=== PATIENT | female | born 1940 | race Caucasian/White ===

== ENCOUNTER 2020-11-16 19:08 | Observation (INO) | payer MEDICARE, BC, SELFPAY ==
--- NOTE | ~2020-11-16 | CT_ITS ---
EXAMINATION: CT BRAIN W/O DATE: 11/16/2020 20:05 INDICATION: Altered mental status. Headache. TECHNIQUE: Computed tomography (CT) of the head was performed without intravenous contrast. The dose- length product was 605.33 mGy-cm. Automated exposure control and iterative reconstruction technique w ere employed. COMPARISON: No prior studies for comparison. FINDINGS: Normal brain parenchymal volume for age. Normal dee-white differentiation. No acute intrac ranial hemorrhage, infarction, mass or mass effect. There are scattered mild periventricular and subc ortical white matter changes, most likely related to small vessel ischemic disease (microangiopathy). No ventriculomegaly or midline shift. Midline sagittal images demonstrate a normal corpus callosum, c raniovertebral junction and sella turcica. Basilar cisterns are patent. Paranasal sinuses and mastoids are pneumatized. No depressed skull fractures. IMPRESSION: 1. No acute intracranial abnormality. Reviewed, dictated and finalized at location A.
--- NOTE | ~2020-11-16 | XR_ITS ---
EXAMINATION: XR chest 1V portable 11/16/2020 20:06 INDICATION: Shortness of breath. Altered mental status. PROCEDURE: AP portable chest COMPARISON: No prior studies for comparison. FINDINGS: The lungs are clear. The cardiomediastinal silhouette is within normal limits. There are no pleural effusions. There is no pneumothorax suspected. IMPRESSION: 1: NO ACUTE CARDIOPULMONARY DISEASE. Reviewed, dictated and finalized at location A.
[2020-11-16 19:08] VITALS: BP 147/79; PULSE 65; RESP 13; TEMP 36.6; O2SAT 97
--- NOTE | 2020-11-16 19:19 | ECG_ITS ---
Measurements Intervals [place] Rate: 69 P: 68 MO: 208 QRS: 15 QRSD: 90 T: 67 QT: 389 QTc: 417 Interpretive Statements SINUS RHYTHM LOW QRS VOLTAGE IN PRECORDIAL LEADS CONSIDER INFERIOR INFARCT, AGE INDETERMINATE BASELINE ARTIFACT- I, II, III, AVR, AVL, AVF, V1-V3 ABNORMAL ECG Electronically Signed On 11-17-2020 7:43:58 CDT by Mike Gonzalez D.O.
--- NOTE | 2020-11-16 19:22 | ED.AMS ---
HPI - Altered Mental Status General Chief Complaint: Headache Stated Complaint: AMB Time Seen by Provider: 11/16/20 19:19 Source: patient and EMS Mode of arrival: EMS Limitations: altered mental status History of Present Illness HPI narrative: 80-year-old woman brought in today by EMS for elevated blood pressure and changes in mental status. Family members brought her dinner this evening and found her sitting in her chair, less active than usual, and with elevated blood pressure. Patient states that she has had headache shortness of breath and diarrhea today. She denies cough, fever, vomiting, abdominal pain, rash, dysuria, falls and focal weakness. Blood pressure at the scene was reported to be 200s/100s, 190s over upper 90s on route to the hospital. MD complaint: altered mental status and weakness Onset (ago): hour(s) Severity: moderate Consistency of symptoms: constant Associated symptoms: headaches, malaise, shortness of breath and diarrhea Related Data Home Medications Medication Instructions Recorded Confirmed amlodipine 10 mg PO DAILY 11/16/20 11/16/20 atorvastatin 20 mg PO HS 11/16/20 11/16/20 esomeprazole magnesium 40 mg PO DAILY 11/16/20 11/16/20 gabapentin 100 mg PO DAILY 11/16/20 11/16/20 metoprolol tartrate 100 mg PO BID 11/16/20 11/16/20 nabumetone 750 mg PO DAILY 11/16/20 11/16/20 oxybutynin chloride 15 mg PO DAILY 11/16/20 11/16/20 sertraline 100 mg PO DAILY 11/16/20 11/16/20 Allergies Allergy/AdvReac Type Severity Reaction Status Date / Time ceftaroline fosamil Allergy Intermediate Rash Verified 12/03/15 09:20 Penicillins Allergy Intermediate Rash Verified 12/03/15 09:20 Sulfa (Sulfonamide Allergy Intermediate Rash Verified 12/03/15 09:20 Antibiotics) Review of Systems Review of Systems: All systems reviewed & are unremarkable except as noted in HPI and below Constitutional: Constitutional: Denies chills, Reports fatigue, Denies fever(s) and Reports weakness Eyes: Eyes: Denies change in vision ENT: Denies nasal congestion and Denies sore throat Cardiovascular: Cardiovascular: Denies chest pain and Denies radiating jaw, neck or arm pain Respiratory: Respiratory: Denies cough, Reports dyspnea and Denies wheezing Gastrointestinal: Gastrointestinal: Denies abdominal pain, Reports diarrhea, Denies nausea and Denies vomiting Genitourinary: Genitourinary: Reports nocturia and Denies dysuria Musculoskeletal: Musculoskeletal: Denies arthralgias and Denies joint swelling Integumentary/Breasts: Skin/Breast: Denies pruritus, Denies erythema and Denies rash Neurologic: Denies vertigo, Denies dizziness and Denies syncope Hematologic/Lymphatic: Hematologic/Lymphatic: Denies easy bleeding and Denies easy bruising PMF Past Medical History Medical History (Updated 11/16/20 @ 21:02 by Pilo Calhoun MD) Arthritis Depression Frequent urination Hyperlipidemia Hypertension Restless leg syndrome Surgical History Surgical History (Updated 11/16/20 @ 19:35 by Pilo Calhoun MD) Above knee amputation of left lower extremity left knee infection after surgery History of partial hysterectomy Previous back surgery Social History Social History (Updated 11/16/20 @ 19:35 by Pilo Calhoun MD) Smoking status: Never smoker Alcohol intake: never Substance use: never Living arrangements: with family Exam Const: General: no acute distress and alert Other: oriented to person Eyes: Conjunctivae: conjunctivae normal Pupils: Equal, round and reactive pupils present EOM: EOMs intact bilaterally Resp: Effort & Inspection: normal respiratory effort and not labored Auscultation: clear to auscultation bilaterally, no rales, no rhonchi and no wheezes Cardio: Rate: regular rate Rhythm: regular rhythm Heart sounds: no murmurs GI: GI Palp: Yes Soft to palpation, No Tenderness to palpation present (GI) and No Guarding due to palpation present (GI) Auscultation: normal bowel
[2020-11-16 19:41] LABS: Basophils Absolute Auto 0.02 K/mm3 (0.00-0.10); Basophils Percent Auto 0.3 % (0.0-1.0); Eosinophils Absolute Auto 0.05 K/mm3 (0.02-0.50); Eosinophils Percent Auto 0.8 % (1.0-6.0); Hemoglobin 13.8 g/dL (11.7-13.8); Immature Granulocyte Absolute 0.02 K/mm3 (0.00-0.00); Immature Granulocyte Percent A 0.3 % (0.0-0.0); Lymphocytes Absolute Auto 2.11 K/mm3 (1.10-4.50); Lymphocytes Percent Auto 35.1 % (18.0-42.0); Mean Corpuscular HGB Conc 32.9 g/dL (32.0-36.0); Mean Corpuscular Hemoglobin 30.3 pg (27.0-31.0); Mean Corpuscular Volume 92.1 fL (78.0-102.0); Mean Platelet Volume 9.4 fl (9.2-11.8); Monocytes Percent Auto 8.3 % (2.0-11.0); Neutrophils Absolute Auto 3.3 K/mm3 (1.7-7.2); Neutrophils Percent Auto 55.2 % (50.0-70.0); Platelet Count Result 162 K/mm3 (150-420); Red Blood Count 4.56 M/mm3 (4.20-5.40)
[2020-11-16 19:55] LABS: Prothrombin Time 10.4 Seconds (9.50-12.10)
[2020-11-16 20:01] LABS: Alanine Aminotransferase 24 U/L (14-59); Alkaline Phosphatase 89 U/L (46-116); Anion Gap 11 mmol/L (8-16); Aspartate Amino Transferase 19 U/L (15-37); Bilirubin,Total 0.4 mg/dL (0.00-1.00); Blood Urea Nitrogen 31 mg/dL (7-18); CRP < 0.5 mg/dL (0.0-0.9); Calcium 9.1 mg/dL (8.5-10.1); Carbon Dioxide 27 mmol/L (21-32); Chloride 100 mmol/L (98-108); Estimated CRCL calculation 52 ml/min; Estimated Glomerular Filt Rate > 60; Glucose 111 mg/dL (70-99); Osmolality Calculated 293 mOsm/kg (285-295); Sodium 138 mmol/L (136-145); Total Protein 7.7 g/dL (6.4-8.2)
[2020-11-16 20:02] LABS: Troponin I 4.8 ng/L (0.00-60.4)
[2020-11-16 20:21] LABS: Add Urine Microscopic? YES; Appearance Urine Clear (Clear); Bilirubin Urine Negative (Negative); Blood Urine Negative (Negative); Color Urine Yellow (Yellow); Glucose Urine UA Negative (Negative); Ketones Urine Negative (Negative); Leukocyte Esterase Ur Negative LEU/UL (Negative); Nitrate Urine Positive (Negative); Protein Urine Negative (Negative); Specific Grav Ur 1.015 (1.010-1.020); Urobilinogen Urine 0.2 mg/dL (0.2-1.0)
[2020-11-16 20:27] LABS: Bacteria Urine 4+ /hpf; RBC Urine 0-2 /hpf (0-2); Squamous Epithelial Cell Urine Rare /hpf (Few); WBC Urine 0-3 /hpf (0-3)
[2020-11-16 20:30] LABS: SARS-CoV-2 RNA PCR Negative (Negative)
--- NOTE | 2020-11-16 20:55 | PC.NURSE ---
RN CONTACTED [facility] FOR OBS BED. ROOM 205 PROVIDED. REGISTRATION NOTIFIED.
[2020-11-16 21:03] LABS: Influenza Control Valid (Valid)
[2020-11-16 21:38] VITALS: BP 109/50; PULSE 65; RESP 12; O2SAT 93
--- NOTE | 2020-11-16 22:16 | ADMGEN ---
This patient, Marissa Sue, was admitted to 2nd Floor Room 205-2. Patient oriented to hospital policies and general routines including ID bracelet, bed and alarms, visiting hours, pain management, procedures, bathroom and other care routines, personal items, smoking policy, room service/diet, and visiting hours. Information on how to activate the Rapid Response Team has been discussed. Patient are encouraged to report perceived risks to care and to ask questions if they do not understand what they are told or what they should do.
[2020-11-16 22:19] VITALS: BMI 31.5
[2020-11-16 22:55] VITALS: PULSE 70
[2020-11-16] MEDS: METOPROLOL TARTRATE 50 MG TAB 100 MG PO (22:55)
[2020-11-16] MEDS: ATORVASTATIN 10 MG TABLET 20 MG PO (22:56)
[2020-11-16] MEDS: DEXTROSE 5%/LACTATED RINGERS 1,000 ML 150 ML IV CONT (22:57)
[2020-11-17] VITALS: BP 120/59; PULSE 72; RESP 16; TEMP 36.4; O2SAT 95
[2020-11-17 05:27] LABS: Basophils Absolute Auto 0.02 K/mm3 (0.00-0.10); Basophils Percent Auto 0.4 % (0.0-1.0); Eosinophils Absolute Auto 0.07 K/mm3 (0.02-0.50); Eosinophils Percent Auto 1.3 % (1.0-6.0); Hematocrit 37.9 % (35.0-42.0); Hemoglobin 12.2 g/dL (11.7-13.8); Immature Granulocyte Absolute 0.02 K/mm3 (0.00-0.00); Immature Granulocyte Percent A 0.4 % (0.0-0.0); Lymphocytes Absolute Auto 2.21 K/mm3 (1.10-4.50); Lymphocytes Percent Auto 40.9 % (18.0-42.0); Mean Corpuscular HGB Conc 32.2 g/dL (32.0-36.0); Mean Corpuscular Hemoglobin 29.6 pg (27.0-31.0); Mean Platelet Volume 9.4 fl (9.2-11.8); Monocytes Absolute Auto 0.53 K/mm3 (0.10-0.90); Monocytes Percent Auto 9.8 % (2.0-11.0); Neutrophils Absolute Auto 2.6 K/mm3 (1.7-7.2); Neutrophils Percent Auto 47.2 % (50.0-70.0); Platelet Count Result 139 K/mm3 (150-420); Red Blood Count 4.12 M/mm3 (4.20-5.40); Red Cell Distribution Width 16.2 % (11.6-14.4); White Blood Count 5.4 K/mm3 (4.8-10.8)
[2020-11-17 05:50] LABS: Alanine Aminotransferase 19 U/L (14-59); Albumin Level 3.3 g/dL (3.4-5.0); Alkaline Phosphatase 76 U/L (46-116); Anion Gap 10 mmol/L (8-16); Aspartate Amino Transferase 16 U/L (15-37); Bilirubin,Total 0.3 mg/dL (0.00-1.00); Blood Urea Nitrogen 25 mg/dL (7-18); Calcium 8.9 mg/dL (8.5-10.1); Carbon Dioxide 25 mmol/L (21-32); Chloride 105 mmol/L (98-108); Estimated CRCL calculation 57 ml/min; Estimated Glomerular Filt Rate > 60; Glucose 105 mg/dL (70-99); Osmolality Calculated 294 mOsm/kg (285-295); Potassium 3.8 mmol/L (3.5-5.1); Sodium 140 mmol/L (136-145); Total Protein 6.7 g/dL (6.4-8.2)
[2020-11-17 05:51] LABS: Lactic Acid Reflex 0.8 mmol/L (0.4-2.0)
[2020-11-17] MEDS: DEXTROSE 5%/LACTATED RINGERS 1,000 ML 150 ML IV CONT (06:02)
[2020-11-17 08:00] VITALS: BP 121/61; PULSE 67; RESP 16; TEMP 36.6; O2SAT 94
--- NOTE | 2020-11-17 08:06 | PM.IMHP ---
H&P: HPI History of Present Illness Date/Time: 11/17/20 08:06 Disregard Pt was same day admit/DC. [facility] Past Medical History Medical History (Updated 11/16/20 @ 21:02 by Pilo Calhoun MD) Arthritis Depression Frequent urination Hyperlipidemia Hypertension Restless leg syndrome Surgical History Surgical History (Updated 11/16/20 @ 19:35 by Pilo Calhoun MD) Above knee amputation of left lower extremity left knee infection after surgery History of partial hysterectomy Previous back surgery Social History Social History (Updated 11/16/20 @ 19:35 by Pilo Calhoun MD) Smoking status: Never smoker Second hand tobacco smoke exposure: No Alcohol intake: former Drinks per week: 0 Substance use: never Substance use type: does not use Living arrangements: with family Gender identity (if verbalized by the patient): Female Sexual Orientation (if Verbalized by the Patient): Straight or Heterosexual Spiritual care concerns: No Meds Home Medications and Allergies Home Medications Medication Instructions Recorded Confirmed Type amlodipine 10 mg PO DAILY 11/16/20 11/16/20 History atorvastatin 20 mg PO HS 11/16/20 11/16/20 History esomeprazole magnesium 40 mg PO DAILY 11/16/20 11/16/20 History gabapentin 100 mg PO HS 11/16/20 11/16/20 History metoprolol tartrate 100 mg PO DAILY 11/16/20 11/16/20 History nabumetone 750 mg PO BID 11/16/20 11/16/20 History oxybutynin chloride 15 mg PO DAILY 11/16/20 11/16/20 History sertraline 200 mg PO DAILY 11/16/20 11/16/20 History Allergies Allergy/AdvReac Type Severity Reaction Status Date / Time ceftaroline fosamil Allergy Intermediate Rash Verified 12/03/15 09:20 Penicillins Allergy Intermediate Rash Verified 12/03/15 09:20 Sulfa (Sulfonamide Allergy Intermediate Rash Verified 12/03/15 09:20 Antibiotics) Vital Signs Vital Signs - 24 hr 11/16/20 19:08 11/16/20 21:38 11/16/20 22:55 Temperature 97.9 F Pulse Rate 65 65 70 Respiratory Rate 13 12 Blood Pressure 147/79 H 109/50 L Pulse Oximetry 97 93 11/17/20 00:00 Temperature 97.6 F Pulse Rate 72 Respiratory Rate 16 Blood Pressure 120/59 L Pulse Oximetry 95 H&P: Results Labs Labs: Short CBC 11/16/20 11/17/20 Range/Units 19:34 05:16 WBC 6.0 5.4 (4.8-10.8) K/mm3 Hgb 13.8 12.2 (11.7-13.8) g/dL Hct 42.0 37.9 (35.0-42.0) % Plt Count 162 139 L (150-420) K/mm3 BMP 11/16/20 11/17/20 19:34 05:16 Sodium 138 140 Potassium 4.0 3.8 Chloride 100 105 Carbon Dioxide 27 25 BUN 31 H 25 H Creatinine 0.72 0.68 Glucose 111 H 105 H Calcium 9.1 8.9 Cardiac Enzymes 11/16/20 11/17/20 11/17/20 Range/Units 19:34 00:31 05:16 Troponin I 4.8 6.0 7.0 (0.00-60.4) ng/L Liver Function 11/16/20 11/17/20 Range/Units 19:34 05:16 Total Bilirubin 0.4 0.3 (0.00-1.00) mg/dL AST 19 16 (15-37) U/L ALT 24 19 (14-59) U/L Alkaline Phosphatase 89 76 (46-116) U/L Albumin 4.0 3.3 L (3.4-5.0) g/dL Urine 11/16/20 Range/Units 20:11 Urine Color Yellow (Yellow) Urine Appearance Clear (Clear) Urine pH 5.0 (5.0-8.0) Ur Specific [place] 1.015 (1.010-1.020) Urine Protein Negative (Negative) Urine Glucose (UA) Negative (Negative)
[2020-11-17 08:17] VITALS: PULSE 67
[2020-11-17] MEDS: METOPROLOL TARTRATE 50 MG TAB 100 MG PO (08:17)
[2020-11-17] MEDS: amLODIPine BESYLATE 5 MG TABLET 10 MG PO (08:17)
[2020-11-17] MEDS: GABAPENTIN 100 MG CAPSULE PO (08:17)
[2020-11-17] MEDS: SERTRALINE HCL 50 MG TABLET 100 MG PO (08:18)
[2020-11-17] MEDS: NAPROXEN 250 MG TABLET 500 MG PO (08:18)
[2020-11-17] MEDS: PANTOPRAZOLE 40 MG TABLET PO (08:18)
--- NOTE | 2020-11-17 11:33 | PM.SD2 ---
Same Day Admit/Disch: HPI History of Present Illness Chief complaint: AMB <RENATE Max - Last Filed: 11/17/20 13:12> Narrative: Marissa Sue is an 80 year old female who came to the hospital after she was found by her son sitting in a chair with a long distance look to her eyes. Pt states she had a sudden onset of a [place] at the front/top of her head. She sat down because she did not feel very well. At that time she either took her BP or BP was obtained by EMS and found to be as reported in the ER note 200s/100s. Pt states she did not forget to take her medications but she also states she does not remember when this happened nor for how long this happened. Pt denies CP, COB, changes in vision, hearing, no numbness or tingling, no pain with palpation or pressure on sternum. Pt states she has a little pain to the right groin area and lower abdomen. Her right foot is bluish from the ankle down with many varicose veins which she said has been that was since her Left AKA in 2011. She denies any new swelling, calf pain, upper leg pain, she does have pain when lifting her right leg. <RENATE Max - Last Filed: 11/17/20 13:12> [facility] Past Medical History Medical History: Medical History Arthritis Depression Frequent urination Hyperlipidemia Hypertension Restless leg syndrome <RENATE Max - Last Filed: 11/17/20 13:12> Surgical History Surgical History: Surgical History Above knee amputation of left lower extremity left knee infection after surgery History of partial hysterectomy Previous back surgery <RENATE Max - Last Filed: 11/17/20 13:12> Social History Social History: Social History Smoking status: Never smoker Second hand tobacco smoke exposure: No Alcohol intake: former Drinks per week: 0 Substance use: never Substance use type: does not use Living arrangements: with family Gender identity (if verbalized by the patient): Female Sexual Orientation (if Verbalized by the Patient): Straight or Heterosexual Spiritual care concerns: No <RENATE Max - Last Filed: 11/17/20 13:12> Same Day Admit/Disch: Med Pre-admit Medications Home Medications: Home Medications Medication Instructions Recorded Confirmed Type amlodipine 10 mg PO DAILY 11/16/20 11/16/20 History atorvastatin 20 mg PO HS 11/16/20 11/16/20 History esomeprazole magnesium 40 mg PO DAILY 11/16/20 11/16/20 History gabapentin 100 mg PO HS 11/16/20 11/16/20 History metoprolol tartrate 100 mg PO DAILY 11/16/20 11/16/20 History nabumetone 750 mg PO BID 11/16/20 11/16/20 History oxybutynin chloride 15 mg PO DAILY 11/16/20 11/16/20 History sertraline 200 mg PO DAILY 11/16/20 11/16/20 History levofloxacin 750 mg PO DAILY 4 Days #4 tablet 11/17/20 Rx <DINESH Max - Last Filed: 11/17/20 13:12> Exam Const: General: cooperative, comfortable, no acute distress, alert and awake <RENATE Max - Last Filed: 11/17/20 13:12> Nutritional Appearance: overweight <RENATE Max - Last Filed: 11/17/20 13:12> HENMT: Head: normal to inspection and normocephalic <RENATE Max - Last Filed: 11/17/20 13:12> Ears: other (a little [place], has hearing aids but not scharged sidney) <RENATE Max - Last Filed: 11/17/20 13:12> Eyes: General: appearance normal, both eyes and all related structures <RENATE Max - Last Filed: 11/17/20 13:12> Alignment and Position: alignment normal and position normal <RENATE Max - Last Filed: 11/17/20 13:12> Neck: Neck: normal visual inspection and no JVD <RENATE Max - Last Filed: 11/17/20 13:12> Chest: Chest palpation & inspection: other (normal palpation sternum without pain) <RENATE Max Las
--- NOTE | 2020-11-17 13:20 | PC.NURSE ---
Reviewed discharge instructions with patient and son. Assisted patient to dress, transferred patient to wheelchair. Taken off floor per wheelchair to main entrance, son waiting with family vehicle.
--- NOTE | 2020-11-20 13:07 | PC.NURSE ---
Follow up call attempted, no answer.
--- NOTE | 2020-11-21 12:36 | PC.NURSE ---
discharge call back attempted and no answer.
== END 2020-11-17 13:20 | disposition home or self-care (01) ==
LOC: CHSED 19:19 → CHS2ND 21:00
PROVIDERS: Admitting Provider Emergency Medicine; Emergency Provider Emergency Medicine; Visit Provider Emergency Medicine
DX: N39.0 Urinary tract infection, site not specified (principal); E86.0 Dehydration; R06.02 Shortness of breath; E78.5 Hyperlipidemia, unspecified; I83.91 Asymptomatic varicose veins of right lower extremity; I10 Essential (primary) hypertension; G25.81 Restless legs syndrome; F32.9 Major depressive disorder, single episode, unspecified; Z89.612 Acquired absence of left leg above knee; Z90.711 Acquired absence of uterus with remaining cervical stump; Z20.822 Contact with and (suspected) exposure to COVID-19
CPT/HCPCS: 36415; 70450; 71045; 80053; 81001; 83605; 84484; 85025; 85610; 85730; 86140; 87040; 87077; 87086; 87088; 87186; 87804; 93005; 96361; 96365; 99285; A9270; C9803; G0378; J1956; J7121; U0003; U0005

== ENCOUNTER 2021-12-19 20:36 | Inpatient (IN) | payer MEDICARE, BC, SELFPAY ==
[2021-12-19] VITALS (10 sets, daily range): BP systolic 128–134; BP diastolic 71–83; PULSE 79; RESP 18; TEMP 36.9; O2SAT 89–95
--- NOTE | ~2021-12-19 | XR_ITS ---
XR chest 1V portable DATE: 12/21/2021 08:59 INDICATION: Hypoxia TECHNIQUE: Portable upright AP chest on 12/21/2021 at 0903 hours COMPARISON: 12/19/2021 portable AP chest at 2132 hours FINDINGS: Heart size appears normal. Is aortic arch calcification and mild aortic tortuosity. No [place] r or mediastinal enlargement is evident. Moderate hyperinflation of the lungs. No pulmonary infiltrate or consolidation, pleural effusion or p ulmonary vascular congestion or pneumothorax is noted. Old posterolateral right sixth rib fracture. A portion of the lateral aspect of the right eighth rib appears absent, possibly due to prior right thoracotomy; recommend correlation with surgical history. Osteopenia. There is some calcification in the region of the rotator cuff right shoulder; consider calcific tendi nitis. IMPRESSION: Moderate hyperinflation is about no active pulmonary disease Aortic atherosclerosis Osteopenia Possible rotator cuff calcific tendinitis of the right Possible prior right thoracotomy segment recommend correlation with surgical history Reviewed, dictated and finalized at location A. IMPRESSION: Moderate hyperinflation is about no active pulmonary disease Aortic atherosclerosis Osteopenia Possible rotator cuff calcific tendinitis of the right Possible prior right thoracotomy segment recommend correlation with surgical hi story
--- NOTE | ~2021-12-19 | XR_ITS ---
EXAMINATION: XR chest 1V portable INDICATION: Weakness TECHNIQUE: Portable AP chest at 2132 hours COMPARISON: 11/16/2020 FINDINGS: The lungs are free of acute opacities. No pleural effusion or pneumothorax. The cardiomedia stinal silhouette is normal. There is moderate to severe left glenohumeral joint osteoarthritis. Heal ed right-sided rib fractures are noted. IMPRESSION: 1. No acute cardiopulmonary abnormality. Reviewed, dictated and finalized at location F.
--- NOTE | 2021-12-19 21:02 | ECG_ITS ---
Measurements Intervals [place] Rate: 79 P: 56 [place]: 192 QRS: 25 QRSD: 90 T: 66 QT: 386 QTc: 443 Interpretive Statements SINUS RHYTHM LOW QRS VOLTAGE IN PRECORDIAL LEADS BASELINE ARTIFACT- I, II, III, AVR, AVL, AVF, V1-V3, V6 BORDERLINE ECG Electronically Signed On 12-20-2021 6:38:06 CDT by Mike Gonzalez D.O.
--- NOTE | 2021-12-19 21:05 | ED.GENADULT ---
HPI - General Adult General Chief complaint: Weakness Stated complaint: AMB Source: patient and EMS Mode of arrival: EMS Limitations: physical limitation History of Present Illness HPI narrative: this is 81-year-old female that presents from home via EMS after for the last couple of days has felt increased weakness and unable to stand with her walker and artificial left lower extremity, since the patient has some above knee amputation secondary to an infection that she acquired. Currently the patient feels there is weakness with some no dysuria no chest pain no abdominal pain no shortness of breath no nausea vomiting no flank pain. The patient has a history of hypertension, depression, peripheral neuropathy and hyperlipidemia. Otherwise there is no fever chills no cough or congestion. Onset (ago): day(s) Severity: moderate Related Data Home Medications Medication Instructions Recorded Confirmed amlodipine 10 mg tablet 10 mg PO DAILY 11/16/20 11/16/20 atorvastatin 20 mg tablet 20 mg PO HS 11/16/20 11/16/20 esomeprazole magnesium 40 mg 40 mg PO DAILY 11/16/20 11/16/20 capsule,delayed release gabapentin 100 mg capsule 100 mg PO HS 11/16/20 11/16/20 metoprolol tartrate 100 mg tablet 100 mg PO DAILY 11/16/20 11/16/20 sertraline 100 mg tablet 200 mg PO DAILY 11/16/20 11/16/20 Allergy Relief (loratadine) 10 mg DAILY PRN seasonal 12/19/21 12/19/21 PreserVision AREDS-2 1 cap DAILY 12/19/21 12/19/21 bupropion HCl 150 mg 24 hr tablet, 1 tablet PO DAILY 12/19/21 12/19/21 extended release famotidine 20 mg DAILY 12/19/21 12/19/21 fluticasone propionate 50 1 ea intranasal DAILY PRN 12/19/21 12/19/21 mcg/actuation nasal Congestion spray,suspension losartan 100 mg tablet 1 tablet DAILY 12/19/21 12/19/21 mirabegron 50 mg tablet,extended 1 tablet PO DAILY 12/19/21 12/19/21 release 24 hr (Myrbetriq) Allergies Allergy/AdvReac Type Severity Reaction Status Date / Time ceftaroline fosamil Allergy Intermediate Rash Verified 12/19/21 23:09 Penicillins Allergy Intermediate Rash Verified 12/19/21 23:09 Sulfa (Sulfonamide Allergy Intermediate Rash Verified 12/19/21 23:09 Antibiotics) Review of Systems Review of Systems: All systems reviewed & are unremarkable except as noted in HPI and below PMFSH Past Medical History Medical History Arthritis Depression Frequent urination Hyperlipidemia Hypertension Restless leg syndrome Surgical History Surgical History Above knee amputation of left lower extremity left knee infection after surgery History of partial hysterectomy Previous back surgery Social History Social History Smoking status: Never smoker Second hand tobacco smoke exposure: No Alcohol intake: former Drinks per week: 0 Substance use: never Substance use type: does not use Gender identity (if verbalized by the patient): Female Sexual Orientation (if Verbalized by the Patient): Straight or Heterosexual Spiritual care concerns: No Exam Const: General: healthy appearing and no acute distress Nutritional Appearance: well nourished HENMT: Head: normal to inspection General nose exam: Normal external nose present Face and sinus: normal facial exam Mouth: Yes Normal oral and palatal mucosa present Eyes: Conjunctivae: conjunctivae normal Neck: Neck: normal visual inspection Chest: Chest palpation & inspection: normal inspection of the chest Resp: Effort & Inspection: normal respiratory effort Cardio: Rate: regular rate Rhythm: regular rhythm GI: GI Palp: Yes Soft to palpation Auscultation: normal bowel sounds : General: Yes bladder normal to palpation Urinary Catheter: Urinary Catheter: patent and draining Back/Spine/Pelvis: Back: no CVA tenderness Skin: General skin exam: normal color Rashes: no rashes W
[2021-12-19] MEDS: SODIUM CHLORIDE 0.9% IV 1,000 ML 999 ML IV CONT (21:24)
[2021-12-19 21:31] LABS: Basophils Absolute Auto 0.01 K/mm3 (0.00-0.10); Basophils Percent Auto 0.1 % (0.0-1.0); Eosinophils Absolute Auto 0.03 K/mm3 (0.02-0.50); Eosinophils Percent Auto 0.4 % (1.0-6.0); Hematocrit 40.7 % (35.0-42.0); Hemoglobin 13.1 g/dL (11.7-13.8); Immature Granulocyte Absolute 0.02 K/mm3 (0.00-0.00); Immature Granulocyte Percent A 0.3 % (0.0-0.0); Lymphocytes Absolute Auto 2.47 K/mm3 (1.10-4.50); Lymphocytes Percent Auto 33.7 % (18.0-42.0); Mean Corpuscular HGB Conc 32.2 g/dL (32.0-36.0); Mean Corpuscular Hemoglobin 29.6 pg (27.0-31.0); Mean Corpuscular Volume 91.9 fL (78.0-102.0); Mean Platelet Volume 9.7 fl (9.2-11.8); Monocytes Percent Auto 9.6 % (2.0-11.0); Neutrophils Absolute Auto 4.1 K/mm3 (1.7-7.2); Neutrophils Percent Auto 55.9 % (50.0-70.0); Platelet Count Result 176 K/mm3 (150-420); Red Blood Count 4.43 M/mm3 (4.20-5.40); Red Cell Distribution Width 18.6 % (11.6-14.4); White Blood Count 7.3 K/mm3 (4.8-10.8)
[2021-12-19 21:54] LABS: Lactic Acid Reflex 0.7 mmol/L (0.4-2.0)
[2021-12-19 21:55] LABS: Alanine Aminotransferase 22 U/L (14-59); Albumin Level 3.8 g/dL (3.4-5.0); Alkaline Phosphatase 105 U/L (46-116); Anion Gap 9 mmol/L (8-16); Aspartate Amino Transferase 22 U/L (15-37); Bilirubin,Total 0.3 mg/dL (0.00-1.00); Blood Urea Nitrogen 29 mg/dL (7-18); CRP 3.3 mg/dL (0.0-0.9); Carbon Dioxide 26 mmol/L (21-32); Chloride 101 mmol/L (98-108); Estimated CRCL calculation 54 ml/min; Estimated Glomerular Filt Rate > 60; Glucose 123 mg/dL (70-99); NT Pro B Type Natriuretic Pept 247 pg/mL (0-450); Osmolality Calculated 288 mOsm/kg (285-295); Potassium 3.8 mmol/L (3.5-5.1); Sodium 136 mmol/L (136-145); Total Protein 7.7 g/dL (6.4-8.2); Troponin I 10.7 ng/L (0.00-60.4)
[2021-12-19 22:33] LABS: Add Urine Microscopic? YES; Appearance Urine Clear (Clear); Bilirubin Urine Negative (Negative); Blood Urine Negative (Negative); Color Urine Light Yellow (Yellow); Glucose Urine UA Negative (Negative); Ketones Urine Negative (Negative); Leukocyte Esterase Ur Trace (Negative); Nitrate Urine Positive (Negative); Protein Urine Negative (Negative); Specific Grav Ur 1.015 (1.010-1.020); Urobilinogen Urine 0.2 mg/dL (0.2-1.0)
[2021-12-19 22:39] LABS: Bacteria Urine 4+ /hpf; RBC Urine 0-2 /hpf (0-2); Squamous Epithelial Cell Urine Rare /hpf (Few)
[2021-12-19] MEDS: levoFLOXacin 500 MG/D5W 100 ML 500 MG/100 ML BAG 100 MG IVPB (23:32)
[2021-12-20] VITALS (11 sets, daily range): BP systolic 108–151; BP diastolic 54–71; PULSE 82–88; RESP 17–20; TEMP 36.9–37.7; O2SAT 88–94; BMI 31.7
[2021-12-20] MEDS: SODIUM CHLORIDE 0.9% IV 1,000 ML 100 ML IV CONT ×2 (01:16→13:54)
--- NOTE | 2021-12-20 01:59 | ADMGEN ---
This patient, Marissa Sue, was admitted to 2nd Floor Room 209-1. Patient was oriented to hospital policies and general routines including ID bracelet, bed and alarms, pain management, procedures, bathroom and other care routines, personal items, smoking policy, room service/diet, and visiting hours. Information on how to activate the Rapid Response Team has been discussed. Patient is encouraged to report perceived risks to care and to ask questions if she does not understand what she is told or what she should do.
[2021-12-20 08:15] LABS: Basophils Absolute Auto 0.01 K/mm3 (0.00-0.10); Basophils Percent Auto 0.2 % (0.0-1.0); Eosinophils Absolute Auto 0.03 K/mm3 (0.02-0.50); Eosinophils Percent Auto 0.5 % (1.0-6.0); Hematocrit 35.5 % (35.0-42.0); Hemoglobin 11.5 g/dL (11.7-13.8); Immature Granulocyte Absolute 0.02 K/mm3 (0.00-0.00); Immature Granulocyte Percent A 0.3 % (0.0-0.0); Lymphocytes Absolute Auto 1.79 K/mm3 (1.10-4.50); Lymphocytes Percent Auto 27.7 % (18.0-42.0); Mean Corpuscular HGB Conc 32.4 g/dL (32.0-36.0); Mean Corpuscular Hemoglobin 29.5 pg (27.0-31.0); Mean Platelet Volume 9.7 fl (9.2-11.8); Monocytes Percent Auto 10.8 % (2.0-11.0); Neutrophils Absolute Auto 3.9 K/mm3 (1.7-7.2); Neutrophils Percent Auto 60.5 % (50.0-70.0); Platelet Count Result 142 K/mm3 (150-420); Red Cell Distribution Width 18.5 % (11.6-14.4); White Blood Count 6.5 K/mm3 (4.8-10.8)
[2021-12-20 08:30] LABS: Alanine Aminotransferase 24 U/L (14-59); Albumin Level 3.2 g/dL (3.4-5.0); Alkaline Phosphatase 84 U/L (46-116); Anion Gap 9 mmol/L (8-16); Aspartate Amino Transferase 18 U/L (15-37); Bilirubin,Total 0.5 mg/dL (0.00-1.00); Blood Urea Nitrogen 21 mg/dL (7-18); Calcium 8.6 mg/dL (8.5-10.1); Carbon Dioxide 25 mmol/L (21-32); Chloride 105 mmol/L (98-108); Estimated CRCL calculation 60 ml/min; Estimated Glomerular Filt Rate > 60; Glucose 114 mg/dL (70-99); Osmolality Calculated 292 mOsm/kg (285-295); Potassium 3.8 mmol/L (3.5-5.1); Sodium 139 mmol/L (136-145); Total Protein 6.7 g/dL (6.4-8.2)
[2021-12-20] MEDS: buPROPion HCL XL (24 HR) 150 MG TABCR PO (09:28)
[2021-12-20] MEDS: LORATADINE 10 MG TABLET PO (09:28)
[2021-12-20] MEDS: MIRABEGRON 25 MG ER TABLET 50 MG PO (09:28)
[2021-12-20] MEDS: METOPROLOL TARTRATE 50 MG TAB 100 MG PO (09:29)
[2021-12-20] MEDS: LOSARTAN POTASSIUM 50 MG TABLET 100 MG PO (09:30)
[2021-12-20] MEDS: FAMOTIDINE 20 MG TABLET PO (09:30)
[2021-12-20] MEDS: GABAPENTIN 100 MG CAPSULE PO ×3 (09:30→16:55)
[2021-12-20] MEDS: SERTRALINE HCL 50 MG TABLET 200 MG PO (09:31)
[2021-12-20] MEDS: amLODIPine BESYLATE 5 MG TABLET 10 MG PO (09:31)
[2021-12-20] MEDS: PANTOPRAZOLE SODIUM IV 40 MG VIAL IV PUSH (09:32)
--- NOTE | 2021-12-20 11:47 | PC.NURSE ---
1130 change pateint to inpatient staus at this time.
--- NOTE | 2021-12-20 11:58 | PM.IMHP ---
H&P: HPI History of Present Illness Date/Time: 12/20/21 11:58 Chief Complaint: Weakness Narrative: This is a 81-year-old female that presented to our emergency department via EMS due to increased weakness. Patient has a past medical history of arthritis, depression, frequent urination, hyperlipidemia, hypertension, restless leg syndrome and status post AKA of the left leg. According to patient 2 days ago she started to develop weakness and it became difficult for her to ambulate. Patient notes that yesterday her condition worsened and she was unable to ambulate at all. Patient denies any signs and symptoms of a urinary tract infection. Patient lives with her son and [id number] she also has a granddaughter who is a physical therapist. Patient will remain in the hospital to be treated with antibiotics for her urinary tract infection. She will transition to our swing bed tomorrow. WBC 7.3 hemoglobin 13.1 hematocrit 40.7, platelets 176, sodium 136, potassium 3.8, BUN 29, creatinine 0.70, glucose 123, lactic acid 0.7, liver function test within normal limit, troponin 10.7, CRP 3.3, UA positive for nitrates leukocyte Estrace and bacteria, chest x-ray unremarkable EKG sinus rhythm with a heart rate of 79. The patient denies SOB, CP, palpitation, extremity numbness, lightheadedness, dizziness, constipation, diarrhea, chills, or fever.. Patient notes that she remains weak. Patient originally declined transitioning to a swing bed she now agrees to remain here as a swing bed patient. Review of Systems Review of Systems: A 14 organ system Review of Systems was performed and pertinent positives included in the HPI, otherwise remaining ROS is negative. [facility] Past Medical History Medical History Arthritis Depression Frequent urination Hyperlipidemia Hypertension Restless leg syndrome Surgical History Surgical History Above knee amputation of left lower extremity left knee infection after surgery History of partial hysterectomy Previous back surgery Family History Family History (Updated 12/20/21 @ 01:04 by Alexandra Concepcion RN) Father Stomach cancer Social History Social History Smoking status: Never smoker Second hand tobacco smoke exposure: Yes (Both parents smoked.) Alcohol intake: former Drinks per week: 1 Substance use: never Substance use type: does not use Gender identity (if verbalized by the patient): Female Sexual Orientation (if Verbalized by the Patient): Straight or Heterosexual Spiritual care concerns: No Meds Home Medications and Allergies Home Medications Medication Instructions Recorded Confirmed Type amlodipine 10 mg tablet 10 mg PO DAILY 11/16/20 12/19/21 History atorvastatin 20 mg tablet 20 mg PO HS 11/16/20 12/19/21 History esomeprazole magnesium 40 mg 40 mg PO DAILY 11/16/20 12/19/21 History capsule,delayed release gabapentin 100 mg capsule 100 mg PO TID 11/16/20 12/19/21 History metoprolol tartrate 100 mg tablet 100 mg PO DAILY 11/16/20 12/19/21 History sertraline 100 mg tablet 200 mg PO DAILY 11/16/20 12/19/21 History Allergy Relief (loratadine) 10 mg DAILY PRN seasonal 12/19/21 12/19/21 History PreserVision AREDS-2 1 cap DAILY 12/19/21 12/19/21 History bupropion HCl 150 mg 24 hr tablet, 1 tablet PO DAILY 12/19/21 12/19/21 History extended release famotidine 20 mg DAILY 12/19/21 12/19/21 History fluticasone propionate 50 1 ea intranasal DAILY PRN 12/19/21 12/19/21 History mcg/actuation nasal Congestion spray,suspension losartan 100 mg tablet 1 tablet DAILY 12/19/21 12/19/21 History mirabegron 50 mg tablet,extended 1 tablet PO DAILY 12/19/21 12/19/21 History release 24 hr (Myrbetriq) Allergies Allergy/AdvReac Type Severity Reaction Status Date / Time ceftaroline fosamil Allergy Intermed
--- NOTE | 2021-12-20 13:17 | PHAR ---
verified with [facility] pharmacist that patient takes metoprolol TARTRATE 100mg po daily. tls
[2021-12-20] MEDS: ACETAMINOPHEN 325 MG TABLET 650 MG PO (15:14)
[2021-12-20] MEDS: ATORVASTATIN 10 MG TABLET 20 MG PO (20:51)
[2021-12-20] MEDS: DOCUSATE SODIUM 100 MG CAPSULE PO (20:51)
[2021-12-21 05:08] LABS: Hematocrit 37.7 % (35.0-42.0); Hemoglobin 12.3 g/dL (11.7-13.8); Mean Corpuscular HGB Conc 32.6 g/dL (32.0-36.0); Mean Corpuscular Hemoglobin 29.7 pg (27.0-31.0); Mean Corpuscular Volume 91.1 fL (78.0-102.0); Mean Platelet Volume 9.9 fl (9.2-11.8); Platelet Count Result 148 K/mm3 (150-420); Red Blood Count 4.14 M/mm3 (4.20-5.40); Red Cell Distribution Width 18.4 % (11.6-14.4); White Blood Count 7.8 K/mm3 (4.8-10.8)
[2021-12-21 05:18] LABS: Anion Gap 9 mmol/L (8-16); Blood Urea Nitrogen 13 mg/dL (7-18); Calcium 8.8 mg/dL (8.5-10.1); Carbon Dioxide 25 mmol/L (21-32); Chloride 102 mmol/L (98-108); Estimated CRCL calculation 66 ml/min; Estimated Glomerular Filt Rate > 60; Glucose 122 mg/dL (70-99); Osmolality Calculated 283 mOsm/kg (285-295); Potassium 3.7 mmol/L (3.5-5.1); Sodium 136 mmol/L (136-145)
[2021-12-21] MEDS: PANTOPRAZOLE SODIUM IV 40 MG VIAL IV PUSH (07:59)
[2021-12-21 08:00] VITALS: BP 140/68; PULSE 95; RESP 18; TEMP 37.4; O2SAT 91
[2021-12-21] MEDS: amLODIPine BESYLATE 5 MG TABLET 10 MG PO (08:00)
[2021-12-21] MEDS: GABAPENTIN 100 MG CAPSULE PO (08:00)
[2021-12-21] MEDS: SERTRALINE HCL 50 MG TABLET 200 MG PO (08:00)
[2021-12-21 08:01] VITALS: PULSE 95
[2021-12-21] MEDS: METOPROLOL TARTRATE 50 MG TAB 100 MG PO (08:01)
[2021-12-21] MEDS: FAMOTIDINE 20 MG TABLET PO (08:01)
[2021-12-21] MEDS: buPROPion HCL XL (24 HR) 150 MG TABCR PO (08:01)
[2021-12-21] MEDS: LOSARTAN POTASSIUM 50 MG TABLET 100 MG PO (08:01)
[2021-12-21] MEDS: ACETAMINOPHEN 325 MG TABLET 650 MG PO (08:01)
[2021-12-21] MEDS: LORATADINE 10 MG TABLET PO (08:03)
[2021-12-21] MEDS: MIRABEGRON 25 MG ER TABLET 50 MG PO (08:03)
[2021-12-21] MEDS: DOCUSATE SODIUM 100 MG CAPSULE PO (08:03)
--- NOTE | 2021-12-21 09:57 | PM.DS ---
DS: Admitting Diagnosis Discharge Date 12/21/2021 Admitting Diagnosis Urinary tract infection and weakness DS: Discharge Diagnosis Discharge Diagnosis (1) UTI (urinary tract infection): Qualifiers: Hematuria presence: without hematuria Urinary tract infection type: acute cystitis Qualified Code(s): N30.00 - Acute cystitis without hematuria Code(s): N39.0 - Urinary tract infection, site not specified Status: Acute Assessment and Plan: Patient UA positive for leukocyte Estrace, nitrate and bacteria UA culture pending Patient given levothyroxine in the ED. We will start Rocephin CRP elevated at 3.3 (2) Weakness: Code(s): R53.1 - Weakness Status: Acute Assessment and Plan: PT OT consult Patient will transition to swing bed (3) Depression: Code(s): F32.9 - Major depressive disorder, single episode, unspecified Status: Acute Assessment and Plan: Continue home medication (4) Restless leg syndrome: Code(s): G25.81 - Restless legs syndrome Status: Acute Assessment and Plan: Continue home medication (5) Frequent urination: Code(s): R35.0 - Frequency of micturition Status: Acute Assessment and Plan: Continue home medication (6) Hyperlipidemia: Code(s): E78.5 - Hyperlipidemia, unspecified Status: Acute Assessment and Plan: Continue statins (7) Hypertension: Code(s): I10 - Essential (primary) hypertension Status: Acute Assessment and Plan: Blood pressure stable Continue amlodipine with metoprolol Vital signs as ordered Will adjust medication as needed DS: Summary Hospital Course Reason for hospitalization: UTI and weakness Hospital Course: This is a 81-year-old female that presented to our emergency department via EMS due to increased weakness.? Patient has a past medical history of arthritis, depression, frequent urination, hyperlipidemia, hypertension, restless leg syndrome and status post AKA of the left leg.? According to patient 2 days ago she started to develop weakness and it became difficult for her to ambulate.? Patient notes that yesterday her condition worsened and she was unable to ambulate at all.? Patient denies any signs and symptoms of a urinary tract infection.? Patient lives with her son and [id number] she also has a granddaughter who is a physical therapist.? Patient will remain in the hospital to be treated with antibiotics for her urinary tract infection.? She will transition to our swing bed today. The patient denies SOB, CP, palpitation, extremity numbness, lightheadedness, dizziness, constipation, diarrhea, chills, or fever. Time Spent with Patient Time attestation: Total time spent providing and/or coordinating discharge services: Exam Narrative: GENERAL: This is a well-nourished, well-developed patient, in no apparent distress. HEAD: normocephalic, atraumatic. EYES: PERRL. Sclera clear/white. Vision is grossly intact. EARS: External ears normal, auditory canals clear and without drainage, TMs normal without perforation. Hearing grossly intact. NOSE: External nose normal with no obvious nasal discharge, nares without redness, no rhinorrhea. THROAT: Mucous membranes moist, posterior pharynx clear. NECK: Neck supple, non-tender without lymphadenopathy, masses or thyromegaly. CARDIOVASCULAR: Regular rate and rhythm without murmurs, gallops, or rubs. RESPIRATORY: Clear to auscultation. Breath sounds equal bilaterally. No wheezes, rales, or rhonchi. GASTROINTESTINAL: Abdomen soft, non-tender, nondistended. Bowel sounds are active. No hepato-splenomegaly, or palpable masses. No guarding. SKIN: warm, intact with no suspicious lesions or rash, good texture and turgor. NEURO: awake, alert, and oriented to person, place and time. There were no obvious focal neurologic abnormalities. Steady gait EXTREMITIES: Left AKA normal range of motion. No liz
--- NOTE | 2021-12-21 10:08 | PC.NURSE ---
Pt discharged to swing bed.
== END 2021-12-21 10:00 | disposition swing bed (61) | DRG 690 ==
LOC: CHSED 23:33 → CHS2ND 12-20 00:12
PROVIDERS: Nurse Practitioner; Admitting Provider Internal Medicine; Emergency Provider Emergency Medicine; PCP Family Medicine; Visit Provider Internal Medicine
DX: N39.0 Urinary tract infection, site not specified (principal); I10 Essential (primary) hypertension; E78.5 Hyperlipidemia, unspecified; G25.81 Restless legs syndrome; M19.90 Unspecified osteoarthritis, unspecified site; F32.A Depression, unspecified; Z89.612 Acquired absence of left leg above knee
CPT/HCPCS: 36415; 71045; 80048; 80053; 81001; 83605; 83880; 84484; 85025; 85027; 86140; 87040; 87077; 87086; 87088; 87186; 93005; 96361; 96365; 96375; 97161; 97165; 97530; 99285; A9270; C9113; G0378; J0696; J1956; J7030

== ENCOUNTER 2021-12-21 10:05 | Inpatient (IN) | payer MEDICARE, BC, SELFPAY ==
[2021-12-21 10:15] VITALS: O2SAT 91
--- NOTE | 2021-12-21 10:15 | ADMGEN ---
This patient, Marissa Sue, was admitted to 2nd Floor Room 209-1. Patient/family oriented to hospital policies and general routines including ID bracelet, bed and alarms, visiting hours, pain management, procedures, bathroom and other care routines, personal items, smoking policy, room service/diet, and visiting hours. Information on how to activate the Rapid Response Team has been discussed. Patient/Family are encouraged to report perceived risks to care and to ask questions if they do not understand what they are told or what they should do.
[2021-12-21 10:30] VITALS: O2SAT 91
--- NOTE | 2021-12-21 10:39 | PM.IMHP ---
H&P: HPI History of Present Illness Date/Time: 12/21/21 10:39 Chief Complaint: weakness Narrative: This is a 81-year-old female that presented to our emergency department via EMS due to increased weakness.? Patient has a past medical history of arthritis, depression, frequent urination, hyperlipidemia, hypertension, restless leg syndrome and status post AKA of the left leg.? According to patient 2 days ago she started to develop weakness and it became difficult for her to ambulate.? Patient notes that yesterday her condition worsened and she was unable to ambulate at all.? Patient denies any signs and symptoms of a urinary tract infection.? Patient lives with her son and [id number] she also has a granddaughter who is a physical therapist.? Patient will remain in the hospital to be treated with antibiotics for her urinary tract infection.? She will transition to our swing bed today.? The patient denies SOB, CP, palpitation, extremity numbness, lightheadedness, dizziness, constipation, diarrhea, chills, or fever. Review of Systems Review of Systems: A 14 organ system Review of Systems was performed and pertinent positives included in the HPI, otherwise remaining ROS is negative. [facility] Past Medical History Medical History Arthritis Depression Frequent urination Hyperlipidemia Hypertension Restless leg syndrome Surgical History Surgical History Above knee amputation of left lower extremity left knee infection after surgery History of partial hysterectomy Previous back surgery Family History Family History Father Stomach cancer Social History Social History Smoking status: Never smoker Second hand tobacco smoke exposure: Yes (Both parents smoked.) Alcohol intake: unknown Drinks per week: 1 Substance use: unknown Substance use type: does not use Gender identity (if verbalized by the patient): Female Sexual Orientation (if Verbalized by the Patient): Straight or Heterosexual Spiritual care concerns: No Meds Home Medications and Allergies Home Medications Medication Instructions Recorded Confirmed Type amlodipine 10 mg tablet 10 mg PO DAILY 11/16/20 12/21/21 History atorvastatin 20 mg tablet 20 mg PO HS 11/16/20 12/21/21 History esomeprazole magnesium 40 mg 40 mg PO DAILY 11/16/20 12/21/21 History capsule,delayed release gabapentin 100 mg capsule 100 mg PO TID 11/16/20 12/21/21 History metoprolol tartrate 100 mg tablet 100 mg PO DAILY 11/16/20 12/21/21 History sertraline 100 mg tablet 200 mg PO DAILY 11/16/20 12/21/21 History Allergy Relief (loratadine) 10 mg DAILY PRN seasonal 12/19/21 12/21/21 History PreserVision AREDS-2 1 cap DAILY 12/19/21 12/21/21 History bupropion HCl 150 mg 24 hr tablet, 1 tablet PO DAILY 12/19/21 12/21/21 History extended release famotidine 20 mg DAILY 12/19/21 12/21/21 History fluticasone propionate 50 1 ea intranasal DAILY PRN 12/19/21 12/21/21 History mcg/actuation nasal Congestion spray,suspension losartan 100 mg tablet 1 tablet DAILY 12/19/21 12/21/21 History mirabegron 50 mg tablet,extended 1 tablet PO DAILY 12/19/21 12/21/21 History release 24 hr (Myrbetriq) Allergies Allergy/AdvReac Type Severity Reaction Status Date / Time ceftaroline fosamil Allergy Intermediate Rash Verified 12/19/21 23:09 Penicillins Allergy Intermediate Rash Verified 12/19/21 23:09 Sulfa (Sulfonamide Allergy Intermediate Rash Verified 12/19/21 23:09 Antibiotics) Vital Signs Vital Signs - 24 hr 12/21/21 10:15 12/21/21 10:30 Pulse Oximetry 91 91 Oxygen Delivery Nasal Cannula Nasal Cannula Oxygen Flow Rate 2 2 Exam Narrative: GENERAL: This is a well-nourished, well-developed patient, in no apparent distress. HEAD: normocephalic, a
[2021-12-21] MEDS: GABAPENTIN 100 MG CAPSULE PO ×2 (13:29→17:34)
[2021-12-21 16:00] VITALS: BP 148/74; PULSE 68; RESP 20; TEMP 36.1; O2SAT 92
[2021-12-21] MEDS: ACETAMINOPHEN 325 MG TABLET 650 MG PO (17:40)
[2021-12-21 18:43] VITALS: BMI 31.9
[2021-12-21] MEDS: DOCUSATE SODIUM 100 MG CAPSULE PO (20:43)
[2021-12-21] MEDS: ATORVASTATIN 10 MG TABLET 20 MG PO (20:43)
[2021-12-21] MEDS: DICLOFENAC SODIUM 1% 100 GM GEL (*BKC) 1 APPLIC TOPICAL (20:44)
--- NOTE | 2021-12-21 22:24 | PC.NURSE ---
Pt used a bed mc and had a large bm that consisted of formed, brown stool. Pt was then cleaned up w/hygiene wipes w/Alicia Jain RN.'s assistance. A clean depend was placed on the pt and bed lowered to lowest position. Pt's foot is elevated w/a pillow and call light placed w/in reach.
[2021-12-21 23:04] VITALS: BP 127/56; PULSE 89; RESP 16; TEMP 36.6; O2SAT 91
--- NOTE | 2021-12-21 23:45 | PC.NURSE ---
Pt asleep and no signs of discomfort noted.
--- NOTE | 2021-12-22 02:08 | PC.NURSE ---
Pt asleep and no signs of discomfort noted.
--- NOTE | 2021-12-22 04:00 | PC.NURSE ---
Pt incontinent of urine and small amount of brown stool; Pt cleaned, changed and repositioned.
[2021-12-22 05:30] VITALS: O2SAT 96
--- NOTE | 2021-12-22 06:17 | PC.NURSE ---
Pt asleep and no signs of discomfort noted.
[2021-12-22 07:55] VITALS: BP 133/71; PULSE 89; RESP 18; TEMP 36.8; O2SAT 94
[2021-12-22] MEDS: SERTRALINE HCL 50 MG TABLET 200 MG PO (09:26)
[2021-12-22 09:28] VITALS: PULSE 89
[2021-12-22] MEDS: buPROPion HCL XL (24 HR) 150 MG TABCR PO (09:28)
[2021-12-22] MEDS: METOPROLOL TARTRATE 50 MG TAB 100 MG PO (09:28)
[2021-12-22] MEDS: DOCUSATE SODIUM 100 MG CAPSULE PO (09:28)
[2021-12-22] MEDS: PANTOPRAZOLE 40 MG TABLET PO (09:29)
[2021-12-22] MEDS: LORATADINE 10 MG TABLET PO (09:29)
[2021-12-22] MEDS: LOSARTAN POTASSIUM 50 MG TABLET 100 MG PO (09:29)
[2021-12-22] MEDS: amLODIPine BESYLATE 5 MG TABLET 10 MG PO (09:29)
[2021-12-22] MEDS: DICLOFENAC SODIUM 1% 100 GM GEL (*BKC) 1 APPLIC TOPICAL ×4 (09:29→20:26)
[2021-12-22] MEDS: GABAPENTIN 100 MG CAPSULE PO ×3 (09:29→17:26)
[2021-12-22] MEDS: FAMOTIDINE 20 MG TABLET PO (09:29)
[2021-12-22] MEDS: MIRABEGRON 25 MG ER TABLET 50 MG PO (09:30)
[2021-12-22] MEDS: HYDROcodone/acetaminophen (*CRX) 5-325 MG TABLET 1 TAB PO ×2 (13:02→20:24)
[2021-12-22 16:40] VITALS: BP 118/63; PULSE 61; RESP 18; TEMP 37.1; O2SAT 93
[2021-12-22] MEDS: ATORVASTATIN 10 MG TABLET 20 MG PO (20:24)
[2021-12-23] VITALS: BP 109/55; PULSE 72; RESP 16; TEMP 35.9; O2SAT 95
[2021-12-23 05:30] VITALS: O2SAT 96
[2021-12-23 08:00] VITALS: BP 109/47; PULSE 76; RESP 16; TEMP 36.3; O2SAT 92
[2021-12-23 08:13] LABS: Glucose Point of Care 115 mg/dl (65-105)
[2021-12-23] MEDS: SERTRALINE HCL 50 MG TABLET 200 MG PO (08:56)
[2021-12-23 08:57] VITALS: PULSE 76
[2021-12-23] MEDS: METOPROLOL TARTRATE 50 MG TAB 100 MG PO (08:57)
[2021-12-23] MEDS: PANTOPRAZOLE 40 MG TABLET PO (08:58)
[2021-12-23] MEDS: DOCUSATE SODIUM 100 MG CAPSULE PO (08:58)
[2021-12-23] MEDS: amLODIPine BESYLATE 5 MG TABLET 10 MG PO (08:59)
[2021-12-23] MEDS: LOSARTAN POTASSIUM 50 MG TABLET 100 MG PO (08:59)
[2021-12-23] MEDS: LORATADINE 10 MG TABLET PO (08:59)
[2021-12-23] MEDS: GABAPENTIN 100 MG CAPSULE PO ×3 (08:59→17:15)
[2021-12-23] MEDS: buPROPion HCL XL (24 HR) 150 MG TABCR PO (09:00)
[2021-12-23] MEDS: MIRABEGRON 25 MG ER TABLET 50 MG PO (09:00)
[2021-12-23] MEDS: FAMOTIDINE 20 MG TABLET PO (09:00)
[2021-12-23] MEDS: DICLOFENAC SODIUM 1% 100 GM GEL (*BKC) 1 APPLIC TOPICAL ×4 (09:01→20:32)
[2021-12-23 12:02] LABS: Glucose Point of Care 118 mg/dl (65-105)
[2021-12-23 16:00] VITALS: BP 129/62; PULSE 76; RESP 16; TEMP 36.8; O2SAT 93
[2021-12-23] MEDS: HYDROcodone/acetaminophen (*CRX) 5-325 MG TABLET 1 TAB PO (20:00)
[2021-12-23] MEDS: ATORVASTATIN 10 MG TABLET 20 MG PO (20:27)
[2021-12-23 23:31] VITALS: BP 110/50; PULSE 80; RESP 18; TEMP 36.3; O2SAT 96
[2021-12-24 01:49] VITALS: O2SAT 96
--- NOTE | 2021-12-24 07:40 | PC.NURSE ---
Assisted OT with pivot transfer of patient from side of bed to recliner chair, mod/max assist needed to help stand and pivot to chair,
[2021-12-24 08:00] VITALS: BP 136/66; PULSE 80; RESP 16; TEMP 36.7; O2SAT 90
[2021-12-24 09:22] VITALS: PULSE 80
[2021-12-24] MEDS: DOCUSATE SODIUM 100 MG CAPSULE PO ×2 (09:22→21:34)
[2021-12-24] MEDS: MIRABEGRON 25 MG ER TABLET 50 MG PO (09:22)
[2021-12-24] MEDS: METOPROLOL TARTRATE 50 MG TAB 100 MG PO (09:22)
[2021-12-24] MEDS: buPROPion HCL XL (24 HR) 150 MG TABCR PO (09:22)
[2021-12-24] MEDS: PANTOPRAZOLE 40 MG TABLET PO (09:22)
[2021-12-24] MEDS: GABAPENTIN 100 MG CAPSULE PO ×3 (09:22→16:16)
[2021-12-24] MEDS: SERTRALINE HCL 50 MG TABLET 200 MG PO (09:22)
[2021-12-24] MEDS: amLODIPine BESYLATE 5 MG TABLET 10 MG PO (09:23)
[2021-12-24] MEDS: LOSARTAN POTASSIUM 50 MG TABLET 100 MG PO (09:23)
[2021-12-24] MEDS: FAMOTIDINE 20 MG TABLET PO (09:24)
[2021-12-24] MEDS: LORATADINE 10 MG TABLET PO (09:24)
[2021-12-24] MEDS: DICLOFENAC SODIUM 1% 100 GM GEL (*BKC) 1 APPLIC TOPICAL ×4 (09:25→21:34)
[2021-12-24 16:00] VITALS: BP 118/64; PULSE 74; RESP 18; TEMP 36.7; O2SAT 94
[2021-12-24] MEDS: ATORVASTATIN 10 MG TABLET 20 MG PO (21:09)
[2021-12-25] VITALS: BP 90/67; PULSE 74; RESP 18; TEMP 36.1; O2SAT 92
[2021-12-25 08:00] VITALS: BP 100/70; PULSE 78; RESP 16; TEMP 36.6; O2SAT 98
[2021-12-25] MEDS: LOSARTAN POTASSIUM 50 MG TABLET 100 MG PO (09:25)
[2021-12-25] MEDS: SERTRALINE HCL 50 MG TABLET 200 MG PO (09:30)
[2021-12-25] MEDS: FAMOTIDINE 20 MG TABLET PO (09:32)
[2021-12-25] MEDS: MIRABEGRON 25 MG ER TABLET 50 MG PO (09:32)
[2021-12-25] MEDS: buPROPion HCL XL (24 HR) 150 MG TABCR PO (09:32)
[2021-12-25] MEDS: DOCUSATE SODIUM 100 MG CAPSULE PO ×2 (09:33→20:41)
[2021-12-25 09:34] VITALS: PULSE 72
[2021-12-25] MEDS: LORATADINE 10 MG TABLET PO (09:34)
[2021-12-25] MEDS: amLODIPine BESYLATE 5 MG TABLET 10 MG PO (09:34)
[2021-12-25] MEDS: METOPROLOL TARTRATE 50 MG TAB 100 MG PO (09:34)
[2021-12-25] MEDS: GABAPENTIN 100 MG CAPSULE PO ×3 (09:35→16:10)
[2021-12-25] MEDS: DICLOFENAC SODIUM 1% 100 GM GEL (*BKC) 1 APPLIC TOPICAL ×4 (09:38→21:36)
[2021-12-25] MEDS: PANTOPRAZOLE 40 MG TABLET PO (09:38)
[2021-12-25 16:00] VITALS: BP 108/49; PULSE 70; RESP 18; TEMP 36.6; O2SAT 95
[2021-12-25] MEDS: ATORVASTATIN 10 MG TABLET 20 MG PO (20:42)
[2021-12-25] MEDS: HYDROcodone/acetaminophen (*CRX) 5-325 MG TABLET 1 TAB PO (20:42)
[2021-12-25 23:59] VITALS: BP 124/66; PULSE 75; RESP 20; TEMP 36; O2SAT 92
[2021-12-26 08:00] VITALS: BP 157/80; PULSE 75; RESP 16; TEMP 36.8; O2SAT 93
[2021-12-26] MEDS: DICLOFENAC SODIUM 1% 100 GM GEL (*BKC) 1 APPLIC TOPICAL ×2 (09:00→13:00)
[2021-12-26 09:52] VITALS: PULSE 75
[2021-12-26] MEDS: LOSARTAN POTASSIUM 50 MG TABLET 100 MG PO (09:52)
[2021-12-26] MEDS: METOPROLOL TARTRATE 50 MG TAB 100 MG PO (09:52)
[2021-12-26] MEDS: PANTOPRAZOLE 40 MG TABLET PO (09:52)
[2021-12-26] MEDS: SERTRALINE HCL 50 MG TABLET 200 MG PO (09:52)
[2021-12-26] MEDS: amLODIPine BESYLATE 5 MG TABLET 10 MG PO (09:53)
[2021-12-26] MEDS: buPROPion HCL XL (24 HR) 150 MG TABCR PO (09:53)
[2021-12-26] MEDS: FAMOTIDINE 20 MG TABLET PO (09:54)
[2021-12-26] MEDS: LORATADINE 10 MG TABLET PO (09:54)
[2021-12-26] MEDS: DOCUSATE SODIUM 100 MG CAPSULE PO (09:54)
[2021-12-26] MEDS: MIRABEGRON 25 MG ER TABLET 50 MG PO (09:54)
[2021-12-26] MEDS: GABAPENTIN 100 MG CAPSULE PO ×2 (09:54→13:56)
--- NOTE | 2021-12-26 13:14 | PM.DS ---
DS: Admitting Diagnosis Discharge Date 12/26/2021 Admitting Diagnosis Weakness, REhab , UTI DS: Discharge Diagnosis Discharge Diagnosis (1) UTI (urinary tract infection): Qualifiers: Hematuria presence: without hematuria Urinary tract infection type: acute cystitis Qualified Code(s): N30.00 - Acute cystitis without hematuria Code(s): N39.0 - Urinary tract infection, site not specified Status: Acute Assessment and Plan: Patient UA positive for leukocyte Estrace, nitrate and bacteria UA culture pending Patient given Levaquin in the ED on IV Rocephin will give p.o. Bactrim CRP elevated at 3.3 (2) Weakness: Code(s): R53.1 - Weakness Status: Acute Assessment and Plan: ? Exhibit tolerance during physical activity as evidenced by a normal fluctuation of vital signs during physical activity. ? Patient will be ability to perform required activities of daily living. ? Provide appropriate nutrition for healing and strength. ? Use appropriate to prevent falls. ? Continue physical therapy/occupational therapy. (3) Depression: Code(s): F32.9 - Major depressive disorder, single episode, unspecified Status: Acute Assessment and Plan: Continue home meds (4) Restless leg syndrome: Code(s): G25.81 - Restless legs syndrome Status: Acute Assessment and Plan: Continue home meds (5) Frequent urination: Code(s): R35.0 - Frequency of micturition Status: Acute (6) Hyperlipidemia: Code(s): E78.5 - Hyperlipidemia, unspecified Status: Acute Assessment and Plan: Continue home meds (7) Hypertension: Code(s): I10 - Essential (primary) hypertension Status: Acute Assessment and Plan: Blood pressure stable Continue amlodipine with metoprolol Vital signs as ordered Will adjust medication as needed DS: Summary Hospital Course Reason for hospitalization: Weakness, rehab Hospital Course: This is a 81-year-old female that has been weak and is a swing patient.? Patient has a past medical history of arthritis, depression, frequent urination, hyperlipidemia, hypertension, restless leg syndrome and status post AKA of the left leg.Mrs Sue has been weak and having problems with ambulation or getting into her wheelchair. Patient is not scheduled for discharge but states she is ready and she was able to demonstrate endurance and strength to get into the wheelchair. Patient has been treated for UTi and has finished her antibiotic and we will send her home with her son and [id number] according to the notes patient has a granddaughter who is a physical therapist.? Patient will go home where she feels she is able to get around better. There is a safe discharge plan and patient has adequate family to assist. Patient does not have any nausea and vomiting and she has remained a febrile. Time Spent with Patient Time attestation: Total time spent providing and/or coordinating discharge services: Exam Narrative: GENERAL: This is a well-nourished, well-developed patient, in no apparent distress. HEAD: normocephalic, atraumatic. EYES: PERRL. Sclera clear/white. Vision is grossly intact. EARS: External ears normal, auditory canals clear and without drainage. NOSE: External nose normal with no obvious nasal discharge, nares without redness, no rhinorrhea. THROAT: Mucous membranes moist, posterior pharynx clear. CARDIOVASCULAR: Regular rate and rhythm without murmurs, gallops, or rubs. RESPIRATORY: Clear to auscultation. Breath sounds equal bilaterally. No wheezes, rales, or rhonchi.? GASTROINTESTINAL: Abdomen soft, non-tender, nondistended. SKIN: warm, intact with no suspicious lesions or rash, good texture and turgor. NEURO: awake, alert, and oriented to person, place and time. There were no obvious focal neurologic abnormalities.? Steady gait EXTREMITIES: Left AKA normal range of motion.? No edema. No calf tenderne
--- NOTE | 2021-12-28 11:08 | PC.NURSE ---
Follow up call attempted, answer machine reports cannot take call at this time
== END 2021-12-26 16:00 | disposition home health service (06) | DRG 948 ==
PROVIDERS: Admitting Provider Internal Medicine; PCP Family Medicine; Visit Provider Internal Medicine
DX: R53.1 Weakness (principal); N39.0 Urinary tract infection, site not specified; M19.90 Unspecified osteoarthritis, unspecified site; F32.A Depression, unspecified; E78.5 Hyperlipidemia, unspecified; I10 Essential (primary) hypertension; G25.81 Restless legs syndrome; Z89.612 Acquired absence of left leg above knee
CPT/HCPCS: 82948; 97110; 97162; 97165; 97530; 97535; A9270

== ENCOUNTER 2022-05-24 12:14 | Inpatient (IN) | payer MEDICARE, BC, SELFPAY ==
[2022-05-24] VITALS (14 sets, daily range): BP systolic 94–138; BP diastolic 50–85; PULSE 76–82; RESP 16–20; TEMP 36.2–37.4; O2SAT 87–99; BMI 32.1
--- NOTE | ~2022-05-24 | CT_ITS ---
EXAMINATION: CT chest abdomen pelvis wo con DATE: 05/24/2022 13:15 RO[address] OILER INDICATION: Patient nonverbal. Lethargy. Cyanosis. TECHNIQUE: Computed tomography (CT) of the chest, abdomen, and pelvis was performed without intraveno us contrast. The dose-length product was 1558.10 mGy-cm. Automated exposure control and iterative rec onstruction technique were employed. COMPARISON: None FINDINGS: CHEST CT: There is mediastinal lymphadenopathy, likely reactive. Heart size normal. No significant pleural or p ericardial effusion. There are patchy groundglass opacities predominantly in the upper lobes. There i s subsegmental atelectasis in the right upper and bilateral lower lobes. No pneumothorax. Heart size normal. ABDOMEN/PELVIS CT: Status post cholecystectomy. The liver, spleen, pancreas, adrenal glands and right kidney are unremar kable. There is a small exophytic left renal cyst posteriorly measuring 1.4 cm. There is moderate ost eoarthritis of the hips. There is severe thoracic and lumbar spondylosis. Nonobstructive bowel gas pa ttern. There is atherosclerosis of the aorta without aneurysm. No free air or free fluid. IMPRESSION: 1. Patchy groundglass opacities of the upper lobes bilaterally which may represent small airway disea se, although pneumonia not excluded. 2: Scattered areas of subsegmental atelectasis bilaterally. 3: Mediastinal lymphadenopathy, likely reactive. 4: No acute abdominal abnormality. Reviewed, dictated and finalized at location A. OILER IMPRESSION: 1. Patchy groundglass opacities of the upper lobes bilaterally which may repres ent small airway disease, although pneumonia not excluded. 2: Scattered areas of subsegmental atelectasis bilaterally. 3: Mediastinal lymphadenopathy, likely reactive. 4: No acute abdominal abnormality.
--- NOTE | ~2022-05-24 | CT_ITS ---
EXAMINATION: CT brain wo con DATE: 05/25/2022 10:20 INDICATION: Seizures. Mental status change. TECHNIQUE: Computed tomography (CT) of the head was performed without intravenous contrast. The dose- length product was 681.00 mGy-cm. Automated exposure control and iterative reconstruction technique w ere employed. COMPARISON: CT dated 05/24/2022 FINDINGS: Mild generalized atrophy. There are scattered mild periventricular and subcortical white ma tter changes, most likely related to small vessel ischemic disease (microangiopathy). No ventriculome ziggy or midline shift. No acute intracranial hemorrhage, infarction, mass or mass effect. Small air-f luid level left sphenoid sinus. Mastoids are pneumatized. No depressed skull fractures. IMPRESSION: 1. No acute intracranial abnormality. 2: Chronic age-related findings. 3: Mild left sphenoid sinus disease. Reviewed, dictated and finalized at location A. EL WRAPPER
--- NOTE | ~2022-05-24 | CT_ITS ---
EXAMINATION: CTA chest PE protocol DATE: 05/24/2022 15:09 INDICATION: shortness of breath with elevated D-dimer TECHNIQUE: Computed tomography angiography (CTA) of the chest was performed with 100 mL Omnipaque-350 intravenous contrast timed to evaluate the pulmonary arteries. Coronal maximum intensity projection 3D-reconstructions were created by the technologist. The dose-length product (DLP) was 807.53 mGy-cm. Automated exposure control and iterative reconstruction technique were employed. COMPARISON: CT chest abdomen and pelvis 05/24/2022. FINDINGS: Lung parenchyma and airways: Bilateral lower lung scarring. Biapical scarring. Mosaic attenuation.. Pleura: Unremarkable. Thoracic inlet, axillae and chest wall: Left thyroid hypodensities that require no additional workup. . Thoracic aorta: Atherosclerotic calcifications.. Mediastinum: Mediastinal lymphadenopathy. Dilated central pulmonary arteries as can be seen with pulm onary arterial hypertension. Heart and pericardium: Mild cardiomegaly. Coronary artery calcifications: Mild. Upper abdomen: Unremarkable. Bones: No acute osseous finding. Old right lateral rib fracture versus postsurgical change, with elizabeth cent pleural scarring. Pulmonary arteries: Study quality: Adequate. No pulmonary emboli detected. IMPRESSION: No CT evidence of acute pulmonary embolus. Pulmonary opacities likely represent mosaic attenuation, w hich can be seen with asthma, bronchiolitis obliterans, and hypersensitivity pneumonitis. Pulmonary i nfection is not excluded. Reviewed, dictated and finalized at location K. ITAL HOUSEKEEPER IMPRESSION: No CT evidence of acute pulmonary embolus. Pulmonary opacities likely represent mosaic attenuation, which can be seen with asthma, bronchiolitis obliterans, a nd hypersensitivity pneumonitis. Pulmonary infection is not excluded.
--- NOTE | ~2022-05-24 | MR_ITS ---
EXAMINATION: MR brain/brain stem wo con DATE: 05/29/2022 09:01 INDICATION: Seizure. Altered mental status. TECHNIQUE: Magnetic resonance imaging (MRI) of the brain and brainstem was performed without intraven ous contrast. COMPARISON: Head CT 05/25/2022 FINDINGS: There is a small old hemorrhage in the nick. There are scattered areas of nonspecific incre ased T2-weighted signal intensity in the cerebral and cerebellar white matter. There is an old lacuna r infarct in left thalamus. There is a small area of chronic cystic encephalomalacia in the left fron nikunj lobe deep white matter. There is no acute ischemic infarct or abnormal mass lesion. The ventricle s are normal in size. There are likely changes of ocular lens replacement surgeries. The paranasal si nuses are clear. There is a trace left mastoid effusion. IMPRESSION: 1. 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 2. Moderate nonspecific cerebral white matter disease and mild cerebellar white matter disease, which likely represents chronic small vessel ischemic disease. 3. Small old hemorrhage in the nick. Reviewed, dictated and finalized at location E. RUMENTATION TECH
--- NOTE | ~2022-05-24 | CT_ITS ---
EXAMINATION: CT brain wo con DATE: 05/24/2022 13:08 INDICATION: Lethargy. Cyanosis. TECHNIQUE: Computed tomography (CT) of the head was performed without intravenous contrast. The dose- length product was 605.33 mGy-cm. Automated exposure control and iterative reconstruction technique w ere employed. COMPARISON: CT dated 11/16/2020 FINDINGS: Generalized atrophy. There are scattered mild periventricular and subcortical white matter changes, most likely related to small vessel ischemic disease (microangiopathy). No ventriculomegaly or midline shift. No acute infarction, hemorrhage or mass. Paranasal sinuses and mastoids are pneumat ized. No depressed skull fractures. IMPRESSION: 1. No acute intracranial abnormality. 2: Chronic age-related findings. Reviewed, dictated and finalized at location A. L PICKLING EQUIPMENT OPERATOR
--- NOTE | 2022-05-24 12:16 | ECG_ITS ---
Measurements Intervals Alvin Rate: 75 P: 80 MT: 186 QRS: -2 QRSD: 86 T: 40 QT: 406 QTc: 454 Interpretive Statements SINUS RHYTHM WITH OCCASIONAL SUPRAVENTRICULAR PREMATURE COMPLEXES BASELINE ARTIFACT BORDERLINE ECG COMPARED TO ECG 12/19/2021 21:33:55 PREMATURE ATRIAL CONTRACTIONS ARE NOW APPRECIATED Electronically Signed On 05-24-2022 13:58:31 PULMONARY NURSE PRACTITIONER by Eduin Chilel M.D.
[2022-05-24] MEDS: SODIUM CHLORIDE 0.9% IV 1,000 ML 999 ML IV CONT (12:25)
[2022-05-24 12:27] LABS: Glucose Point of Care 115 mg/dl (65-105)
[2022-05-24 12:39] LABS: Basophils Absolute Auto 0.02 K/mm3 (0.00-0.10); Basophils Percent Auto 0.3 % (0.0-1.0); Eosinophils Absolute Auto 0.06 K/mm3 (0.02-0.50); Eosinophils Percent Auto 0.8 % (1.0-6.0); Hematocrit 41.2 % (35.0-42.0); Hemoglobin 13.3 g/dL (11.7-13.8); Immature Granulocyte Absolute 0.02 K/mm3 (0.00-0.00); Immature Granulocyte Percent A 0.3 % (0.0-0.0); Lymphocytes Absolute Auto 2.17 K/mm3 (1.10-4.50); Lymphocytes Percent Auto 28.5 % (18.0-42.0); Mean Corpuscular HGB Conc 32.3 g/dL (32.0-36.0); Mean Corpuscular Hemoglobin 29.7 pg (27.0-31.0); Mean Platelet Volume 9.2 fl (9.2-11.8); Monocytes Absolute Auto 0.68 K/mm3 (0.10-0.90); Monocytes Percent Auto 8.9 % (2.0-11.0); Neutrophils Absolute Auto 4.7 K/mm3 (1.7-7.2); Neutrophils Percent Auto 61.2 % (50.0-70.0); Platelet Count Result 174 K/mm3 (150-420); Red Blood Count 4.48 M/mm3 (4.20-5.40); Red Cell Distribution Width 16.5 % (11.6-14.4); White Blood Count 7.6 K/mm3 (4.8-10.8)
[2022-05-24 12:46] LABS: HCO3 ABG 24.3 mmol/L (23-29); Oxygen Content ABG 17.2 %vol (16.0-22.0); Oxygen Saturation ABG 86.2 % (95-97); Oxyhemoglobin 84.6 % (94-100); PCO2 ABG 38.5 mmHg (35-45); PO2 ABG 50.1 mmHg (75-85); Total Hemoglobin 14.5 g/dL (12.0-18.0); pH ABG 7.42 (7.35-7.45)
[2022-05-24 12:47] LABS: Device NASAL CANNULA; Modified Allen's Test Pass; Site Drawn RIGHT BRACHIAL
[2022-05-24 12:54] LABS: Alanine Aminotransferase 16 U/L (14-59); Albumin Level 3.7 g/dL (3.4-5.0); Alkaline Phosphatase 88 U/L (46-116); Anion Gap 10 mmol/L (8-16); Aspartate Amino Transferase 22 U/L (15-37); Bilirubin,Total 0.5 mg/dL (0.00-1.00); Blood Urea Nitrogen 32 mg/dL (7-18); CRP 3.1 mg/dL (0.0-0.9); Carbon Dioxide 27 mmol/L (21-32); Chloride 105 mmol/L (98-108); Estimated Glomerular Filt Rate > 60; Glucose 133 mg/dL (70-99); Osmolality Calculated 302 mOsm/kg (285-295); Partial Thromboplastin Time 29.3 SEC (23.90-30.70); Potassium 3.7 mmol/L (3.5-5.1); Sodium 142 mmol/L (136-145); Total Protein 7.5 g/dL (6.4-8.2)
[2022-05-24 12:57] LABS: Lactic Acid Reflex 0.8 mmol/L (0.4-2.0)
[2022-05-24 12:58] LABS: Troponin I 12.7 ng/L (0.00-60.4)
[2022-05-24] MEDS: IPRATROPIUM 0.5 MG/ALBUTEROL SULFATE 2.5 MG AMPUL.NEB 3 ML INHALATION ×3 (12:58→23:50)
[2022-05-24 13:14] LABS: Influenza A QL RT-PCR Negative (Negative); Influenza B QL RT-PCR Negative (Negative); SARS-CoV-2 RNA PCR Negative (Negative)
[2022-05-24 13:36] LABS: Add Urine Microscopic? YES; Appearance Urine Clear (Clear); Bilirubin Urine Negative (Negative); Blood Urine Negative (Negative); Color Urine Yellow (Yellow); Glucose Urine UA Negative (Negative); Ketones Urine Negative (Negative); Leukocyte Esterase Ur Negative LEU/UL (Negative); Nitrate Urine Positive (Negative); Protein Urine Negative (Negative); Specific Grav Ur >= 1.030 (1.010-1.020); Urobilinogen Urine 0.2 mg/dL (0.2-1.0); pH Urine 5.5 (5.0-8.0)
[2022-05-24 13:40] LABS: Bacteria Urine 4+ /hpf; RBC Urine None seen /hpf (0-2); Squamous Epithelial Cell Urine Few /hpf (Few); WBC Urine None seen /hpf (0-3)
[2022-05-24 13:43] LABS: Amphetamine Screen Urine Negative (Negative); Barbiturate Screen Urine Negative (Negative); Benzodiazepines Screen Urine Negative (Negative); Cannabinoid Screen Urine Negative (Negative); Cocaine Screen Urine Negative (Negative); Methadone Screen Urine Negative (Negative); Opiate Screen Urine Negative (Negative); Phencyclidine Screen Urine Negative (Negative)
[2022-05-24] MEDS: levoFLOXacin 500 MG/D5W 100 ML 500 MG/100 ML BAG 100 MG IVPB (13:45)
[2022-05-24 13:57] LABS: D Dimer 0.66 mg/L (0.19-0.50)
[2022-05-24] MEDS: KETOROLAC 15 MG/ML VIAL (*BKC) IV PUSH (13:57)
[2022-05-24] MEDS: methylPREDNISolone SOD SUCC 125 MG VIAL IV PUSH (14:00)
--- NOTE | 2022-05-24 15:38 | ED.AMS ---
HPI - Altered Mental Status General Chief Complaint: Altered Mental Status Stated Complaint: ambulance Time Seen by Provider: 05/24/22 12:16 Source: patient, family and EMS Mode of arrival: EMS Limitations: altered mental status History of Present Illness HPI narrative: this is an 82-year-old female lives at with a history of hypertension history of depression presents via EMS with altered mental status, the patient has been having shortness of breath over the last 2 to 3 days and has been weak and an hour to prior to arrival patient's family called that she was not responding appropriately. 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 Patient initially was satting in the mid to high 80s and was placed on nasal cannula and currently was satting at over 95 98% on 6L. Patient has no fever chills no nausea vomiting no abdominal pain. patient was not responding appropriately initially and did not voice any concerns as far as pain or dysuria. MD complaint: altered mental status Onset (ago): hour(s) Severity: moderate Consistency of symptoms: waxing and waning Related Data Home Medications Medication Instructions Recorded Confirmed amlodipine 10 mg tablet 10 mg PO DAILY 11/16/20 05/24/22 atorvastatin 20 mg tablet 20 mg PO HS 11/16/20 05/24/22 esomeprazole magnesium 40 mg 40 mg PO DAILY 11/16/20 05/24/22 capsule,delayed release gabapentin 100 mg capsule 100 mg PO TID 11/16/20 05/24/22 metoprolol tartrate 100 mg tablet 100 mg PO DAILY 11/16/20 05/24/22 sertraline 100 mg tablet 200 mg PO DAILY 11/16/20 05/24/22 Allergy Relief (loratadine) 10 mg DAILY PRN seasonal 12/19/21 05/24/22 PreserVision AREDS-2 1 cap DAILY 12/19/21 05/24/22 bupropion HCl 150 mg 24 hr tablet, 1 tablet PO DAILY 12/19/21 05/24/22 extended release famotidine 20 mg DAILY 12/19/21 05/24/22 fluticasone propionate 50 1 ea intranasal DAILY PRN 12/19/21 05/24/22 mcg/actuation nasal Congestion spray,suspension losartan 100 mg tablet 1 tablet DAILY 12/19/21 05/24/22 mirabegron 50 mg tablet,extended 1 tablet PO DAILY 12/19/21 05/24/22 release 24 hr (Myrbetriq) Allergies Allergy/AdvReac Type Severity Reaction Status Date / Time ceftaroline fosamil Allergy Intermediate Rash Verified 05/24/22 12:46 Penicillins Allergy Intermediate Rash Verified 05/24/22 12:46 Sulfa (Sulfonamide Allergy Intermediate Rash Verified 05/24/22 12:46 Antibiotics) Review of Systems Review of Systems: All systems reviewed & are unremarkable except as noted in HPI and below PMFSH Past Medical History Medical History Arthritis Depression Frequent urination Hyperlipidemia Hypertension Restless leg syndrome Surgical History Surgical History Above knee amputation of left lower extremity left knee infection after surgery History of partial hysterectomy Previous back surgery Family History Family History Father Stomach cancer Social History Social History Smoking status: Never smoker Second hand tobacco smoke exposure: Yes (Both parents smoked.) Alcohol intake: unknown Drinks per week: 1 Substance use: unknown Substance use type: does not use Gender identity (if verbalized by the patient): Female Sexual Orientation (if Verbalized by the Patient): Straight or Heterosexual Spiritual care concerns: No Exam Const: General: healthy appearing and no acute distress Limitations: no limitations HENMT: Head: normal to inspection Face/Nose/Sinus: Normal external nose present Face and sinus: normal facial exam Eyes:
--- NOTE | 2022-05-24 17:00 | ADMGEN ---
This patient, Marissa Sue, was admitted to 2nd Floor Room 204-1. Patient/family oriented to hospital policies and general routines including ID bracelet, bed and alarms, visiting hours, pain management, procedures, bathroom and other care routines, personal items, smoking policy, room service/diet, and visiting hours. Information on how to activate the Rapid Response Team has been discussed. Patient/Family are encouraged to report perceived risks to care and to ask questions if they do not understand what they are told or what they should do.
[2022-05-24] MEDS: GABAPENTIN 100 MG CAPSULE PO (18:17)
[2022-05-24] MEDS: PANTOPRAZOLE SODIUM IV 40 MG VIAL IV PUSH (18:17)
[2022-05-24] MEDS: ATORVASTATIN 10 MG TABLET 20 MG PO (20:52)
[2022-05-24] MEDS: methylPREDNISolone SOD SUCC 125 MG VIAL 80 MG IV PUSH (20:52)
[2022-05-25] VITALS (16 sets, daily range): BP systolic 105–120; BP diastolic 48–67; PULSE 73–94; RESP 16–24; TEMP 36.3–37.2; O2SAT 91–100
[2022-05-25 06:22] LABS: Hematocrit 38.5 % (35.0-42.0); Hemoglobin 12.3 g/dL (11.7-13.8); Mean Corpuscular HGB Conc 31.9 g/dL (32.0-36.0); Mean Corpuscular Hemoglobin 29.5 pg (27.0-31.0); Mean Corpuscular Volume 92.3 fL (78.0-102.0); Mean Platelet Volume 9.7 fl (9.2-11.8); Platelet Count Result 168 K/mm3 (150-420); Red Blood Count 4.17 M/mm3 (4.20-5.40); Red Cell Distribution Width 16.5 % (11.6-14.4); White Blood Count 4.6 K/mm3 (4.8-10.8)
[2022-05-25 06:39] LABS: Alanine Aminotransferase 18 U/L (14-59); Albumin Level 3.3 g/dL (3.4-5.0); Alkaline Phosphatase 79 U/L (46-116); Anion Gap 11 mmol/L (8-16); Aspartate Amino Transferase 19 U/L (15-37); Bilirubin,Total 0.4 mg/dL (0.00-1.00); Blood Urea Nitrogen 36 mg/dL (7-18); Calcium 8.9 mg/dL (8.5-10.1); Carbon Dioxide 26 mmol/L (21-32); Chloride 104 mmol/L (98-108); Estimated CRCL calculation 45 ml/min; Estimated Glomerular Filt Rate > 60; Glucose 149 mg/dL (70-99); Magnesium 1.8 mg/dL (1.8-2.4); Osmolality Calculated 303 mOsm/kg (285-295); Sodium 141 mmol/L (136-145); Total Protein 7.2 g/dL (6.4-8.2)
[2022-05-25] MEDS: IPRATROPIUM 0.5 MG/ALBUTEROL SULFATE 2.5 MG AMPUL.NEB 3 ML INHALATION (07:58)
--- NOTE | 2022-05-25 09:49 | PCPTNOTE ---
05/25/22 - 9:35 PT attempted to evaluate patient this morning. PT obtained history of patient including prior level living situation and functional abilities. PT then attempted to assess patient's functional ability of transfers, but haulted evaluation when patient began to show signs of a seizure. PT called nursing staff for assessment, and stayed in room for several minutes with nursing staff. Patient was awake, but un-responsive to questions. She began tremoring of the arms and legs that lasted roughly 1.5 -2 minutes. Tremors did stop while PT was in room, but patient was still unresponsive to questions. Vitals signs were taken and were 95% SPO2, 84 BPM heart rate, and 120/62 mmHg blood pressure. ORTHOPEDIC NURSE PRACTITIONER came in to assess patient, and deemed a head CT necessary at this time. PT evaluation on hold at this time due to medical status. Will attempt again when medically stable. FAINA
--- NOTE | 2022-05-25 09:50 | PC.NURSE ---
0984 PT JT alerted nurse that patient may be having seizure. This nurse entered room to assess patient. Patient tremoring in all extremeties. Patients eyes open, pupils sluggish, cannot follow commands or answer questions. Patient whimpering/moaning during seizure. Seizure lasted approx. 1 min, 30 seconds. Patient unable to hr operations advisor hands. After seizure patient has blank stare, not able to follow finger with eyes. Unable to follow commands. Nurse Practitioner Rosendo notified. Nils came in room to evaluate patient. N.O for CT of Head. 0928 This nurse in room with patient and witnessed the start of another seizure. JOB BOSS Rosendo notified and returned to room to eval patient. Seizure lasted approx 2 minutes. Patient cont. unable to follow commands. Pupils sluggish, Eyes open and blinking but unable to focus/follow finger. Pt. unable to speak at present/answer questions. Ativan IVP given per order. Patient responded well to ativan. Tremoring ceased. Vital signs cont to remain stable.
[2022-05-25] MEDS: LORazepam INJ (*CRX) 2 MG/ML VIAL 0.5 MG IV PUSH ×2 (09:53→20:19)
--- NOTE | 2022-05-25 10:05 | PC.NURSE ---
This nurse assisted sales technician home theater to take patient down for head CT.
--- NOTE | 2022-05-25 10:25 | PC.NURSE ---
Patient back from CT scan. Patient resting in bed with hob elevated. Vital signs remain stable. Patient cont. unable to follow commands. Patient more groggy, did have a dose of ativan. Patient unable to answer questions. Ferryboat Operator Cable very weak. N.O. per lawrence TOOL TURRET LATHE SET UP OPERATOR for telemetry, placed pt in SR.
[2022-05-25] MEDS: levETIRAcetam 1000MG/NACL100ML 1,000 MG/100 ML BAG 400 MG IVPB (10:50)
--- NOTE | 2022-05-25 10:50 | PC.NURSE ---
This nurse in room to give medication to patient. Patients Daughter in room. Patient alert and awake. Able to answer questions and follow commands at this time. Pupils equal and reactive. sales vice president strong. Patient states she does not remember seizure event. States she is feeling a little bit better. Daughter cont. at bedside.
--- NOTE | 2022-05-25 11:01 | PM.IMHP ---
H&P: HPI History of Present Illness Date/Time: 05/25/22 11:01 Chief Complaint: AMS Narrative: This is a 82-year-old female who presented to our emergency department with altered mental status change . Patient has a past medical history of depression, arthritis, frequent urination, hyperlipidemia, hypertension, restless leg syndrome and left above the knee amputation. According to family members patient was up yesterday with normal activity alert and orientated. Later that evening her son took her to family function and noticed that she had a blank stare to her face and was not responding and she normally do. All information obtained from family members. according to physical therapy during his session he witnessed the patient with tremors, blinks tear and unable to follow commands. during my assessment patient mental status was in here and she was not responsive she was not able to follow commands. Patient's vital signs were normal. Approximately 3 minutes later patient had body tremor with a blank stare. approximately 30 minutes later patient was more lower and orientated and able to follow commands. She was not aware or remember her previous activities or seizure activities. I did speak with family members they do not want any aggressive treatment of this patient. They just want her to be comfortable. Patient was started on Keppra and CT the head did not indicate CVA. On admission patient's WBC 7.6, 09/01/2041 platelets 174, glucose 115, sodium 42 potassium 3.7, BUN 32, creatinine 0.71, lactic acid 0.8, total bilirubin AST and ALT within normal limits, CRP 3.1, D-dimer 0.66, troponin 12.7 UA positive for nitrate toxicology negative ABGs pH 7.42 CO2 38.5, O2 51, bicarb 24.3, CT indicates pneumonia, CT of the head no new findings. Patient was admitted to treat pneumonia, ams and treatment of seizure activity. patient does not appear to be in any distress patient's vital signs normal throughout seizure activity. Review of Systems Review of Systems: A 14 organ system Review of Systems was performed and pertinent positives included in the HPI, otherwise remaining ROS is negative. [facility] Past Medical History Medical History Arthritis Depression Frequent urination Hyperlipidemia Hypertension Restless leg syndrome Surgical History Surgical History Above knee amputation of left lower extremity left knee infection after surgery History of partial hysterectomy Previous back surgery Family History Family History Father Stomach cancer Social History Social History Smoking status: Never smoker Second hand tobacco smoke exposure: Yes (Both parents smoked.) Alcohol intake: never Drinks per week: 1 Substance use: never Substance use type: does not use Lack of Transportation: No Lack of Food: Never True Current Housing: I Have Housing Concerned About Future Housing: No Difficulty Paying Gas/Electric Bills: No Difficulty Paying for Meds: No Currently Unemployed: No Education: High School Diploma/GED Difficulty w/ Childcare or Family Care: No Gender identity (if verbalized by the patient): Female Sexual Orientation (if Verbalized by the Patient): Straight or Heterosexual Spiritual care concerns: No Meds Home Medications and Allergies Home Medications Medication Instructions Recorded Confirmed Type amlodipine 10 mg tablet 10 mg PO DAILY 11/16/20 05/24/22 History atorvastatin 20 mg tablet 20 mg PO HS 11/16/20 05/24/22 History esomeprazole magnesium 40 mg 40 mg PO DAILY 11/16/20 05/24/22 History capsule,delayed release gabapentin 100 mg capsule 100 mg PO TID 11/16/20 05/24/22 History metoprolol tartrate 100 mg tablet 100 mg PO DAILY 11/16/20 05/24/22 History sertr
[2022-05-25 11:56] LABS: Ammonia 16 umol/L (11-32)
[2022-05-25] MEDS: GABAPENTIN 100 MG CAPSULE PO ×2 (13:00→17:20)
[2022-05-25] MEDS: methylPREDNISolone SOD SUCC 125 MG VIAL 80 MG IV PUSH (17:20)
[2022-05-25] MEDS: BUDESONIDE/FORMOTEROL 80/4.5 MCG 6.9 GM INHALER (*SP) 2 PUFF INHALATION (19:48)
--- NOTE | 2022-05-25 20:05 | PC.NURSE ---
Entered patient to do assessment and patient was talking and telling nurse that she thought she was starting to feel better. While patient was talking her voice started getting quieter, she started moaning, tremors began, pupils became fixed and pinpoint, eyes staring straight ahead with eyes only open slits, unable to arouse patient. Patient unable to follow commands, could not squeeze with hands or move foot/leg. Activity lasted 1 minute, 45 seconds and then patient slowly started to come around, Pupils still sluggish to respond but no longer fixed. Patient still unable to follow nurses finger but did squeeze hands weakly and moved her leg just a little bit when asked to. Patient able to tell nurse she was at [facility] but answer delayed.
--- NOTE | 2022-05-25 20:11 | PC.NURSE ---
Harshal Morgan, Hospitalist, notified that patient had a 1minute,45 second seizure. Status update given. New order received.
[2022-05-25] MEDS: levETIRAcetam 250 MG TABLET PO (20:18)
[2022-05-25] MEDS: ATORVASTATIN 10 MG TABLET 20 MG PO (20:19)
--- NOTE | 2022-05-25 20:30 | PC.NURSE ---
Patient alert and oriented to person and place but answers are still delayed. Bilateral management specialist remain weak. Patient can follow finger with eyes but very slowly. Patient continues to keep eyes open only in slits. When ask patient to open eyes wider she doesn't. Informed patient she had a seizure and she doesn't remember it. Patient also doesn't remember having seizures this morning. Informed patient nurse was giving her medication to help her relax and patient verbalized understanding. Call light in reach.
[2022-05-26] VITALS (7 sets, daily range): BP systolic 115–120; BP diastolic 60–63; PULSE 75–85; RESP 16; TEMP 35.9–36.3; O2SAT 91–94
[2022-05-26 05:11] LABS: Hematocrit 35.5 % (35.0-42.0); Hemoglobin 11.5 g/dL (11.7-13.8); Mean Corpuscular HGB Conc 32.4 g/dL (32.0-36.0); Mean Corpuscular Hemoglobin 30.1 pg (27.0-31.0); Mean Corpuscular Volume 92.9 fL (78.0-102.0); Mean Platelet Volume 9.6 fl (9.2-11.8); Platelet Count Result 172 K/mm3 (150-420); Red Blood Count 3.82 M/mm3 (4.20-5.40); Red Cell Distribution Width 16.7 % (11.6-14.4); White Blood Count 5.2 K/mm3 (4.8-10.8)
[2022-05-26 05:27] LABS: Alanine Aminotransferase 16 U/L (14-59); Albumin Level 2.9 g/dL (3.4-5.0); Alkaline Phosphatase 70 U/L (46-116); Anion Gap 7 mmol/L (8-16); Aspartate Amino Transferase 16 U/L (15-37); Bilirubin,Total 0.3 mg/dL (0.00-1.00); Blood Urea Nitrogen 35 mg/dL (7-18); Calcium 8.5 mg/dL (8.5-10.1); Carbon Dioxide 29 mmol/L (21-32); Chloride 103 mmol/L (98-108); Estimated CRCL calculation 45 ml/min; Estimated Glomerular Filt Rate > 60; Glucose 131 mg/dL (70-99); Magnesium 1.8 mg/dL (1.8-2.4); Osmolality Calculated 298 mOsm/kg (285-295); Potassium 4.2 mmol/L (3.5-5.1); Sodium 139 mmol/L (136-145); Total Protein 6.6 g/dL (6.4-8.2)
--- NOTE | 2022-05-26 05:32 | PC.NURSE ---
Patient has awakened each time nurse did neuro checks but has remained slow in responding to commands each time. Speech is clear but delayed. Bilateral pressure dispatcher remain weak and when ask patient to move her leg she barely moves it and it takes her multiple seconds after being asked. When ask patient to follow finger with eyes she has to be asked 2-3 times before she'll do it. Pupils are brisk to respond. Patient continues to not open her eyes all the way but it is now more than just slits as it was earlier in shift. Patient has denied pain/complaints/needs all night. Patient does not like it when nurse T&P her but does not fight against it. Call light in reach.
[2022-05-26] MEDS: BUDESONIDE/FORMOTEROL 80/4.5 MCG 6.9 GM INHALER (*SP) 2 PUFF INHALATION ×2 (05:52→18:04)
--- NOTE | 2022-05-26 08:00 | PC.NURSE ---
At 0800 neuro assessment patient was able to tell me her name, where she is, and the month. Patient's hand grasps were weak bilaterally. Patient was able to follow my finger with eyes and pupils were reactive. Patient's affect is flat and eyes remained only half opened. Patient able to feed self breakfast. No noted seizure activity. Pedal push weak.
[2022-05-26] MEDS: ENOXAPARIN 40 MG/0.4 ML SYRINGE SUB-Q (08:34)
[2022-05-26] MEDS: methylPREDNISolone SOD SUCC 125 MG VIAL 80 MG IV PUSH ×2 (08:35→16:17)
[2022-05-26] MEDS: levETIRAcetam 250 MG TABLET PO (08:40)
[2022-05-26] MEDS: LOSARTAN POTASSIUM 50 MG TABLET 100 MG PO (08:40)
[2022-05-26] MEDS: SERTRALINE HCL 50 MG TABLET 200 MG PO (08:41)
[2022-05-26] MEDS: amLODIPine BESYLATE 5 MG TABLET 10 MG PO (08:42)
[2022-05-26] MEDS: FAMOTIDINE 20 MG TABLET PO (08:42)
[2022-05-26] MEDS: MIRABEGRON 25 MG ER TABLET 50 MG PO (08:43)
[2022-05-26] MEDS: METOPROLOL TARTRATE 50 MG TAB 100 MG PO (08:45)
[2022-05-26] MEDS: GABAPENTIN 100 MG CAPSULE PO ×3 (08:46→16:17)
[2022-05-26] MEDS: buPROPion HCL XL (24 HR) 150 MG TABCR PO (08:46)
--- NOTE | 2022-05-26 10:59 | WPDPN ---
Progress Note: A&P Assessment and Plan (1) Pneumonia: Qualifiers: Laterality: bilateral Lung location: unspecified part of lung Pneumonia type: due to unspecified organism Qualified Code(s): J18.9 - Pneumonia, unspecified organism Code(s): J18.9 - Pneumonia, unspecified organism Status: Acute Assessment and Plan: imaging indicates pneumonia WBC is within normal limits continue Levaquin, Solu-Medrol, albutero, Symbicort and duo nebulizers blood culture pending (2) Acute UTI: Code(s): N39.0 - Urinary tract infection, site not specified Status: Acute Assessment and Plan: urinalysis was nitrate UA culture with gram neg bacilli continue Levaquin day 2 (3) Weakness: Code(s): R53.1 - Weakness Status: Acute Assessment and Plan: PTOT eval plan to transition into swing bed (4) Altered mental status: Qualifiers: Altered mental status type: delirium Qualified Code(s): R41.0 - Disorientation, unspecified Code(s): R41.82 - Altered mental status, unspecified Status: Acute Assessment and Plan: possibly secondary to seizure activity CT of the brain does not indicate CVA will continue neuro checks and telemetry start Ativan along with Keppra family members do not want any aggressive treatment or transfer they will follow-up with a neurologist if needed after discharge (5) Seizure-like activity: Code(s): R56.9 - Unspecified convulsions Status: Acute Assessment and Plan: he brain does not indicate CVA will continue neuro checks and telemetry continue Ativan along with Keppra family members do not want any aggressive treatment they will follow-up with a neurologist if needed after discharge (6) Depression: Code(s): F32.9 - Major depressive disorder, single episode, unspecified Status: Acute Assessment and Plan: cont sertraline (7) Hyperlipidemia: Code(s): E78.5 - Hyperlipidemia, unspecified Status: Acute Assessment and Plan: continue atorvastatin (8) Hypertension: Code(s): I10 - Essential (primary) hypertension Status: Acute Assessment and Plan: stable continue amlodipine, losartan and metoprolol Subjective Date/time seen: 05/26/22 10:59 Interval history: Patient notes that she is tired and exhausted. according to nursing staff patient has not had any seizures today. patient does appear to be slightly lethargic but is arousable and able to answer questions. She does not appear to be in any distress. The patient denies SOB, CP, palpitation, extremity numbness, lightheadedness, dizziness, constipation, diarrhea, chills, or fever. Review of Systems Review of Systems: All systems reviewed & are unremarkable except as noted in HPI and below Exam Narrative: General: This is a well-nourished, well-developed patient, in no apparent distress. HEAD: normocephalic, atraumatic. EYES: PERRL. Sclera clear/white. Vision is grossly intact. EARS: External ears normal, auditory canals clear and without drainage, TMs normal without perforation. Hearing grossly intact. NOSE: External nose normal with no obvious nasal discharge, nares without redness, no rhinorrhea. THROAT: Mucous membranes moist, posterior pharynx clear. NECK: Neck supple, non-tender without lymphadenopathy, masses or thyromegaly. CARDIOVASCULAR: Regular rate and rhythm without murmurs, gallops, or rubs. RESPIRATORY: Clear to auscultation. Breath sounds equal bilaterally. No wheezes, rales, or rhonchi. GASTROINTESTINAL: Abdomen soft, non-tender, nondistended. Bowel sounds are active. No hepato-splenomegaly, or palpable masses. No guarding. SKIN: warm, intact with no suspicious lesions or rash, good texture and turgor. NEURO: Patient is slightly lethargic but is alert neuro interrogated x4 EXTREMITIES: Normal range of motion. No edema. No calf tendern
--- NOTE | 2022-05-26 13:06 | PC.NURSE ---
IV in LFA leaking and discontinued. New IV placed in R hand. Attempts x2. Patient tolerated fairly.
--- NOTE | 2022-05-26 15:51 | PC.NURSE ---
Conservation Of Resources Commissioner noticed patient making high pitched whining sound and quickly responded. Patient was sitting in her chair and appeared to be crying. Conservation Of Resources Commissioner asked patient what was wrong, and patient stated that she had just started shaking badly. Neuro check preformed and WNL. VS: SPO2 94 on 3L n/c, BP 120/63 P80, R 16,T 96.7 ax. Conservation Of Resources Commissioner reassured patient and adjusted patient in chair. Patient became calm, and was able to answer all questions appropriately.
[2022-05-26] MEDS: HYDROcodone/acetaminophen (*CRX) 5-325 MG TABLET 1 TAB PO (16:16)
[2022-05-26] MEDS: LORazepam INJ (*CRX) 2 MG/ML VIAL 0.5 MG IV PUSH (18:25)
[2022-05-26] MEDS: levETIRAcetam 500 MG TABLET PO (20:40)
[2022-05-26] MEDS: ATORVASTATIN 10 MG TABLET 20 MG PO (20:41)
[2022-05-27] VITALS (8 sets, daily range): BP systolic 111–117; BP diastolic 57–61; PULSE 70–76; RESP 16–18; TEMP 36.8–37.2; O2SAT 91–94
[2022-05-27] MEDS: LORazepam INJ (*CRX) 2 MG/ML VIAL 0.5 MG IV PUSH (02:27)
--- NOTE | 2022-05-27 02:34 | PC.NURSE ---
Rosendo Morgan CRAB STEAMER notified of patient have 2 seizures in a row with Ativan then given. No new orders @ this time.
--- NOTE | 2022-05-27 02:49 | PC.NURSE ---
Entered patient's room at 0215 for neuro check. Head patient moaning in hallway, beginning of seizure with fixed staring, moaning, and tremors of arms/hands. Patient had tears in eyes and small amount of saliva in corner of mouth. Seizure lasted approximately 90 seconds. Patient quieted for 45 seconds, and then 2nd seizure came, with same behaviors, and again lasting approximately 90 seconds. Patient given 0.5 mg of IV push ativan immediately after. Patient quieted, with no more tremors, moaning, etc. Patient closed her eyes, and relaxed. Patient was able to give her name, location, and date it's the 6th . She was able to complete neuro check, although her responses are somewhat sluggish. She is now sleeping.
[2022-05-27 05:54] LABS: Hematocrit 36.8 % (35.0-42.0); Hemoglobin 11.6 g/dL (11.7-13.8); Mean Corpuscular HGB Conc 31.5 g/dL (32.0-36.0); Mean Corpuscular Hemoglobin 29.2 pg (27.0-31.0); Mean Corpuscular Volume 92.7 fL (78.0-102.0); Mean Platelet Volume 9.4 fl (9.2-11.8); Platelet Count Result 181 K/mm3 (150-420); Red Blood Count 3.97 M/mm3 (4.20-5.40); Red Cell Distribution Width 16.2 % (11.6-14.4); White Blood Count 6.3 K/mm3 (4.8-10.8)
[2022-05-27 06:12] LABS: Alanine Aminotransferase 18 U/L (14-59); Albumin Level 2.9 g/dL (3.4-5.0); Alkaline Phosphatase 64 U/L (46-116); Anion Gap 9 mmol/L (8-16); Aspartate Amino Transferase 18 U/L (15-37); Bilirubin,Total 0.3 mg/dL (0.00-1.00); Blood Urea Nitrogen 29 mg/dL (7-18); Calcium 8.8 mg/dL (8.5-10.1); Carbon Dioxide 27 mmol/L (21-32); Chloride 105 mmol/L (98-108); Estimated CRCL calculation 54 ml/min; Estimated Glomerular Filt Rate > 60; Glucose 116 mg/dL (70-99); Osmolality Calculated 298 mOsm/kg (285-295); Sodium 141 mmol/L (136-145); Total Protein 6.6 g/dL (6.4-8.2)
[2022-05-27] MEDS: BUDESONIDE/FORMOTEROL 80/4.5 MCG 6.9 GM INHALER (*SP) 2 PUFF INHALATION ×2 (06:37→19:32)
[2022-05-27] MEDS: ENOXAPARIN 40 MG/0.4 ML SYRINGE SUB-Q (08:31)
[2022-05-27] MEDS: methylPREDNISolone SOD SUCC 125 MG VIAL 80 MG IV PUSH ×2 (08:32→17:55)
[2022-05-27] MEDS: MIRABEGRON 25 MG ER TABLET 50 MG PO (08:37)
[2022-05-27] MEDS: GABAPENTIN 100 MG CAPSULE PO ×3 (08:38→17:55)
[2022-05-27] MEDS: FAMOTIDINE 20 MG TABLET PO (08:38)
[2022-05-27] MEDS: LOSARTAN POTASSIUM 50 MG TABLET 100 MG PO (08:38)
[2022-05-27] MEDS: METOPROLOL TARTRATE 50 MG TAB 100 MG PO (08:39)
[2022-05-27] MEDS: amLODIPine BESYLATE 5 MG TABLET 10 MG PO (08:40)
[2022-05-27] MEDS: buPROPion HCL XL (24 HR) 150 MG TABCR PO (08:40)
[2022-05-27] MEDS: SERTRALINE HCL 50 MG TABLET 200 MG PO (08:42)
[2022-05-27] MEDS: levETIRAcetam 500 MG TABLET PO (08:43)
--- NOTE | 2022-05-27 08:46 | P.PN_ITS ---
Progress Note: A&P Assessment and Plan (1) Pneumonia: Qualifiers: Laterality: bilateral Lung location: unspecified part of lung Pneumonia type: due to unspecified organism Qualified Code(s): J18.9 - Pneumonia, unspecified organism Code(s): J18.9 - Pneumonia, unspecified organism Status: Acute Assessment and Plan: * imaging indicates pneumonia * WBC is within normal limits * continue Levaquin, Solu-Medrol, albutero, Symbicort and duo nebulizers * blood culture pending preliminary no growth (2) Altered mental status: Qualifiers: Altered mental status type: delirium Qualified Code(s): R41.0 - Disorientation, unspecified Code(s): R41.82 - Altered mental status, unspecified Status: Acute Assessment and Plan: * possibly secondary to seizure activity * CT of the brain does not indicate CVA * MRI of the brain schedule for * will continue neuro checks and telemetry * start Ativan along with Keppra Keppra started at 250 b.i.d. increased to 500 b.i.d. now at 750 a.m. b.i.d. receive report the patient has to seizures overnight * family members do not want any aggressive treatment or transfer they will follow-up with a neurologist if needed after discharge (3) Acute UTI: Code(s): N39.0 - Urinary tract infection, site not specified Status: Acute Assessment and Plan: * urinalysis was nitrate * UA culture with gram neg bacilli E.coli * continue Levaquin day 2 sensitive to E coli (4) Weakness: Code(s): R53.1 - Weakness Status: Acute Assessment and Plan: * PTOT eval * plan to transition into swing bed (5) Seizure-like activity: Code(s): R56.9 - Unspecified convulsions Status: Acute Assessment and Plan: * ct brain does not indicate CVA * MRI of the brain pending * will continue neuro checks and telemetry * continue Ativan along with Keppra increase Keppra to 750 b.i.d. * family members do not want any aggressive treatment they will follow-up with a neurologist if needed after discharge (6) Depression: Code(s): F32.9 - Major depressive disorder, single episode, unspecified Status: Acute Assessment and Plan: * cont sertraline (7) Hyperlipidemia: Code(s): E78.5 - Hyperlipidemia, unspecified Status: Acute Assessment and Plan: continue atorvastatin (8) Hypertension: Code(s): I10 - Essential (primary) hypertension Status: Acute Assessment and Plan: * stable * continue amlodipine, losartan and metoprolol Subjective Date/time seen: 05/27/22 08:46 Interval history: Patient more alert today received report the patient had 2 seizures overnight will increase her Keppra. patient has MRI of the brain scheduled on Thursday. patient will transition to swing bed once her seizures are controlled and her MRI is complete. witness patient crying in room patient notes that she is sadden by her condition. will speak with her family about adding antidepressant medications. Review of Systems Review of Systems: All systems reviewed & are unremarkable except as noted in HPI and below Exam Narrative: General: This is a well-nourished, well-developed patient, in no apparent distress. HEAD: normocephalic, atraumatic. EYES: PERRL. Sclera clear/white. Vision is grossly intact. EARS: External ears normal, auditory canals clear and without drainage, TMs normal without perforation. Hearing grossly intact. NOSE: Exte
--- NOTE | 2022-05-27 08:46 | WPDPN ---
Progress Note: A&P Assessment and Plan (1) Pneumonia: Qualifiers: Laterality: bilateral Lung location: unspecified part of lung Pneumonia type: due to unspecified organism Qualified Code(s): J18.9 - Pneumonia, unspecified organism Code(s): J18.9 - Pneumonia, unspecified organism Status: Acute Assessment and Plan: imaging indicates pneumonia WBC is within normal limits continue Levaquin, Solu-Medrol, albutero, Symbicort and duo nebulizers blood culture pending preliminary no growth (2) Altered mental status: Qualifiers: Altered mental status type: delirium Qualified Code(s): R41.0 - Disorientation, unspecified Code(s): R41.82 - Altered mental status, unspecified Status: Acute Assessment and Plan: possibly secondary to seizure activity CT of the brain does not indicate CVA MRI of the brain schedule for will continue neuro checks and telemetry start Ativan along with Keppra Keppra started at 250 b.i.d. increased to 500 b.i.d. now at 750 a.m. b.i.d. receive report the patient has to seizures overnight family members do not want any aggressive treatment or transfer they will follow-up with a neurologist if needed after discharge (3) Acute UTI: Code(s): N39.0 - Urinary tract infection, site not specified Status: Acute Assessment and Plan: urinalysis was nitrate UA culture with gram neg bacilli E.coli continue Levaquin day 2 sensitive to E coli (4) Weakness: Code(s): R53.1 - Weakness Status: Acute Assessment and Plan: PTOT eval plan to transition into swing bed (5) Seizure-like activity: Code(s): R56.9 - Unspecified convulsions Status: Acute Assessment and Plan: ct brain does not indicate CVA MRI of the brain pending will continue neuro checks and telemetry continue Ativan along with Keppra increase Keppra to 750 b.i.d. family members do not want any aggressive treatment they will follow-up with a neurologist if needed after discharge (6) Depression: Code(s): F32.9 - Major depressive disorder, single episode, unspecified Status: Acute Assessment and Plan: cont sertraline (7) Hyperlipidemia: Code(s): E78.5 - Hyperlipidemia, unspecified Status: Acute Assessment and Plan: continue atorvastatin (8) Hypertension: Code(s): I10 - Essential (primary) hypertension Status: Acute Assessment and Plan: stable continue amlodipine, losartan and metoprolol Subjective Date/time seen: 05/27/22 08:46 Interval history: Patient more alert today received report the patient had 2 seizures overnight will increase her Keppra. patient has MRI of the brain scheduled on Thursday. patient will transition to swing bed once her seizures are controlled and her MRI is complete. witness patient crying in room patient notes that she is sadden by her condition. will speak with her family about adding antidepressant medications. Review of Systems Review of Systems: All systems reviewed & are unremarkable except as noted in HPI and below Exam Narrative: General: This is a well-nourished, well-developed patient, in no apparent distress. HEAD: normocephalic, atraumatic. EYES: PERRL. Sclera clear/white. Vision is grossly intact. EARS: External ears normal, auditory canals clear and without drainage, TMs normal without perforation. Hearing grossly intact. NOSE: External nose normal with no obvious nasal discharge, nares without redness, no rhinorrhea. THROAT: Mucous membranes moist, posterior pharynx clear. NECK: Neck supple, non-tender without lymphadenopathy, masses or thyromegaly. CARDIOVASCULAR: Regular rate and rhythm without murmurs, gallops, or rubs. RESPIRATORY: Clear to auscultation. Breath sounds equal bilaterally. No wheezes, rales, or rhonchi. GASTROINTESTINAL: Abdomen soft, non-tender, nondistended.
[2022-05-27] MEDS: levETIRAcetam 250 MG TABLET PO (09:02)
[2022-05-27] MEDS: levETIRAcetam Tablet 250 MG, levETIRAcetam Tablet 500 MG 750 MG PO (20:29)
[2022-05-27] MEDS: traZODone HCL 50 MG TABLET PO (20:30)
[2022-05-27] MEDS: ATORVASTATIN 10 MG TABLET 20 MG PO (20:30)
[2022-05-27] MEDS: ACETAMINOPHEN 325 MG TABLET 650 MG PO (22:40)
[2022-05-28] VITALS (10 sets, daily range): BP systolic 107–129; BP diastolic 60–73; PULSE 66–76; RESP 14–20; TEMP 36.5–37.3; O2SAT 88–93
[2022-05-28 05:11] LABS: Hematocrit 37.3 % (35.0-42.0); Hemoglobin 11.8 g/dL (11.7-13.8); Mean Corpuscular HGB Conc 31.6 g/dL (32.0-36.0); Mean Corpuscular Hemoglobin 29.3 pg (27.0-31.0); Mean Corpuscular Volume 92.6 fL (78.0-102.0); Mean Platelet Volume 9.1 fl (9.2-11.8); Platelet Count Result 176 K/mm3 (150-420); Red Blood Count 4.03 M/mm3 (4.20-5.40); Red Cell Distribution Width 16.2 % (11.6-14.4); White Blood Count 5.4 K/mm3 (4.8-10.8)
[2022-05-28 05:41] LABS: Alanine Aminotransferase 31 U/L (14-59); Albumin Level 2.9 g/dL (3.4-5.0); Alkaline Phosphatase 64 U/L (46-116); Anion Gap 10 mmol/L (8-16); Aspartate Amino Transferase 32 U/L (15-37); Bilirubin,Total 0.3 mg/dL (0.00-1.00); Blood Urea Nitrogen 29 mg/dL (7-18); Calcium 8.4 mg/dL (8.5-10.1); Carbon Dioxide 26 mmol/L (21-32); Chloride 104 mmol/L (98-108); Estimated CRCL calculation 48 ml/min; Estimated Glomerular Filt Rate > 60; Glucose 138 mg/dL (70-99); Magnesium 1.9 mg/dL (1.8-2.4); Osmolality Calculated 297 mOsm/kg (285-295); Potassium 4.5 mmol/L (3.5-5.1); Sodium 140 mmol/L (136-145); Total Protein 6.4 g/dL (6.4-8.2)
[2022-05-28] MEDS: BUDESONIDE/FORMOTEROL 80/4.5 MCG 6.9 GM INHALER (*SP) 2 PUFF INHALATION ×2 (06:35→18:43)
[2022-05-28] MEDS: methylPREDNISolone SOD SUCC 125 MG VIAL 80 MG IV PUSH ×2 (09:00→16:57)
--- NOTE | 2022-05-28 10:13 | WPDPN ---
Progress Note: A&P Assessment and Plan (1) Pneumonia: Qualifiers: Laterality: bilateral Lung location: unspecified part of lung Pneumonia type: due to unspecified organism Qualified Code(s): J18.9 - Pneumonia, unspecified organism Code(s): J18.9 - Pneumonia, unspecified organism Status: Acute Assessment and Plan: imaging indicates pneumonia WBC is within normal limits continue Levaquin, Solu-Medrol, albutero, Symbicort and duo nebulizers blood culture pending preliminary no growth (2) Altered mental status: Qualifiers: Altered mental status type: delirium Qualified Code(s): R41.0 - Disorientation, unspecified Code(s): R41.82 - Altered mental status, unspecified Status: Acute Assessment and Plan: possibly secondary to seizure activity CT of the brain does not indicate CVA MRI of the brain schedule for will continue neuro checks and telemetry start Ativan along with Keppra Keppra started at 250 b.i.d. increased to 500 b.i.d. now at 750 a.m. b.i.d. receive report the patient has to seizures overnight family members do not want any aggressive treatment or transfer they will follow-up with a neurologist if needed after discharge (3) Acute UTI: Code(s): N39.0 - Urinary tract infection, site not specified Status: Acute Assessment and Plan: urinalysis was nitrate UA culture with gram neg bacilli E.coli continue Levaquin day 2 sensitive to E coli (4) Weakness: Code(s): R53.1 - Weakness Status: Acute Assessment and Plan: PTOT eval plan to transition into swing bed (5) Seizure-like activity: Code(s): R56.9 - Unspecified convulsions Status: Acute Assessment and Plan: ct brain does not indicate CVA MRI of the brain pending tomorrow will continue neuro checks and telemetry continue Ativan along with Keppra increase Keppra to 750 b.i.d. family members do not want any aggressive treatment they will follow-up with a neurologist if needed after discharge (6) Hypertension: Code(s): I10 - Essential (primary) hypertension Status: Acute Assessment and Plan: stable continue amlodipine, losartan and metoprolol Subjective Date/time seen: 05/28/22 10:13 Interval history: Patient in the bed first thing this morning alert and talking after breakfast she went into this moaning like activity with minimal jerking noted. Patient did not respond to me initially during this episode and once finished she is not as active but is talking to me at this time. Patient is not have incontinence of stool she has a Bowden catheter in. We will continue to monitor with a MRI Schedule tomorrow. family is contemplating hospice and does not want patient transferred to higher level of care where there is a neurologist . Review of Systems Review of Systems: seizure like activity All systems reviewed & are unremarkable except as noted in HPI and below Exam Narrative: General: This is a well-nourished, well-developed patient, in no apparent distress. HEAD: normocephalic, atraumatic. EYES: PERRL. Sclera clear/white. Vision is grossly intact. EARS: External ears normal, auditory canals clear and without drainage, TMs normal without perforation. Hearing grossly intact. NOSE: External nose normal with no obvious nasal discharge, nares without redness, no rhinorrhea. THROAT: Mucous membranes moist, posterior pharynx clear. CARDIOVASCULAR: Regular rate and rhythm RESPIRATORY: Clear to auscultation. Breath sounds equal bilaterally. GASTROINTESTINAL: Abdomen soft, non-tender, nondistended. Bowel sounds are active. SKIN: warm, intact with no suspicious lesions or rash, good texture and turgor. NEURO: Patient is slightly lethargic but is alert neuro interrogated x4 EXTREMITIES: Normal range of motion. No edema. left AKA Objective Data Vital Signs Vital Signs: Vital
[2022-05-28] MEDS: LOSARTAN POTASSIUM 50 MG TABLET 100 MG PO (11:35)
[2022-05-28] MEDS: ENOXAPARIN 40 MG/0.4 ML SYRINGE SUB-Q (11:35)
[2022-05-28] MEDS: SERTRALINE HCL 50 MG TABLET 200 MG PO (11:36)
[2022-05-28] MEDS: levETIRAcetam Tablet 250 MG, levETIRAcetam Tablet 500 MG 750 MG PO ×2 (11:36→20:22)
[2022-05-28] MEDS: METOPROLOL TARTRATE 50 MG TAB 100 MG PO (11:38)
[2022-05-28] MEDS: FAMOTIDINE 20 MG TABLET PO (11:38)
[2022-05-28] MEDS: amLODIPine BESYLATE 5 MG TABLET 10 MG PO (11:39)
[2022-05-28] MEDS: GABAPENTIN 100 MG CAPSULE PO ×3 (11:39→16:57)
[2022-05-28] MEDS: buPROPion HCL XL (24 HR) 150 MG TABCR PO (11:40)
[2022-05-28] MEDS: MIRABEGRON 25 MG ER TABLET 50 MG PO (11:40)
[2022-05-28] MEDS: ATORVASTATIN 10 MG TABLET 20 MG PO (20:22)
[2022-05-29 03:29] VITALS: PULSE 72
[2022-05-29] MEDS: BUDESONIDE/FORMOTEROL 80/4.5 MCG 6.9 GM INHALER (*SP) 2 PUFF INHALATION (05:51)
[2022-05-29 08:00] VITALS: BP 126/74; PULSE 70; RESP 16; TEMP 36.4; O2SAT 92
[2022-05-29] MEDS: SERTRALINE HCL 50 MG TABLET 200 MG PO (09:15)
[2022-05-29 09:16] VITALS: PULSE 75
[2022-05-29] MEDS: METOPROLOL TARTRATE 50 MG TAB 100 MG PO (09:16)
[2022-05-29] MEDS: ENOXAPARIN 40 MG/0.4 ML SYRINGE SUB-Q (09:16)
[2022-05-29] MEDS: levETIRAcetam Tablet 250 MG, levETIRAcetam Tablet 500 MG 750 MG PO (09:17)
[2022-05-29] MEDS: buPROPion HCL XL (24 HR) 150 MG TABCR PO (09:17)
[2022-05-29] MEDS: GABAPENTIN 100 MG CAPSULE PO ×2 (09:17→13:00)
[2022-05-29] MEDS: amLODIPine BESYLATE 5 MG TABLET 10 MG PO (09:18)
[2022-05-29] MEDS: LOSARTAN POTASSIUM 50 MG TABLET 100 MG PO (09:18)
[2022-05-29] MEDS: MIRABEGRON 25 MG ER TABLET 50 MG PO (09:18)
[2022-05-29] MEDS: methylPREDNISolone SOD SUCC 125 MG VIAL 80 MG IV PUSH (09:19)
[2022-05-29] MEDS: FAMOTIDINE 20 MG TABLET PO (09:19)
--- NOTE | 2022-05-29 14:00 | PM.DS ---
DS: Admitting Diagnosis Discharge Date 05/29/2022 Admitting Diagnosis PNEUMONIA, WEAKNESS, SEIZURE, DS: Discharge Diagnosis Discharge Diagnosis (1) Pneumonia: Qualifiers: Laterality: bilateral Lung location: unspecified part of lung Pneumonia type: due to unspecified organism Qualified Code(s): J18.9 - Pneumonia, unspecified organism Code(s): J18.9 - Pneumonia, unspecified organism Status: Acute Assessment and Plan: imaging indicates pneumonia WBC is within normal limits continue Levaquin, Solu-Medrol, albutero, Symbicort and duo nebulizers blood culture pending preliminary no growth (2) Altered mental status: Qualifiers: Altered mental status type: delirium Qualified Code(s): R41.0 - Disorientation, unspecified Code(s): R41.82 - Altered mental status, unspecified Status: Acute Assessment and Plan: possibly secondary to seizure activity CT of the brain does not indicate CVA MRI of the brain schedule for will continue neuro checks and telemetry start Ativan along with Keppra Keppra started at 250 b.i.d. increased to 500 b.i.d. now at 750 a.m. b.i.d. receive report the patient has to seizures overnight family members do not want any aggressive treatment or transfer they will follow-up with a neurologist if needed after discharge (3) Acute UTI: Code(s): N39.0 - Urinary tract infection, site not specified Status: Acute Assessment and Plan: urinalysis was nitrate UA culture with gram neg bacilli E.coli continue Levaquin day 2 sensitive to E coli (4) Weakness: Code(s): R53.1 - Weakness Status: Acute Assessment and Plan: PTOT eval plan to transition into swing bed (5) Seizure-like activity: Code(s): R56.9 - Unspecified convulsions Status: Acute Assessment and Plan: ct brain does not indicate CVA MRI of the brain pending tomorrow will continue neuro checks and telemetry continue Ativan along with Keppra increase Keppra to 750 b.i.d. family members do not want any aggressive treatment they will follow-up with a neurologist if needed after discharge (6) Hypertension: Code(s): I10 - Essential (primary) hypertension Status: Acute Assessment and Plan: stable continue amlodipine, losartan and metoprolol DS: Summary Hospital Course Reason for hospitalization: Seizure like activity , pneumonia , weakness Hospital Course: ?This 82-year-old female that was admitted to the hospital with pneumonia, seizure-like activity and some weakness.? Patient was found not to have any CVA and is able to be switched over from a inpatient to a swing patient which she can participate with physical therapy patient has been placed on some Keppra and dosage has been increased.? Have spoken with Neurology Dr. Sia paulino and discussed plan and care and for breakthrough seizure-like activity she can be a crease up to a 1000 mg twice a day patient has an extensive past medical history.? Patient lives at home alone in her son's home where they have a area where she is able to take care of herself she is in a wheelchair and she has 1 leg patient has a past medical history arthritis, depression, hyperlipidemia, hypertension, urinary tract infection and left leg amputation at this time we will make patient's we will she will continue to participate with physical therapy and we will work towards the and strengthening. Time Spent with Patient Time attestation: Total time spent providing and/or coordinating discharge services: Exam Narrative: General: This is a well-nourished, well-developed patient, in no apparent distress. HEAD: normocephalic, atraumatic. EYES: PERRL. Sclera clear/white. Vision is grossly intact. EARS: External ears normal, auditory canals clear and without drainage, TMs normal without perforation. Hearing grossly intact. NOSE: External nose normal wit
[2022-05-29 15:00] VITALS: O2SAT 91
[2022-05-30 06:04] LABS: Prolactin 10.5 ng/mL (***)
== END 2022-05-29 14:34 | disposition swing bed (61) | DRG 194 ==
LOC: CHSED 16:22 → CHS2ND 16:34
PROVIDERS: Nurse Practitioner; Admitting Provider Internal Medicine; Emergency Provider Emergency Medicine; PCP Family Medicine; Visit Provider Internal Medicine
DX: J18.9 Pneumonia, unspecified organism (principal); N39.0 Urinary tract infection, site not specified; I10 Essential (primary) hypertension; E78.5 Hyperlipidemia, unspecified; M19.90 Unspecified osteoarthritis, unspecified site; G25.81 Restless legs syndrome; R56.9 Unspecified convulsions; F32.A Depression, unspecified; Z89.612 Acquired absence of left leg above knee
CPT/HCPCS: 36415; 36600; 70450; 70551; 71250; 71275; 74176; 80053; 80307; 81001; 82140; 82805; 82948; 83605; 83735; 84146; 84484; 85025; 85027; 85380; 85610; 85730; 86140; 87040; 87077; 87086; 87088; 87186; 87636; 93005; 94640; 96361; 96365; 96375; 96376; 97110; 97161; 97165; 97530; 97535; 99285; A9270; C9113; G0378; J1650; J1885; J1953; J1956; J2060; J2930; J7030; Q9967

== ENCOUNTER 2022-05-29 14:35 | Inpatient (IN) | payer MEDICARE, BC, SELFPAY ==
[2022-05-29 14:35] VITALS: BMI 32.1
--- NOTE | 2022-05-29 14:35 | ADMGEN ---
This patient, Marissa Sue, was admitted to 2nd Floor Room 204-2 as a skilled swing bed. Patient/family oriented to hospital policies and general routines including ID bracelet, bed and alarms, visiting hours, pain management, procedures, bathroom and other care routines, personal items, smoking policy, room service/diet, and visiting hours. Information on how to activate the Rapid Response Team has been discussed. Patient/Family are encouraged to report perceived risks to care and to ask questions if they do not understand what they are told or what they should do.
[2022-05-29 15:00] VITALS: O2SAT 91
[2022-05-29 16:30] VITALS: BP 118/66; PULSE 71; RESP 18; TEMP 36.2; O2SAT 93
--- NOTE | 2022-05-29 19:42 | PM.IMHP ---
H&P: HPI History of Present Illness Date/Time: 05/29/22 19:42 Chief Complaint: Weakness , seizures, pneumonia Narrative: This 82-year-old female that was admitted to the hospital with pneumonia, seizure-like activity and some weakness. Patient was found not to have any CVA and is able to be switched over from a inpatient to a swing patient which she can participate with physical therapy patient has been placed on some Keppra and dosage has been increased. Have spoken with Neurology Dr. Sia paulino and discussed plan and care and for breakthrough seizure-like activity she can be a crease up to a 1000 mg twice a day patient has an extensive past medical history. Patient lives at home alone in her son's home where they have a area where she is able to take care of herself she is in a wheelchair and she has 1 leg patient has a past medical history arthritis, depression, hyperlipidemia, hypertension, urinary tract infection and left leg amputation at this time we will make patient's we will she will continue to participate with physical therapy and we will work towards the and strengthening. Review of Systems Review of Systems: weakness, Seizure All systems reviewed & are unremarkable except as noted in HPI and below PMFSH Past Medical History Medical History Arthritis Depression Frequent urination Hyperlipidemia Hypertension Restless leg syndrome Surgical History Surgical History Above knee amputation of left lower extremity left knee infection after surgery History of partial hysterectomy Previous back surgery Family History Family History Father Stomach cancer Social History Social History Smoking status: Never smoker Second hand tobacco smoke exposure: Yes (Both parents smoked.) Alcohol intake: never Drinks per week: 1 Substance use: never Substance use type: does not use Lack of Transportation: No Lack of Food: Never True Current Housing: I Have Housing Concerned About Future Housing: No Difficulty Paying Gas/Electric Bills: No Difficulty Paying for Meds: No Currently Unemployed: No Education: High School Diploma/GED Difficulty w/ Childcare or Family Care: No Gender identity (if verbalized by the patient): Female Sexual Orientation (if Verbalized by the Patient): Straight or Heterosexual Spiritual care concerns: No Meds Home Medications and Allergies Home Medications Medication Instructions Recorded Confirmed Type amlodipine 10 mg tablet 10 mg PO DAILY 11/16/20 05/29/22 History atorvastatin 20 mg tablet 20 mg PO HS 11/16/20 05/29/22 History esomeprazole magnesium 40 mg 40 mg PO DAILY 11/16/20 05/29/22 History capsule,delayed release gabapentin 100 mg capsule 100 mg PO TID 11/16/20 05/29/22 History sertraline 100 mg tablet 200 mg PO DAILY 11/16/20 05/29/22 History Allergy Relief (loratadine) 10 mg PO DAILY PRN seasonal 12/19/21 05/29/22 History PreserVision AREDS-2 1 cap PO DAILY 12/19/21 05/29/22 History bupropion HCl 150 mg 24 hr tablet, 1 tablet PO DAILY 12/19/21 05/29/22 History extended release famotidine 20 mg PO DAILY 12/19/21 05/29/22 History fluticasone propionate 50 1 ea intranasal DAILY PRN 12/19/21 05/29/22 History mcg/actuation nasal Congestion spray,suspension losartan 100 mg tablet 1 tablet PO DAILY 12/19/21 05/29/22 History mirabegron 50 mg tablet,extended 1 tablet PO DAILY 12/19/21 05/29/22 History release 24 hr (Myrbetriq) budesonide-formoterol HFA 80 2 puff inhalation Q12HRT #10.2 05/29/22 05/29/22 Rx mcg-4.5 mcg/actuation aerosol grams inhaler (Symbicort) enoxaparin 40 mg/0.4 mL 40 mg (0.4 mL) subcut DAILY #4 mL 05/29/22 05/29/22 Rx subcutaneous syringe (Lovenox) hydrocodone 5 mg-acetaminophen 325 1 tab
[2022-05-29] MEDS: levETIRAcetam 250 MG TABLET 750 MG PO (21:55)
[2022-05-29] MEDS: ATORVASTATIN 10 MG TABLET 20 MG PO (21:56)
[2022-05-29 23:07] VITALS: BP 98/57; PULSE 71; RESP 16; TEMP 36.4; O2SAT 91
[2022-05-30] MEDS: BUDESONIDE/FORMOTEROL 80/4.5 MCG 6.9 GM INHALER (*SP) 2 PUFF INHALATION ×2 (06:03→20:36)
[2022-05-30 06:30] VITALS: O2SAT 92
[2022-05-30 08:00] VITALS: BP 105/60; PULSE 72; RESP 14; TEMP 36.6; O2SAT 91
[2022-05-30] MEDS: predniSONE 20 MG TABLET PO (08:20)
[2022-05-30] MEDS: LOSARTAN POTASSIUM 50 MG TABLET 100 MG PO (09:10)
[2022-05-30] MEDS: ENOXAPARIN 40 MG/0.4 ML SYRINGE SUB-Q (09:40)
[2022-05-30] MEDS: MIRABEGRON 25 MG ER TABLET 50 MG PO (09:40)
[2022-05-30 09:41] VITALS: PULSE 90
[2022-05-30] MEDS: SERTRALINE HCL 50 MG TABLET 200 MG PO (09:41)
[2022-05-30] MEDS: METOPROLOL TARTRATE 50 MG TAB 100 MG PO (09:41)
[2022-05-30] MEDS: PANTOPRAZOLE 40 MG TABLET PO (09:41)
[2022-05-30] MEDS: levETIRAcetam 250 MG TABLET 750 MG PO ×2 (09:41→20:36)
[2022-05-30] MEDS: amLODIPine BESYLATE 5 MG TABLET 10 MG PO (09:42)
[2022-05-30] MEDS: buPROPion HCL XL (24 HR) 150 MG TABCR PO (09:43)
[2022-05-30] MEDS: FAMOTIDINE 20 MG TABLET PO (09:43)
[2022-05-30 09:59] LABS: Hematocrit 40.2 % (35.0-42.0); Mean Corpuscular HGB Conc 32.3 g/dL (32.0-36.0); Mean Corpuscular Volume 92.6 fL (78.0-102.0); Mean Platelet Volume 9.6 fl (9.2-11.8); Platelet Count Result 192 K/mm3 (150-420); Red Blood Count 4.34 M/mm3 (4.20-5.40); Red Cell Distribution Width 16.2 % (11.6-14.4); White Blood Count 8.5 K/mm3 (4.8-10.8)
[2022-05-30 10:52] LABS: Anion Gap 8 mmol/L (8-16); Blood Urea Nitrogen 31 mg/dL (7-18); Calcium 8.5 mg/dL (8.5-10.1); Carbon Dioxide 27 mmol/L (21-32); Chloride 105 mmol/L (98-108); Estimated CRCL calculation 41 ml/min; Estimated Glomerular Filt Rate 57; Glucose 102 mg/dL (70-99); Osmolality Calculated 296 mOsm/kg (285-295); Potassium 4.3 mmol/L (3.5-5.1); Sodium 140 mmol/L (136-145)
[2022-05-30 16:40] VITALS: BP 106/65; PULSE 74; RESP 18; TEMP 36.8; O2SAT 95
[2022-05-30] MEDS: GABAPENTIN 300 MG CAPSULE PO (17:56)
[2022-05-30] MEDS: traZODone HCL 50 MG TABLET PO (20:37)
[2022-05-30] MEDS: ATORVASTATIN 10 MG TABLET 20 MG PO (20:38)
[2022-05-30 23:29] VITALS: BP 106/62; PULSE 76; RESP 16; TEMP 36.7; O2SAT 92
--- NOTE | 2022-05-31 03:50 | PC.NURSE ---
0310 report from claus carrion. resumed care. no questions or concerns at this time. 0325 pt sleeping, no seizure activity noted. respirations even and unlabored. call connolly and personal belongings on bedside table within reach.
[2022-05-31 06:30] VITALS: O2SAT 95
--- NOTE | 2022-05-31 06:47 | PC.NURSE ---
Report to CARLO Diez
[2022-05-31 08:00] VITALS: BP 109/60; PULSE 85; RESP 18; TEMP 36.2; O2SAT 95
[2022-05-31] MEDS: ENOXAPARIN 40 MG/0.4 ML SYRINGE SUB-Q (08:49)
[2022-05-31] MEDS: MIRABEGRON 25 MG ER TABLET 50 MG PO (08:50)
[2022-05-31] MEDS: GABAPENTIN 300 MG CAPSULE PO ×3 (08:50→17:03)
[2022-05-31] MEDS: OPTI-GEN TAB 1 TABLET PO (08:51)
[2022-05-31] MEDS: SERTRALINE HCL 50 MG TABLET 200 MG PO (08:51)
[2022-05-31] MEDS: levETIRAcetam 250 MG TABLET 750 MG PO ×2 (08:52→20:07)
[2022-05-31] MEDS: predniSONE 20 MG TABLET PO (08:53)
[2022-05-31] MEDS: PANTOPRAZOLE 40 MG TABLET PO (08:53)
[2022-05-31] MEDS: FAMOTIDINE 20 MG TABLET PO (08:53)
[2022-05-31] MEDS: LOSARTAN POTASSIUM 50 MG TABLET 100 MG PO (08:53)
[2022-05-31] MEDS: buPROPion HCL XL (24 HR) 150 MG TABCR PO (08:53)
[2022-05-31 08:54] VITALS: PULSE 84
[2022-05-31] MEDS: METOPROLOL TARTRATE 50 MG TAB 100 MG PO (08:54)
[2022-05-31] MEDS: amLODIPine BESYLATE 5 MG TABLET 10 MG PO (08:54)
[2022-05-31 16:00] VITALS: BP 97/54; PULSE 65; RESP 16; TEMP 36.9; O2SAT 95
[2022-05-31] MEDS: BUDESONIDE/FORMOTEROL 80/4.5 MCG 6.9 GM INHALER (*SP) 2 PUFF INHALATION (18:38)
[2022-05-31] MEDS: LORazepam (*CRX) 0.5 MG TABLET PO (19:26)
[2022-05-31] MEDS: LORazepam INJ (*CRX) 2 MG/ML VIAL 1 MG IM (19:57)
[2022-05-31] MEDS: ATORVASTATIN 10 MG TABLET 20 MG PO (20:07)
--- NOTE | 2022-05-31 20:45 | PC.NURSE ---
Patient family reported patient having seizure at 1919, was observed to have twitching of hands but was responsive this lasted approximately 60 seconds, PO ativan was given, at 1939 patient had another twitching episode lasting approximately 60 seconds, ADVERTISING DISPATCH CLERKS SUPERVISOR was notified and ordered IM ativan which was given. Patient VS BP 109/64, P 69, T 96.1, R 20, SPOR 92. Patient is resting quietly at present, FRED.
--- NOTE | 2022-05-31 21:10 | PC.NURSE ---
Patient's nurse reported that patient was having tremors that were consistent with previous seizure activity. Charge nurse and patient's nurse reported to patient's room and observed patient tremoring, with eyes closed and a look of distress. Patient's son and [id number] were present, and stated that she had just started the tremors right before nurses arrived. Called patient's name loudly, and at first patient did not respond. After a few seconds, she was able to open her eyes briefly to command. The seizure last approximately 60 seconds. She was able to follow simple commands and respond verbally. Patient's nurse retrieved ativan, 0.5 mg PO from the [facility]. Patient no longer had IV access. Once patient was responsive, and able to swallow safely, she was given the PO ativan. Patient was resting, and patient's family was told to call with any changes. Approximately 20 minutes later, patient began to tremor again. Patient's family called, nurses responded, and patient was again having tremors in her arms, hands, and upper body. Her eyes were closed, and she again looked in distress. After approximately 60 seconds, patient was able to respond to her name, and then was able to open her eyes to command. ENGAGEMENT SPECIALIST was notified. She ordered a one time dose of Ativan IM, 1 mg. Patient was given this medication as soon as it was available. Patient was then able to rest comfortably.
[2022-06-01] VITALS: BP 109/64; PULSE 69; RESP 20; TEMP 35.6; O2SAT 92
[2022-06-01 05:30] VITALS: O2SAT 96
[2022-06-01] MEDS: BUDESONIDE/FORMOTEROL 80/4.5 MCG 6.9 GM INHALER (*SP) 2 PUFF INHALATION ×2 (06:09→18:34)
--- NOTE | 2022-06-01 07:03 | PC.NURSE ---
Patient and rested quietly and has had no further seizure activity.
[2022-06-01 08:00] VITALS: BP 109/62; PULSE 70; RESP 16; TEMP 36.8; O2SAT 93
[2022-06-01] MEDS: ENOXAPARIN 40 MG/0.4 ML SYRINGE SUB-Q (09:04)
[2022-06-01] MEDS: SERTRALINE HCL 50 MG TABLET 200 MG PO (09:05)
[2022-06-01] MEDS: MIRABEGRON 25 MG ER TABLET 50 MG PO (09:05)
[2022-06-01 09:07] VITALS: PULSE 70
[2022-06-01] MEDS: METOPROLOL TARTRATE 50 MG TAB 100 MG PO (09:07)
[2022-06-01] MEDS: levETIRAcetam 250 MG TABLET 750 MG PO ×2 (09:07→20:14)
[2022-06-01] MEDS: predniSONE 20 MG TABLET PO (09:08)
[2022-06-01] MEDS: amLODIPine BESYLATE 5 MG TABLET 10 MG PO (09:08)
[2022-06-01] MEDS: OPTI-GEN TAB 1 TABLET PO (09:09)
[2022-06-01] MEDS: PANTOPRAZOLE 40 MG TABLET PO (09:09)
[2022-06-01] MEDS: FAMOTIDINE 20 MG TABLET PO (09:09)
[2022-06-01] MEDS: GABAPENTIN 300 MG CAPSULE PO ×3 (09:10→17:21)
[2022-06-01] MEDS: buPROPion HCL XL (24 HR) 150 MG TABCR PO (09:10)
[2022-06-01] MEDS: LOSARTAN POTASSIUM 50 MG TABLET 100 MG PO (09:10)
[2022-06-01] MEDS: LORazepam (*CRX) 0.5 MG TABLET PO ×2 (10:16→20:15)
--- NOTE | 2022-06-01 10:49 | P.PNCROSS_ITS ---
Event Note Event Note Event Note: Rcvd a call last night patient had a seizure like activity and she was given ac tiva and she had returned to normal state after a few moments. I seen patient have a seizure like activity. Patient daughter called and was some what upset and wanted to know why pt was not being transferred. I did inform Patient daughter she would need to speak to POA and discuss the plan that was set up for her with them as at this time patient is stable and her POA has requested for her not transfer . Family member on the phone instructed that if at any point and time the POA chages thier mind I would be more than happy to attempt to transfer.
--- NOTE | 2022-06-01 11:39 | PC.NURSE ---
Patient noted to be mildly shaking in her hands and making faint noises at 1015. BELL PERSON diagnosed as seizure activity. Seizure lasted approximately 90 seconds. Patient arousable by verbal commands. Patient coherent enough to swallow PO Ativan 0.5mg. Patient feeling better and resting at this time. VSS throughout.
--- NOTE | 2022-06-01 14:34 | PC.NURSE ---
son here requesting to have his mother transfered d/t her not getting better and still having seizures. talks with janie and now wants to meet up with her after he talks with sister again tomorrow.
--- NOTE | 2022-06-01 15:03 | PC.NURSE ---
Spoke with patient's son and POA to answer questions related to patient's seizure activity. Son stated that he wants us to get the seizures under control. Claim Technician explained that medication was started and dosage has been increased from 250mg, to 500mg, to 750 mg in the past week, and that seizures are becoming shorter and less frequent since the start of the medication. Son stated that his mom had had episodes at home where she would act funny , but they only happened maybe every month or two . Claim Technician advised patient's son that we would be happy to assist in transferring patient to a hospital with neurology, and assured patient's son that we will do everything within our scope to treat his mother in the mean time.
[2022-06-01 16:00] VITALS: BP 102/60; PULSE 71; RESP 16; TEMP 37.2; O2SAT 94
[2022-06-01] MEDS: ACETAMINOPHEN 325 MG TABLET 650 MG PO (18:34)
--- NOTE | 2022-06-01 19:22 | PC.NURSE ---
patient has c/o of runny nose, sore throat, head ache, and claims daughter is now +covid and was with her the day before she tested +. temp 99.5. tyl prn po given. launch steward aware.
[2022-06-01] MEDS: ATORVASTATIN 10 MG TABLET 20 MG PO (20:15)
[2022-06-01 20:24] VITALS: TEMP 36.2
--- NOTE | 2022-06-01 21:55 | PC.NURSE ---
Lipitor would not scan, package thrown away as room is being treated as isolation due to patient temperature.
[2022-06-02] VITALS: BP 96/54; PULSE 63; RESP 20; TEMP 36.2; O2SAT 96
[2022-06-02 05:42] VITALS: O2SAT 94
[2022-06-02] MEDS: BUDESONIDE/FORMOTEROL 80/4.5 MCG 6.9 GM INHALER (*SP) 2 PUFF INHALATION ×2 (06:18→18:54)
[2022-06-02 06:53] LABS: SARS-CoV-2 RNA PCR Negative (Negative)
[2022-06-02 07:45] VITALS: BP 124/60; PULSE 73; RESP 18; TEMP 36.9; O2SAT 92
[2022-06-02] MEDS: SERTRALINE HCL 50 MG TABLET 200 MG PO (09:43)
[2022-06-02] MEDS: GABAPENTIN 300 MG CAPSULE PO ×2 (09:43→21:02)
[2022-06-02] MEDS: levETIRAcetam 250 MG TABLET 750 MG PO ×2 (09:43→21:02)
[2022-06-02] MEDS: MIRABEGRON 25 MG ER TABLET 50 MG PO (09:44)
[2022-06-02] MEDS: PANTOPRAZOLE 40 MG TABLET PO (09:45)
[2022-06-02] MEDS: amLODIPine BESYLATE 5 MG TABLET 10 MG PO (09:45)
[2022-06-02] MEDS: LOSARTAN POTASSIUM 50 MG TABLET 100 MG PO (09:45)
[2022-06-02] MEDS: OPTI-GEN TAB 1 TABLET PO (09:45)
[2022-06-02] MEDS: predniSONE 20 MG TABLET PO (09:45)
[2022-06-02 09:46] VITALS: PULSE 87
[2022-06-02] MEDS: buPROPion HCL XL (24 HR) 150 MG TABCR PO (09:46)
[2022-06-02] MEDS: FAMOTIDINE 20 MG TABLET PO (09:46)
[2022-06-02] MEDS: METOPROLOL TARTRATE 50 MG TAB 100 MG PO (09:46)
[2022-06-02] MEDS: ENOXAPARIN 40 MG/0.4 ML SYRINGE SUB-Q (09:47)
--- NOTE | 2022-06-02 11:04 | P.PNCROSS_ITS ---
Event Note Event Note Event Note: Spoke with Dr. Parker Neurologist who said that he will see the patient as a o utpatient in his office. Dr Parker advised me that she may have a few additional seizures and we can increase her KEPPRA to 1000 mg bid if needed. 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 we will continue to monitor
[2022-06-02 15:45] VITALS: BP 102/52; PULSE 67; RESP 18; TEMP 36.8; O2SAT 95
[2022-06-02] MEDS: traZODone HCL 50 MG TABLET PO (21:02)
[2022-06-02] MEDS: ATORVASTATIN 10 MG TABLET 20 MG PO (21:03)
[2022-06-03] VITALS: BP 112/66; PULSE 66; RESP 16; TEMP 36.8; O2SAT 94
[2022-06-03 05:38] VITALS: O2SAT 92
[2022-06-03] MEDS: BUDESONIDE/FORMOTEROL 80/4.5 MCG 6.9 GM INHALER (*SP) 2 PUFF INHALATION ×2 (06:32→18:43)
[2022-06-03 07:40] VITALS: BP 105/61; PULSE 67; RESP 18; TEMP 36.6; O2SAT 94
[2022-06-03 09:18] VITALS: PULSE 67
[2022-06-03] MEDS: MIRABEGRON 25 MG ER TABLET 50 MG PO (09:18)
[2022-06-03] MEDS: METOPROLOL TARTRATE 50 MG TAB 100 MG PO (09:18)
[2022-06-03] MEDS: amLODIPine BESYLATE 5 MG TABLET 10 MG PO (09:19)
[2022-06-03] MEDS: LOSARTAN POTASSIUM 50 MG TABLET 100 MG PO (09:19)
[2022-06-03] MEDS: SERTRALINE HCL 50 MG TABLET 200 MG PO (09:19)
[2022-06-03] MEDS: GABAPENTIN 100 MG CAPSULE PO ×2 (09:20→13:49)
[2022-06-03] MEDS: PANTOPRAZOLE 40 MG TABLET PO (09:20)
[2022-06-03] MEDS: FAMOTIDINE 20 MG TABLET PO (09:20)
[2022-06-03] MEDS: levETIRAcetam 250 MG TABLET 750 MG PO ×2 (09:20→21:14)
[2022-06-03] MEDS: buPROPion HCL XL (24 HR) 150 MG TABCR PO (09:20)
[2022-06-03] MEDS: OPTI-GEN TAB 1 TABLET PO (09:20)
[2022-06-03] MEDS: ENOXAPARIN 40 MG/0.4 ML SYRINGE SUB-Q (09:20)
[2022-06-03 16:00] VITALS: BP 96/50; PULSE 68; RESP 18; TEMP 36.6; O2SAT 95
[2022-06-03] MEDS: ATORVASTATIN 10 MG TABLET 20 MG PO (21:14)
[2022-06-03] MEDS: GABAPENTIN 300 MG CAPSULE PO (21:14)
[2022-06-03 23:41] VITALS: BP 97/47; PULSE 71; RESP 16; TEMP 36.4; O2SAT 92
--- NOTE | 2022-06-04 05:29 | P.PNCROSS_ITS ---
Event Note Event Note Event Note: metoprolol decreased from 100 mg daily to 75 mg daily due to a soft blood pres sure. will continue to monitor and adjust medication
--- NOTE | 2022-06-04 05:29 | PM.EVENT ---
Event Note Event Note Event Note: metoprolol decreased from 100 mg daily to 75 mg daily due to a soft blood pressure. will continue to monitor and adjust medication
[2022-06-04 05:40] VITALS: O2SAT 94
[2022-06-04] MEDS: BUDESONIDE/FORMOTEROL 80/4.5 MCG 6.9 GM INHALER (*SP) 2 PUFF INHALATION ×2 (07:44→18:59)
[2022-06-04 08:00] VITALS: BP 109/62; PULSE 83; RESP 18; TEMP 38; O2SAT 93
[2022-06-04] MEDS: ENOXAPARIN 40 MG/0.4 ML SYRINGE SUB-Q (08:16)
[2022-06-04] MEDS: FAMOTIDINE 20 MG TABLET PO (08:17)
[2022-06-04] MEDS: PANTOPRAZOLE 40 MG TABLET PO (08:17)
[2022-06-04] MEDS: levETIRAcetam 250 MG TABLET 750 MG PO ×2 (08:17→21:30)
[2022-06-04] MEDS: GABAPENTIN 100 MG CAPSULE PO ×2 (08:17→11:44)
[2022-06-04 08:19] VITALS: TEMP 38
[2022-06-04] MEDS: ACETAMINOPHEN 325 MG TABLET 650 MG PO (08:19)
[2022-06-04] MEDS: METOPROLOL TARTRATE TAB 25 MG, METOPROLOL TARTRATE TAB 50 MG 75 MG PO (08:19)
[2022-06-04] MEDS: SERTRALINE HCL 50 MG TABLET 200 MG PO (08:20)
[2022-06-04] MEDS: buPROPion HCL XL (24 HR) 150 MG TABCR PO (08:21)
[2022-06-04] MEDS: OPTI-GEN TAB 1 TABLET PO (08:21)
[2022-06-04] MEDS: amLODIPine BESYLATE 5 MG TABLET 10 MG PO (08:22)
[2022-06-04] MEDS: MIRABEGRON 25 MG ER TABLET 50 MG PO (08:22)
[2022-06-04] MEDS: LOSARTAN POTASSIUM 50 MG TABLET 100 MG PO (08:22)
[2022-06-04 09:20] VITALS: TEMP 37.5
--- NOTE | 2022-06-04 11:49 | PC.NURSE ---
Patient had T of 100.4 axillary this am. Tylenol 650 administered at 0800 med pass. Effective. T currently 98.5. Patient states that she just doesn't feel well. Patient's daughter here and questioning nurse about repeating CXR and why labs had not been drawn today. Supervisor Telephone Answering Service explained that labs are not typically drawn on swing bed patient's daily, and referred other questions to CARE TRANSITION COORDINATOR.
--- NOTE | 2022-06-04 11:54 | PM.EVENT ---
Event Note Event Note Event Note: patient with fever will complete a CBC CMP and UA with blood culture
--- NOTE | 2022-06-04 12:46 | P.PNCROSS_ITS ---
Event Note Event Note Event Note: patient notes that she is tired today. She knows that she slept well overnigh t. She also states that she is doing well in physical therapy
--- NOTE | 2022-06-04 12:46 | PM.EVENT ---
Event Note Event Note Event Note: patient notes that she is tired today. She knows that she slept well overnight. She also states that she is doing well in physical therapy
[2022-06-04 13:29] LABS: Hematocrit 38.5 % (35.0-42.0); Hemoglobin 12.3 g/dL (11.7-13.8); Mean Corpuscular HGB Conc 31.9 g/dL (32.0-36.0); Mean Corpuscular Hemoglobin 29.4 pg (27.0-31.0); Mean Corpuscular Volume 92.1 fL (78.0-102.0); Mean Platelet Volume 9.4 fl (9.2-11.8); Platelet Count Result 169 K/mm3 (150-420); Red Blood Count 4.18 M/mm3 (4.20-5.40); Red Cell Distribution Width 16.9 % (11.6-14.4); White Blood Count 8.4 K/mm3 (4.8-10.8)
[2022-06-04 13:44] LABS: Alanine Aminotransferase 35 U/L (14-59); Albumin Level 2.9 g/dL (3.4-5.0); Alkaline Phosphatase 65 U/L (46-116); Anion Gap 5 mmol/L (8-16); Aspartate Amino Transferase 27 U/L (15-37); Bilirubin,Total 0.4 mg/dL (0.00-1.00); Blood Urea Nitrogen 34 mg/dL (7-18); Calcium 8.3 mg/dL (8.5-10.1); Carbon Dioxide 30 mmol/L (21-32); Chloride 99 mmol/L (98-108); Estimated CRCL calculation 41 ml/min; Estimated Glomerular Filt Rate 57; Glucose 112 mg/dL (70-99); Osmolality Calculated 286 mOsm/kg (285-295); Potassium 4.8 mmol/L (3.5-5.1); Sodium 134 mmol/L (136-145); Total Protein 6.4 g/dL (6.4-8.2)
[2022-06-04 16:00] VITALS: BP 110/78; PULSE 92; RESP 18; TEMP 37.1; O2SAT 97
[2022-06-04 21:00] LABS: Add Urine Microscopic? YES; Appearance Urine Slightly Cloudy (Clear); Bilirubin Urine Negative (Negative); Blood Urine Negative (Negative); Glucose Urine UA Negative (Negative); Ketones Urine Negative (Negative); Leukocyte Esterase Ur Trace LEU/UL (Negative); Nitrate Urine Negative (Negative); Protein Urine Negative (Negative); Specific Grav Ur 1.015 (1.010-1.020); Urobilinogen Urine 0.2 mg/dL (0.2-1.0)
[2022-06-04 21:05] LABS: Bacteria Urine 1+ /hpf; Color Urine Yellow (Yellow); RBC Urine 0-2 /hpf (0-2); Squamous Epithelial Cell Urine Moderate /hpf (Few); WBC Urine 0-3 /hpf (0-3)
[2022-06-04] MEDS: GABAPENTIN 300 MG CAPSULE PO (21:31)
[2022-06-04] MEDS: ATORVASTATIN 10 MG TABLET 20 MG PO (21:31)
[2022-06-04 23:53] VITALS: BP 97/52; PULSE 73; RESP 18; TEMP 36.2; O2SAT 94
[2022-06-05] MEDS: BUDESONIDE/FORMOTEROL 80/4.5 MCG 6.9 GM INHALER (*SP) 2 PUFF INHALATION ×2 (06:13→18:46)
[2022-06-05 06:30] VITALS: O2SAT 93
[2022-06-05 08:00] VITALS: BP 148/84; PULSE 78; RESP 18; TEMP 36.8; O2SAT 97
[2022-06-05] MEDS: ENOXAPARIN 40 MG/0.4 ML SYRINGE SUB-Q (08:37)
[2022-06-05] MEDS: SERTRALINE HCL 50 MG TABLET 200 MG PO (08:38)
[2022-06-05] MEDS: MIRABEGRON 25 MG ER TABLET 50 MG PO (08:38)
[2022-06-05 08:39] VITALS: PULSE 76
[2022-06-05] MEDS: levETIRAcetam 250 MG TABLET 750 MG PO ×2 (08:39→20:19)
[2022-06-05] MEDS: OPTI-GEN TAB 1 TABLET PO (08:39)
[2022-06-05] MEDS: METOPROLOL TARTRATE TAB 25 MG, METOPROLOL TARTRATE TAB 50 MG 75 MG PO (08:39)
[2022-06-05] MEDS: PANTOPRAZOLE 40 MG TABLET PO (08:39)
[2022-06-05] MEDS: amLODIPine BESYLATE 5 MG TABLET 10 MG PO (08:40)
[2022-06-05] MEDS: LOSARTAN POTASSIUM 50 MG TABLET 100 MG PO (08:41)
[2022-06-05] MEDS: FAMOTIDINE 20 MG TABLET PO (08:41)
[2022-06-05] MEDS: GABAPENTIN 100 MG CAPSULE PO ×2 (08:41→12:28)
[2022-06-05] MEDS: buPROPion HCL XL (24 HR) 150 MG TABCR PO (08:41)
[2022-06-05] MEDS: NITROFURANTOIN MONOHYD MACROCR 100 MG CAP PO (10:00)
--- NOTE | 2022-06-05 10:06 | WPDPN ---
Progress Note: A&P Assessment and Plan (1) Weakness: Code(s): R53.1 - Weakness Status: Acute Assessment and Plan: ? Exhibit tolerance during physical activity as evidenced by a normal fluctuation of vital signs during physical activity. ? Patient will be ability to perform required activities of daily living. ? Provide appropriate nutrition for healing and strength. ? Use appropriate to prevent falls. ? Continue physical therapy/occupational therapy. (2) Seizure-like activity: Code(s): R56.9 - Unspecified convulsions Status: Acute Assessment and Plan: continue Keppra at 1000 mg b.i.d. will need to follow up with Neurology on discharge (3) Pneumonia: Qualifiers: Laterality: bilateral Lung location: unspecified part of lung Pneumonia type: due to unspecified organism Qualified Code(s): J18.9 - Pneumonia, unspecified organism Code(s): J18.9 - Pneumonia, unspecified organism Status: Acute Assessment and Plan: Resolved (4) Acute UTI: Code(s): N39.0 - Urinary tract infection, site not specified Status: Acute (5) UTI (urinary tract infection): Qualifiers: Hematuria presence: without hematuria Urinary tract infection type: acute cystitis Qualified Code(s): N30.00 - Acute cystitis without hematuria Code(s): N39.0 - Urinary tract infection, site not specified Status: Acute Assessment and Plan: chronic UA with a trace of leukocytes started Macrobid prophylactically UA culture pending patient will need to follow Subjective Date/time seen: 06/05/22 10:06 Interval history: patient appears fatigued today. received report that she had a fever yesterday collected a UA Patient UA indicated a possible urinary tract infection culture pending started antibiotics prophylactically. Patient will more than likely have to go home with antibiotics prophylactically in a follow-up with Urology. Doing physical therapy activity patient had episode where she blank stare with tremors to her upper extremity. Patient was able to follow some commands. When patient was asked to open her eye she was able to. During the episode patient's vital signs were normal. Did not appear to be a seizure. The patient denies SOB, CP, palpitation, extremity numbness, lightheadedness, dizziness, constipation, diarrhea, or chills. Review of Systems Review of Systems: A 14 organ system Review of Systems was performed and pertinent positives included in the HPI, otherwise remaining ROS is negative. Objective Data Vital Signs Vital Signs: Vital Signs - 24 hr 06/04/22 16:00 06/04/22 23:53 06/05/22 08:00 Temperature 98.8 F 97.2 F L 98.2 F Pulse Rate 92 73 78 Respiratory Rate 18 18 18 Blood Pressure 110/78 97/52 L 148/84 H Pulse Oximetry 97 94 97 Oxygen Delivery Nasal Cannula Room Air Nasal Cannula Oxygen Flow Rate 2 2 06/05/22 08:39 Temperature Pulse Rate 76 Respiratory Rate Blood Pressure Pulse Oximetry Oxygen Delivery Oxygen Flow Rate Intake/Output Intake/Output: Intake & Output 06/02/22 06/03/22 06/04/22 06/05/22 23:59 23:59 23:59 23:59 Intake Total 1240 2125 1220 240 Output Total 2200 1100 Balance -960 1025 1220 240 Meds/Results Medications: Active Medications Generic Name Dose Route Start Last Admin Trade Name Freq PRN Reason Stop Dose Admin Acetaminophen 650 mg 05/29/22 19:36 06/04/22 08:19 Acetaminophen 325 Mg Tablet PO 650 mg Q4H PRN Administration Mild Pain (1-3) or Fever Hydrocodone Bitart/Acetaminophen 1 tab 06/04/22 12:10 Hydrocodone/Acetaminophen (*Crx) 5-325 Mg Tablet PO Q6HR PRN Pain Rated 7-10 Albuterol/Ipratropium 3 ml 05/29/22 19:39 Ipratropium 0.5 Mg/Albuterol Sulfate 2.5 Mg Ampul.Neb 3 Ml INHALATION Q6HRT PRN Shortness Of Breath Amlodipine Besylate 10 mg 05/30/22 09:00 06/05/22 08:40 Amlodipine Besyl
[2022-06-05 16:00] VITALS: BP 124/72; PULSE 74; RESP 16; TEMP 36.6; O2SAT 98
[2022-06-05 17:12] LABS: Levetiracetam Keppra 34.3 mcg/mL (6.0-46.0)
[2022-06-05] MEDS: ACETAMINOPHEN 325 MG TABLET 650 MG PO (17:51)
[2022-06-05] MEDS: ATORVASTATIN 10 MG TABLET 20 MG PO (20:19)
[2022-06-05] MEDS: GABAPENTIN 300 MG CAPSULE PO (20:20)
[2022-06-06] VITALS: BP 102/55; PULSE 70; RESP 18; TEMP 36; O2SAT 93
[2022-06-06] MEDS: BUDESONIDE/FORMOTEROL 80/4.5 MCG 6.9 GM INHALER (*SP) 2 PUFF INHALATION ×2 (06:01→20:04)
[2022-06-06 06:30] VITALS: O2SAT 92
[2022-06-06 08:00] VITALS: BP 136/74; PULSE 76; RESP 18; TEMP 37.1; O2SAT 97
[2022-06-06] MEDS: ENOXAPARIN 40 MG/0.4 ML SYRINGE SUB-Q (08:30)
[2022-06-06] MEDS: SERTRALINE HCL 50 MG TABLET 200 MG PO (08:31)
[2022-06-06] MEDS: PANTOPRAZOLE 40 MG TABLET PO (08:31)
[2022-06-06] MEDS: NITROFURANTOIN MONOHYD MACROCR 100 MG CAP PO (08:31)
[2022-06-06] MEDS: MIRABEGRON 25 MG ER TABLET 50 MG PO (08:31)
[2022-06-06] MEDS: OPTI-GEN TAB 1 TABLET PO (08:32)
[2022-06-06] MEDS: GABAPENTIN 100 MG CAPSULE PO ×2 (08:32→12:15)
[2022-06-06] MEDS: LOSARTAN POTASSIUM 50 MG TABLET 100 MG PO (08:32)
[2022-06-06] MEDS: FAMOTIDINE 20 MG TABLET PO (08:33)
[2022-06-06] MEDS: buPROPion HCL XL (24 HR) 150 MG TABCR PO (08:33)
[2022-06-06] MEDS: levETIRAcetam 250 MG TABLET 750 MG PO ×2 (08:33→19:59)
[2022-06-06 08:34] VITALS: PULSE 75
[2022-06-06] MEDS: METOPROLOL TARTRATE TAB 25 MG, METOPROLOL TARTRATE TAB 50 MG 75 MG PO (08:34)
[2022-06-06] MEDS: amLODIPine BESYLATE 5 MG TABLET 10 MG PO (08:34)
[2022-06-06 15:29] VITALS: BP 108/60; PULSE 77; RESP 18; TEMP 37.3
[2022-06-06] MEDS: GABAPENTIN 300 MG CAPSULE PO (20:00)
[2022-06-06] MEDS: ATORVASTATIN 10 MG TABLET 20 MG PO (20:00)
[2022-06-07] VITALS (7 sets, daily range): BP systolic 99–113; BP diastolic 54–61; PULSE 67–79; RESP 18–20; TEMP 36.6–37.1; O2SAT 92–94
[2022-06-07] MEDS: BUDESONIDE/FORMOTEROL 80/4.5 MCG 6.9 GM INHALER (*SP) 2 PUFF INHALATION ×2 (06:04→18:27)
[2022-06-07] MEDS: ENOXAPARIN 40 MG/0.4 ML SYRINGE SUB-Q (08:52)
[2022-06-07] MEDS: NITROFURANTOIN MONOHYD MACROCR 100 MG CAP PO (08:52)
[2022-06-07] MEDS: levETIRAcetam 250 MG TABLET 750 MG PO ×2 (08:52→20:13)
[2022-06-07] MEDS: buPROPion HCL XL (24 HR) 150 MG TABCR PO (08:53)
[2022-06-07] MEDS: SERTRALINE HCL 50 MG TABLET 200 MG PO (08:53)
[2022-06-07] MEDS: GABAPENTIN 100 MG CAPSULE PO ×2 (08:53→12:59)
[2022-06-07] MEDS: PANTOPRAZOLE 40 MG TABLET PO (08:53)
[2022-06-07] MEDS: MIRABEGRON 25 MG ER TABLET 50 MG PO (08:53)
[2022-06-07] MEDS: OPTI-GEN TAB 1 TABLET PO (08:53)
[2022-06-07] MEDS: LOSARTAN POTASSIUM 50 MG TABLET 100 MG PO (08:53)
[2022-06-07] MEDS: METOPROLOL TARTRATE TAB 25 MG, METOPROLOL TARTRATE TAB 50 MG 75 MG PO (08:53)
[2022-06-07] MEDS: amLODIPine BESYLATE 5 MG TABLET 10 MG PO (08:54)
[2022-06-07] MEDS: FAMOTIDINE 20 MG TABLET PO (08:54)
[2022-06-07] MEDS: HYDROcodone/acetaminophen (*CRX) 5-325 MG TABLET 1 TAB PO ×2 (12:59→20:14)
[2022-06-07] MEDS: GABAPENTIN 300 MG CAPSULE PO (20:13)
[2022-06-07] MEDS: traZODone HCL 50 MG TABLET PO (20:13)
[2022-06-07] MEDS: ATORVASTATIN 10 MG TABLET 20 MG PO (20:13)
[2022-06-08] VITALS (12 sets, daily range): BP systolic 98–124; BP diastolic 53–66; PULSE 64–73; RESP 16–18; TEMP 36.9–37.1; O2SAT 89–95
[2022-06-08] MEDS: BUDESONIDE/FORMOTEROL 80/4.5 MCG 6.9 GM INHALER (*SP) 2 PUFF INHALATION ×2 (05:48→18:30)
[2022-06-08] MEDS: ENOXAPARIN 40 MG/0.4 ML SYRINGE SUB-Q (09:42)
[2022-06-08] MEDS: GABAPENTIN 100 MG CAPSULE PO ×2 (09:42→14:05)
[2022-06-08] MEDS: PANTOPRAZOLE 40 MG TABLET PO (09:43)
[2022-06-08] MEDS: levETIRAcetam 250 MG TABLET 750 MG PO ×2 (09:43→20:47)
[2022-06-08] MEDS: MIRABEGRON 25 MG ER TABLET 50 MG PO (09:43)
[2022-06-08] MEDS: METOPROLOL TARTRATE TAB 25 MG, METOPROLOL TARTRATE TAB 50 MG 75 MG PO (09:43)
[2022-06-08] MEDS: amLODIPine BESYLATE 5 MG TABLET 10 MG PO (09:44)
[2022-06-08] MEDS: SERTRALINE HCL 50 MG TABLET 200 MG PO (09:44)
[2022-06-08] MEDS: buPROPion HCL XL (24 HR) 150 MG TABCR PO (09:44)
[2022-06-08] MEDS: LOSARTAN POTASSIUM 50 MG TABLET 100 MG PO (09:45)
[2022-06-08] MEDS: NITROFURANTOIN MONOHYD MACROCR 100 MG CAP PO (09:45)
[2022-06-08] MEDS: FAMOTIDINE 20 MG TABLET PO (09:45)
[2022-06-08] MEDS: OPTI-GEN TAB 1 TABLET PO (09:45)
[2022-06-08] MEDS: HYDROcodone/acetaminophen (*CRX) 5-325 MG TABLET 1 TAB PO (09:51)
[2022-06-08] MEDS: ATORVASTATIN 10 MG TABLET 20 MG PO (20:47)
[2022-06-08] MEDS: GABAPENTIN 300 MG CAPSULE PO (20:47)
[2022-06-08] MEDS: traZODone HCL 50 MG TABLET PO (20:47)
[2022-06-09] VITALS (7 sets, daily range): BP systolic 100–108; BP diastolic 52–73; PULSE 70–79; RESP 15–20; TEMP 36.4–36.8; O2SAT 93–96
[2022-06-09] MEDS: BUDESONIDE/FORMOTEROL 80/4.5 MCG 6.9 GM INHALER (*SP) 2 PUFF INHALATION ×2 (06:09→18:28)
[2022-06-09] MEDS: MIRABEGRON 25 MG ER TABLET 50 MG PO (08:36)
[2022-06-09] MEDS: OPTI-GEN TAB 1 TABLET PO (08:36)
[2022-06-09] MEDS: METOPROLOL TARTRATE TAB 25 MG, METOPROLOL TARTRATE TAB 50 MG 75 MG PO (08:37)
[2022-06-09] MEDS: LOSARTAN POTASSIUM 50 MG TABLET 100 MG PO (08:38)
[2022-06-09] MEDS: PANTOPRAZOLE 40 MG TABLET PO (08:38)
[2022-06-09] MEDS: FAMOTIDINE 20 MG TABLET PO (08:38)
[2022-06-09] MEDS: amLODIPine BESYLATE 5 MG TABLET 10 MG PO (08:38)
[2022-06-09] MEDS: SERTRALINE HCL 50 MG TABLET 200 MG PO (08:38)
[2022-06-09] MEDS: levETIRAcetam 250 MG TABLET 750 MG PO ×2 (08:39→20:28)
[2022-06-09] MEDS: buPROPion HCL XL (24 HR) 150 MG TABCR PO (08:39)
[2022-06-09] MEDS: NITROFURANTOIN MONOHYD MACROCR 100 MG CAP PO (08:39)
[2022-06-09] MEDS: GABAPENTIN 100 MG CAPSULE PO ×2 (08:39→11:55)
[2022-06-09] MEDS: ENOXAPARIN 40 MG/0.4 ML SYRINGE SUB-Q (08:40)
[2022-06-09] MEDS: ATORVASTATIN 10 MG TABLET 20 MG PO (20:28)
[2022-06-09] MEDS: GABAPENTIN 300 MG CAPSULE PO (20:28)
[2022-06-09] MEDS: traZODone HCL 50 MG TABLET PO (20:28)
[2022-06-09] MEDS: HYDROcodone/acetaminophen (*CRX) 5-325 MG TABLET 1 TAB PO (20:29)
[2022-06-10 05:45] VITALS: O2SAT 91
[2022-06-10] MEDS: BUDESONIDE/FORMOTEROL 80/4.5 MCG 6.9 GM INHALER (*SP) 2 PUFF INHALATION ×2 (06:22→18:19)
[2022-06-10 08:00] VITALS: BP 112/54; PULSE 78; RESP 18; TEMP 36.1; O2SAT 96
[2022-06-10] MEDS: ENOXAPARIN 40 MG/0.4 ML SYRINGE SUB-Q (09:40)
[2022-06-10] MEDS: LOSARTAN POTASSIUM 50 MG TABLET 100 MG PO (09:41)
[2022-06-10] MEDS: OPTI-GEN TAB 1 TABLET PO (09:41)
[2022-06-10] MEDS: METOPROLOL TARTRATE TAB 25 MG, METOPROLOL TARTRATE TAB 50 MG 75 MG PO (09:41)
[2022-06-10] MEDS: GABAPENTIN 100 MG CAPSULE PO ×2 (09:41→11:55)
[2022-06-10] MEDS: MIRABEGRON 25 MG ER TABLET 50 MG PO (09:41)
[2022-06-10] MEDS: FAMOTIDINE 20 MG TABLET PO (09:41)
[2022-06-10] MEDS: levETIRAcetam 250 MG TABLET 750 MG PO ×2 (09:41→20:04)
[2022-06-10] MEDS: NITROFURANTOIN MONOHYD MACROCR 100 MG CAP PO (09:42)
[2022-06-10] MEDS: buPROPion HCL XL (24 HR) 150 MG TABCR PO (09:42)
[2022-06-10] MEDS: SERTRALINE HCL 50 MG TABLET 200 MG PO (09:42)
[2022-06-10] MEDS: PANTOPRAZOLE 40 MG TABLET PO (09:42)
[2022-06-10] MEDS: amLODIPine BESYLATE 5 MG TABLET 10 MG PO (09:50)
--- NOTE | 2022-06-10 10:57 | P.PNCROSS_ITS ---
Event Note Event Note Event Note: home O2 eval ordered to determine whether not patient needs oxygen on discharg e.
[2022-06-10 11:00] VITALS: PULSE 72; O2SAT 96
[2022-06-10 11:05] VITALS: PULSE 83; O2SAT 91
--- NOTE | 2022-06-10 11:19 | HOMEO2EVAL ---
Evaluation was performed at [facility] Home Oxygen Evaluation RC: Home Oxygen (O2) Evaluation Start: 06/10/22 10:56 Freq: ONCE Status: Active Protocol: RPE Activity Type Activity Date Activity User E-sign Co-sign Detail Recorded Client Recorded Date Recorded By Document 06/10/22 11:00 [email or web address] 06/10/22 11:16 SJB Document 06/10/22 11:05 SJB [email or web address] 06/10/22 11:16 SJB 06/10/22 06/10/22 11:00 11:05 Home O2 Evaluation [Oxygen] -Test Phase Resting Exercise -Oxygen Delivery Room Air Room Air [Pulse Oximetry] -Pulse Oximetry (90-100 %) 96 91 [Pulse Rate] -Pulse Rate (60-100 beats/min) 72 83 [Evaluation] -Activity Tolerance Good -Rating of Perceived Dyspnea (PD) +1 Mild, Noticeable to the Participant but Not to an Observer -Rate of Perceived Exertion (PE) 13 Somewhat Query Text:Click the Protocol Button Hard to View the RPE Scale [Comments] -Home Oxygen Evaluation Comments Pt only has 1 Pt was sitting leg and does up on side of not ambulate, bed doing bicep will exercise curls x 4 with arm minutes. Sp02 weights. remained at 91% and above. Tolerated well. [Charges] -Treatment Charges O2 Evaluation - Inpatient
[2022-06-10 16:00] VITALS: BP 114/60; PULSE 78; RESP 20; TEMP 36.9; O2SAT 93
[2022-06-10] MEDS: ATORVASTATIN 10 MG TABLET 20 MG PO (20:05)
[2022-06-10] MEDS: GABAPENTIN 300 MG CAPSULE PO (20:05)
[2022-06-10 23:07] VITALS: BP 119/59; PULSE 73; RESP 16; TEMP 36.2; O2SAT 91
[2022-06-11] MEDS: BUDESONIDE/FORMOTEROL 80/4.5 MCG 6.9 GM INHALER (*SP) 2 PUFF INHALATION (05:30)
[2022-06-11 08:00] VITALS: BP 118/72; PULSE 84; RESP 18; TEMP 36.6; O2SAT 94
--- NOTE | 2022-06-11 09:43 | PM.DS ---
DS: Admitting Diagnosis Discharge Date 06/11/2022 Admitting Diagnosis Seizure like activity, UTI, Weakness DS: Discharge Diagnosis Discharge Diagnosis (1) Weakness: Code(s): R53.1 - Weakness Status: Acute Assessment and Plan: ? Exhibit tolerance during physical activity as evidenced by a normal fluctuation of vital signs during physical activity. ? Patient will be ability to perform required activities of daily living. ? Provide appropriate nutrition for healing and strength. ? Use appropriate to prevent falls. ? Continue physical therapy/occupational therapy. (2) Seizure-like activity: Code(s): R56.9 - Unspecified convulsions Status: Acute Assessment and Plan: continue Keppra at 1000 mg b.i.d. will need to follow up with Neurology on discharge (3) Pneumonia: Qualifiers: Laterality: bilateral Lung location: unspecified part of lung Pneumonia type: due to unspecified organism Qualified Code(s): J18.9 - Pneumonia, unspecified organism Code(s): J18.9 - Pneumonia, unspecified organism Status: Acute Assessment and Plan: Resolved (4) Acute UTI: Code(s): N39.0 - Urinary tract infection, site not specified Status: Acute (5) UTI (urinary tract infection): Qualifiers: Hematuria presence: without hematuria Urinary tract infection type: acute cystitis Qualified Code(s): N30.00 - Acute cystitis without hematuria Code(s): N39.0 - Urinary tract infection, site not specified Status: Acute Assessment and Plan: chronic UA with a trace of leukocytes started Macrobid prophylactically UA culture pending patient will need to follow DS: Summary Time Spent with Patient Time attestation: Total time spent providing and/or coordinating discharge services: Exam Narrative: General: This is a well-nourished, well-developed patient, in no apparent distress. HEAD: normocephalic, atraumatic. EYES: PERRL. Sclera clear/white. Vision is grossly intact. EARS: External ears normal, auditory canals clear and without drainage, TMs normal without perforation. Hearing grossly intact. NOSE: External nose normal with no obvious nasal discharge, nares without redness, no rhinorrhea. THROAT: Mucous membranes moist, posterior pharynx clear. NECK: Neck supple, non-tender without lymphadenopathy, masses or thyromegaly. CARDIOVASCULAR: Regular rate and rhythm without murmurs, gallops, or rubs. RESPIRATORY: Clear to auscultation. Breath sounds equal bilaterally. No wheezes, rales, or rhonchi.? GASTROINTESTINAL: Abdomen soft, non-tender, nondistended. Bowel sounds are active. No hepato-splenomegaly, or palpable masses. No guarding. SKIN: warm, intact with no suspicious lesions or rash, good texture and turgor. NEURO:? ? Patient is slightly lethargic but is alert neuro interrogated x4 EXTREMITIES: decreased range of motion.? No edema. No calf tenderness.? left AKA Discharge Plan Discharge Attending physician on discharge: Tulio Persaud Discharging Clinician: Adri Moore Anticipated Discharge Date/Time: 06/11/22 09:29 Patient Disposition: Home Health Service Activity: may shower, no driving and as tolerated Diet: heart healthy Wound Care Instructions: follow printed instructions Discharge Instructions: [facility] will [facility] you on [facility]/12 or 06/13/2022. RN to fax discharge orders/summary to [phone] and call [phone] when patient discharges. Patient Instructions: Antibiotic Form, Viral Pneumonia (DC), Urinary Tract Infection in Women (DC), Fall Prevention for Older Adults (DC), Nonepileptic Seizures (DC), Chronic Hypertension (DC), Weakness (DC), New-Onset Seizure in Adults (DC), Hyperlipidemia (DC), Urinary Tract Infection in Older Adults (DC) Stand Alone Forms: General Discharge Information Follow-up/Referrals: Tito Villegas MD [Physician] - (Call and schedule outpatient appoint
[2022-06-11] MEDS: MIRABEGRON 25 MG ER TABLET 50 MG PO (09:54)
[2022-06-11] MEDS: SERTRALINE HCL 50 MG TABLET 200 MG PO (09:55)
[2022-06-11] MEDS: NITROFURANTOIN MONOHYD MACROCR 100 MG CAP PO (09:56)
[2022-06-11] MEDS: levETIRAcetam 250 MG TABLET 750 MG PO (09:56)
[2022-06-11 09:57] VITALS: PULSE 74
[2022-06-11] MEDS: METOPROLOL TARTRATE TAB 25 MG, METOPROLOL TARTRATE TAB 50 MG 75 MG PO (09:57)
[2022-06-11] MEDS: LOSARTAN POTASSIUM 50 MG TABLET 100 MG PO (09:57)
[2022-06-11] MEDS: GABAPENTIN 100 MG CAPSULE PO (09:57)
[2022-06-11] MEDS: PANTOPRAZOLE 40 MG TABLET PO (09:57)
[2022-06-11] MEDS: OPTI-GEN TAB 1 TABLET PO (09:58)
[2022-06-11] MEDS: buPROPion HCL XL (24 HR) 150 MG TABCR PO (09:58)
[2022-06-11] MEDS: amLODIPine BESYLATE 5 MG TABLET 10 MG PO (09:58)
[2022-06-11] MEDS: FAMOTIDINE 20 MG TABLET PO (09:59)
[2022-06-11] MEDS: ENOXAPARIN 40 MG/0.4 ML SYRINGE SUB-Q (10:01)
--- NOTE | 2022-06-11 13:30 | PM.DS ---
DS: Admitting Diagnosis Discharge Date 06/11/2022 Admitting Diagnosis Seizure like activity, Weakness, Pneumonia DS: Discharge Diagnosis Discharge Diagnosis (1) Seizure-like activity: Code(s): R56.9 - Unspecified convulsions Status: Acute Assessment and Plan: continue Keppra at 1000 mg b.i.d. will need to follow up with Neurology on discharge (2) Pneumonia: Qualifiers: Laterality: bilateral Lung location: unspecified part of lung Pneumonia type: due to unspecified organism Qualified Code(s): J18.9 - Pneumonia, unspecified organism Code(s): J18.9 - Pneumonia, unspecified organism Status: Acute Assessment and Plan: Resolved (3) Acute UTI: Code(s): N39.0 - Urinary tract infection, site not specified Status: Acute (4) Weakness: Code(s): R53.1 - Weakness Status: Acute Assessment and Plan: ? Exhibit tolerance during physical activity as evidenced by a normal fluctuation of vital signs during physical activity. ? Patient will be ability to perform required activities of daily living. ? Provide appropriate nutrition for healing and strength. ? Use appropriate to prevent falls. ? Continue physical therapy/occupational therapy home health (5) UTI (urinary tract infection): Qualifiers: Hematuria presence: without hematuria Urinary tract infection type: acute cystitis Qualified Code(s): N30.00 - Acute cystitis without hematuria Code(s): N39.0 - Urinary tract infection, site not specified Status: Acute Assessment and Plan: chronic UA with a trace of leukocytes started Macrobid prophylactically UA culture no growth noted patient will need to follow DS: Summary Hospital Course Reason for hospitalization: Seizure like activity , Weakness Hospital Course: ?This 82-year-old female that was admitted to the hospital with pneumonia, seizure-like activity and some weakness.? Patient was found not to have any CVA and is able to be switched over from a inpatient to a swing patient and now being discharged home. Patient remains on Keppra and dosage has been increased.? Have spoken with Neurology Dr. Villegas and discussed plan and care and for breakthrough seizure-like activity he is also willing to see patient if family is wanting to follow up with him. ? Patient lives at home in her son's home where she has a in-law suite they have a area where she is able to take care of herself she is in a wheelchair and she has 1 leg patient has a past medical history arthritis, depression, hyperlipidemia, hypertension, urinary tract infection and left leg amputation at this time we will make patient's we will she will continue to participate with physical therapy and we will work towards the and strengthening. Patient is still in need of therapy but family would like for her to go home to be cared for. Patient still require extensive assistance and may benefit from shelter care if family is unable to care for patient. She is pleasant but remains weak at this time her vitals have remained stable and she is eating and drinking without difficulties with no seizure like activity noted today. Time Spent with Patient Time attestation: Total time spent providing and/or coordinating discharge services: Exam Narrative: General: This is a well-nourished, well-developed pat ient, in no appare nt distress. HEAD: normocephalic, at raumatic. EYES: PE RRL. Sclera clear/ white. Vision is g rossly intact. EAR S: External ears n ormal, auditory ca nals clear and wit hout drainage, TMs normal without pe rforation. Hearing grossly intact. N OSE: External nose normal with no ob vious nasal discha rge, nares without redness, no rhino rrhea. THROAT: Muc ous membranes mois t, posterior phary nx clear. CARDIOVA SCULAR: Regular ra te and rhythm? RES PIRATORY: Clear to auscultation. Kacie ath sounds equ
--- NOTE | 2022-06-11 18:51 | PC.NURSE ---
1140 son here to pick her up. wm vianca martínez instructions. son claims he understands but sister takes care of meds and has no questions. he transfered her to his personal auto. his auto had a seat that lowered and he pulled her over to seat and raised it back into car.
--- NOTE | 2022-06-18 09:24 | PC.NURSE ---
Unable to contact for discharge call back.
== END 2022-06-11 11:40 | disposition home health service (06) | DRG 948 ==
PROVIDERS: Nurse Practitioner; Nurse Practitioner Family; Admitting Provider Internal Medicine; PCP Family Medicine; Visit Provider Internal Medicine
DX: R53.1 Weakness (principal); N39.0 Urinary tract infection, site not specified; E78.5 Hyperlipidemia, unspecified; I10 Essential (primary) hypertension; G25.81 Restless legs syndrome; M19.90 Unspecified osteoarthritis, unspecified site; R56.9 Unspecified convulsions; Z20.822 Contact with and (suspected) exposure to COVID-19; F32.A Depression, unspecified; Z86.73 Personal history of transient ischemic attack (TIA), and cerebral infarction without residual deficits; Z23 Encounter for immunization; Z99.3 Dependence on wheelchair; Z89.612 Acquired absence of left leg above knee
CPT/HCPCS: 36415; 80048; 80053; 80177; 81001; 85027; 87040; 87086; 87088; 90471; 90686; 94618; 97110; 97162; 97165; 97530; 97535; A9270; G0008; J1650; J2060; J7512; U0003; U0005

== ENCOUNTER 2023-12-04 08:53 | Emergency (ER) | payer MEDICARE, BC, SELFPAY ==
[2023-12-04] VITALS (13 sets, daily range): BP systolic 125–143; BP diastolic 51–72; PULSE 72–88; RESP 13–24; TEMP 36.6–37; O2SAT 90–98
--- NOTE | ~2023-12-04 | CT_ITS ---
CT head without contrast Indication: Altered mental status COMPARISON: 05/25/2022 Technique: Serial scans were obtained through the brain without the administration of contrast. Dose reduction technique was used on this scan by utilizing automated exposure control and iterative recon struction technique. The dose-length product (DLP) was 605.33 mGy-cm. Findings: There is no evidence of intracranial hemorrhage, mass lesion, or acute infarct. The ventri cles and subarachnoid spaces are dilated, consistent with mild atrophy. Low attenuation regions are seen within the periventricular white matter bilaterally, likely representing changes from chronic mi crovascular ischemic disease. There is no evidence of edema, mass effect or midline shift. The visu alized paranasal sinuses and mastoid air cells are clear. Impression: No intracranial hemorrhage, mass, or acute infarct. Atrophy and chronic white matter changes, as above. Reviewed, dictated and finalized at [facility]. Impression: No intracranial hemorrhage, mass, or acute infarct. Atrophy and chronic white matter changes, as above.
--- NOTE | 2023-12-04 08:59 | ECG_ITS ---
Test Date: 2023-12-04 09:24:56 Measurements Intervals [place] Rate: 79 P: 76 AR: 214 QRS: 60 QRSD: 98 T: 77 QT: 391 QTc: 449 Interpretive Statements SINUS RHYTHM WITH FIRST DEGREE AV BLOCK Abnormal ECG No previous ECG available for comparison Electronically Signed On 12-07-2023 11:25:16 CDT by Michael Griffin M.D.
--- NOTE | 2023-12-04 09:02 | ED.GENADULT ---
HPI - General Adult General Chief complaint: Altered Mental Status Stated complaint: altered LOC Time Seen by Provider: 12/04/23 08:59 Source: patient, family and EMS Mode of arrival: ambulatory Limitations: altered mental status History of Present Illness HPI narrative: Is a 83-year-old female with a significant past medical history that presents today with altered mental status. He put out by [facility] after having altered mental status. She is here with her son and his . Son states that she was hiking normal last night around 10:00 a.m. and was eating and talking just fine. She sounds more drainage and nonresponsive. Vitals were all stable a she just was not answer questions or talk. I asked her name she was able To answer her name and that she was in the hospital. She is now A&O x3. Onset (ago): hour(s) Relieving factors: none Exacerbating factors: none Associated symptoms: confusion Treatments prior to arrival: none Related Data Home Medications Medication Instructions Recorded Confirmed amlodipine 10 mg tablet 10 mg PO DAILY 11/16/20 12/04/23 atorvastatin 20 mg tablet 20 mg PO HS 11/16/20 12/04/23 esomeprazole magnesium 40 mg 40 mg PO DAILY 11/16/20 12/04/23 capsule,delayed release sertraline 100 mg tablet 200 mg PO DAILY 11/16/20 12/04/23 losartan 100 mg tablet 1 tablet PO DAILY 12/19/21 12/04/23 mirabegron 50 mg tablet,extended 1 tablet PO DAILY 12/19/21 12/04/23 release 24 hr (Myrbetriq) bupropion HCl 300 mg 24 hr tablet, 30 mg PO DAILY 12/04/23 12/04/23 extended release hydrochlorothiazide 25 mg tablet 25 mg PO DAILY 12/04/23 12/04/23 solifenacin 10 mg tablet 10 mg PO DAILY 12/04/23 12/04/23 Allergies Allergy/AdvReac Type Severity Reaction Status Date / Time ceftaroline fosamil Allergy Intermediate Rash Verified 12/04/23 09:08 Penicillins Allergy Intermediate Rash Verified 12/04/23 09:08 Sulfa (Sulfonamide Allergy Intermediate Rash Verified 12/04/23 09:08 Antibiotics) Review of Systems Review of Systems: All systems reviewed & are unremarkable except as noted in HPI and below Constitutional: Constitutional: Reports as per HPI Eyes: Eyes: Reports no additional eye complaints ENT: Reports system reviewed and no additional complaints, except as documented Cardiovascular: Cardiovascular: Reports no additional cardiovascular complaints Respiratory: Respiratory: Reports no additional respiratory complaints Gastrointestinal: Gastrointestinal: Reports no additional gastrointestinal complaints Genitourinary: Genitourinary: Reports no additional female genitourinary complaints Musculoskeletal: Musculoskeletal: Reports no additional musculoskeletal complaints Integumentary/Breasts: Skin/Breast: Reports system reviewed and no additional complaints, except as docu Neurologic: Reports system reviewed and no additional complaints, except as documented Psychiatric: Psychiatric: Reports no additional psychiatric complaints Endocrine: Endocrine: Reports no additional endocrine complaints Hematologic/Lymphatic: Hematologic/Lymphatic: Reports no additional hematologic/lymphatic complaints Allergic/Immunologic: Allergic/Immunologic: Reports no additional allergic/immunologic complaints [facility] Past Medical History Medical History Arthritis Depression Frequent urination Hyperlipidemia Hypertension Restless leg syndrome Surgical History Surgical History Above knee amputation of left lower extremity left knee infection after surgery History of partial hysterectomy Previous back surgery Family History Family History Father Stomach cancer Social History Social History Smoking status: Never smoker Second hand tobacco smoke exposure: Yes (Both parents smoked.) Alcohol i
[2023-12-04 09:04] LABS: Glucose Point of Care 120 mg/dl (65-105)
[2023-12-04 09:29] LABS: Eosinophils Absolute Auto 0.06 K/mm3 (0.02-0.50); Eosinophils Percent Auto 1.1 % (1.0-6.0); Hematocrit 40.2 % (35.0-42.0); Hemoglobin 12.9 g/dL (11.7-13.8); Immature Granulocyte Absolute 0.02 K/mm3 (0.00-0.00); Immature Granulocyte Percent A 0.4 % (0.0-0.0); Lymphocytes Absolute Auto 1.83 K/mm3 (1.10-4.50); Lymphocytes Percent Auto 33.6 % (18.0-42.0); Mean Corpuscular HGB Conc 32.1 g/dL (32-36); Mean Corpuscular Hemoglobin 30.5 pg (27.0-31.0); Mean Platelet Volume 9.1 fl (9.2-11.8); Monocytes Absolute Auto 0.48 K/mm3 (0.10-0.90); Monocytes Percent Auto 8.8 % (2.0-11.0); Neutrophils Absolute Auto 3.06 K/mm3 (1.70-7.20); Neutrophils Percent Auto 56.1 % (50.0-70.0); Platelet Count Result 130 K/mm3 (150-420); Red Blood Count 4.23 M/mm3 (4.20-5.40); Red Cell Distribution Width 16.1 % (11.6-14.4); White Blood Count 5.5 K/mm3 (4.8-10.8)
[2023-12-04 09:43] LABS: Alanine Aminotransferase 19 U/L (14-59); Albumin Level 3.7 g/dL (3.4-5.0); Alkaline Phosphatase 66 U/L (46-116); Anion Gap 7 mmol/L (4-12); Aspartate Amino Transferase 21 U/L (15-37); Bilirubin,Total 0.4 mg/dL (0.00-1.00); Blood Urea Nitrogen 37 mg/dL (7-18); Calcium 9.2 mg/dL (8.5-10.1); Carbon Dioxide 31 mmol/L (21-32); Chloride 103 mmol/L (98-108); Estimated CRCL calculation 47 ml/min; Estimated Glomerular Filt Rate > 60; Glucose 123 mg/dL (70-99); Osmolality Calculated 301 mOsm/kg (285-295); Potassium 4.1 mmol/L (3.5-5.1); Sodium 141 mmol/L (136-145); Total Protein 7.3 g/dL (6.4-8.2)
[2023-12-04 09:48] LABS: Lactic Acid Reflex 1.2 mmol/L (0.4-2.0)
[2023-12-04 09:59] LABS: Appearance Urine Clear (Clear); Bilirubin Urine Negative (Negative); Blood Urine Negative (Negative); Color Urine Light Yellow (Yellow); Glucose Urine UA Negative (Negative); Ketones Urine Negative (Negative); Leukocyte Esterase Ur Trace LEU/UL (Negative); Nitrate Urine Negative (Negative); Protein Urine Negative (Negative); Specific Grav Ur 1.015 (1.010-1.020); Urobilinogen Urine 0.2 mg/dL (0.2-1.0)
[2023-12-04 10:03] LABS: Add Urine Microscopic? YES; RBC Urine None seen /hpf (0-2)
[2023-12-04 10:04] LABS: Bacteria Urine 4+ /hpf; Squamous Epithelial Cell Urine Few /hpf (Few); WBC Urine None seen /hpf (0-3)
== END 2023-12-04 10:58 | disposition home or self-care (01) ==
PROVIDERS: Emergency Provider Family Medicine; PCP Family Medicine
DX: N39.0 Urinary tract infection, site not specified (principal); R41.82 Altered mental status, unspecified; E78.5 Hyperlipidemia, unspecified; I10 Essential (primary) hypertension; Z79.899 Other long term (current) drug therapy
CPT/HCPCS: 36415; 70450; 80053; 81001; 82948; 83605; 85025; 93005; 96365; 99284; J0696

== ENCOUNTER 2023-12-13 17:45 | Inpatient (IN) | payer MEDICARE, BC, SELFPAY ==
[2023-12-13] VITALS (9 sets, daily range): BP systolic 91–107; BP diastolic 44–53; PULSE 72; RESP 20; TEMP 36.6–36.7; O2SAT 86–93; BMI 32.3
--- NOTE | ~2023-12-13 | CT_ITS ---
EXAMINATION: CTA brain carotid DATE: 12/15/2023 14:09 INDICATION: Seizure. TECHNIQUE: Computed tomographic angiography (CTA) of the head was performed without and with 100 mL O mnipaque-350 intravenous contrast. CTA of the neck was performed with intravenous contrast. Automated exposure control and iterative reconstruction technique were employed. The dose-length product was 1 793.85 mGy-cm. Maximum intensity projection and volume rendered 3D-reconstructions were created by ira perkins technologist on a separate workstation. COMPARISON: Head CT 12/13/2023 FINDINGS: HEAD CTA: There are scattered areas of low attenuation in the cerebral white matter. There is no intr acranial hemorrhage, acute infarction, or abnormal intracranial mass lesion. The ventricles are rodrigo l in size. There are likely changes of ocular lens replacement surgeries. There is mild mucosal thick ening in the paranasal sinuses. The mastoid air cells are normal. The vertebral arteries are codomina nt. There is no significant stenosis of basilar artery or the posterior cerebral arteries. There is n o significant stenosis of the intracranial internal carotid arteries or anterior or middle cerebral a rteries. Anterior communicating artery is normal. There is no aneurysm. The posterior communicating a rteries are normal. NECK CTA: There are no pathologically enlarged lymph nodes. There is no significant stenosis of the v ertebral arteries. There are nodules in the thyroid measuring up to 7 mm, likely not clinically signi ficant. There is plaque in the proximal internal carotid arteries. There is 0% stenosis of the proxim al right internal carotid artery relative to normal distal artery lumen diameter (NASCET criteria). T here is 0% stenosis of the proximal left internal carotid artery relative to normal distal artery lum en diameter. There is severe cervical spondylosis. IMPRESSION: 1. Stable moderate nonspecific cerebral white matter disease, which likely represents chronic small v essel ischemic disease. 2. No aneurysm or significant intracranial canal stenosis. 3. 0% stenosis of the proximal right internal carotid arteries relative to normal distal artery lumen diameters (NASCET criteria). Reviewed, dictated and finalized at location A. IMPRESSION: 1. Stable moderate nonspecific cerebral white matter disease, which likely repr esents chronic small vessel ischemic disease. 2. No aneurysm or significant intracranial canal stenosis. 3. 0% stenosis of the proximal right internal carotid arteries relative to norm al distal artery lumen diameters (NASCET criteria).
--- NOTE | ~2023-12-13 | XR_ITS ---
EXAMINATION: XR pelvis 1-2V DATE: 12/13/2023 18:46 INDICATION: Fall. Sepsis. Weakness. TECHNIQUE: An anteroposterior view of the pelvis was obtained. COMPARISON: None. FINDINGS: Bone alignment is normal. No fracture. There is severe lumbar spondylosis. There is severe right hip osteoarthritis and mild left hip osteoarthritis. IMPRESSION: 1. Severe right hip osteoarthritis and mild left hip osteoarthritis. Reviewed, dictated and finalized at location E.
--- NOTE | ~2023-12-13 | XR_ITS ---
EXAMINATION: XR chest 1V portable DATE: 12/13/2023 18:44 INDICATION: Sepsis. Weakness. TECHNIQUE: A single frontal view of the chest was obtained. COMPARISON: Chest single view 12/21/2021, chest CT 05/24/2022 FINDINGS: There is no pneumonia, pleural effusion, or pneumothorax. There is a prominent left pericar dial fat pad. The heart size is normal. IMPRESSION: 1. No acute cardiopulmonary disease. Reviewed, dictated and finalized at location E.
--- NOTE | ~2023-12-13 | XR_ITS ---
EXAMINATION: XR foot RT min 3V DATE: 12/14/2023 16:00 INDICATION: Right foot pain. TECHNIQUE: 3 views of right foot were obtained. COMPARISON: None. FINDINGS: Bone alignment is normal. No fracture. There is mild osteoarthritis of first metatarsophala ngeal joint and some of the midfoot joints. There are enthesophytes at the posterior and plantar aspe cts of calcaneal tuberosity. IMPRESSION: 1. Mild polyarticular osteoarthritis. Reviewed, dictated and finalized at location A.
--- NOTE | ~2023-12-13 | CT_ITS ---
EXAMINATION: CT brain wo con DATE: 12/13/2023 18:43 INDICATION: Altered mental status. Weakness. TECHNIQUE: Computed tomography (CT) of the head was performed without intravenous contrast. The mA wa s adjusted according to patient size. Iterative reconstruction technique was employed. The dose-lengt h product was 605.33 mGy-cm. COMPARISON: Head CT 12/04/2023, brain MRI 05/29/2022 FINDINGS: There are scattered areas of low attenuation in the cerebral white matter. There is no intr acranial hemorrhage, acute infarction, or abnormal intracranial mass lesion. The ventricles are rodrigo l in size. There are likely changes of ocular lens replacement surgeries. There is mild mucosal thick ening in the paranasal sinuses. There is a small left mastoid effusion. IMPRESSION: 1. Stable moderate nonspecific cerebral white matter disease, which likely represents chronic small v essel ischemic disease. Reviewed, dictated and finalized at location E. IMPRESSION: 1. Stable moderate nonspecific cerebral white matter disease, which likely repr esents chronic small vessel ischemic disease.
--- NOTE | 2023-12-13 17:46 | ED.WEAKNESS ---
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 Family notes that on 12/03 patient was difficult to arouse at home. Patient was brought into this ED, improved with some resuscitation and was discharged on antibiotics for a UTI. Patient lives with her son and daughter in law however they went out of town on vacation the day after her last ED visit. She reportedly has continued to be quite weak and more tired since her last visit despite completing antibiotics. Family notes that she typically can transfer on and off the toilet and do many of her ADLs on her own however today she was so tired that she fell asleep on the toilet. They note she slid out of her wheelchair on to the ground twice in the last 24 hours. No known fever, they do not believe she has been coughing. Patient is a difficult historian due to her confusion and weakness however denies any pain, just states that she feels like she is losing her mind . Family is concerned she continues to have a UTI. <Heather Pierre MD - Last Filed: 12/14/23 18:00> Related Data Home medications: Home Medications Medication Instructions Recorded Confirmed amlodipine 10 mg tablet (Norvasc) 10 mg PO DAILY 11/16/20 12/20/23 atorvastatin 20 mg tablet 20 mg PO HS 11/16/20 12/20/23 esomeprazole magnesium 40 mg 40 mg PO DAILY 11/16/20 12/20/23 capsule,delayed release sertraline 100 mg tablet 200 mg PO DAILY 11/16/20 12/20/23 losartan 100 mg tablet 1 tablet PO DAILY 12/19/21 12/20/23 mirabegron 50 mg tablet,extended 1 tablet PO DAILY 12/19/21 12/20/23 release 24 hr (Myrbetriq) bupropion HCl 300 mg 24 hr tablet, 150 mg PO DAILY 12/04/23 12/20/23 extended release hydrochlorothiazide 25 mg tablet 25 mg PO DAILY 12/04/23 12/20/23 solifenacin 10 mg tablet 10 mg PO DAILY 12/04/23 12/20/23 metoprolol tartrate 75 mg tablet 50 mg PO DAILY 12/13/23 12/20/23 <Heather Pierre MD - Last Filed: 12/14/23 18:00> Allergies/Adverse reactions: Allergies Allergy/AdvReac Type Severity Reaction Status Date / Time ceftaroline fosamil Allergy Intermediate Rash Verified 12/20/23 18:25 Penicillins Allergy Intermediate Rash Verified 12/20/23 18:25 Sulfa (Sulfonamide Allergy Intermediate Rash Verified 12/20/23 18:25 Antibiotics) <Heather Pierre MD - Last Filed: 12/14/23 18:00> Review of Systems Review of Systems: All systems reviewed & are unremarkable except as noted in HPI and below <Heather Pierre MD - Last Filed: 12/14/23 18:00> PMF Past Medical History Medical History: Medical History Arthritis Depression Gastroesophageal reflux disease Hyperlipidemia Hypertension Overactive bladder Restless leg syndrome <Heather Pierre MD - Last Filed: 12/14/23 18:00> Surgical History Surgical History: Surgical History History of appendectomy History of cholecystectomy 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 Code status: Do not resuscitate. Smoking status: Former smoker Second hand tobacco
--- NOTE | 2023-12-13 17:50 | ECG_ITS ---
Test Date: 2023-12-13 18:44:27 Measurements Intervals [place] Rate: 71 P: 72 DC: 225 QRS: 44 QRSD: 95 T: 78 QT: 409 QTc: 447 Interpretive Statements SINUS RHYTHM WITH FIRST DEGREE AV BLOCK Compared to ECG 12/04/2023 09:24:56 No significant changes Electronically Signed On 12-15-2023 13:19:54 CDT by Alli Rogel M.D.
[2023-12-13 18:16] LABS: Basophils Absolute Auto 0.02 K/mm3 (0.00-0.10); Basophils Percent Auto 0.2 % (0.0-1.0); Eosinophils Absolute Auto 0.02 K/mm3 (0.02-0.50); Eosinophils Percent Auto 0.2 % (1.0-6.0); Hematocrit 38.9 % (35.0-42.0); Hemoglobin 12.9 g/dL (11.7-13.8); Immature Granulocyte Absolute 0.04 K/mm3 (0.00-0.00); Immature Granulocyte Percent A 0.4 % (0.0-0.0); Lymphocytes Absolute Auto 2.04 K/mm3 (1.10-4.50); Lymphocytes Percent Auto 21.3 % (18.0-42.0); Mean Corpuscular HGB Conc 33.2 g/dL (32-36); Mean Corpuscular Hemoglobin 31.5 pg (27.0-31.0); Mean Corpuscular Volume 94.9 fL (78.0-102.0); Mean Platelet Volume 9.7 fl (9.2-11.8); Monocytes Absolute Auto 0.92 K/mm3 (0.10-0.90); Monocytes Percent Auto 9.6 % (2.0-11.0); Neutrophils Absolute Auto 6.52 K/mm3 (1.70-7.20); Neutrophils Percent Auto 68.3 % (50.0-70.0); Platelet Count Result 199 K/mm3 (150-420); Red Cell Distribution Width 15.7 % (11.6-14.4); White Blood Count 9.6 K/mm3 (4.8-10.8)
[2023-12-13 18:21] LABS: Appearance Urine Clear (Clear); Bilirubin Urine Negative (Negative); Blood Urine Negative (Negative); Color Urine Yellow (Yellow); Glucose Urine UA Negative (Negative); Ketones Urine Negative (Negative); Leukocyte Esterase Ur Negative LEU/UL (Negative); Nitrate Urine Negative (Negative); Protein Urine Negative (Negative); Urobilinogen Urine 0.2 mg/dL (0.2-1.0)
[2023-12-13 18:23] LABS: Add Urine Microscopic? NO
[2023-12-13 18:27] LABS: Partial Thromboplastin Time 23.9 Sec (23.9-30.70); Prothrombin Time 10.5 Seconds (9.50-12.1)
[2023-12-13 18:32] LABS: Alanine Aminotransferase 28 U/L (14-59); Albumin Level 3.7 g/dL (3.4-5.0); Alkaline Phosphatase 77 U/L (46-116); Anion Gap 11 mmol/L (4-12); Aspartate Amino Transferase 26 U/L (15-37); Bilirubin,Total 0.5 mg/dL (0.00-1.00); Blood Urea Nitrogen 55 mg/dL (7-18); CRP 3.8 mg/dL (0.0-0.9); Carbon Dioxide 25 mmol/L (21-32); Chloride 99 mmol/L (98-108); Estimated CRCL calculation 34 ml/min; Estimated Glomerular Filt Rate 41; Glucose 113 mg/dL (70-99); Lactic Acid Reflex 1.3 mmol/L (0.4-2.0); Lipase 10 U/L (16-77); Osmolality Calculated 296 mOsm/kg (285-295); Potassium 4.1 mmol/L (3.5-5.1); Sodium 135 mmol/L (136-145); Total Protein 7.7 g/dL (6.4-8.2); Troponin I 16.4 ng/L (0.00-60.4)
[2023-12-13] MEDS: LACTATED RINGERS 1,000 ML 999 ML IV CONT (18:49)
--- NOTE | 2023-12-13 20:05 | ADMGEN ---
This patient, Marissa Sue, was admitted to 2nd Floor Room 207-2. Patient oriented to hospital policies and general routines including ID bracelet, bed and alarms, visiting hours, pain management, procedures, bathroom and other care routines, personal items, smoking policy, room service/diet, and visiting hours. Information on how to activate the Rapid Response Team has been discussed. Patient encouraged to report perceived risks to care and to ask questions if they do not understand what they are told or what they should do.
--- NOTE | 2023-12-13 20:10 | PC.NURSE ---
Patient arrived on unit, assisted from wheelchair to bed with 2 assist. Patient noted to be incontinent of bowel and bladder upon admission. Ayesha-care provided, depends changed.
[2023-12-13] MEDS: LACTATED RINGERS 1,000 ML 125 ML IV CONT (20:35)
[2023-12-14] VITALS (7 sets, daily range): BP systolic 98–115; BP diastolic 45–55; PULSE 65–80; RESP 14–18; TEMP 36.4–37.5; O2SAT 90–96
[2023-12-14] MEDS: LACTATED RINGERS 1,000 ML 125 ML IV CONT (04:01)
--- NOTE | 2023-12-14 06:01 | PC.NURSE ---
Pillow removed under right lower leg per patient request to decrease pain and cramping. Charge Nurse, Alicia informed of patient's request.
[2023-12-14] MEDS: ACETAMINOPHEN 325 MG TABLET 650 MG PO ×3 (06:07→20:41)
--- NOTE | 2023-12-14 06:10 | PC.NURSE ---
Patient immediately stopped crying, moaning and moving her right leg repetively after being given Tylenol.
--- NOTE | 2023-12-14 06:20 | PC.NURSE ---
Patient requests pillows placed under Right leg per patient request. Repositioned in bed for comfort.
--- NOTE | 2023-12-14 10:05 | PM.IMHP ---
H&P: HPI History of Present Illness Date/Time: 12/14/23 10:05 Chief Complaint: hypotension, LOVE Narrative: This is an 83 year old female patient with past medical history of HTN, HLD, arthritis, Left AKA amputation, wheelchair bound at home, depression, RLS and phantom pains who is admitted to the hospital after change in level of consciousness at home. Patient was treated for UTI recently and completed antibiotic use at home. Patient lives with daughter. She usually gets herself into and out of her wheelchair independently and cooks herself breakfast. Over the past few days she was noted to be sleeping a lot, decreased oral intake, falling asleep even when in the bathtub or on the toilet. Family concerned she may have return of UTI, brought patient to ER. In ER she was found to by hypotensive. She received IV fluids and antibiotics. She was admitted. Blood cultures obtained and are pending. While completing medication reconcilliation today it is noted that patient has a lot of antihypertensives ordered. Patient had mild LOVE felt to be dehydration related. On exam patient has very loud holosystolic murmur, no known history of CHF or valvular dysfunction. No documented echocardiogram on record. Family does not believe patient has ever had an echocardiogram. identification technician not present at this facility until afternoon. Discussed with family that low blood pressure could be multifocal including undiagnosed heart failure, polypharmacy or blood stream infection (urine clear appearing on admission.) I discussed monitoring patient for now, holding most antihypertensives and consider transfer for Cardiology consult and Echocardiogram if any change in condition. If patient remains admitted by we could get echocardiogram completed here. On exam patient drowsy, took several attempts to awaken but once awake she ate lunch and conversed with me and family at bedside. Magnesium was 1.7 and replaced IV. Review of Systems Review of Systems: All systems reviewed & are unremarkable except as noted in HPI and below PMFSH Past Medical History Medical History Arthritis Depression Frequent urination Hyperlipidemia Hypertension Restless leg syndrome Surgical History Surgical History Above knee amputation of left lower extremity left knee infection after surgery History of partial hysterectomy Previous back surgery Family History Family History Father Stomach cancer Social History Social History Smoking status: Never smoker Second hand tobacco smoke exposure: Yes (Both parents smoked.) Alcohol intake: never Drinks per week: 1 Substance use: never Substance use type: does not use Do You Feel Safe in your Home?: Yes Lack of Transportation: No Lack of Food: Never True Current Housing: I Have Housing Concerned About Future Housing: No Difficulty Paying Gas/Electric Bills: No Difficulty Paying for Meds: No Currently Unemployed: No Education: High School Diploma/GED Difficulty w/ Childcare or Family Care: No Living arrangements: with family Gender identity (if verbalized by the patient): Female Sexual Orientation (if Verbalized by the Patient): Straight or Heterosexual Spiritual care concerns: No Meds Home Medications and Allergies Home Medications Medication Instructions Recorded Confirmed Type amlodipine 10 mg tablet 10 mg PO DAILY 11/16/20 12/13/23 History atorvastatin 20 mg tablet 20 mg PO HS 11/16/20 12/13/23 History esomeprazole magnesium 40 mg 40 mg PO DAILY 11/16/20 12/13/23 History capsule,delayed release sertraline 100 mg tablet 200 mg PO DAILY 11/16/20 12/13/23 History losartan 100 mg tablet 1 tablet PO DAILY 12/19/21 12/13/23 History m
[2023-12-14 10:25] LABS: Anion Gap 11 mmol/L (4-12); Blood Urea Nitrogen 34 mg/dL (7-18); Calcium 8.5 mg/dL (8.5-10.1); Carbon Dioxide 24 mmol/L (21-32); Chloride 102 mmol/L (98-108); Estimated CRCL calculation 46 ml/min; Estimated Glomerular Filt Rate > 60; Glucose 187 mg/dL (70-99); Magnesium 1.7 mg/dL (1.8-2.4); Osmolality Calculated 296 mOsm/kg (285-295); Phosphorus 2.8 mg/dL (2.6-4.7); Potassium 3.7 mmol/L (3.5-5.1); Sodium 137 mmol/L (136-145)
[2023-12-14] MEDS: METOPROLOL TARTRATE 50 MG TAB PO (10:35)
[2023-12-14] MEDS: SERTRALINE HCL 50 MG TABLET 200 MG PO (10:35)
[2023-12-14] MEDS: buPROPion HCL XL (24 HR) 150 MG TABCR PO (10:36)
[2023-12-14] MEDS: MIRABEGRON 25 MG ER TABLET 50 MG PO (10:36)
[2023-12-14] MEDS: SOLIFENACIN 5 MG TABLET 10 MG PO (11:00)
[2023-12-14] MEDS: MAGNESIUM SULF 2 GM/WATER 50ML 2 GM/50 ML BAG IVPB (11:16)
[2023-12-14] MEDS: GABAPENTIN 100 MG CAPSULE PO (12:55)
[2023-12-14] MEDS: LACTATED RINGERS 1,000 ML 60 ML IV CONT (14:20)
[2023-12-14 15:14] LABS: NT Pro B Type Natriuretic Pept 516 pg/mL (0-450); Troponin I 14.6 ng/L (0.00-60.4)
[2023-12-14] MEDS: IBUPROFEN 400 MG TABLET PO (15:28)
[2023-12-14] MEDS: ATORVASTATIN 10 MG TABLET 20 MG PO (20:40)
[2023-12-15 04:00] VITALS: BP 115/53; PULSE 65; RESP 16; TEMP 36.4; O2SAT 92
[2023-12-15 05:31] LABS: Basophils Absolute Auto 0.03 K/mm3 (0.00-0.10); Basophils Percent Auto 0.6 % (0.0-1.0); Hematocrit 33.3 % (35.0-42.0); Hemoglobin 10.8 g/dL (11.7-13.8); Immature Granulocyte Absolute 0.01 K/mm3 (0.00-0.00); Immature Granulocyte Percent A 0.2 % (0.0-0.0); Lymphocytes Percent Auto 36.2 % (18.0-42.0); Mean Corpuscular HGB Conc 32.4 g/dL (32-36); Mean Corpuscular Hemoglobin 30.8 pg (27.0-31.0); Mean Corpuscular Volume 94.9 fL (78.0-102.0); Mean Platelet Volume 9.3 fl (9.2-11.8); Monocytes Absolute Auto 0.61 K/mm3 (0.10-0.90); Monocytes Percent Auto 12.3 % (2.0-11.0); Neutrophils Absolute Auto 2.42 K/mm3 (1.70-7.20); Neutrophils Percent Auto 48.7 % (50.0-70.0); Platelet Count Result 158 K/mm3 (150-420); Red Blood Count 3.51 M/mm3 (4.20-5.40); Red Cell Distribution Width 15.6 % (11.6-14.4)
[2023-12-15 05:45] LABS: Albumin Level 2.8 g/dL (3.4-5.0); Anion Gap 6 mmol/L (4-12); Blood Urea Nitrogen 25 mg/dL (7-18); Calcium 8.4 mg/dL (8.5-10.1); Carbon Dioxide 28 mmol/L (21-32); Chloride 103 mmol/L (98-108); Estimated CRCL calculation 57 ml/min; Estimated Glomerular Filt Rate > 60; Glucose 111 mg/dL (70-99); Magnesium 2.2 mg/dL (1.8-2.4); Osmolality Calculated 289 mOsm/kg (285-295); Phosphorus 3.4 mg/dL (2.6-4.7); Potassium 3.9 mmol/L (3.5-5.1); Sodium 137 mmol/L (136-145)
[2023-12-15 08:00] VITALS: BP 127/53; PULSE 70; PULSE 78; RESP 14; TEMP 36.6; O2SAT 92
[2023-12-15 09:01] VITALS: PULSE 70
[2023-12-15] MEDS: ENOXAPARIN 40 MG/0.4 ML SYRINGE SUB-Q (09:01)
[2023-12-15] MEDS: MIRABEGRON 25 MG ER TABLET 50 MG PO (09:01)
[2023-12-15] MEDS: METOPROLOL SUCCINATE EXT REL 25 MG TABCR PO (09:01)
[2023-12-15] MEDS: buPROPion HCL XL (24 HR) 150 MG TABCR PO (09:02)
[2023-12-15] MEDS: SERTRALINE HCL 50 MG TABLET 200 MG PO (09:02)
[2023-12-15] MEDS: SOLIFENACIN 5 MG TABLET 10 MG PO (09:02)
[2023-12-15] MEDS: GABAPENTIN 100 MG CAPSULE PO ×2 (09:02→12:15)
[2023-12-15 12:00] VITALS: BP 106/52; PULSE 75; PULSE 78; RESP 14; TEMP 36.5; O2SAT 94
--- NOTE | 2023-12-15 12:24 | PM.IMPN ---
Subjective Date/time seen: 12/15/23 12:24 Objective Data Vital Signs Vital Signs: Vital Signs - 24 hr 12/14/23 14:27 12/14/23 16:45 12/14/23 16:45 Temperature 36.4 C L 36.8 C Pulse Rate 72 74 74 Respiratory Rate 14 16 Blood Pressure 98/49 L 115/55 L Pulse Oximetry 90 90 Oxygen Delivery Room Air Room Air 12/14/23 20:00 12/14/23 20:00 12/14/23 20:00 Temperature 36.6 C Pulse Rate 71 74 72 Respiratory Rate 16 16 Blood Pressure 99/45 L Pulse Oximetry 92 93 Oxygen Delivery Room Air Room Air 12/14/23 23:55 12/14/23 23:55 12/15/23 04:00 Temperature 36.5 C Pulse Rate 72 65 65 Respiratory Rate 16 Blood Pressure 100/46 L Pulse Oximetry 92 Oxygen Delivery Room Air 12/15/23 04:00 12/15/23 09:01 12/15/23 08:00 Temperature 36.4 C Pulse Rate 65 70 78 Respiratory Rate 16 Blood Pressure 115/53 L Pulse Oximetry 92 Oxygen Delivery Room Air 12/15/23 08:00 12/15/23 12:00 12/15/23 12:00 Temperature 36.6 C 36.5 C Pulse Rate 70 78 75 Respiratory Rate 14 14 Blood Pressure 127/53 L 106/52 L Pulse Oximetry 92 94 Oxygen Delivery Room Air Room Air Intake/Output Intake/Output: Intake & Output 12/12/23 12/13/23 12/14/23 12/15/23 23:59 23:59 23:59 23:59 Intake Total 1530 3390 2055 Output Total 20 200 Balance 1510 3190 2055 Meds/Results Medications: Active Medications Generic Name Dose Route Start Last Admin Trade Name Freq PRN Reason Stop Dose Admin Acetaminophen 650 mg 12/14/23 06:02 12/14/23 20:41 Acetaminophen 325 Mg Tablet PO 650 mg Q4H PRN Administration Pain 1-3 Atorvastatin Calcium 20 mg 12/14/23 21:00 12/14/23 20:40 Atorvastatin 10 Mg Tablet PO 20 mg HS ALMAS Administration Bupropion HCl 150 mg 12/14/23 09:50 12/15/23 09:02 Bupropion Hcl Xl (24 Hr) 150 Mg Tabcr PO 150 mg DAILY ALMAS Administration Enoxaparin Sodium 40 mg 12/15/23 09:00 12/15/23 09:01 Enoxaparin 40 Mg/0.4 Ml Syringe SUB-Q 40 mg DAILY ALMAS Administration Gabapentin 100 mg 12/14/23 12:00 12/15/23 09:02 Gabapentin 100 Mg Capsule PO 100 mg BID@0900,1200 ALMAS Administration Lactated Ringer's 1,000 mls @ 60 mls/hr 12/13/23 19:10 12/15/23 07:05 Lr - Lactated Ringers Iv IV CONT Infused .[id number] ALMAS Infusion Ceftriaxone Sodium 1 gm in 50 mls @ 100 mls/hr 12/14/23 18:00 12/14/23 17:50 Rocephin 1 Gm/Ns 50 Ml IVPB Infused Q24H ALMAS Infusion Metoprolol Succinate 25 mg 12/15/23 09:00 12/15/23 09:01 Metoprolol Succinate Ext Rel 25 Mg Tabcr PO 25 mg QAM ALMAS Administration Mirabegron 50 mg 12/14/23 09:50 12/15/23 09:01 Mirabegron 25 Mg Er Tablet PO 50 mg DAILY ALMAS Administration Ondansetron HCl 4 mg 12/13/23 19:08 Ondansetron Inj 4 Mg/2 Ml Vial IV PUSH Q4H PRN Nausea Perflutren Lipid Microsphere 0 ml 12/15/23 12:22 Perflutren Lipid Microspheres 1.5 Ml Vial Diluted To 10 Ml Total Volume IV PUSH 12/18/23 12:22 ONCE PRN adequate visualization Protocol Sertraline HCl 200 mg 12/14/23 09:50 12/15/23 09:02 Sertraline Hcl 50 Mg Tablet PO 200 mg DAILY ALMAS Administration Solifenacin 10 mg 12/14/23 10:45 12/15/23 09:02 Solifenacin 5 Mg Tablet PO 10 mg QAM ALMAS Administration Radiology Results: ITS Impressions Head CT 12/13/23 18:48 IMPRESSION: 1. Stable moderate nonspecific cerebral white matter disease, which likely represents chronic small vessel ischemic disease. Chest X-Ray 12/13/23 18:50 IMPRESSION: 1. No acute cardiopulmonary disease. Pelvis X-Ray 12/13/23 18:51 IMPRESSION: 1. Severe right hip osteoarthritis and mild left hip osteoarthritis. Foot X-Ray 12/14/23 16:04 IMPRESSION: 1. Mild polyarticular osteoarthritis. Labs Labs: Laboratory Results - last 24 hr 12/14/23 12/15/23 10:01 05:09 WBC 5.0 RBC 3.51 L Hgb 10.8 L Hct 33.3 L MCV 94.9 MCH 30.8 MCHC 32.4 RDW 15.6
[2023-12-15 13:29] LABS: Glucose Point of Care 120 mg/dl (65-105)
[2023-12-15] MEDS: LORazepam INJ (*CRX) 2 MG/ML VIAL 1 MG IV PUSH (13:40)
--- NOTE | 2023-12-15 13:41 | ECG_ITS ---
Test Date: 2023-12-15 13:43:36 Measurements Intervals [place] Rate: 77 P: 79 NM: 204 QRS: 65 QRSD: 87 T: 77 QT: 386 QTc: 437 Interpretive Statements SINUS RHYTHM WITH FIRST DEGREE AV BLOCK Compared to ECG 12/13/2023 18:44:27 NO SIGNIFICANT CHANGES Electronically Signed On 12-16-2023 11:42:02 CDT by Alli Rogel M.D.
--- NOTE | 2023-12-15 14:00 | PC.NURSE ---
Pt glucose 123 at 1315.
--- NOTE | 2023-12-15 14:01 | PC.NURSE ---
RN notified CORPORATE DEVELOPMENT INTERN of pt unresponsives, shaking, right facial droop. Randal CORPORATE DEVELOPMENT INTERN entered the room and did a complete assessment of the pt. He called a rapid response. Team arrived.
[2023-12-15 14:13] LABS: Hematocrit 32.3 % (35.0-42.0); Hemoglobin 10.6 g/dL (11.7-13.8); Mean Corpuscular HGB Conc 32.8 g/dL (32-36); Mean Corpuscular Hemoglobin 31.1 pg (27.0-31.0); Mean Corpuscular Volume 94.7 fL (78.0-102.0); Mean Platelet Volume 9.2 fl (9.2-11.8); Platelet Count Result 150 K/mm3 (150-420); Red Blood Count 3.41 M/mm3 (4.20-5.40); Red Cell Distribution Width 15.6 % (11.6-14.4); White Blood Count 5.3 K/mm3 (4.8-10.8)
[2023-12-15] MEDS: levETIRAcetam 1000MG/NACL100ML 1,000 MG/100 ML BAG 400 MG IVPB (14:18)
--- NOTE | 2023-12-15 14:21 | PM.TDS ---
Transfer Discharge Sum: Prov Provider Date of admission: 12/14/23 14:13 Primary care physician: Scott Ndiaye M.D. Admitting clinician: Malik Persaud MD Discharging clinician: Rosalio Archibald Anticipated date of transfer: 12/15/23 Receiving physician/facility: Dr. Persaud/MERCEDES Lee at [facility] DS: Admitting Diagnosis Discharge Date 12/15/2023 Admitting Diagnosis hypotension, LOVE, Altered Mental Status, cardiac murmur DS: Discharge Diagnosis Discharge Diagnosis (1) Hypotension: Code(s): I95.9 - Hypotension, unspecified Status: Acute Assessment and Plan: Hx hypertension on amlodipine, losartan, HCTZ, Toprol XL Patient hypotensive in ER, better s/p IV fluids but remains borderline low, especially diastolic Continue gentle hydration Loud holosystolic murmur heard on exam No hx echocardiogram/CHF Hold antihypertensives except metoprolol Consider Transfer for Echo/Cardiology consult if patient worsens or if family desires transfer If patient still admitted in 3 days, obtain here on afternoon Blood cultures in process IV abx ordered (2) LOVE (acute kidney injury): Code(s): N17.9 - Acute kidney failure, unspecified Status: Resolved Assessment and Plan: Mild LOVE on ER labs, BUN 55/Cr 1.23/GFR 41 when patient usually has normal renal function Improved to baseline after IV fluids overnight 12/14: LOVE resolved, IV fluids discontinued (3) Altered mental status: Code(s): R41.82 - Altered mental status, unspecified Status: Acute Assessment and Plan: [place] to be related to hypotension Negative Head CT on admit No focal weakness/stroke symptoms 12/14: Witnessed seizure activity lasting 20 minutes with left facial droop noted after seizure activity (4) Murmur, cardiac: Code(s): R01.1 - Cardiac murmur, unspecified Status: Acute Assessment and Plan: Loud holosystolic murmur on exam See above (5) Seizure-like activity: Code(s): R56.9 - Unspecified convulsions Status: Acute Assessment and Plan: 20 minute witnessed event as described 1 mg IV lorazepam and Keppra 1000 mg IV neurological phone consult for transfer, additional 500 mg IV Keppra ordered as requested Transfer Discharge Sum: Med Medications Active and Home Medications: Home Medications amlodipine 10 mg tablet 10 mg PO DAILY 11/16/20 [History Confirmed 12/13/23] atorvastatin 20 mg tablet 20 mg PO HS 11/16/20 [History Confirmed 12/13/23] esomeprazole magnesium 40 mg capsule,delayed release 40 mg PO DAILY 11/16/20 [History Confirmed 12/13/23] sertraline 100 mg tablet 200 mg PO DAILY 11/16/20 [History Confirmed 12/13/23] losartan 100 mg tablet 1 tablet PO DAILY 12/19/21 [History Confirmed 12/13/23] mirabegron 50 mg tablet,extended release 24 hr (Myrbetriq) 1 tablet PO DAILY 12/19/21 [History Confirmed 12/13/23] gabapentin 100 mg capsule 100 mg PO BID@0900,1200 #60 caps 06/11/22 [Rx Confirmed 12/13/23] bupropion HCl 300 mg 24 hr tablet, extended release 150 mg PO DAILY 12/04/23 [History Confirmed 12/13/23] hydrochlorothiazide 25 mg tablet 25 mg PO DAILY 12/04/23 [History Confirmed 12/13/23] solifenacin 10 mg tablet 10 mg PO DAILY 12/04/23 [History Confirmed 12/13/23] metoprolol tartrate 75 mg tablet 50 mg PO DAILY 12/13/23 [History Confirmed 12/13/23] Active Medications Acetaminophen (Acetaminophen 325 Mg Tablet) 650 mg PO Q4H PRN PRN Reason: Pain 1-3 Last Admin: 12/14/23 20:41 Dose: 650 mg Atorvastatin Calcium (Atorvastatin 10 Mg Tablet) 20 mg PO HS [facility] Last Admin: 12/14/23 20:40 Dose: 20 mg Bupropion HCl (Bupropion Hcl Xl (24 Hr) 150 Mg Tabcr) 150 mg PO DAILY [facility] Last Admin: 12/15/23 09:02 Dose: 150 mg Enoxaparin Sodium (Enoxaparin 40 Mg/0.4 Ml Syringe) 40 mg SUB-Q DAILY [facility] Last Admin: 12/15/23 09:01 Dose: 40 mg Gabapentin (Gabapentin 100 Mg Capsule) 100 mg PO BID@0900,1200 [facility] Last Admin: 12/15/23 12:15 Dose: 100 m
--- NOTE | 2023-12-15 14:21 | PM.EVENT ---
Event Note Event Note Event Note: At 1315 I was called to patient room for abnormal tremoring and altered LOC. RN stated that patient looked like she was having seizures. I arrived to room and patient had extremity and upper body rhythmic tremors with eyes rolled back and darting side to side with dilated pupils sluggish to light. Patient attempted to speak but not responding appropriately. Total duration of symptoms lasted about 20 minutes and when patient was awake she asked what happened to me? At that time patient answering questions appropriately but there was a mild left sided facial droop. Rapid Response/Stroke Alert called. EKG obtained showing sinus rhythm rate of 77, AR 204, QTc 417, QRS axis 65, no STEMI per my interpretation. I inserted 20 gauge Angioset right forearm to obtain CTA. No allergies to IV contrast per patient report and medical record. Orders for CT brain non-contrast and CTA head/neck. Vital signs stable. IV lorazepam 1 mg given and 1000 mg IV Keppra ordered. Contacted [facility] in [place] for Neurology consult pending CTA results. Transfer Center states that they are at capacity for beds unless acute intervention (endovascular) is needed. At 1435 I received phone call from Transfer Center for [facility] confirming that no endovascular procedure necessary and the best that could be offered is patient to be placed on a wait list. We will began to look for transfer elsewhere. I spoke to MERCEDES Lee at [facility] who requested we speak with Dr Villegas--Neurology continuity person. I spoke to Neurology at 1600 and he stated to load with 500 mg additional Keppra and transfer for MRI/EEG/Neuro Consult tomorrow. APPEARANCE: rhythmic tremors with altered LOC Head: atraumatic. EYES: rolled back, darting side to side, pupils dilated and sluggish to light during event, EOMI normal afterwards NOSE: Atraumatic NECK: Trachea midline RESPIRATORY: No increased rate of breathing, clear to auscultation CARDIOVASCULAR: Loud holosystolic murmur, regular rate and rhythm ABDOMINAL: Non-distended soft nontender MUSCULOSKELETAL: Old Left AKA, right foot pain to palpation, palpable pedal pulse, normal color/cap refill NEURO: drowsy but alert when awakened, Mild left sided facial droop noted after event PSYCHIATRIC: Normal affect when awake Due to a high probability of clinically significant, life threatening deterioration, the patient required my highest level of preparedness to intervene emergently and I personally spent this critical care time directly and personally managing the patient. This critical care time included obtaining a history; examining the patient; pulse oximetry; ordering and review of studies; arranging urgent treatment with development of a management plan; evaluation of patient's response to treatment; frequent reassessment; and discussions with other providers. It was exclusive of separately billable procedures and treating other patients and teaching time. Please see Assessment and Plan section and the rest of the note for further information on patient assessment and treatment. Critical Care time: 80 minutes
[2023-12-15 14:30] LABS: Lactic Acid Reflex 1.1 mmol/L (0.4-2.0)
[2023-12-15 14:34] LABS: Anion Gap 6 mmol/L (4-12); Blood Urea Nitrogen 20 mg/dL (7-18); Calcium 8.1 mg/dL (8.5-10.1); Carbon Dioxide 29 mmol/L (21-32); Chloride 99 mmol/L (98-108); Estimated CRCL calculation 61 ml/min; Estimated Glomerular Filt Rate > 60; Glucose 101 mg/dL (70-99); NT Pro B Type Natriuretic Pept 815 pg/mL (0-450); Osmolality Calculated 280 mOsm/kg (285-295); Potassium 4.2 mmol/L (3.5-5.1); Sodium 134 mmol/L (136-145); Troponin I 11.2 ng/L (0.00-60.4)
[2023-12-15 14:40] LABS: Partial Thromboplastin Time 30.3 Sec (23.9-30.70); Prothrombin Time 10.8 Seconds (9.50-12.1)
--- NOTE | 2023-12-15 14:40 | PC.NURSE ---
Pt sent for CT with contrast of the brain. Pt back in bed after CT done. 60 seconds of shaking noted. Pt is more alert at this time.
[2023-12-15 14:45] LABS: D Dimer 1.18 mg/L (0.19-0.50)
--- NOTE | 2023-12-15 15:12 | PCOTNOTE ---
Therapist did not provide skilled treatment this PM per nursing request due to patient being transferred. Therapist assisted with bed mobility with nursing with good tolerance.
[2023-12-15] MEDS: levETIRAcetam 500MG/NACL 100ML 500 MG/100 ML BAG 400 MG IVPB (16:39)
[2023-12-15 17:00] VITALS: BP 118/67; PULSE 75; RESP 16; TEMP 36.4; O2SAT 94
--- NOTE | 2023-12-15 17:15 | PC.NURSE ---
1700 report called to [facility]. Spoke with CARLO Norman.
--- NOTE | 2023-12-15 18:30 | PC.NURSE ---
Report given to [facility]. [facility]
== END 2023-12-15 18:23 | disposition short-term general hospital (02) | DRG 315 ==
LOC: CHSED 18:16 → CHS2ND 19:27
PROVIDERS: Student in an Organized Health Care Education/Training Program; Admitting Provider Internal Medicine; Emergency Provider Family Medicine; PCP Family Medicine; Visit Provider Nurse Practitioner
DX: I95.9 Hypotension, unspecified (principal); N17.9 Acute kidney failure, unspecified; I10 Essential (primary) hypertension; R56.9 Unspecified convulsions; R01.1 Cardiac murmur, unspecified; E78.5 Hyperlipidemia, unspecified; M19.90 Unspecified osteoarthritis, unspecified site; G25.81 Restless legs syndrome; Z89.612 Acquired absence of left leg above knee; Z99.3 Dependence on wheelchair
CPT/HCPCS: 36415; 70450; 70496; 70498; 71045; 72170; 73630; 80048; 80053; 80069; 81003; 82948; 83605; 83690; 83735; 83880; 84484; 85025; 85027; 85380; 85610; 85730; 86140; 87040; 93005; 96361; 96365; 96366; 96367; 97110; 97163; 97165; 97530; 97535; 99285; A9270; G0378; J0696; J1650; J1953; J2060; J3475; J7030; J7120; Q9967

== ENCOUNTER 2023-12-15 19:20 | Inpatient (IN) | payer MEDICARE, BC, SELFPAY ==
--- NOTE | ~2023-12-15 | CT_ITS ---
EXAMINATION: CTA BRAIN/CAROTID DATE: 12/18/2023 14:57 INDICATION: Seizure TECHNIQUE: Computed tomographic angiography (CTA) of the head and neck was performed with 100 mL Omni paque-350 intravenous contrast. Multiplanar reconstructions and maximum intensity projection 3D-recon structions of the carotid arteries and of the intracranial arteries were created by the technologist on a separate workstation. Precontrast CT of the head was also obtained. Automated exposure control and iterative reconstruction technique were employed.The dose-length product was 1653.29 mGy-cm. COMPARISON: None. FINDINGS: Carotid arteries: There is mosaic attenuation in the visualized lungs likely related to expiratory phase of imaging wit h scattered subsegmental air trapping related to small airway disease. Bandlike discoid atelectasis i n the superior segment of the right lower lobe. Small amount of nonhemodynamically significant athero sclerotic plaque along the normal caliber aortic arch and at the origins of the left subclavian and l eft common carotid arteries with no dissection. Minimal atherosclerotic plaque at the right carotid b ifurcation with 0% stenosis of the right carotid bulb relative to normal distal artery lumen diameter (NASCET criteria). No evident atherosclerotic plaque with 0% stenosis of the left carotid bulb relat samuel to normal distal artery lumen diameter. Multinodular goiter with nodules measuring up to 1.4 cm g iven size and patient age likely require no further follow-up. Cervical soft tissues are otherwise un remarkable. Moderate to severe cervical and upper thoracic spondylosis. Head: No acute intracranial hemorrhage, acute infarction or abnormal extra axial fluid collection. There is moderate scattered white matter hypoattenuation consistent with chronic small vessel ischemic diseas e. Symmetric prominence of the sulci and ventricles consistent with multiple moderate age-appropriate diffuse cerebral volume loss. Ventricles are normal and symmetric. No mass/mass effect. No abnormall y enhancing lesions on postcontrast imaging. Changes of bilateral intraocular lens replacement. The o rbits and mastoid air cells are normal. Near complete opacification of the left sphenoid sinus. Intracranial arteries Vertebral arteries are codominant. Small amount of atherosclerotic plaque at the left vertebral arter y and at the bilateral carotid siphons. There is no hemodynamically significant stenosis in the verte bral, basilar and internal carotid arteries. There are no aneurysms identified. Both A1 and P1 segme nts are patent. Cerebral arterial arborization appears symmetric. IMPRESSION: 1. 0% stenosis of the right and left carotid bulbs relative to normal distal artery lumen diameter (N ASCET criteria). 2. Moderate scattered white matter hypoattenuation consistent with chronic small vessel ischemic dise ase. No acute intracranial process or abnormally enhancing brain lesions. 3. Unremarkable cerebral CT angiogram with no hemodynamically significant stenosis or aneurysm. Reviewed, dictated and finalized at location B. IMPRESSION: 1. 0% stenosis of the right and left carotid bulbs relative to normal distal ar nicole lumen diameter (NASCET criteria). 2. Moderate scattered white matter hypoattenuation consistent with chronic smal l vessel ischemic disease. No acute intracranial process or abnormally enhancin g brain lesions. 3. Unremarkable cerebral CT angiogram with no hemodynamically significant steno sis or aneurysm.
--- NOTE | ~2023-12-15 | MR_ITS ---
EXAMINATION: MR brain/brain stem wo/w con DATE: 12/16/2023 14:40 INDICATION: Seizure-like activity. Left facial weakness. TECHNIQUE: Magnetic resonance imaging (MRI) of the brain and brainstem was performed without and with 17 mL MultiHance intravenous contrast. COMPARISON: Brain MRI 05/29/2022, head CT 12/15/2023 FINDINGS: There are old blood products in the nick. There are scattered areas of nonspecific increase d T2-weighted signal intensity in the cerebral white matter. There is an old lacunar infarct in the l eft thalamus. There is no intracranial hemorrhage, acute infarction, or abnormal intracranial mass le mirta. The ventricles are normal in size. There are likely changes of ocular lens replacement surgerie s. The paranasal sinuses are clear. The mastoid air cells are normal. IMPRESSION: 1. 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 2. Moderate nonspecific cerebral white matter disease, which likely represents chronic small vessel i schemic disease. Reviewed, dictated and finalized at location A. IMPRESSION: 1. 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 2. Moderate nonspecific cerebral white matter disease, which likely represents chronic small vessel ischemic disease.
--- NOTE | 2023-12-15 19:43 | ADMGEN ---
This patient, Marissa Sue, was admitted to Medical Room 340-01. Patient/family oriented to hospital policies and general routines including ID bracelet, bed and alarms, visiting hours, pain management, procedures, bathroom and other care routines, personal items, smoking policy, room service/diet, and visiting hours. Information on how to activate the Rapid Response Team has been discussed. Patient/Family are encouraged to report perceived risks to care and to ask questions if they do not understand what they are told or what they should do.
--- NOTE | 2023-12-15 19:46 | PM.IMHP ---
H&P: HPI History of Present Illness Date/Time: 12/15/23 19:46 Chief Complaint: Seizure-like activity. Narrative: This is a very pleasant 83-year-old female with hypertension, hyperlipidemia, gastroesophageal reflux disease, overactive bladder, depression, and history of seizure-like activity with reported normal EEG who is being directly admitted to the telemetry floor from a medical bed at [facility] for further evaluation and neurology consultation after she demonstrated seizure-like activity today. The patient is able to provide some history however some of the following is supplemented via a review of her EMR. She presented to their emergency department on 12/04/2023 with altered mental status at which time she was found to have evidence of urinary tract infection for which he was discharged home on nitrofurantoin. She completed the antibiotic however she has not really bounced back and she tells me she continues to be weak and increasingly. She was brought back to the ED on the evening of 12/13/2023 with confusion and generalized weakness and at that time her lab were significant for a WBC count of 9.6, hemoglobin 12.9, sodium 135, potassium 4.1, BUN 55 creatinine 1.23, lactic acid 1.3, CRP 3.8. Urinalysis was unremarkable and chest x-ray was negative. Brain CT showed stable moderate nonspecific white matter disease. CRP was only minimally elevated in her lactic acid level was normal. She was admitted for hydration and PT/OT consultation. Earlier this afternoon the patient's nurse found her altered with reports of tremors. Nurse practitioner was summoned to bedside and he reports that the patient had ?extremity and upper body rhythmic tremors with eyes rolled back and guarding side to side with dilated pupils sluggish to light? lasting upwards of 20 minutes. When she came to she was able to answer questions appropriately. A mild left-sided facial droop was noted and a stroke alert was called. CTA of the head and neck was negative for acute findings and did not show any significant intracranial stenosis with 0% stenosis of the internal carotid arteries bilaterally. The nurse practitioner than conferred with the stroke team at [facility] Stroke team at [facility] who stated no intervention was indicated however they did not have a bed to accept the patient. Transfer was then initiated to [place]. Dr. Villegas was consulted by the transferring nurse practitioner and he recommended giving the patient a loading dose of Keppra 1500 mg prior to transfer with recommendations for MRI and EEG tomorrow. At the time my evaluation the patient is alert and oriented. She does not really remember what happened today. She has no current complaints and denies headache, neck ache, visual changes, difficulty speaking and swallowing (chronic, mild dysphagia with breads), focal weakness, and paresthesias. She also denies fever, chills, sweats, cold and flu symptoms, chest and pleuritic pain, shortness a of breath, cough, abdominal pain, nausea, vomiting, diarrhea, and dysuria. Review of Systems Review of Systems: 12 systems were reviewed and are negative except for as per HPI. 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 History of partial hysterectomy History of spinal surgery Family History Family History Father Stomach cancer Social History Social History Social History: Healthcare power of criminal attorney: Juan Sue,
[2023-12-15 19:59] VITALS: BMI 33.3
[2023-12-15 20:00] VITALS: PULSE 78
[2023-12-15 20:53] VITALS: BP 122/60; PULSE 70; RESP 18; TEMP 36.1; O2SAT 97
[2023-12-16] VITALS (10 sets, daily range): BP systolic 109–131; BP diastolic 61–66; PULSE 65–72; RESP 15–16; TEMP 36.1–36.3; O2SAT 93–95
[2023-12-16 05:13] LABS: Hematocrit 34.7 % (37.0-47.0); Hemoglobin 11.3 g/dL (12.0-15.0); Mean Corpuscular HGB Conc 32.6 g/dl (32-36); Mean Corpuscular Hemoglobin 31.1 pg (26-34); Mean Corpuscular Volume 95.6 fl (80-100); Mean Platelet Volume 9.5 fl (7.4-10.4); Platelet Count Result 167 k/mm3 (150-375); Red Blood Count 3.63 M/mm3 (4.2-5.4); Red Cell Distribution Width 15.4 % (11.5-14.5); White Blood Count 4.8 K/mm3 (4.5-10.0)
[2023-12-16 05:28] LABS: Cholesterol 124 mg/dL (0-200); HDL Direct 28 mg/dL; Triglycerides 115 mg/dL (<150)
[2023-12-16 05:31] LABS: Albumin Level 3.7 g/dL (3.5-5.1); Anion Gap 5 mmol/L (4-12); Blood Urea Nitrogen 19 mg/dL (7-17); Calcium 8.9 mg/dL (8.4-10.2); Carbon Dioxide 30 mmol/L (22-30); Chloride 104 mmol/L (98-107); Estimated CRCL calculation 63 ml/min; Estimated Glomerular Filt Rate > 60; Glucose 97 mg/dL (65-110); Phosphorus 3.4 mg/dL (2.5-4.5); Potassium 4.4 mmol/L (3.4-5.0); Sodium 139 mmol/L (137-145)
[2023-12-16 05:37] LABS: Iron 46 ug/dL (37-170)
[2023-12-16 05:45] LABS: LDL Cholesterol Direct 69 mg/dL
[2023-12-16 05:48] LABS: Percent Iron Saturation 19 % (20-50)
[2023-12-16 06:34] LABS: Folic Acid 17.2 ng/mL (2.76->20)
--- NOTE | 2023-12-16 08:31 | PM.IMPN ---
Progress Note: A&P Assessment and Plan (1) Seizure-like activity: Code(s): R56.9 - Unspecified convulsions Status: Acute Assessment and Plan: Concern for seizure-like activity followed by a facial droop according to chart review did not appear postictal is she was alert and oriented and answering questions appropriately patient reports previous episode like this 2 years ago. at the time she was placed on Keppra and after normal EEG Keppra was discontinued. Patient was loaded with Keppra 1500 mg at outside hospital per Dr. Samuel recommendation brain MRI and EEG pending Head and neck CTA showed stable moderate nonspecific white matter disease, no aneurysm or intracranial canal stenosis neuro has been consulted and recs her appreciated Q 4 neuro checks lipid panel, TSH, hemoglobin A1c ordered seizure precautions telemetry ordered (2) Facial droop: Code(s): R29.810 - Facial weakness Status: Acute Assessment and Plan: see above (3) Normocytic anemia: Code(s): D64.9 - Anemia, unspecified Status: Acute Assessment and Plan: hemoglobin normally runs 12.9. during this hospitalization hemoglobin has been ranging 10.8-11.3 anemia panel ordered no overt signs of bleeding (4) Hypertension: Code(s): I10 - Essential (primary) hypertension Status: Acute Assessment and Plan: blood pressures had been ranging 90s to 100s over 40s 50s blood pressures reviewed today 131/60 resuming metoprolol 50 mg, hydrochlorothiazide decreased to 12.5 mg, amlodipine decreased to 5 mg, losartan 100 mg daily monitor blood pressures and titrate doses as needed (5) Overactive bladder: Code(s): N32.81 - Overactive bladder Status: Acute Assessment and Plan: patient is on both Mirabegron and solifenacin review of the literature shows that concurrent use with these agents can lead to urinary retention. patient has been treated with urinary tract infection recently. Urinary retention maybe contributing to this. restart Mirabegron and hold solifenacin bladder scan p.r.n. Plan Feeding: heart healthy diet Analgesia: Tylenol Thromboembolic prophylaxis: SCDs Ulcer prophylaxis: na Glycemic control: fasting glucose 97 on am labs Bowel regimen: MiraLax p.r.n. Lines: PIV Antibiotics: not applicable Disposition: PT OT consulted for placement recommendation----likely will go back to swing at [facility] Advance Care Plan I have confirmed that the patient's Advanced Care Plan is present, code status is documented, or surrogate decision maker is listed in patient medical record.: Yes Medication Reconciliation I have utilized all available resources to obtain, update and review the patients current medications (includes all prescriptions, OTC, herbals, cannabis, and nutritional supplements).: Yes Subjective Date/time seen: 12/16/23 08:31 Interval history: This is a very pleasant 83-year-old female with hypertension, hyperlipidemia, gastroesophageal reflux disease, overactive bladder, depression, and history of seizure-like activity with reported normal EEG who is being directly admitted to the telemetry floor from a medical bed at [facility] for further evaluation and neurology consultation after she demonstrated seizure-like activity today. 12/15: Patient is seen resting in bed in no acute distress. Her affect is flat. She is drowsy and oriented to person and she knows she is at the hospital. She told me she was at [facility]. She was able to tell me the year but said the month was December. She is unsure why she is here. She does not remember having her tremor episode yesterday. Patient denies unilateral weakness, numbness, and tingling. She denies vision or speech changes. Review of Systems Review of Systems: 12 systems were reviewed and are negative except for as per HPI. All systems
[2023-12-16 09:23] LABS: Hemoglobin A1C 5.8 % (<5.7)
[2023-12-16] MEDS: LOSARTAN POTASSIUM 50 MG TABLET 100 MG PO (09:49)
[2023-12-16] MEDS: SERTRALINE HCL 50 MG TABLET 200 MG PO (09:49)
[2023-12-16] MEDS: hydroCHLOROthiazide 12.5 MG CAPSULE PO (09:49)
[2023-12-16] MEDS: GABAPENTIN 100 MG CAPSULE PO ×2 (09:49→13:50)
[2023-12-16] MEDS: amLODIPine BESYLATE 5 MG TABLET PO (09:49)
[2023-12-16] MEDS: PANTOPRAZOLE 40 MG TABLET PO (09:49)
[2023-12-16] MEDS: buPROPion HCL XL (24 HR) 150 MG TABCR PO (09:49)
[2023-12-16] MEDS: MIRABEGRON 50 MG ER TABLET PO (09:49)
[2023-12-16] MEDS: METOPROLOL TARTRATE 50 MG TAB PO (09:50)
--- NOTE | 2023-12-16 12:56 | WPDNEURCNPN ---
Consult date: 12/16/23 HPI: Marissa Sue is a 83 year old female Has been admitted to [facility] on transfer from the [facility]. Patient has ongoing history of 1. Hypertension 2. 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 Ongoing complaints of generalized weakness with confusion she was seen in the emergency room on 12/03 difficulties in arousing at home and was subsequently discharged from the local hospital emergency room diagnosis of UTI patient reportedly lives with her son and daughter she remained weak tired she slid out of her wheelchair but with no history of any generalized symptomatology this time she has transfer from [facility] for [facility] because of the seizure which lasted for more than 10minutes the time they were advised to give her the loading dose of Keppra and transferred here for further evaluation. Pertinent investigations include the CBC which reveals low hemoglobin, no leukocytosis, D-dimer of 1.18 hemoglobin A1c of 5.8 negative UA CTA negative for aneurysm or significant intracranial arterial stenosis. She had also MRI in which revealed old infarcts in left frontal lobe and left thalamus and old hemorrhage in the nick which is obviously clear on the most recent CT scan. Since transfer this time it has been documented she had a previous episode about 2 years ago and she was placed on Keppra but after a normal EEG Keppra was discontinued and she is being observed for the seizure precautions along with the other medical problems. [facility] Past Medical History Medical History Arthritis Depression Gastroesophageal reflux disease Hyperlipidemia Hypertension Overactive bladder Restless leg syndrome Surgical History Surgical History History of appendectomy History of cholecystectomy 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 History of partial hysterectomy History of spinal surgery Family History Family History Father Stomach cancer Social History Social History Social History: Healthcare power of finance attorney: Juan Sue, son. Code status: Do not resuscitate. Smoking status: Former smoker Second hand tobacco smoke exposure: Yes (Both parents smoked.) Alcohol intake: never Substance use: never Substance use type: does not use Do You Feel Safe in your Home?: Yes Lack of Transportation: No Lack of Food: Never True Current Housing: I Have Housing Concerned About Future Housing: No Difficulty Paying Gas/Electric Bills: No Difficulty Paying for Meds: No Currently Unemployed: No Education: High School Diploma/GED Difficulty w/ Childcare or Family Care: No Living arrangements: with family Spiritual care concerns: No Meds Home Medications and Allergies Home Medications Medication Instructions Recorded Confirmed Type amlodipine 10 mg tablet 10 mg PO DAILY 11/16/20 12/15/23 History atorvastatin 20 mg tablet 20 mg PO HS 11/16/20 12/15/23 History esomeprazole magnesium 40 mg 40 mg PO DAILY 11/16/20 12/15/23 History capsule,delayed release sertraline 100 mg tablet 200 mg PO DAILY 11/16/20 12/15/23 History losartan 100 mg tablet 1 tablet PO DAILY 12/19/21 12/15/23 History mirabegron 50 mg tablet,extended 1 tablet PO DAILY 12/19/21 12/15/23 History release 24 hr (Myrbetriq) gabapentin 100 mg capsule 100 mg PO BID@0900,1200 #60 caps 06/11/22 12/15/23 Rx bupropion HCl 300 mg 24 hr tablet, 150 mg PO DAILY 12/04/23 12/15/23 History extended release hydrochlorothiazide 25 mg tablet 25 mg PO DAILY 12/04/23 12/15/23 History solifenacin 10 mg tablet 10 mg PO DAILY 12/04/23 12/15/23 History metoprolol tartrate 75 mg tablet 50 mg PO DAILY 12/13/23 12/15/23 History Allergies All
--- NOTE | 2023-12-16 13:50 | WPDNEURCNPN ---
Assessment and Plan Assessment and plan (1) Seizure disorder: Code(s): G40.909 - Epilepsy, unspecified, not intractable, without status epilepticus Status: Acute Plan 1. Seizure patient has already been loaded with Keppra 2. Further evaluation as warranted particularly the MRI. Consult date: 12/16/23 HPI: Marissa Sue is a 83 year old female admitted to the [facility] on transfer [facility] the [facility]. Patient has ongoing history of 1. Hypertension 2. Left above the knee amputation due to osteomyelitis 3. Ongoing complaints of generalized weakness with confusion. She was seen in the emergency room on 12/03 for the difficulties in arousing at home and was subsequently discharged from the local hospital emergency room with a diagnosis of UTI patient reportedly lives with her son and daughter but she remained weak and tired and she slid out of her wheelchair though with no history of any other symptomatology. She was transfer from the [facility] but possibility of the seizure was entertained as she had a seizure in the ER which lasted for 10minutes when we were contacted and we advised to give her the loading dose of Keppra and transfer here for further evaluation investigation up until now include CBC which reveals low hemoglobin no leukocytosis D-dimer of 1.18 hemoglobin A1c of 5.8 negative UA negative CTA for aneurysm or any vascular involvement she also had an MRI which revealed old infarct in the left frontal lobe and left thalamus and old hemorrhage in the nick which was done in [address] scan at this stage is negative she has had a previous episode about 2 years ago when she was placed on Keppra but after normal EEG Keppra was discontinued. Review of Systems Review of Systems: All systems reviewed & are unremarkable except as noted in HPI and below PMFSH Past Medical History Medical History Arthritis Depression Gastroesophageal reflux disease Hyperlipidemia Hypertension Overactive bladder Restless leg syndrome Surgical History Surgical History History of appendectomy History of cholecystectomy 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 History of partial hysterectomy History of spinal surgery Family History Family History Father Stomach cancer Social History Social History Social History: Healthcare power of baseball glove shaper: Juan Sue, son. Code status: Do not resuscitate. Smoking status: Former smoker Second hand tobacco smoke exposure: Yes (Both parents smoked.) Alcohol intake: never Substance use: never Substance use type: does not use Do You Feel Safe in your Home?: Yes Lack of Transportation: No Lack of Food: Never True Current Housing: I Have Housing Concerned About Future Housing: No Difficulty Paying Gas/Electric Bills: No Difficulty Paying for Meds: No Currently Unemployed: No Education: High School Diploma/GED Difficulty w/ Childcare or Family Care: No Living arrangements: with family Spiritual care concerns: No Meds Home Medications and Allergies Home Medications Medication Instructions Recorded Confirmed Type amlodipine 10 mg tablet 10 mg PO DAILY 11/16/20 12/15/23 History atorvastatin 20 mg tablet 20 mg PO HS 11/16/20 12/15/23 History esomeprazole magnesium 40 mg 40 mg PO DAILY 11/16/20 12/15/23 History capsule,delayed release sertraline 100 mg tablet 200 mg PO DAILY 11/16/20 12/15/23 History losartan 100 mg tablet 1 tablet PO DAILY 12/19/21 12/15/23 History mirabegron 50 mg tablet,extended 1 tablet PO DAILY 12/19/21 12/15/23 History release 24 hr (Myrbetriq) gabapentin 100 mg capsule 100 mg PO BID@0900,1200 #60 caps 06/11/22 12/15/23 Rx bupropion HCl
--- NOTE | 2023-12-16 19:44 | ECHO_ITS ---
Patient Info Name: Marissa Sue Age: 83 years : 1940 Gender: Female Ht: 65 in Wt: 195 lbs BSA: 2.05 m2 HR: 68 bpm BP: 122 / 60 mmHg Technical Quality: Fair Exam Date: 12/16/2023 8:27 AM Exam Location: Echo Lab Patient Status: Inpatient Admit Date: 12/16/2023 Staff Ordering Physician: Jesenia Shaver PA-C Patient Consumer Marketer: Shirin Temple RDCS Attending Provider: Kaela Haywood APRN Referring Physician: Chhaya BRISCOE; Exam Type: CA echo doppler color flow Study Info Indications R01.1 - Cardiac murmur, unspecified Complete two-dimensional, color flow and Doppler transthoracic echocardiogram is performed. Summary 1. Complete two-dimensional, color flow and Doppler transthoracic echocardiogram is performed. 2. Left ventricular chamber dimension is normal. 3. Left ventricular systolic function is normal, estimated at 65-70%. 4. The left ventricular diastolic function is grade II diastolic dysfunction. 5. E/e' 13 is mildly elevated. 6. There is mild aortic valve sclerosis. 7. There is trace mitral valve regurgitation. 8. There is no tricuspid valve regurgitation. 9. No pulmonary hypertension, estimated pulmonary arterial systolic pressure is 23 mmHg. Left Ventricle E/e' 13 is mildly elevated. Left ventricular chamber dimension is normal. Left ventricular systolic function is normal, estimated at 65-70%. The left ventricular diastolic function is grade II diastolic dysfunction. Right Ventricle Right ventricular systolic function is normal and with normal TAPSE 2.7 cm. Right ventricular chamber dimension is normal. Left Atria Left atrial chamber dimension is normal. Right Atria Right atrial chamber dimension is normal. Aortic Valve The aortic valve is trileaflet. There is mild aortic valve sclerosis. There is no aortic valve stenosis. There is no aortic valve regurgitation. Pulmonic Valve There is no pulmonic regurgitation. Mitral Valve There is no mitral valve stenosis. There is trace mitral valve regurgitation. Tricuspid Valve There is no tricuspid valve regurgitation. No pulmonary hypertension, estimated pulmonary arterial systolic pressure is 23 mmHg. Pericardium/Pleural There is no pericardial effusion. Inferior Vena Cava Normal inferior vena cava with >50% collapse upon inspiration consistent with normal right atrial pressure, 5 mmHg. Aorta The aortic root size at the sinus of Valsalva is normal. Left Ventricular Outflow Tract Name Value Normal LVOT 2D LVOT Diameter 2.0 cm LVOT Doppler LVOT Peak Gradient 6 mmHg LVOT Mean Gradient 4 mmHg LVOT VTI 33 cm LVOT VTI/AV VTI Ratio 0.8 LVOT Stroke Volume 107 ml LVOT CO 7.2 l/min LVOT CI 3.5 l/min/m2 Pulmonic Valve Name Value Normal RVOT Doppler RVOT P
[2023-12-16] MEDS: ATORVASTATIN 20 MG TABLET PO (20:48)
[2023-12-17] VITALS (10 sets, daily range): BP systolic 112–128; BP diastolic 55–67; PULSE 62–79; RESP 16–18; TEMP 36.2–36.7; O2SAT 93–100
[2023-12-17 05:35] LABS: Basophils Percent Auto 0.3 % (0.2-1.2); Eosinophils Absolute Auto 0.1 K/mm3 (0-0.3); Eosinophils Percent Auto 1.9 % (0-4.4); Hematocrit 36.7 % (37.0-47.0); Hemoglobin 11.8 g/dL (12.0-15.0); Immature Granulocyte Absolute 0.02 K/mm3 (0.00-0.031); Immature Granulocyte Percent A 0.3 % (0-0.5); Lymphocytes Absolute Auto 1.99 K/mm3 (0.9-3.2); Lymphocytes Percent Auto 33.8 % (18.3-44.2); Mean Corpuscular HGB Conc 32.2 g/dl (32-36); Mean Corpuscular Volume 96.3 fl (80-100); Mean Platelet Volume 9.5 fl (7.4-10.4); Monocytes Absolute Auto 0.6 K/mm3 (0.1-0.6); Monocytes Percent Auto 9.3 % (2.6-8.5); Neutrophils Absolute Auto 3.2 K/mm3 (1.3-6.7); Neutrophils Percent Auto 54.4 % (45.5-73.1); Platelet Count Result 178 k/mm3 (150-375); Red Blood Count 3.81 M/mm3 (4.2-5.4); Red Cell Distribution Width 15.3 % (11.5-14.5); White Blood Count 5.9 K/mm3 (4.5-10.0)
[2023-12-17 05:47] LABS: Alanine Aminotransferase 24 U/L (6-35); Albumin Level 3.9 g/dL (3.5-5.1); Alkaline Phosphatase 68 U/L (38-126); Anion Gap 7 mmol/L (4-12); Aspartate Amino Transferase 29 U/L (14-36); Bilirubin,Total 0.4 mg/dL (0.2-1.3); Blood Urea Nitrogen 23 mg/dL (7-17); Carbon Dioxide 28 mmol/L (22-30); Chloride 101 mmol/L (98-107); Estimated CRCL calculation 48 ml/min; Estimated Glomerular Filt Rate > 60; Glucose 106 mg/dL (65-110); Magnesium 1.9 mg/dL (1.6-2.3); Potassium 4.3 mmol/L (3.4-5.0); Sodium 136 mmol/L (137-145)
--- NOTE | 2023-12-17 07:23 | P.PNIM_ITS ---
Progress Note: A&P Assessment and Plan (1) Seizure-like activity: Code(s): R56.9 - Unspecified convulsions Status: Acute Assessment and Plan: Concern for seizure-like activity followed by a facial droop * according to chart review did not appear postictal is she was alert and oriented and answering questions appropriately * patient reports previous episode like this 2 years ago. at the time she was placed on Keppra and after normal EEG Keppra was discontinued. * Patient was loaded with Keppra 1500 mg at outside hospital per Dr. 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 Keppra 500 mg BID started today. Neurology to make changes. * awaiting final recs from neurology (2) Facial droop: Code(s): R29.810 - Facial weakness Status: Acute Assessment and Plan: see above (3) Normocytic anemia: Code(s): D64.9 - Anemia, unspecified Status: Acute Assessment and Plan: hemoglobin normally runs 12.9. during this hospitalization hemoglobin has been ranging 10.8-11.3 * anemia panel ordered * no overt signs of bleeding 12/16: * H/H stable at 11.8/36.7% * Iron 46, TIBC 246, Saturation 19%, ferritin 103, b12 normal, folate normal * Venofer 300 mg x 1 today, added ferrous sulfate 325 mg (4) Hypertension: Code(s): I10 - Essential (primary) hypertension Status: Acute Assessment and Plan: blood pressures had been ranging 90s to 100s over 40s 50s * blood pressures reviewed today 131/60 * resuming metoprolol 50 mg, hydrochlorothiazide decreased to 12.5 mg, amlodipine decreased to 5 mg, losartan 100 mg daily * monitor blood pressures and titrate doses as needed (5) Overactive bladder: Code(s): N32.81 - Overactive bladder Status: Acute Assessment and Plan: patient is on both Mirabegron and solifenacin * review of the literature shows that concurrent use with these agents can lead to urinary retention. patient has been treated with urinary tract infection recently. Urinary retention maybe contributing to this. * restart Mirabegron and hold solifenacin * bladder scan p.r.n. Plan Feeding: heart healthy diet Analgesia: Tylenol Thromboembolic prophylaxis: SCDs Ulcer prophylaxis: na Glycemic control: fasting glucose 97 on am labs Bowel regimen: MiraLax p.r.n. Lines: PIV Antibiotics: not applicable Disposition: PT OT consulted for placement recommendation----likely will go back to swing at [facility] Advance Care Plan I have confirmed that the patient's Advanced Care Plan is present, code status is documented, or surrogate decision maker is listed in patient medical record.: Yes Medication Reconciliation I have utilized all available resources to obtain, update and review the patients current medications (includes all prescriptions, OTC, herbals, cannabis, and nutritional supplements).: Yes Subjective Date/time seen: 12/17/23 07:23 In
--- NOTE | 2023-12-17 07:23 | PM.IMPN ---
Progress Note: A&P Assessment and Plan (1) Seizure-like activity: Code(s): R56.9 - Unspecified convulsions Status: Acute Assessment and Plan: Concern for seizure-like activity followed by a facial droop according to chart review did not appear postictal is she was alert and oriented and answering questions appropriately patient reports previous episode like this 2 years ago. at the time she was placed on Keppra and after normal EEG Keppra was discontinued. Patient was loaded with Keppra 1500 mg at outside hospital per Dr. 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 Keppra 500 mg BID started today. Neurology to make changes. awaiting final recs from neurology (2) Facial droop: Code(s): R29.810 - Facial weakness Status: Acute Assessment and Plan: see above (3) Normocytic anemia: Code(s): D64.9 - Anemia, unspecified Status: Acute Assessment and Plan: hemoglobin normally runs 12.9. during this hospitalization hemoglobin has been ranging 10.8-11.3 anemia panel ordered no overt signs of bleeding 12/16: H/H stable at 11.8/36.7% Iron 46, TIBC 246, Saturation 19%, ferritin 103, b12 normal, folate normal Venofer 300 mg x 1 today, added ferrous sulfate 325 mg (4) Hypertension: Code(s): I10 - Essential (primary) hypertension Status: Acute Assessment and Plan: blood pressures had been ranging 90s to 100s over 40s 50s blood pressures reviewed today 131/60 resuming metoprolol 50 mg, hydrochlorothiazide decreased to 12.5 mg, amlodipine decreased to 5 mg, losartan 100 mg daily monitor blood pressures and titrate doses as needed (5) Overactive bladder: Code(s): N32.81 - Overactive bladder Status: Acute Assessment and Plan: patient is on both Mirabegron and solifenacin review of the literature shows that concurrent use with these agents can lead to urinary retention. patient has been treated with urinary tract infection recently. Urinary retention maybe contributing to this. restart Mirabegron and hold solifenacin bladder scan p.r.n. Plan Feeding: heart healthy diet Analgesia: Tylenol Thromboembolic prophylaxis: SCDs Ulcer prophylaxis: na Glycemic control: fasting glucose 97 on am labs Bowel regimen: MiraLax p.r.n. Lines: PIV Antibiotics: not applicable Disposition: PT OT consulted for placement recommendation----likely will go back to swing at [facility] Advance Care Plan I have confirmed that the patient's Advanced Care Plan is present, code status is documented, or surrogate decision maker is listed in patient medical record.: Yes Medication Reconciliation I have utilized all available resources to obtain, update and review the patients current medications (includes all prescriptions, OTC, herbals, cannabis, and nutritional supplements).: Yes Subjective Date/time seen: 12/17/23 07:23 Interval history: This is a very pleasant 83-year-old female with hypertension, hyperlipidemia, gastroesophageal reflux disease, overactive bladder, depression, and history of seizure-like activity with reported normal EEG who is being directly admitted to the telemetry floor [facility] a [facility] for further evaluation and neurology consultation after she demonstrated seizure-like activity today. 12/15: Patient is seen rest
[2023-12-17] MEDS: MIRABEGRON 50 MG ER TABLET PO (09:08)
[2023-12-17] MEDS: FERROUS SULFATE 325 MG TABLET DR PO (09:08)
[2023-12-17] MEDS: amLODIPine BESYLATE 5 MG TABLET PO (09:08)
[2023-12-17] MEDS: PANTOPRAZOLE 40 MG TABLET PO (09:08)
[2023-12-17] MEDS: hydroCHLOROthiazide 12.5 MG CAPSULE PO (09:09)
[2023-12-17] MEDS: buPROPion HCL XL (24 HR) 150 MG TABCR PO (09:09)
[2023-12-17] MEDS: SERTRALINE HCL 50 MG TABLET 200 MG PO (09:09)
[2023-12-17] MEDS: GABAPENTIN 100 MG CAPSULE PO ×2 (09:09→12:01)
[2023-12-17] MEDS: LOSARTAN POTASSIUM 50 MG TABLET 100 MG PO (09:09)
[2023-12-17] MEDS: METOPROLOL TARTRATE 50 MG TAB PO (09:10)
[2023-12-17] MEDS: IRON SUCROSE COMPLEX 200 MG, IRON SUCROSE COMPLEX 100 MG in SODIUM CHLORIDE 0.9% IV 250 ML 176.67 MG IVPB (09:11)
--- NOTE | 2023-12-17 09:57 | WPDNEUROLOGY ---
Neurology EEG Report General Information Date of Study: 12/17/23 TEST Electroencephalogram DIAGNOSIS seizure disorder CONDITION OF RECORDING fair EEG NUMBER [id number] CLINICAL HISTORY The patient presented to the hospital with altered mental status and possible seizure like spell. She has had a similar spell 2 years ago at that time the EEG was reported to be within normal limits. EEG DESCRIPTION During wakefulness the background activity consists of posterior dominant rhythm in theta range at approximately 6-7 hertz with an amplitude of 15-30 microvolts. This appears mildly formed. Anteriorly low amplitude mixed frequency activity was seen. Intermittent rhythmic theta activity appeared while the patient was possibly drowsy. Occasional sharp transients were also noted over the left temporal area. Mild focal slowing was also noted over left anterior mid temporal area. Sleep spindles were noted while the patient progressed to stage 2 sleep. Hyperventilation or 40 some which were not performed. IMPRESSION This is an abnormal EEG due to following is 1. Occasional sharp wave activity and focal slowing were noted over left anterior and mid temporal area. Sharp transients are considered nonspecific focal interictal abnormality. Focal slowing may raise possibility of underlying structural lesion. However such abnormalities may be seen in many elderly subjects and hence clinical and radiographic correlation are recommended. 2. Mild diffuse background slowing suggestive generalized encephalopathy such as may be seen with bihemispheric lesion or metabolic encephalopathies or post ictal state. Clinical correlation is recommended
[2023-12-17] MEDS: levETIRAcetam 500 MG TABLET PO (12:01)
--- NOTE | 2023-12-17 12:32 | WPDNEUROPN ---
Progress Note: A&P Assessment and Plan (1) Seizure disorder: Code(s): G40.909 - Epilepsy, unspecified, not intractable, without status epilepticus Status: Acute Plan I would suggest to increase the dose of Keppra to 750 mg twice a day. She should be observed for any further seizure activity. She feels lethargic for this could be due to side effects from medications for other metabolic conditions in the be considered. I shall be glad to follow up. Subjective Date/time seen: 12/17/23 12:32 Interval history: patient was seen by neurology service yesterday with regard to seizure which were observed in the emergency room. 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 She feels weak and lethargic and feels that she cannot get up. The patient lives with her son. She is right-handed. Denies any headache. Apparently she has not had any further seizures. 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 Patient knows that she did pass out but she does not know much else. She is currentlly on Keppra 500 mg twice a day. Review of Systems Review of Systems: All systems reviewed & are unremarkable except as noted in HPI and below Exam Narrative: Follicles alert appears to be oriented to self and place. She is hard of hearing. No aphasia or dysarthria. Moving both upper and right lower limb however a above knee amputation on the left side was noted. No involuntary movements seen. Objective Data Vital Signs Vital Signs: Vital Signs - 24 hr 12/16/23 13:49 12/16/23 16:00 12/16/23 21:16 Temperature 36.1 C L 36.3 C L Pulse Rate 65 67 67 Respiratory Rate 15 16 Blood Pressure 109/63 113/61 Pulse Oximetry 95 93 Oxygen Delivery 12/16/23 20:00 12/16/23 20:00 12/17/23 00:00 Temperature Pulse Rate 68 72 Respiratory Rate Blood Pressure Pulse Oximetry Oxygen Delivery Room Air 12/17/23 04:00 12/17/23 04:54 12/17/23 08:22 Temperature 36.2 C L Pulse Rate 72 67 Respiratory Rate 18 Blood Pressure 128/57 L Pulse Oximetry 100 Oxygen Delivery Room Air 12/17/23 09:10 12/17/23 08:00 Temperature Pulse Rate 71 Respiratory Rate Blood Pressure Pulse Oximetry Oxygen Delivery Room Air Intake/Output Intake/Output: Intake & Output 12/14/23 12/15/23 12/16/23 12/17/23 23:59 23:59 23:59 23:59 Intake Total 1130 520 Output Total 1999 1199 Osxyzcl -669 -531 Meds/Results Medications: Active Medications Generic Name Dose Route Start Last Admin Trade Name Freq PRN Reason Stop Dose Admin Acetaminophen 650 mg 12/15/23 19:40 Acetaminophen 325 Mg Tablet PO Q4H PRN Mild Pain (1-3) or Fever Amlodipine Besylate 5 mg 12/16/23 09:00 12/17/23 09:08 Amlodipine Besylate 5 Mg Tablet PO 5 mg DAILY ALMAS Administration Atorvastatin Calcium 20 mg 12/16/23 21:00 12/16/23 20:48 Atorvastatin 20 Mg Tablet PO 20 mg HS ALMAS Administration Bupropion HCl 150 mg 12/16/23 09:00 12/17/23 09:09 Bupropion Hcl Xl (24 Hr) 150 Mg Tabcr PO 150 mg DAILY ALMAS Administration Ferrous Sulfate 325 mg 12/17/23 09:00 12/17/23 09:08 Ferrous Sulfate [address] PO 325 mg DAILY ALMAS Administration Gabapentin 100 mg 12/16/23 09:00 12/17/23 12:01 Gabapentin 100 Mg Capsule PO 100 mg BID@0900,1200 ALMAS Administration Hydrochlorothiazide 12.5 mg 12/16/23 09:00 12/17/23 09:09 Hydrochlorothiazide 12.5 Mg Capsule PO 12.5 mg DAILY ALMAS Administration Levetiracetam 500 mg 12/17/23 10:35 12/17/23 12:01 Levetiracetam 500 Mg Tablet PO 500 mg Q12HR ALMAS Administration Losartan Potassium 100 mg 12/16/23 09:00 12/17/23 09:09 Losartan Potassium 50 Mg Tablet PO 100 mg DAILY ALMAS Administration Metoprolol Tartrate 50 mg 12/16/23 09:00 12/17/23 09:10 Metoprolol Tartrate 50 Mg Tab PO 50 mg DAILY ALMAS Admini
[2023-12-17 17:23] LABS: Glucose Point of Care 115 mg/dl (65-105)
[2023-12-17] MEDS: levETIRAcetam 250 MG TABLET 750 MG PO (20:07)
[2023-12-17] MEDS: ATORVASTATIN 20 MG TABLET PO (20:08)
[2023-12-18] VITALS (10 sets, daily range): BP systolic 100–127; BP diastolic 52–55; PULSE 69–81; RESP 16; TEMP 36.1–36.7; O2SAT 90–94
[2023-12-18 04:30] LABS: Basophils Percent Auto 0.3 % (0.2-1.2); Eosinophils Absolute Auto 0.1 K/mm3 (0-0.3); Eosinophils Percent Auto 1.1 % (0-4.4); Hematocrit 36.1 % (37.0-47.0); Hemoglobin 11.7 g/dL (12.0-15.0); Immature Granulocyte Absolute 0.03 K/mm3 (0.00-0.031); Immature Granulocyte Percent A 0.5 % (0-0.5); Lymphocytes Absolute Auto 2.01 K/mm3 (0.9-3.2); Lymphocytes Percent Auto 32.5 % (18.3-44.2); Mean Corpuscular HGB Conc 32.4 g/dl (32-36); Mean Corpuscular Volume 95.8 fl (80-100); Mean Platelet Volume 9.3 fl (7.4-10.4); Monocytes Absolute Auto 0.5 K/mm3 (0.1-0.6); Monocytes Percent Auto 8.7 % (2.6-8.5); Neutrophils Absolute Auto 3.5 K/mm3 (1.3-6.7); Neutrophils Percent Auto 56.9 % (45.5-73.1); Platelet Count Result 192 k/mm3 (150-375); Red Blood Count 3.77 M/mm3 (4.2-5.4); Red Cell Distribution Width 15.3 % (11.5-14.5); White Blood Count 6.2 K/mm3 (4.5-10.0)
[2023-12-18 04:41] LABS: Alanine Aminotransferase 23 U/L (6-35); Albumin Level 3.8 g/dL (3.5-5.1); Alkaline Phosphatase 64 U/L (38-126); Anion Gap 7 mmol/L (4-12); Aspartate Amino Transferase 28 U/L (14-36); Bilirubin,Total 0.4 mg/dL (0.2-1.3); Blood Urea Nitrogen 23 mg/dL (7-17); Calcium 8.9 mg/dL (8.4-10.2); Carbon Dioxide 27 mmol/L (22-30); Chloride 103 mmol/L (98-107); Estimated CRCL calculation 55 ml/min; Estimated Glomerular Filt Rate > 60; Glucose 102 mg/dL (65-110); Magnesium 1.9 mg/dL (1.6-2.3); Potassium 3.9 mmol/L (3.4-5.0); Sodium 137 mmol/L (137-145)
--- NOTE | 2023-12-18 07:48 | PM.IMPN ---
Progress Note: A&P Assessment and Plan (1) Seizure-like activity: Code(s): R56.9 - Unspecified convulsions Status: Acute Assessment and Plan: Concern for seizure-like activity followed by a facial droop according to chart review did not appear postictal is she was alert and oriented and answering questions appropriately patient reports previous episode like this 2 years ago. at the time she was placed on Keppra and after normal EEG Keppra was discontinued. Patient was loaded with Keppra 1500 mg at outside hospital per Dr. 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 Keppra 500 mg BID started today. Neurology to make changes. awaiting final recs from neurology 12/17: Keppra 650 mg PO BID (2) Facial droop: Code(s): R29.810 - Facial weakness Status: Acute Assessment and Plan: see above (3) Normocytic anemia: Code(s): D64.9 - Anemia, unspecified Status: Acute Assessment and Plan: hemoglobin normally runs 12.9. during this hospitalization hemoglobin has been ranging 10.8-11.3 anemia panel ordered no overt signs of bleeding 12/16: H/H stable at 11.8/36.7% Iron 46, TIBC 246, Saturation 19%, ferritin 103, b12 normal, folate normal Venofer 300 mg x 1 today, added ferrous sulfate 325 mg (4) Hypertension: Code(s): I10 - Essential (primary) hypertension Status: Acute Assessment and Plan: blood pressures had been ranging 90s to 100s over 40s 50s blood pressures reviewed today 131/60 resuming metoprolol 50 mg, hydrochlorothiazide decreased to 12.5 mg, amlodipine decreased to 5 mg, losartan 100 mg daily monitor blood pressures and titrate doses as needed (5) Overactive bladder: Code(s): N32.81 - Overactive bladder Status: Acute Assessment and Plan: patient is on both Mirabegron and solifenacin review of the literature shows that concurrent use with these agents can lead to urinary retention. patient has been treated with urinary tract infection recently. Urinary retention maybe contributing to this. restart Mirabegron and hold solifenacin bladder scan p.r.n. Plan Feeding: heart healthy diet Analgesia: Tylenol Thromboembolic prophylaxis: SCDs Ulcer prophylaxis: na Glycemic control: fasting glucose 97 on am labs Bowel regimen: MiraLax p.r.n. Lines: PIV Antibiotics: not applicable Disposition: PT OT consulted for placement recommendation----likely will go back to swing at [place] Advance Care Plan I have confirmed that the patient's Advanced Care Plan is present, code status is documented, or surrogate decision maker is listed in patient medical record.: Yes Medication Reconciliation I have utilized all available resources to obtain, update and review the patients current medications (includes all prescriptions, OTC, herbals, cannabis, and nutritional supplements).: Yes Subjective Date/time seen: 12/18/23 07:48 Interval history: This is a very pleasant 83-year-old female with hypertension, hyperlipidemia, gastroesophageal reflux disease, overactive bladder, depression, and history of seizure-like activity with reported normal EEG who is being directly admitted to the telemetry floor from a medical bed at [facility] for further evaluation and neurology consultation after she demonstrated seizure-like activity toda
[2023-12-18] MEDS: SERTRALINE HCL 50 MG TABLET 200 MG PO (08:35)
[2023-12-18] MEDS: buPROPion HCL XL (24 HR) 150 MG TABCR PO (08:35)
[2023-12-18] MEDS: FERROUS SULFATE 325 MG TABLET DR PO (08:35)
[2023-12-18] MEDS: PANTOPRAZOLE 40 MG TABLET PO (08:36)
[2023-12-18] MEDS: METOPROLOL TARTRATE 50 MG TAB PO (08:36)
[2023-12-18] MEDS: amLODIPine BESYLATE 5 MG TABLET PO (08:36)
[2023-12-18] MEDS: LOSARTAN POTASSIUM 50 MG TABLET 100 MG PO (08:36)
[2023-12-18] MEDS: MIRABEGRON 50 MG ER TABLET PO (08:36)
[2023-12-18] MEDS: hydroCHLOROthiazide 12.5 MG CAPSULE PO (08:36)
[2023-12-18] MEDS: levETIRAcetam 250 MG TABLET 750 MG PO (08:36)
[2023-12-18] MEDS: GABAPENTIN 100 MG CAPSULE PO ×2 (08:36→12:16)
--- NOTE | 2023-12-18 09:50 | WPDNEUROPN ---
Progress Note: A&P Assessment and Plan (1) Seizure disorder: Code(s): G40.909 - Epilepsy, unspecified, not intractable, without status epilepticus Status: Acute (2) Acute UTI: Code(s): N39.0 - Urinary tract infection, site not specified Status: Acute Plan Ms. Sue is an 83 year old female with a history of HTN, HLD, GERD, overactive bladder, depression, and history of seizure currently admitted after having seizure-like activity while at [facility]. MRI brain was negative for any acute changes or seizure focus. She is on Wellbutrin which can decrease seizure threshold. - Agree with increasing Keppra to 750mg BID - Recommend discontinuation of Wellbutrin - Discussed no driving or operating heavy machinery until seizure free for at least six months Subjective Date/time seen: 12/18/23 09:50 Interval history: Ms. Sue is an 83 year old female with a history of HTN, HLD, GERD, overactive bladder, depression currently admitted after having seizure-like activity while at [facility]. She was initially admitted at [facility] for altered mental status in the setting of UTI/sepsis. While admitted she has 'seizure like activity' and there were reports for L facial droop. CT/CTA brain/carotid were obtained which were unrevealing. Patient was transferred to [facility] for neurology consultation. She was initially started on Keppra 500mg BID, which has since been increased to 750mg BID. Her MRI brain showed an old thalamic stroke but no obvious seizure focus. Routine EEG showed occasional sharp wave and focal slowing over the L anterior and mid temporal area and also superimposed diffuse background slowing. Patient denies any prior history of seizures. She denies any family history of seizures. She does not drive due to her LLE amputation. Review of Systems Review of Systems: All systems reviewed & are unremarkable except as noted in HPI and below Exam Const: General: comfortable, no acute distress and well nourished Nutritional Appearance: well nourished HENMT: Head: normocephalic and atraumatic Ears: hearing grossly normal bilaterally and external ears normal Face/Nose/Sinus: Normal external nose present and normal facial exam Face and sinus: normal facial exam Mouth: Yes Normal oral and palatal mucosa present Eyes: General: appearance normal, both eyes and all related structures Eyelids: eyelids normal Conjunctivae: conjunctivae normal Pupils: Equal, round and reactive pupils present EOM: No Nystagmus present Neck: Neck: normal visual inspection Resp: Effort & Inspection: normal respiratory effort Skin: General skin exam: normal color Neuro: Cranial nerves: Yes CN's II-XII intact bilaterally, Yes Equal, round and reactive pupils present, Yes Bilaterally intact EOM present, Yes Nystagmus not present, Yes Normal facial strength present, Yes facial symmetry, Yes Midline tongue present, Yes Normal hearing present and No Nystagmus present Speech: normal speech Motor exam (neuro): Motor abnormalities not present Coordination: [id number] test normal Other: Strength in bilateral upper extremities is symmetric and age appropriate Strength in the RLE is 5/5 throughout LLE AKA -- hip flexion is normal strength sensation is symmetric bilaterally Extrem: Other: LLE above knee amputation Psych: Appearance: grossly normal Mental Status: mental status grossly normal Affect: normal affect Attitude: cooperative Objective Data Vital Signs Vital Signs: Vital Signs - 24 hr 12/17/23 14:00 12/17/23 12:00 12/17/23 16:00 Temperature 36.7 C Pulse Rate 70 79 62 Respiratory Rate 16 Blood Pressure 112/67 Pulse Oximetry 94 Oxygen Delivery 12/17/23 20:00 12/17/23 20:00 12/17/23 22:00 Temperature 36.4 C L Pulse Rate 66 66 Respiratory Rate 16 Blood Pressure 124/55 L Pulse Oximetry 93 Oxygen Delivery Room Air
[2023-12-18] MEDS: levETIRAcetam IV 3,000 MG in DEXTROSE 5% 100 ML 780 MG IVPB (13:14)
--- NOTE | 2023-12-18 14:40 | PCOTNOTE ---
Attempted to see Patient for afternoon session. Patient out of the room at this time, down in CT.
[2023-12-18] MEDS: levETIRAcetam 500 MG TABLET 1000 MG PO (21:19)
[2023-12-18] MEDS: ATORVASTATIN 20 MG TABLET PO (21:19)
[2023-12-19] VITALS (10 sets, daily range): BP systolic 98–113; BP diastolic 51; PULSE 66–76; RESP 18–20; TEMP 36.1–36.4; O2SAT 92–94
[2023-12-19 05:39] LABS: Basophils Percent Auto 0.3 % (0.2-1.2); Eosinophils Absolute Auto 0.1 K/mm3 (0-0.3); Eosinophils Percent Auto 1.1 % (0-4.4); Hematocrit 36.1 % (37.0-47.0); Hemoglobin 11.5 g/dL (12.0-15.0); Immature Granulocyte Absolute 0.03 K/mm3 (0.00-0.031); Immature Granulocyte Percent A 0.5 % (0-0.5); Lymphocytes Absolute Auto 2.11 K/mm3 (0.9-3.2); Lymphocytes Percent Auto 33.5 % (18.3-44.2); Mean Corpuscular HGB Conc 31.9 g/dl (32-36); Mean Corpuscular Hemoglobin 30.5 pg (26-34); Mean Corpuscular Volume 95.8 fl (80-100); Mean Platelet Volume 9.2 fl (7.4-10.4); Monocytes Absolute Auto 0.6 K/mm3 (0.1-0.6); Monocytes Percent Auto 9.4 % (2.6-8.5); Neutrophils Absolute Auto 3.5 K/mm3 (1.3-6.7); Neutrophils Percent Auto 55.2 % (45.5-73.1); Platelet Count Result 190 k/mm3 (150-375); Red Blood Count 3.77 M/mm3 (4.2-5.4); Red Cell Distribution Width 15.3 % (11.5-14.5); White Blood Count 6.3 K/mm3 (4.5-10.0)
[2023-12-19 05:49] LABS: Alanine Aminotransferase 22 U/L (6-35); Alkaline Phosphatase 69 U/L (38-126); Anion Gap 8 mmol/L (4-12); Aspartate Amino Transferase 29 U/L (14-36); Bilirubin,Total 0.4 mg/dL (0.2-1.3); Blood Urea Nitrogen 27 mg/dL (7-17); Carbon Dioxide 27 mmol/L (22-30); Chloride 100 mmol/L (98-107); Estimated CRCL calculation 48 ml/min; Estimated Glomerular Filt Rate > 60; Glucose 106 mg/dL (65-110); Magnesium 1.8 mg/dL (1.6-2.3); Potassium 3.9 mmol/L (3.4-5.0); Sodium 135 mmol/L (137-145)
[2023-12-19] MEDS: GABAPENTIN 100 MG CAPSULE PO ×2 (08:00→12:02)
[2023-12-19] MEDS: SERTRALINE HCL 50 MG TABLET 200 MG PO (08:00)
[2023-12-19] MEDS: levETIRAcetam 500 MG TABLET 1000 MG PO ×2 (08:01→20:53)
[2023-12-19] MEDS: buPROPion HCL XL (24 HR) 150 MG TABCR PO (08:01)
[2023-12-19] MEDS: amLODIPine BESYLATE 5 MG TABLET PO (08:01)
[2023-12-19] MEDS: MIRABEGRON 50 MG ER TABLET PO (08:01)
[2023-12-19] MEDS: METOPROLOL TARTRATE 50 MG TAB PO (08:01)
[2023-12-19] MEDS: FERROUS SULFATE 325 MG TABLET DR PO (08:01)
[2023-12-19] MEDS: hydroCHLOROthiazide 12.5 MG CAPSULE PO (08:01)
[2023-12-19] MEDS: LOSARTAN POTASSIUM 50 MG TABLET 100 MG PO (08:02)
[2023-12-19] MEDS: PANTOPRAZOLE 40 MG TABLET PO (08:02)
--- NOTE | 2023-12-19 08:59 | P.PNIM_ITS ---
Progress Note: A&P Assessment and Plan (1) Seizure-like activity: Code(s): R56.9 - Unspecified convulsions Status: Acute Assessment and Plan: Concern for seizure-like activity followed by a facial droop * according to chart review did not appear postictal is she was alert and oriented and answering questions appropriately * patient reports previous episode like this 2 years ago. at the time she was placed on Keppra and after normal EEG Keppra was discontinued. * Patient was loaded with Keppra 1500 mg at outside hospital per Dr. 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 Keppra 500 mg BID started today. Neurology to make changes. * awaiting final recs from neurology 12/17: * Keppra 650 mg PO BID 12/18: * loaded with 3 gram of keppra yesterday after her seizure. * maintenance dose increased to 1000 mg BID * likely drowsy today from recent seizure and increase in medication * Will plan to keep her another night for drug monitoring and await return of baseline mentation (2) Facial droop: Code(s): R29.810 - Facial weakness Status: Acute Assessment and Plan: see above (3) Normocytic anemia: Code(s): D64.9 - Anemia, unspecified Status: Acute Assessment and Plan: hemoglobin normally runs 12.9. during this hospitalization hemoglobin has been ranging 10.8-11.3 * anemia panel ordered * no overt signs of bleeding 12/16: * H/H stable at 11.8/36.7% * Iron 46, TIBC 246, Saturation 19%, ferritin 103, b12 normal, folate normal * Venofer 300 mg x 1 today, added ferrous sulfate 325 mg (4) Hypertension: Code(s): I10 - Essential (primary) hypertension Status: Acute Assessment and Plan: blood pressures had been ranging 90s to 100s over 40s 50s * blood pressures reviewed today 131/60 * resuming metoprolol 50 mg, hydrochlorothiazide decreased to 12.5 mg, amlodipine decreased to 5 mg, losartan 100 mg daily * monitor blood pressures and titrate doses as needed (5) Overactive bladder: Code(s): N32.81 - Overactive bladder Status: Acute Assessment and Plan: patient is on both Mirabegron and solifenacin * review of the literature shows that concurrent use with these agents can lead to urinary retention. patient has been treated with urinary tract infection recently. Urinary retention maybe contributing to this. * restart Mirabegron and hold solifenacin * bladder scan p.r.n. Plan Feeding: heart healthy diet Analgesia: Tylenol Thromboembolic prophylaxis: SCDs Ulcer prophylaxis: na Glycemic control: fasting glucose 97 on am labs Bowel regimen: MiraLax p.r.n. Lines: PIV Antibiotics: not applicable Disposition: PT OT consulted for placement recommendation. Plan for [facility] when medically ready. Advance Care Plan I have confirmed that the patient's Advanced Care Plan is present, code status is documented, or surrogate decision maker is list
--- NOTE | 2023-12-19 08:59 | PM.IMPN ---
Progress Note: A&P Assessment and Plan (1) Seizure-like activity: Code(s): R56.9 - Unspecified convulsions Status: Acute Assessment and Plan: Concern for seizure-like activity followed by a facial droop according to chart review did not appear postictal is she was alert and oriented and answering questions appropriately patient reports previous episode like this 2 years ago. at the time she was placed on Keppra and after normal EEG Keppra was discontinued. Patient was loaded with Keppra 1500 mg at outside hospital per Dr. 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 Keppra 500 mg BID started today. Neurology to make changes. awaiting final recs from neurology 12/17: Keppra 650 mg PO BID 12/18: loaded with 3 gram of keppra yesterday after her seizure. maintenance dose increased to 1000 mg BID likely drowsy today from recent seizure and increase in medication Will plan to keep her another night for drug monitoring and await return of baseline mentation (2) Facial droop: Code(s): R29.810 - Facial weakness Status: Acute Assessment and Plan: see above (3) Normocytic anemia: Code(s): D64.9 - Anemia, unspecified Status: Acute Assessment and Plan: hemoglobin normally runs 12.9. during this hospitalization hemoglobin has been ranging 10.8-11.3 anemia panel ordered no overt signs of bleeding 12/16: H/H stable at 11.8/36.7% Iron 46, TIBC 246, Saturation 19%, ferritin 103, b12 normal, folate normal Venofer 300 mg x 1 today, added ferrous sulfate 325 mg (4) Hypertension: Code(s): I10 - Essential (primary) hypertension Status: Acute Assessment and Plan: blood pressures had been ranging 90s to 100s over 40s 50s blood pressures reviewed today 131/60 resuming metoprolol 50 mg, hydrochlorothiazide decreased to 12.5 mg, amlodipine decreased to 5 mg, losartan 100 mg daily monitor blood pressures and titrate doses as needed (5) Overactive bladder: Code(s): N32.81 - Overactive bladder Status: Acute Assessment and Plan: patient is on both Mirabegron and solifenacin review of the literature shows that concurrent use with these agents can lead to urinary retention. patient has been treated with urinary tract infection recently. Urinary retention maybe contributing to this. restart Mirabegron and hold solifenacin bladder scan p.r.n. Plan Feeding: heart healthy diet Analgesia: Tylenol Thromboembolic prophylaxis: SCDs Ulcer prophylaxis: na Glycemic control: fasting glucose 97 on am labs Bowel regimen: MiraLax p.r.n. Lines: PIV Antibiotics: not applicable Disposition: PT OT consulted for placement recommendation. Plan for [facility] when medically ready. Advance Care Plan I have confirmed that the patient's Advanced Care Plan is present, code status is documented, or surrogate decision maker is listed in patient medical record.: Yes Medication Reconciliation I have utilized all available resources to obtain, update and review the patients current medications (includes all prescriptions, OTC, herbals, cannabis, and nutritional supplements).: Yes Subjective Date/time seen: 12/19/23 08:59 Interval history: This is a very pleasant 83-year-old female with hypertension, hyperlipidemia, gastroesophageal reflux disease, overactive bladder, depress
[2023-12-19] MEDS: ATORVASTATIN 20 MG TABLET PO (20:53)
[2023-12-20] VITALS (7 sets, daily range): BP systolic 105–117; BP diastolic 49–63; PULSE 69–75; RESP 18; TEMP 36.3–36.6; O2SAT 92–96
[2023-12-20] MEDS: FERROUS SULFATE 325 MG TABLET DR PO (08:03)
[2023-12-20] MEDS: PANTOPRAZOLE 40 MG TABLET PO (08:03)
[2023-12-20] MEDS: levETIRAcetam 500 MG TABLET 1000 MG PO (08:03)
[2023-12-20] MEDS: buPROPion HCL XL (24 HR) 150 MG TABCR PO (08:03)
[2023-12-20] MEDS: MIRABEGRON 50 MG ER TABLET PO (08:03)
[2023-12-20] MEDS: METOPROLOL TARTRATE 50 MG TAB PO (08:03)
[2023-12-20] MEDS: GABAPENTIN 100 MG CAPSULE PO ×2 (08:04→12:54)
[2023-12-20] MEDS: SERTRALINE HCL 50 MG TABLET 200 MG PO (08:06)
--- NOTE | 2023-12-20 10:54 | WPDNEUROPN ---
Subjective Date/time seen: 12/20/23 10:54 Interval history: Ongoing diagnosis of seizure disorder with acute UTI in addition to other multiple medical problems such as hypertension hyperlipidemia GERD neurogenic bladder depression and history of seizure disorder in the past as well during this hospitalization MRI brain has been negative, EEG as per Dr. Rosa is an abnormal study with occasional sharp wave activity focal slowing over the left anterior and mid temporal areas raising the possibility of focal structure lesion but MRI of the brain has already been done which is consistent with old infarct in left thalamus. Patient's medications include antipsychotic medication and antidepressant medication and also Keppra 1000mg q.12 hours treatment can be continued as such with instruction for the seizure precautions if any question arises please do not hesitate to contact us Objective Data Vital Signs Vital Signs: Vital Signs - 24 hr 12/19/23 12:00 12/19/23 15:12 12/19/23 16:00 Temperature 36.1 C L Pulse Rate 73 66 67 Respiratory Rate 18 Blood Pressure 98/51 L Pulse Oximetry 92 Oxygen Delivery 12/19/23 20:55 12/19/23 20:00 12/19/23 20:00 Temperature 36.4 C Pulse Rate 71 70 Respiratory Rate 18 Blood Pressure 113/51 L Pulse Oximetry 94 Oxygen Delivery Room Air 12/20/23 00:00 12/20/23 04:00 12/20/23 04:09 Temperature 36.6 C Pulse Rate 75 74 72 Respiratory Rate 18 Blood Pressure 117/63 Pulse Oximetry 92 Oxygen Delivery 12/20/23 08:03 Temperature Pulse Rate 75 Respiratory Rate Blood Pressure Pulse Oximetry Oxygen Delivery Intake/Output Intake/Output: Intake & Output 12/17/23 12/18/23 12/19/23 12/20/23 23:59 23:59 23:59 23:59 Intake Total 1380 1520 1050 490 Output Total 1200 500 250 Balance 180 1020 800 490 Meds/Results Medications: Active Medications Generic Name Dose Route Start Last Admin Trade Name Freq PRN Reason Stop Dose Admin Acetaminophen 650 mg 12/15/23 19:40 Acetaminophen 325 Mg Tablet PO Q4H PRN Mild Pain (1-3) or Fever Amlodipine Besylate 5 mg 12/16/23 09:00 12/19/23 08:01 Amlodipine Besylate 5 Mg Tablet PO 5 mg DAILY ALMAS Administration Atorvastatin Calcium 20 mg 12/16/23 21:00 12/19/23 20:53 Atorvastatin 20 Mg Tablet PO 20 mg HS ALMAS Administration Bupropion HCl 150 mg 12/16/23 09:00 12/20/23 08:03 Bupropion Hcl Xl (24 Hr) 150 Mg Tabcr PO 150 mg DAILY ALMAS Administration Ferrous Sulfate 325 mg 12/17/23 09:00 12/20/23 08:03 Ferrous Sulfate [address] PO 325 mg DAILY ALMAS Administration Gabapentin 100 mg 12/16/23 09:00 12/20/23 08:04 Gabapentin 100 Mg Capsule PO 100 mg BID@0900,1200 ALMAS Administration Hydrochlorothiazide 12.5 mg 12/16/23 09:00 12/19/23 08:01 Hydrochlorothiazide 12.5 Mg Capsule PO 12.5 mg DAILY ALMAS Administration Levetiracetam 1,000 mg 12/18/23 21:00 12/20/23 08:03 Levetiracetam 500 Mg Tablet PO 1,000 mg Q12HR ALMAS Administration Losartan Potassium 100 mg 12/16/23 09:00 12/19/23 08:02 Losartan Potassium 50 Mg Tablet PO 100 mg DAILY ALMAS Administration Metoprolol Tartrate 50 mg 12/16/23 09:00 12/20/23 08:03 Metoprolol Tartrate 50 Mg Tab PO 50 mg DAILY ALMAS Administration Mirabegron 50 mg 12/16/23 09:00 12/20/23 08:03 Mirabegron 50 Mg Er Tablet PO 50 mg DAILY ALMAS Administration Pantoprazole Sodium 40 mg 12/16/23 09:00 12/20/23 08:03 Pantoprazole 40 Mg Tablet PO 01/15/24 08:59 40 mg DAILY ALMAS Administration Polyethylene Glycol 17 gm 12/16/23 08:49 Polyethylene Glycol 3350 17 Gm Powd.Pack PO QAM PRN Constipation Sertraline HCl 200 mg 12/16/23 09:00 12/20/23 08:06 Sertraline Hcl 50 Mg Tablet PO 200 mg DAILY ALMAS Administration Radiology Results: ITS Impressions Brain MRI 12/16/23 15:07 IMPRESSION: 1. 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 2. M
--- NOTE | 2023-12-20 14:35 | PM.DS ---
DS: Admitting Diagnosis Discharge Date 12-19 Admitting Diagnosis Seizure-like symptoms DS: Discharge Diagnosis Discharge Diagnosis (1) Seizure-like activity: Code(s): R56.9 - Unspecified convulsions Status: Acute Assessment and Plan: Concern for seizure-like activity followed by a facial droop according to chart review did not appear postictal is she was alert and oriented and answering questions appropriately patient reports previous episode like this 2 years ago. at the time she was placed on Keppra and after normal EEG Keppra was discontinued. Patient was loaded with Keppra 1500 mg at outside hospital per Dr. 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 Keppra 500 mg BID started today. Neurology to make changes. awaiting final recs from neurology 12/17: Keppra 650 mg PO BID 12/18: loaded with 3 gram of keppra yesterday after her seizure. maintenance dose increased to 1000 mg BID likely drowsy today from recent seizure and increase in medication Will plan to keep her another night for drug monitoring and await return of baseline mentation (2) Facial droop: Code(s): R29.810 - Facial weakness Status: Acute Assessment and Plan: see above (3) Normocytic anemia: Code(s): D64.9 - Anemia, unspecified Status: Acute Assessment and Plan: hemoglobin normally runs 12.9. during this hospitalization hemoglobin has been ranging 10.8-11.3 anemia panel ordered no overt signs of bleeding 12/16: H/H stable at 11.8/36.7% Iron 46, TIBC 246, Saturation 19%, ferritin 103, b12 normal, folate normal Venofer 300 mg x 1 today, added ferrous sulfate 325 mg (4) Hypertension: Code(s): I10 - Essential (primary) hypertension Status: Acute Assessment and Plan: blood pressures had been ranging 90s to 100s over 40s 50s blood pressures reviewed today 131/60 resuming metoprolol 50 mg, hydrochlorothiazide decreased to 12.5 mg, amlodipine decreased to 5 mg, losartan 100 mg daily monitor blood pressures and titrate doses as needed (5) Overactive bladder: Code(s): N32.81 - Overactive bladder Status: Acute Assessment and Plan: patient is on both Mirabegron and solifenacin review of the literature shows that concurrent use with these agents can lead to urinary retention. patient has been treated with urinary tract infection recently. Urinary retention maybe contributing to this. restart Mirabegron and hold solifenacin bladder scan p.r.n. Plan Feeding: heart healthy diet Analgesia: Tylenol Thromboembolic prophylaxis: SCDs Ulcer prophylaxis: na Glycemic control: fasting glucose 97 on am labs Bowel regimen: MiraLax p.r.n. Lines: PIV Antibiotics: not applicable Disposition: PT OT consulted for placement recommendation. Plan for [facility] when medically ready. Advance Care Plan I have confirmed that the patient's Advanced Care Plan is present, code status is documented, or surrogate decision maker is listed in patient medical record.: Yes Medication Reconciliation I have utilized all available resources to obtain, update and review the patients current medications (includes all prescriptions, OTC, herbals, cannabis, and nutritional supplements).: Yes DS: Summary Hospital Course Reason for hospitalization: seizure Hospital Course: This is an 83-year-o
== END 2023-12-20 17:46 | DRG 101 ==
PROVIDERS: Physician Assistant; Admitting Provider Internal Medicine; PCP Family Medicine; Visit Provider Nurse Practitioner Acute Care
DX: R56.9 Unspecified convulsions (principal); N39.0 Urinary tract infection, site not specified; I10 Essential (primary) hypertension; E78.5 Hyperlipidemia, unspecified; D64.9 Anemia, unspecified; K21.9 Gastro-esophageal reflux disease without esophagitis; N32.81 Overactive bladder; M19.90 Unspecified osteoarthritis, unspecified site; G25.81 Restless legs syndrome; R29.810 Facial weakness; F32.A Depression, unspecified; Z89.612 Acquired absence of left leg above knee; Z86.73 Personal history of transient ischemic attack (TIA), and cerebral infarction without residual deficits
CPT/HCPCS: 36415; 70496; 70498; 70553; 80053; 80061; 80069; 82607; 82728; 82746; 82948; 83036; 83540; 83550; 83735; 84443; 85025; 85027; 93306; 95816; 97110; 97161; 97166; 97530; A9270; A9577; G0378; G0379; J1756; J1953; J7050; Q9967

== ENCOUNTER 2024-02-22 17:27 | Inpatient (IN) | payer MEDICARE, BC, SELFPAY ==
--- NOTE | ~2024-02-22 | CT_ITS ---
EXAMINATION: CTA BRAIN/CAROTID DATE: 02/22/2024 17:53 INDICATION: Stroke activation. Altered mental status and left facial droop. TECHNIQUE: Computed tomographic angiography (CTA) of the head and neck was performed with 100 mL Omni paque-350 intravenous contrast. Multiplanar reconstructions and maximum intensity projection 3D-recon structions of the carotid arteries and of the intracranial arteries were created by the technologist on a separate workstation. Automated exposure control and iterative reconstruction technique were emp loyed.The dose-length product was 1032.44 mGy-cm. COMPARISON: None. FINDINGS: Carotid arteries: Small amount of nonhemodynamically significant atherosclerotic plaque along the normal caliber aortic arch and at the origins of the left subclavian and left common carotid arteries with no dissection. Minimal atherosclerotic plaque at the right carotid bifurcation with 0% stenosis of the right carotid bulb relative to normal distal artery lumen diameter (NASCET criteria). No evident atherosclerotic p laque with 0% stenosis of the left carotid bulb relative to normal distal artery lumen diameter. Mult inodular goiter with nodules measuring up to 1.4 cm and given size and patient age likely require no further follow-up. Ce rvical soft tissues are otherwise unremarkable. Scattered linear discoid atelectasis and mosaic atten uation in the visualized upper lungs consistent with atelectasis during expiratory phase of imaging w ith subsegmental regions of air trapping related to small airway disease. There is enlargement of the central pulmonary arteries consistent with pulmonary arterial hypertension. There are few scattered small calcified pulmonary nodules consistent with old granulomatous disease. Moderate to severe cervi cristofer and upper thoracic spondylosis. Intracranial arteries Vertebral arteries are codominant. Small amount of atherosclerotic plaque at the left vertebral arter y and at the bilateral carotid siphons. There is no hemodynamically significant stenosis in the verte bral, basilar and internal carotid arteries. There are no aneurysms identified. Both A1 and P1 segme nts are patent. Cerebral arterial arborization appears symmetric. IMPRESSION: 1. 0% stenosis of the right and left carotid bulbs relative to normal distal artery lumen diameter (N ASCET criteria). 2. Unremarkable cerebral CT angiogram with no hemodynamically since and stenosis, thrombosis or aneur ysm. Reviewed, dictated and finalized at location A. IMPRESSION: 1. 0% stenosis of the right and left carotid bulbs relative to normal distal ar nicole lumen diameter (NASCET criteria). 2. Unremarkable cerebral CT angiogram with no hemodynamically since and stenosi s, thrombosis or aneurysm.
--- NOTE | ~2024-02-22 | XR_ITS ---
EXAMINATION: XR chest 1V DATE: 02/22/2024 17:54 INDICATION: Altered mental status TECHNIQUE: frontal view of the chest was obtained. COMPARISON: Chest radiograph dated 12/13/2023 FINDINGS: Pulmonary vascular congestion. Increased reticular pattern with peripheral predominance at the right lung as well as at the left lung base. Heart size is normal. No pleural effusion or pneumothorax. Old right-sided rib fractures. Cholecystectomy clips in right upper quadrant. Excreted contrast in the b ilateral renal collecting systems related to earlier contrast-enhanced CT. Severe osteoarthritis at t he left glenohumeral joint. Mild lumbar levocurvature with severe spondylosis. IMPRESSION: 1. Mild reticular opacities at the periphery of the right lung and at the left lung base which could represent mild pulmonary edema or pneumonia in the acute setting or more chronic interstitial lung di sease. Reviewed, dictated and finalized at location A. IMPRESSION: 1. Mild reticular opacities at the periphery of the right lung and at the left lung base which could represent mild pulmonary edema or pneumonia in the acute setting or more chronic interstitial lung disease.
--- NOTE | ~2024-02-22 | MR_ITS ---
EXAMINATION: MR brain/brain stem wo/w con DATE: 02/24/2024 13:49 INDICATION: Right arm weakness. TECHNIQUE: Magnetic resonance imaging (MRI) of the brain and brainstem was performed without and with 17 mL MultiHance intravenous contrast. COMPARISON: Brain MRI 12/16/2023, head CT 02/22/2024 FINDINGS: There are old blood products in the nick. There are scattered areas of nonspecific increase d T2-weighted signal intensity in the cerebral white matter. There is no acute ischemic infarct or ab normal mass lesion. There is old infarct in the left thalamus. The ventricles are normal in size. The re are likely changes of ocular lens replacement surgeries. The paranasal sinuses are clear. The mast oid air cells are normal. IMPRESSION: 1. 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 2. Moderate nonspecific cerebral white matter disease, which likely represents chronic small vessel i schemic disease. Reviewed, dictated and finalized at location A. IMPRESSION: 1. 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 2. Moderate nonspecific cerebral white matter disease, which likely represents chronic small vessel ischemic disease.
--- NOTE | ~2024-02-22 | CT_ITS ---
EXAMINATION: CT brain wo con DATE: 02/22/2024 17:40 INDICATION: Stroke with left-sided facial droop TECHNIQUE: Computed tomography (CT) of the head was performed without intravenous contrast. Sagittal and coronal reconstructions were performed. The mA was adjusted according to patient size. Iterative reconstruction technique was employed. The dose-length product was 681.00 mGy-cm. COMPARISON: head CT dated 12/18/2023 FINDINGS: No acute intracranial hemorrhage, acute infarction or abnormal extra axial fluid collection. There is mild scattered white matter hypoattenuation consistent with chronic small vessel ischemic disease. S ymmetric prominence of the sulci and ventricles consistent with mild to moderate age-appropriate diff use cerebral volume loss. No mass/mass effect. Changes of bilateral intraocular lens replacement. The orbits, paranasal sinuses and mastoid air cells are normal. IMPRESSION: 1. No acute intracranial process. 2. Age-related changes including mild to moderate diffuse volume loss and moderate scattered white ma tter hypoattenuation consistent with chronic small vessel ischemic disease. Reviewed, dictated and finalized at location A. IMPRESSION: 1. No acute intracranial process. 2. Age-related changes including mild to moderate diffuse volume loss and moder ate scattered white matter hypoattenuation consistent with chronic small vessel ischemic disease.
--- NOTE | ~2024-02-22 | MR_ITS ---
EXAMINATION: MR cervical spine wo/w con DATE: 02/24/2024 13:49 INDICATION: Neck pain. Right arm weakness. TECHNIQUE: Magnetic resonance imaging (MRI) of the cervical spine was performed without and with 17 m L MultiHance intravenous contrast. COMPARISON: None FINDINGS: There is 2 mm anterolisthesis of C4 on C5, 2 mm retrolisthesis of C5 on C6 and C6 and C7, a nd 2 mm anterolisthesis of C7 on T1. Vertebral body heights are normal. There is mildly decreased dis c height at C4-C5 and severely decreased disc height at C5-C6 and C6-C7. The spinal cord signal inten sity is normal, but motion artifact decreases sensitivity. The following disc levels are specifically discussed: C2-C3: The disc does not extend beyond the endplate margin. There is no uncovertebral joint osteoarth ritis. There is moderate bilateral facet joint osteoarthritis. There is no neural foraminal stenosis. There is no central canal stenosis. C3-C4: There is a central protrusion. There is mild bilateral uncovertebral joint osteoarthritis. The re is moderate right and severe left facet joint osteoarthritis. There is mild bilateral neural yuan inal stenosis. There is mild central canal stenosis. C4-C5: There is a central extrusion. There is mild bilateral uncovertebral joint osteoarthritis. Ther e is ankylosis of left facet joint with mild hypertrophy. There is no neural foraminal stenosis. Ther e is mild central canal stenosis. C5-C6: The disc is bulging. There is severe bilateral uncovertebral joint osteoarthritis. There is mo derate right and severe left facet joint osteoarthritis. There is mild bilateral neural foraminal dee nosis. There is mild central canal stenosis. C6-C7: The disc is bulging. There is severe bilateral uncovertebral joint osteoarthritis. There is se [place] right and moderate left facet joint osteoarthritis. There is mild bilateral neural foraminal dee nosis. There is mild central canal stenosis. C7-T1: The disc does not extend beyond the endplate margin. There is no uncovertebral joint osteoarth ritis. There is severe bilateral facet joint osteoarthritis. There is mild bilateral neural foraminal stenosis. There is no central canal stenosis. IMPRESSION: 1. Severe cervical spondylosis. Reviewed, dictated and finalized at location A.
--- NOTE | ~2024-02-22 | XR_ITS ---
EXAMINATION: XR shoulder RT min 2V DATE: 02/22/2024 18:25 INDICATION: Right shoulder pain TECHNIQUE: AP internally and externally rotated, AP oblique externally rotated and transscapular Y vi ews of the affected shoulder were obtained. COMPARISON: None FINDINGS: Normal alignment. No fracture. Glenohumeral joint space is normal. Moderate acromioclavicular osteoa rthritis. Dystrophic calcifications about the right humeral head in the subacromial space suggestive of right rotator cuff calcific tendinitis. IMPRESSION: 1. No acute osseous adenopathy. 2. Dystrophic calcification about the right humeral head suggestive rotator cuff calcific tendinitis. 3. Moderate acromioclavicular osteoarthritis. Reviewed, dictated and finalized at location A. IMPRESSION: 1. No acute osseous adenopathy. 2. Dystrophic calcification about the right humeral head suggestive rotator cuf f calcific tendinitis. 3. Moderate acromioclavicular osteoarthritis.
--- NOTE | 2024-02-22 17:31 | ECG_ITS ---
Test Date: 2024-02-22 18:01:14 Measurements Intervals [place] Rate: 82 P: 66 VA: 202 QRS: 39 QRSD: 84 T: 63 QT: 402 QTc: 470 Interpretive Statements SINUS RHYTHM BORDERLINE AV CONDUCTION DELAY BASELINE ARTIFACT- I, II, III, AVR, AVL, AVF BORDERLINE ECG Compared to ECG 12/15/2023 13:43:36 NO SIGNIFICANT CHANGE Electronically Signed On 02-23-2024 06:38:11 CDT by Mike Gonzalez D.O.
--- NOTE | 2024-02-22 17:33 | ED.NEUROSD ---
HPI - Neuro Symptoms/Deficit General Chief Complaint: Suspected CVA Stated Complaint: code stroke Time Seen by Provider: 02/22/24 17:31 Source: patient, family (daughter in law ) and EMS Mode of arrival: EMS History of Present Illness HPI Narrative: Patient presents via EMS with concern for possible stroke. Last known well 16:15 when she was talking with a family member. At approximately 16:45, symptoms appreciated by others. Patient had been complaining of right arm pain and not moving it. She is right hand dominant but has some chronic issues with this arm. Related Data Home Medications Medication Instructions Recorded Confirmed cetirizine 10 mg tablet 10 mg PO HS 02/22/24 02/22/24 cyclobenzaprine 5 mg tablet 5 mg PO HS PRN muscle spasms 02/22/24 02/22/24 ergocalciferol (vitamin D2) 1,250 1,250 mcg PO WEEKLY 02/22/24 02/22/24 mcg (50,000 unit) capsule gabapentin 100 mg capsule 100 mg PO BID@0900,1700 02/22/24 02/22/24 iron,carbonyl 30 mg-vitamin C 10 1 tablet PO BID 02/22/24 02/22/24 mg-FOS 25 mg chewable tablet (Chewable Iron) lidocaine 4 % topical patch 1 patch topical DAILY PRN Pain 02/22/24 02/22/24 nystatin 100,000 unit/gram topical 1 applic topical DAILY 02/22/24 02/22/24 cream sennosides 8.6 mg tablet (Senna 8.6 mg PO DAILY 02/22/24 02/22/24 Lax) triamcinolone acetonide 0.1 % 1 applic topical DAILY 02/22/24 02/22/24 topical cream Allergies Allergy/AdvReac Type Severity Reaction Status Date / Time ceftaroline fosamil Allergy Intermediate Rash Verified 02/22/24 20:06 Penicillins Allergy Intermediate Rash Verified 02/22/24 20:06 Sulfa (Sulfonamide Allergy Intermediate Rash Verified 02/22/24 20:06 Antibiotics) ON LICENSE OF [facility] Past Medical History Medical History (Updated 02/22/24 @ 19:44 by Jesenia Shaver PA-C) Arthritis Depression Gastroesophageal reflux disease Hyperlipidemia Hypertension Overactive bladder Restless leg syndrome Seizure disorder Surgical History Surgical History History of appendectomy History of cholecystectomy 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 History of partial hysterectomy History of spinal surgery Family History Family History Father Stomach cancer Social History Social History Social History: Healthcare power of patent prosecution attorney: Juan Sue, son. Code status: Do not resuscitate. Smoking status: Never smoker Second hand tobacco smoke exposure: Yes (Both parents smoked.) Alcohol intake: never Substance use: never Substance use type: does not use Do You Feel Safe in your Home?: Yes Lack of Transportation: No Lack of Food: Never True Current Housing: I Have Housing Concerned About Future Housing: No Difficulty Paying Gas/Electric Bills: No Difficulty Paying for Meds: No Currently Unemployed: No Education: Grade School Difficulty w/ Childcare or Family Care: No Living arrangements: with family Spiritual care concerns: No Exam Const: General: healthy appearing and alert; No diaphoretic or ill appearing Nutritional Appearance: well nourished and obese HENMT: Head: normal to inspection, no contusions, no hematomas and no lacerations Ears: external ears normal Eyes: Conjunctivae: conjunctivae normal Direct Ophthalmoscopy: no photophobia Other: horizontal eomi; patient has difficulty following instructions to assess peripheral visual [place] Neck: Neck: normal visual inspection and no meningeal signs Chest: Chest palpation & inspection: normal inspection of the chest Resp: Effort & Inspection: normal respiratory effort, not labored, no retractions, not tachypneic and no use of accessory muscles Other: nasal cannula in place Cardio: Rate: regular rate Rhythm: regular rhythm GI: GI Palp: Yes Soft to palp
[2024-02-22 17:54] VITALS: BP 147/87; PULSE 82; PULSE 83; RESP 15; TEMP 36.8; O2SAT 97
[2024-02-22 17:55] LABS: Estimated Glomerular Filt Rate > 60
[2024-02-22 17:55] LABS: Basophils Percent Auto 0.2 % (0.2-1.2); Eosinophils Percent Auto 0.3 % (0-4.4); Hematocrit 36.7 % (37.0-47.0); Hemoglobin 11.9 g/dL (12.0-15.0); Immature Granulocyte Absolute 0.03 K/mm3 (0.00-0.031); Immature Granulocyte Percent A 0.5 % (0-0.5); Lymphocytes Absolute Auto 1.94 K/mm3 (0.9-3.2); Lymphocytes Percent Auto 29.6 % (18.3-44.2); Mean Corpuscular HGB Conc 32.4 g/dl (32-36); Mean Corpuscular Hemoglobin 30.3 pg (26-34); Mean Corpuscular Volume 93.4 fl (80-100); Mean Platelet Volume 9.9 fl (7.4-10.4); Monocytes Absolute Auto 0.7 K/mm3 (0.1-0.6); Monocytes Percent Auto 10.5 % (2.6-8.5); Neutrophils Absolute Auto 3.9 K/mm3 (1.3-6.7); Neutrophils Percent Auto 58.9 % (45.5-73.1); Platelet Count Result 199 k/mm3 (150-375); Red Blood Count 3.93 M/mm3 (4.2-5.4); Red Cell Distribution Width 16.4 % (11.5-14.5); White Blood Count 6.6 K/mm3 (4.5-10.0)
[2024-02-22 18:03] VITALS: BP 147/84; PULSE 82; RESP 20; TEMP 36.7; O2SAT 96
[2024-02-22 18:04] LABS: Ethanol < 10 mg/dL (<10)
[2024-02-22 18:05] LABS: INR 1.2; Prothrombin Time 15.4 Seconds (11.1-14.7)
[2024-02-22 18:06] LABS: Partial Thromboplastin Time 35.8 Seconds (22.3-36.8)
[2024-02-22 18:12] LABS: Alanine Aminotransferase 14 U/L (6-35); Albumin Level 3.7 g/dL (3.5-5.1); Alkaline Phosphatase 79 U/L (38-126); Anion Gap 9 mmol/L (4-12); Aspartate Amino Transferase 25 U/L (14-36); Bilirubin,Total 0.9 mg/dL (0.2-1.3); Blood Urea Nitrogen 14 mg/dL (7-17); Calcium 8.7 mg/dL (8.4-10.2); Carbon Dioxide 30 mmol/L (22-30); Chloride 97 mmol/L (98-107); Estimated Glomerular Filt Rate > 60; Glucose 120 mg/dL (65-110); Potassium 3.5 mmol/L (3.4-5.0); Sodium 136 mmol/L (137-145)
[2024-02-22 18:24] LABS: Troponin I 0.018 ng/mL (0.000-0.034)
[2024-02-22 18:57] LABS: Cholesterol 109 mg/dL (0-200); HDL Direct 26 mg/dL; Triglycerides 119 mg/dL (<150)
[2024-02-22] MEDS: ACETAMINOPHEN 500 MG TABLET 1000 MG PO (19:00)
[2024-02-22 19:08] VITALS: BP 141/82; PULSE 79; RESP 24; TEMP 37; O2SAT 97
[2024-02-22 19:08] LABS: LDL Cholesterol Direct 52 mg/dL
--- NOTE | 2024-02-22 19:35 | PM.IMHP ---
H&P: HPI History of Present Illness Date/Time: 02/22/24 19:35 Chief Complaint: Right-sided weakness. Narrative: This is a very pleasant 83-year-old female with history of stroke, seizure disorder, hypertension, hyperlipidemia, gastroesophageal reflux disease, overactive bladder, and depression who presented to the emergency department via EMS from [facility] for evaluation of right-sided weakness. Her last known well was at 16:15 and about an hour thereafter she was noted to have right-sided weakness. The patient was brought directly to the emergency department where she was found to have an NIH stroke scale of 7. Brain CT and CTA of the head and neck did not show any acute findings, hemodynamically significant stenosis, thrombosis, or aneurysm. She was in the time for evaluate for TNK-tPA but the ED physician had extensive discussions with the patient and her family members who decided that the risks outweighed the benefits. She is being admitted to the floor for further monitoring and neurology consultation tomorrow. At the time my evaluation she reports improvement her symptoms, namely she is able to lift her right arm and leg father and for longer periods of time. She denies vertigo, visual changes, difficulty speaking and swallowing, and paresthesias. Review of Systems Review of Systems: 12 systems were reviewed and are negative except for as per HPI. 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 History of partial hysterectomy History of spinal surgery Family History Family History Father Stomach cancer Social History Social History Social History: Healthcare power of telephone operator: Juan Sue, son. Code status: Do not resuscitate. Smoking status: Never smoker Second hand tobacco smoke exposure: Yes (Both parents smoked.) Alcohol intake: never Substance use: never Substance use type: does not use Do You Feel Safe in your Home?: Yes Lack of Transportation: No Lack of Food: Never True Current Housing: I Have Housing Concerned About Future Housing: No Difficulty Paying Gas/Electric Bills: No Difficulty Paying for Meds: No Currently Unemployed: No Education: Grade School Difficulty w/ Childcare or Family Care: No Living arrangements: with family Spiritual care concerns: No Meds Home Medications and Allergies Home Medications Medication Instructions Recorded Confirmed Type acetaminophen 325 mg tablet 650 mg PO Q8HR PRN Mild Pain (1-3) 01/01/24 02/22/24 Rx Or Fever #60 tabs atorvastatin 20 mg tablet 20 mg PO HS #30 tabs 01/01/24 02/22/24 Rx bupropion HCl 150 mg 24 hr tablet, 150 mg PO DAILY #30 tabs 01/01/24 02/22/24 Rx extended release levetiracetam 500 mg tablet 750 mg PO Q12HR #60 tabs 01/01/24 02/22/24 Rx (Keppra) losartan 25 mg tablet 50 mg PO DAILY #30 tabs 01/01/24 02/22/24 Rx metoprolol tartrate 50 mg tablet 50 mg PO DAILY #60 tabs 01/01/24 02/22/24 Rx pantoprazole 40 mg tablet,delayed 40 mg PO DAILY #30 tabs 01/01/24 02/22/24 Rx release sertraline 100 mg tablet (Zoloft) 200 mg PO DAILY #30 tabs 01/01/24 02/22/24 Rx solifenacin 5 mg tablet (Vesicare) 10 mg PO DAILY #30 tabs 01/01/24 02/22/24 Rx cetirizine 10 mg tablet 10 mg PO HS 02/22/24 02/22/24 History cyclobenzaprine 5 mg tablet 5 mg PO HS PRN muscle spasms 02/22/24 02/22/24 History ergocalciferol (vitamin D2) 1,250 1,250 mcg PO WEEKLY 02/22/24 02/22/24 History mcg (50,000 unit) capsu
[2024-02-22 20:00] VITALS: O2SAT 95
--- NOTE | 2024-02-22 20:19 | ADMGEN ---
This patient, Marissa Sue, was admitted to 2 Medical Room 253-01. Patient/family oriented to hospital policies and general routines including ID bracelet, bed and alarms, visiting hours, pain management, procedures, bathroom and other care routines, personal items, smoking policy, room service/diet, and visiting hours. Information on how to activate the Rapid Response Team has been discussed. Patient/Family are encouraged to report perceived risks to care and to ask questions if they do not understand what they are told or what they should do.
[2024-02-22 20:23] VITALS: BP 120/64; PULSE 78; RESP 20; TEMP 35.8; O2SAT 95
[2024-02-22 20:24] VITALS: BMI 31.4
[2024-02-22] MEDS: ATORVASTATIN 20 MG TABLET PO (23:16)
[2024-02-22] MEDS: levETIRAcetam 250 MG TABLET 750 MG PO (23:16)
[2024-02-23] VITALS (13 sets, daily range): BP systolic 122–149; BP diastolic 62–74; PULSE 70–78; RESP 15–18; TEMP 36.2–36.5; O2SAT 92–97
--- NOTE | 2024-02-23 | ECHO_ITS ---
Patient Info Name: Marissa Sue Age: 83 years : 1940 Gender: Female Ht: 64 in Wt: 187 lbs BSA: 1.99 m2 HR: 76 bpm BP: 149 / 74 mmHg Heart Rhythm: Sinus Rhythm Technical Quality: Good Exam Date: 02/23/2024 11:17 AM Exam Location: Echo Lab Patient Status: Inpatient Admit Date: 02/23/2024 Staff Ordering Physician: Eliana Graham NP Production Broaching Machine Operator: Zeus Sparks RDCS Attending Provider: Stephanie Navarrete MD Referring Physician: Gladys CARUSO; Exam Type: CA echo doppler w bubble study Study Info Indications - stroke like symptom Complete two-dimensional, color flow and Doppler transthoracic echocardiogram is performed with agitated saline. Summary 1. Left ventricular chamber dimension is normal. 2. Left ventricular systolic function is normal, estimated at 60-65%. 3. The left ventricular diastolic function is grade I diastolic dysfunction. 4. E/e' 10 is mildly elevated. 5. There is mild aortic valve sclerosis. 6. No pulmonary hypertension, estimated pulmonary arterial systolic pressure is 19 mmHg. Left Ventricle E/e' 10 is mildly elevated. Left ventricular chamber dimension is normal. Left ventricular systolic function is normal, estimated at 60-65%. The left ventricular diastolic function is grade I diastolic dysfunction. Right Ventricle Right ventricular systolic function is normal and with normal TAPSE 2.5 cm. Right ventricular chamber dimension is normal. Left Atria Left atrial chamber dimension is normal. Right Atria Right atrial chamber dimension is normal. Atrial Septum Agitated saline injection with and without valsalva maneuver opacified right side cardiac chambers without shunt to left side cardiac chambers. Intact interatrial septum visualized by 2D and agitated saline imaging. Aortic Valve The aortic valve is trileaflet. There is mild aortic valve sclerosis. There is no aortic valve stenosis. There is no aortic valve regurgitation. Pulmonic Valve There is no pulmonic regurgitation. Mitral Valve There is no mitral valve stenosis. There is no mitral valve regurgitation. Tricuspid Valve There is no tricuspid valve regurgitation. No pulmonary hypertension, estimated pulmonary arterial systolic pressure is 19 mmHg. Pericardium/Pleural There is no pericardial effusion. Inferior Vena Cava Normal inferior vena cava with >50% collapse upon inspiration consistent with normal right atrial pressure, 5 mmHg. Aorta The aortic root size at the sinus of Valsalva is normal. Left Ventricular Outflow Tract Name Value Normal LVOT 2D LVOT Diameter 2.0 cm LVOT Doppler LVOT Peak Gradient 7 mmHg LVOT Mean Gradient 5 mmHg LVOT VTI 40 cm LVOT VTI/AV VTI Ratio 1.6 LVOT Stroke Volume 124 ml LVOT CO 8.9 l/min LVOT CI 4.5 l/min/m2 Pulmonic Valve Name Value Normal PV Doppler
[2024-02-23 03:24] LABS: Bacteria Urine 4+ /hpf; Need Manual Microscopic Reviewed; Non Pathogenic Casts 0-2; Squamous Epithelial Cell Urine Occasional /hpf (Few); WBC Urine 0-5 /hpf (0-3)
[2024-02-23 03:26] LABS: Appearance Urine Cloudy (Clear); Color Urine Yellow (Yellow); pH Urine 6.5 (5.0-9.0)
[2024-02-23 03:27] LABS: Add Urine Microscopic? YES; Bilirubin Urine Negative (Negative); Blood Urine Trace (Negative); Glucose Urine UA Negative (Negative); Ketones Urine Negative (Negative); Leukocyte Esterase Ur Negative LEU/UL (Negative); Nitrate Urine Negative (Negative); Protein Urine Negative (Negative)
[2024-02-23 03:30] LABS: Amphetamine Screen Urine Negative (Negative); Barbiturate Screen Urine Negative (Negative); Benzodiazepines Screen Urine Negative (Negative); Cannabinoid Screen Urine Negative (Negative); Cocaine Screen Urine Negative (Negative); Methadone Screen Urine Negative (Negative); Opiate Screen Urine Negative (Negative); Phencyclidine Screen Urine Negative (Negative)
[2024-02-23 06:42] LABS: Hematocrit 34.8 % (37.0-47.0); Hemoglobin 11.1 g/dL (12.0-15.0); Mean Corpuscular HGB Conc 31.9 g/dl (32-36); Mean Corpuscular Hemoglobin 30.1 pg (26-34); Mean Corpuscular Volume 94.3 fl (80-100); Platelet Count Result 198 k/mm3 (150-375); Red Blood Count 3.69 M/mm3 (4.2-5.4); Red Cell Distribution Width 16.6 % (11.5-14.5); White Blood Count 5.5 K/mm3 (4.5-10.0)
[2024-02-23 06:47] LABS: Anion Gap 8 mmol/L (4-12); Blood Urea Nitrogen 13 mg/dL (7-17); Carbon Dioxide 33 mmol/L (22-30); Chloride 97 mmol/L (98-107); Estimated CRCL calculation 61 ml/min; Estimated Glomerular Filt Rate > 60; Glucose 106 mg/dL (65-110); Magnesium 1.9 mg/dL (1.6-2.3); Potassium 3.3 mmol/L (3.4-5.0); Sodium 138 mmol/L (137-145)
--- NOTE | 2024-02-23 08:36 | PM.IMPN ---
Progress Note: A&P Assessment and Plan (1) Right arm weakness: Code(s): R29.898 - Other symptoms and signs involving the musculoskeletal system Status: Acute Assessment and Plan: - Unclear etiology; CVA vs TIA vs other. - CTA head/neck unremarkable. - Still with new right arm weakness. - Started on aspirin. - Continue statin. - Lipid panel and A1c ordered. - ECHO ordered. - Neurologist consulted. - MRI brain ordered. (2) Seizure disorder: Code(s): G40.909 - Epilepsy, unspecified, not intractable, without status epilepticus Status: Acute Assessment and Plan: - Continue Keppra. - Seizure precautions. - Neuro consulted. (3) Hypertension: Code(s): I10 - Essential (primary) hypertension Status: Acute Assessment and Plan: - Fairly well controlled. - Monitor for now. (4) Depression: Code(s): F32.9 - Major depressive disorder, single episode, unspecified Status: Acute Assessment and Plan: - Continue sertraline. Subjective Date/time seen: 02/23/24 08:36 Interval history: Patient admitted from the intermediate that she resides with new-onset right-arm weakness. Patient currently on bedrest and states her right arm is always ok and now she can barely elevate it from the bed. Review of Systems Review of Systems: 12 systems were reviewed and are negative except for as per HPI. Exam Narrative: General: elderly lady, pleasant and in no acute distress. HEENT: Normocephalic, atraumatic. PERRL, EOMI. Sclera anicteric. Oral mucosa dry. Neck: Supple. Respiratory: Lungs clear bilaterally. Cardiovascular: Regular rate and rhythm with S1-S2. Gastrointestinal: Abdomen is soft, nontender, and nondistended with positive bowel sounds. Skin: Warm and dry. Extremities: No cyanosis, clubbing, or significant edema. Status post left [id number] amputation. Neurological: Alert and oriented. Cranial nerves II-XII are grossly intact. 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 Weak right arm. Psychiatric: Pleasant and cooperative with appropriate mood and affect. Objective Data Vital Signs Vital Signs: Vital Signs - 24 hr 02/22/24 17:54 02/22/24 17:54 02/22/24 18:03 Temperature 98.2 F 98.0 F Pulse Rate 83 82 82 Respiratory Rate 15 20 Blood Pressure 147/87 H 147/84 H Pulse Oximetry 97 96 Oxygen Delivery Nasal Cannula Oxygen Flow Rate 2.0 02/22/24 19:08 02/22/24 20:23 02/22/24 20:00 Temperature 98.6 F 96.4 F L Pulse Rate 79 78 Respiratory Rate 24 H 20 Blood Pressure 141/82 H 120/64 Pulse Oximetry 97 95 95 Oxygen Delivery Nasal Cannula Oxygen Flow Rate 3 02/23/24 00:00 02/23/24 04:00 02/23/24 05:45 Temperature 97.7 F Pulse Rate 70 74 76 Respiratory Rate 18 Blood Pressure 149/74 H Pulse Oximetry 95 Oxygen Delivery Oxygen Flow Rate 02/23/24 07:58 02/23/24 08:03 Temperature Pulse Rate 76 Respiratory Rate 18 Blood Pressure Pulse Oximetry 95 Oxygen Delivery Nasal Cannula Oxygen Flow Rate 3 Intake/Output Intake/Output: Intake & Output 02/20/24 02/21/24 02/22/24 02/23/24 23:59 23:59 23:59 23:59 Intake Total 0 Balance 0 Meds/Results Medications: Active Medications Generic Name Dose Route Start Last Admin Trade Name Freq PRN Reason Stop Dose Admin Acetaminophen 650 mg 02/22/24 19:01 Acetaminophen 325 Mg Tablet PO Q4H PRN Mild Pain (1-3) or Fever Atorvastatin Calcium 20 mg 02/22/24 22:50 02/22/24 23:16 Atorvastatin 20 Mg Tablet PO 20 mg HS ALMAS Administration Bupropion HCl 150 mg 02/23/24 09:00 Bupropion Hcl Xl (24 Hr) 150 Mg Tabcr PO DAILY [facility] Gabapentin 100 mg 02/23/24 09:00 Gabapentin 100 Mg Capsule PO BID@0900,1700 [facility]MAS Levetiracetam 750 mg 02/22/24 22:40 02/22/24 23:16 Levetiracetam 250 Mg Tablet PO 750 mg Q12HR ALMAS Administration Lidocaine 1 patch 02/22/24 22:49 Lidocaine 5% Patch TRANSDERM
--- NOTE | 2024-02-23 09:36 | WPDNEURCNPN ---
Consult date: 02/23/24 HPI: Marissa Sue is a 83 year old female Admitted to the hospital through the emergency room for the possibility of stroke and with information that she was last known well 16 15 when she was talking with a family member. At approximately 4:45 p.m. symptoms appreciated by others. Patient had been complaining of pain right upper extremity and not moving it. She is a right-hand dominant but does have some chronic issues with this Arm. Her medication at the time of visit to the ER included cyclobenzaprine 5mg p.r.n., gabapentin 100mg b.i.d., lidocaine patches, and topical triamcinolone cream. She is reportedly allergic to multiple medications such as sulfa penicillin and ceftaroline she carries a diagnosis of arthritis, depression, hypertension, overactive bladder, restless leg syndrome, and seizure disorder. She has undergone appendectomy cholecystectomy left above the knee amputation for osteomyelitis and partial hysterectomy and also spinal surgery. She is never a smoker never alcohol intake. 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 History of partial hysterectomy History of spinal surgery Family History Family History Father Stomach cancer Social History Social History Social History: Healthcare power of environmental attorney: Juan Sue, son. Code status: Do not resuscitate. Smoking status: Never smoker Second hand tobacco smoke exposure: Yes (Both parents smoked.) Alcohol intake: never Substance use: never Substance use type: does not use Do You Feel Safe in your Home?: Yes Lack of Transportation: No Lack of Food: Never True Current Housing: I Have Housing Concerned About Future Housing: No Difficulty Paying Gas/Electric Bills: No Difficulty Paying for Meds: No Currently Unemployed: No Education: Grade School Difficulty w/ Childcare or Family Care: No Living arrangements: with family Spiritual care concerns: No Meds Home Medications and Allergies Home Medications Medication Instructions Recorded Confirmed Type acetaminophen 325 mg tablet 650 mg PO Q8HR PRN Mild Pain (1-3) 01/01/24 02/22/24 Rx Or Fever #60 tabs atorvastatin 20 mg tablet 20 mg PO HS #30 tabs 01/01/24 02/22/24 Rx bupropion HCl 150 mg 24 hr tablet, 150 mg PO DAILY #30 tabs 01/01/24 02/22/24 Rx extended release levetiracetam 500 mg tablet 750 mg PO Q12HR #60 tabs 01/01/24 02/22/24 Rx (Keppra) losartan 25 mg tablet 50 mg PO DAILY #30 tabs 01/01/24 02/22/24 Rx metoprolol tartrate 50 mg tablet 50 mg PO DAILY #60 tabs 01/01/24 02/22/24 Rx pantoprazole 40 mg tablet,delayed 40 mg PO DAILY #30 tabs 01/01/24 02/22/24 Rx release sertraline 100 mg tablet (Zoloft) 200 mg PO DAILY #30 tabs 01/01/24 02/22/24 Rx solifenacin 5 mg tablet (Vesicare) 10 mg PO DAILY #30 tabs 01/01/24 02/22/24 Rx cetirizine 10 mg tablet 10 mg PO HS 02/22/24 02/22/24 History cyclobenzaprine 5 mg tablet 5 mg PO HS PRN muscle spasms 02/22/24 02/22/24 History ergocalciferol (vitamin D2) 1,250 1,250 mcg PO WEEKLY 02/22/24 02/22/24 History mcg (50,000 unit) capsule gabapentin 100 mg capsule 100 mg PO BID@0900,1700 02/22/24 02/22/24 History iron,carbonyl 30 mg-vitamin C 10 1 tablet PO BID 02/22/24 02/22/24 History mg-FOS 25 mg chewable tablet (Chewable Iron) lidocaine 4 % topical patch 1 patch topical DAILY PRN Pain 02/22/24 02/22/24 History nystatin 100,000 unit/gram topical 1 applic topical DAILY 02/22/24 0
[2024-02-23] MEDS: SOLIFENACIN 5 MG TABLET 10 MG PO (09:38)
[2024-02-23] MEDS: ASPIRIN 81 MG ENTERIC TABLET PO (09:39)
[2024-02-23] MEDS: PANTOPRAZOLE 40 MG TABLET PO (09:39)
[2024-02-23] MEDS: SENNOSIDES 8.6 MG TABLET PO (09:39)
[2024-02-23] MEDS: SERTRALINE HCL 50 MG TABLET 200 MG PO (09:39)
[2024-02-23] MEDS: THERAPEUTIC MULTIVITAMINS/MINERALS TAB (*BKC) 1 TABLET PO (09:39)
[2024-02-23] MEDS: METOPROLOL TARTRATE 50 MG TAB PO (09:40)
[2024-02-23] MEDS: levETIRAcetam 250 MG TABLET 750 MG PO ×2 (09:40→20:15)
[2024-02-23] MEDS: GABAPENTIN 100 MG CAPSULE PO ×2 (09:41→17:02)
[2024-02-23] MEDS: LOSARTAN POTASSIUM 25 MG TABLET 50 MG PO (09:41)
[2024-02-23] MEDS: buPROPion HCL XL (24 HR) 150 MG TABCR PO (09:42)
[2024-02-23 09:48] LABS: Cholesterol 108 mg/dL (0-200); HDL Direct 22 mg/dL; Triglycerides 137 mg/dL (<150)
[2024-02-23 09:58] LABS: LDL Cholesterol Direct 50 mg/dL
[2024-02-23 10:44] LABS: Hemoglobin A1C 6.1 % (<5.7)
[2024-02-23] MEDS: ACETAMINOPHEN 325 MG TABLET 650 MG PO ×2 (10:47→20:15)
--- NOTE | 2024-02-23 12:11 | PCPTNOTE ---
On 02/23/24, the student, [Martina Dumas], provided care and completed [facility] documentation on this patient. I have reviewed the student's documentation and agree with the findings.
--- NOTE | 2024-02-23 12:20 | WPDNEURCNPN ---
Assessment and Plan Assessment and plan (1) Right arm weakness: Code(s): R29.898 - Other symptoms and signs involving the musculoskeletal system Status: Acute Plan 1. Right-sided weakness with negative CT scan of the head and negative CTA along with the history of dystrophic calcification about the right humeral head suggesting tendinitis along with moderate acromioclavicular osteoarthritis 2. History of epilepsy 3. MRI of the brain to document any new stroke if not she will benefit from the ongoing therapy Consult date: 02/23/24 HPI: Marissa Sue is a 83 year old female admitted to the hospital through the emergency room for the possibility of stroke and with information that she was last known well at 4:15 p.m. when she was talking with a family member at approximately 4:45 p.m. patient was complaining of pain in the right upper extremity and not moving it she is a right-handed person but does have some chronic issues with right upper extremity at the time of initial evaluation in the emergency room she was taking cyclobenzaprine 5mg p.r.n. gabapentin 10mg b.i.d. 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 While on the floor subsequently he was able to lift her right upper and right lower extremity as per Dr robles. 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 History of partial hysterectomy History of spinal surgery Family History Family History Father Stomach cancer Social History Social History Social History: Healthcare power of assistant county attorney: Juan Sue, son. Code status: Do not resuscitate. Smoking status: Never smoker Second hand tobacco smoke exposure: Yes (Both parents smoked.) Alcohol intake: never Substance use: never Substance use type: does not use Do You Feel Safe in your Home?: Yes Lack of Transportation: No Lack of Food: Never True Current Housing: I Have Housing Concerned About Future Housing: No Difficulty Paying Gas/Electric Bills: No Difficulty Paying for Meds: No Currently Unemployed: No Education: Grade School Difficulty w/ Childcare or Family Care: No Living arrangements: with family Spiritual care concerns: No Meds Home Medications and Allergies Home Medications Medication Instructions Recorded Confirmed Type acetaminophen 325 mg tablet 650 mg PO Q8HR PRN Mild Pain (1-3) 01/01/24 02/22/24 Rx Or Fever #60 tabs atorvastatin 20 mg tablet 20 mg PO HS #30 tabs 01/01/24 02/22/24 Rx bupropion HCl 150 mg 24 hr tablet, 150 mg PO DAILY #30 tabs 01/01/24 02/22/24 Rx extended release levetiracetam 500 mg tablet 750 mg PO Q12HR #60 tabs 01/01/24 02/22/24 Rx (Keppra) losartan 25 mg tablet 50 mg PO DAILY #30 tabs 01/01/24 02/22/24 Rx metoprolol tartrat
--- NOTE | 2024-02-23 15:13 | PC.NURSE ---
On 02/23/24, the student, [Swapna Shetty], provided care and completed [facility] documentation on this patient. I have reviewed the student's documentation and agree with the findings.
[2024-02-23] MEDS: LORATADINE 10 MG TABLET PO (20:15)
[2024-02-23] MEDS: ATORVASTATIN 20 MG TABLET PO (20:15)
[2024-02-24] VITALS (14 sets, daily range): BP systolic 135–153; BP diastolic 57–75; PULSE 69–80; RESP 16–18; TEMP 36.1–36.5; O2SAT 93–97
--- NOTE | 2024-02-24 07:50 | PM.IMPN ---
Progress Note: A&P Assessment and Plan (1) Right arm weakness: Code(s): R29.898 - Other symptoms and signs involving the musculoskeletal system Status: Acute Assessment and Plan: Suspect related to severe spondilolithesis of c-spine. Right shoulder osteoarthritis also likely contributing to decreased mobility and pain. MRI brain no acute findings. Is right handed, patient reports having gradually worsening pain and weakness in the last 2 weeks. --Consider outpatient referral to neurosurgery, but probably not a surgical candidate. Pain management may be helpful for injections at some point. Continue PT - CTA head/neck unremarkable. --would avoid muscle relaxers given hx seizures. Topical lidocaine --Increase gabapentin from 100 BID to 200 BID --Continue ASA/Statin given hx CVA. - Lipid panel and A1c ordered. - ECHO 02/22 LVEF 60-65% & no shunt - Neurology consulted, appreciate recommendations (2) Seizure disorder: Code(s): G40.909 - Epilepsy, unspecified, not intractable, without status epilepticus Status: Acute Assessment and Plan: - Continue Keppra. - Seizure precautions. - Neuro consulted. (3) Hypertension: Code(s): I10 - Essential (primary) hypertension Status: Acute Assessment and Plan: - Fairly well controlled. - Monitor for now. (4) Depression: Code(s): F32.9 - Major depressive disorder, single episode, unspecified Status: Acute Assessment and Plan: - Continue sertraline. Plan Patient admitted from the shelter that she resides with new-onset right-arm weakness. Patient reports she is right handed and it has been gradual over the last 2 weeks that she has been unable to lift her right arm MRI brain/c-spine Follow neuro recs Avoiding muscle relaxer 2/2 hx seizures Time Spent With Patient Time: 58 minutes Subjective Date/time seen: 02/24/24 07:50 Interval history: Pain to right neck with right arm weakness. MRI c-spine with severe spondilolithesis. Brain MRI no acute findings. Review of Systems Review of Systems: 12 systems were reviewed and are negative except for as per HPI. Exam Narrative: General: elderly lady, pleasant and in no acute distress. HEENT: Normocephalic, atraumatic. PERRL, EOMI. Sclera anicteric. Oral mucosa dry. Neck: Supple. Respiratory: Lungs clear bilaterally. Cardiovascular: Regular rate and rhythm with S1-S2. Gastrointestinal: Abdomen is soft, nontender, and nondistended with positive bowel sounds. Skin: Warm and dry. Extremities: No cyanosis, clubbing, or significant edema. Status post left [id number] amputation. Musculoskeletal: Right arm weakness, spastic, pain to right neck on palpation, right leg weakness Neurological: Alert and oriented. Cranial nerves II-XII are grossly intact. 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 Weak right arm. Oriented x2-3 Psychiatric: Pleasant and cooperative with appropriate mood and affect. Objective Data Vital Signs Vital Signs: Vital Signs - 24 hr 02/23/24 07:58 02/23/24 08:03 02/23/24 08:35 Temperature Pulse Rate 76 Respiratory Rate 18 Blood Pressure Pulse Oximetry 95 92 Oxygen Delivery Nasal Cannula Nasal Cannula Oxygen Flow Rate 3 3 02/23/24 09:40 02/23/24 10:19 02/23/24 10:25 Temperature Pulse Rate 78 78 Respiratory Rate Blood Pressure Pulse Oximetry 95 Oxygen Delivery Nasal Cannula Nasal Cannula Oxygen Flow Rate 3 3 02/23/24 11:44 02/23/24 12:01 02/23/24 14:00 Temperature 97.7 F Pulse Rate 74 70 Respiratory Rate 15 Blood Pressure 122/62 Pulse Oximetry 94 Oxygen Delivery Nasal Cannula Oxygen Flow Rate 3 02/23/24 16:00 02/23/24 22:00 02/23/24 20:00 Temperature 97.2 F L Pulse Rate 74 72 73 Respiratory Rate 18 Blood Pressure 138/63 Pulse Oximetry 97 Oxygen Delivery Oxygen Flow Rate 02/24/24 00:00 02/24/24 04:46 02/24/24 06:00 Temperature 97.7 F Pulse
[2024-02-24] MEDS: PANTOPRAZOLE 40 MG TABLET PO (09:11)
[2024-02-24] MEDS: GABAPENTIN 100 MG CAPSULE PO ×2 (09:11→17:21)
[2024-02-24] MEDS: SOLIFENACIN 5 MG TABLET 10 MG PO (09:11)
[2024-02-24] MEDS: METOPROLOL TARTRATE 50 MG TAB PO (09:11)
[2024-02-24] MEDS: buPROPion HCL XL (24 HR) 150 MG TABCR PO (09:12)
[2024-02-24] MEDS: ASPIRIN 81 MG ENTERIC TABLET PO (09:12)
[2024-02-24] MEDS: THERAPEUTIC MULTIVITAMINS/MINERALS TAB (*BKC) 1 TABLET PO (09:12)
[2024-02-24] MEDS: LOSARTAN POTASSIUM 25 MG TABLET 50 MG PO (09:12)
[2024-02-24] MEDS: SENNOSIDES 8.6 MG TABLET PO (09:12)
[2024-02-24] MEDS: levETIRAcetam 250 MG TABLET 750 MG PO ×2 (09:12→20:29)
[2024-02-24] MEDS: SERTRALINE HCL 50 MG TABLET 200 MG PO (09:13)
[2024-02-24 16:22] LABS: Glucose Point of Care 127 mg/dl (65-105)
[2024-02-24] MEDS: ATORVASTATIN 20 MG TABLET PO (20:29)
[2024-02-24] MEDS: LORATADINE 10 MG TABLET PO (20:29)
[2024-02-25] VITALS (10 sets, daily range): BP systolic 127–160; BP diastolic 56–62; PULSE 71–81; RESP 16–20; TEMP 35.9–36.8; O2SAT 92–94
[2024-02-25 06:20] LABS: Basophils Percent Auto 0.4 % (0.2-1.2); Eosinophils Absolute Auto 0.1 K/mm3 (0-0.3); Eosinophils Percent Auto 1.7 % (0-4.4); Hematocrit 36.7 % (37.0-47.0); Hemoglobin 11.4 g/dL (12.0-15.0); Immature Granulocyte Absolute 0.01 K/mm3 (0.00-0.031); Immature Granulocyte Percent A 0.2 % (0-0.5); Lymphocytes Absolute Auto 2.33 K/mm3 (0.9-3.2); Mean Corpuscular HGB Conc 31.1 g/dl (32-36); Mean Corpuscular Hemoglobin 29.1 pg (26-34); Mean Corpuscular Volume 93.6 fl (80-100); Mean Platelet Volume 9.3 fl (7.4-10.4); Monocytes Absolute Auto 0.5 K/mm3 (0.1-0.6); Monocytes Percent Auto 8.5 % (2.6-8.5); Neutrophils Absolute Auto 2.5 K/mm3 (1.3-6.7); Neutrophils Percent Auto 46.2 % (45.5-73.1); Platelet Count Result 234 k/mm3 (150-375); Red Blood Count 3.92 M/mm3 (4.2-5.4); Red Cell Distribution Width 16.2 % (11.5-14.5); White Blood Count 5.4 K/mm3 (4.5-10.0)
[2024-02-25 06:32] LABS: Anion Gap 9 mmol/L (4-12); Blood Urea Nitrogen 17 mg/dL (7-17); Carbon Dioxide 32 mmol/L (22-30); Chloride 97 mmol/L (98-107); Estimated CRCL calculation 47 ml/min; Estimated Glomerular Filt Rate > 60; Glucose 108 mg/dL (65-110); Potassium 3.7 mmol/L (3.4-5.0); Sodium 138 mmol/L (137-145)
--- NOTE | 2024-02-25 08:51 | PM.IMPN ---
Progress Note: A&P Assessment and Plan (1) Right arm weakness: Code(s): R29.898 - Other symptoms and signs involving the musculoskeletal system Status: Acute Assessment and Plan: Suspect related to severe spondilolithesis of c-spine. Right shoulder osteoarthritis also likely contributing to decreased mobility and pain. MRI brain no acute findings. Is right handed, patient reports having gradually worsening pain and weakness in the last 2 weeks. --Consider outpatient referral to neurosurgery, but probably not a surgical candidate. Pain management may be helpful for injections at some point. Continue PT - CTA head/neck unremarkable. --would avoid muscle relaxers given hx seizures. Topical lidocaine --Increase gabapentin from 100 BID to 200 BID --Continue ASA/Statin given hx CVA. - Lipid panel and A1c ordered. - ECHO 02/22 LVEF 60-65% & no shunt - Neurology consulted, appreciate recommendations - work with pt/ot- anticipate discharge in couple of days if cleared with neurology and no acute events (2) Seizure disorder: Code(s): G40.909 - Epilepsy, unspecified, not intractable, without status epilepticus Status: Acute Assessment and Plan: - Continue Keppra. - Seizure precautions. - Neuro consulted- appreciate recommendations. (3) Hypertension: Code(s): I10 - Essential (primary) hypertension Status: Acute Assessment and Plan: - Fairly well controlled. - Monitor for now. (4) Depression: Code(s): F32.9 - Major depressive disorder, single episode, unspecified Status: Acute Assessment and Plan: - Continue sertraline. Plan Patient admitted from the custodial that she resides with new-onset right-arm weakness. Patient reports she is right handed and it has been gradual over the last 2 weeks that she has been unable to lift her right arm MRI brain/c-spine Follow neuro recs Avoiding muscle relaxer 2/2 hx seizures Time Spent With Patient Time with patient: Greater than 35 minutes Subjective Date/time seen: 02/25/24 08:51 Interval history: Patient admitted from the custodial that she resides with new-onset right-arm weakness. Patient currently on bedrest and states her right arm is always ok and now she can barely elevate it from the bed. Pain to right neck with right arm weakness. MRI c-spine with severe spondilolithesis. Brain MRI no acute findings. 02/24 assuming care for today. pt is seen and examined. She is up in the chair- somewhat sleepy but interacts appropriately- alert, oriented. denies pain- states did not sleep well due to her rt leg pain which is chronic. Review of Systems Review of Systems: 12 systems were reviewed and are negative except for as per HPI. Exam Narrative: General: elderly lady, pleasant and in no acute distress. HEENT: Normocephalic, atraumatic. PERRL, EOMI. Sclera anicteric. Oral mucosa dry. Neck: Supple. Respiratory: Lungs clear bilaterally. Cardiovascular: Regular rate and rhythm with S1-S2. Gastrointestinal: Abdomen is soft, nontender, and nondistended with positive bowel sounds. Skin: Warm and dry. Extremities: No cyanosis, clubbing, or significant edema. Status post left ocxhl-oez-bexu amputation. Musculoskeletal: Right arm weakness, spastic, pain to right neck on palpation, right leg weakness Neurological: Alert and oriented. Cranial nerves II-XII are grossly intact. 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 Weak right arm. Oriented x2-3 Psychiatric: Pleasant and cooperative with appropriate mood and affect. Objective Data Vital Signs Vital Signs: Vital Signs - 24 hr 02/24/24 09:06 02/24/24 09:11 02/24/24 09:15 Temperature Pulse Rate 75 75 Respiratory Rate Blood Pressure 139/57 L Pulse Oximetry 95 95 Oxygen Delivery Nasal Cannula Oxygen Flow Rate 3 02/24/24 12:00 02/24/24 14:00 02/24/24 16:00 Temperature 96.9 F L Pulse Rate 74 73 74 Respiratory Rate 16 Blood Pressure 135/
[2024-02-25] MEDS: LOSARTAN POTASSIUM 25 MG TABLET 50 MG PO (09:06)
[2024-02-25] MEDS: ASPIRIN 81 MG ENTERIC TABLET PO (09:06)
[2024-02-25] MEDS: SENNOSIDES 8.6 MG TABLET PO (09:06)
[2024-02-25] MEDS: GABAPENTIN 100 MG CAPSULE 200 MG PO ×2 (09:07→17:03)
[2024-02-25] MEDS: buPROPion HCL XL (24 HR) 150 MG TABCR PO (09:07)
[2024-02-25] MEDS: THERAPEUTIC MULTIVITAMINS/MINERALS TAB (*BKC) 1 TABLET PO (09:07)
[2024-02-25] MEDS: METOPROLOL TARTRATE 50 MG TAB PO (09:07)
[2024-02-25] MEDS: SOLIFENACIN 5 MG TABLET 10 MG PO (09:07)
[2024-02-25] MEDS: levETIRAcetam 250 MG TABLET 750 MG PO ×2 (09:08→20:15)
[2024-02-25] MEDS: PANTOPRAZOLE 40 MG TABLET PO (09:08)
[2024-02-25] MEDS: SERTRALINE HCL 50 MG TABLET 200 MG PO (09:08)
[2024-02-25] MEDS: LIDOCAINE 5% PATCH 1 PATCH TRANSDERM (09:09)
[2024-02-25] MEDS: LORATADINE 10 MG TABLET PO (20:15)
[2024-02-25] MEDS: ATORVASTATIN 20 MG TABLET PO (20:15)
[2024-02-26] VITALS (10 sets, daily range): BP systolic 129–154; BP diastolic 61–67; PULSE 69–74; RESP 20; TEMP 36.4–36.8; O2SAT 84–98
[2024-02-26 06:46] LABS: Basophils Percent Auto 0.4 % (0.2-1.2); Eosinophils Absolute Auto 0.1 K/mm3 (0-0.3); Eosinophils Percent Auto 2.2 % (0-4.4); Hematocrit 37.1 % (37.0-47.0); Hemoglobin 11.6 g/dL (12.0-15.0); Immature Granulocyte Absolute 0.02 K/mm3 (0.00-0.031); Immature Granulocyte Percent A 0.4 % (0-0.5); Lymphocytes Percent Auto 33.3 % (18.3-44.2); Mean Corpuscular HGB Conc 31.3 g/dl (32-36); Mean Corpuscular Hemoglobin 29.5 pg (26-34); Mean Corpuscular Volume 94.4 fl (80-100); Mean Platelet Volume 9.4 fl (7.4-10.4); Monocytes Absolute Auto 0.4 K/mm3 (0.1-0.6); Monocytes Percent Auto 8.9 % (2.6-8.5); Neutrophils Absolute Auto 2.5 K/mm3 (1.3-6.7); Neutrophils Percent Auto 54.8 % (45.5-73.1); Platelet Count Result 213 k/mm3 (150-375); Red Blood Count 3.93 M/mm3 (4.2-5.4); Red Cell Distribution Width 16.4 % (11.5-14.5); White Blood Count 4.5 K/mm3 (4.5-10.0)
[2024-02-26 06:56] LABS: Anion Gap 10 mmol/L (4-12); Blood Urea Nitrogen 19 mg/dL (7-17); Calcium 8.9 mg/dL (8.4-10.2); Carbon Dioxide 31 mmol/L (22-30); Chloride 98 mmol/L (98-107); Estimated CRCL calculation 62 ml/min; Estimated Glomerular Filt Rate > 60; Glucose 102 mg/dL (65-110); Potassium 3.5 mmol/L (3.4-5.0); Sodium 139 mmol/L (137-145)
[2024-02-26] MEDS: ASPIRIN 81 MG ENTERIC TABLET PO (09:16)
[2024-02-26] MEDS: buPROPion HCL XL (24 HR) 150 MG TABCR PO (09:16)
[2024-02-26] MEDS: levETIRAcetam 250 MG TABLET 750 MG PO ×2 (09:17→21:15)
[2024-02-26] MEDS: SENNOSIDES 8.6 MG TABLET PO (09:18)
[2024-02-26] MEDS: METOPROLOL TARTRATE 50 MG TAB PO (09:18)
[2024-02-26] MEDS: LOSARTAN POTASSIUM 25 MG TABLET 50 MG PO (09:18)
[2024-02-26] MEDS: PANTOPRAZOLE 40 MG TABLET PO (09:18)
[2024-02-26] MEDS: SOLIFENACIN 5 MG TABLET 10 MG PO (09:19)
[2024-02-26] MEDS: THERAPEUTIC MULTIVITAMINS/MINERALS TAB (*BKC) 1 TABLET PO (09:19)
[2024-02-26] MEDS: SERTRALINE HCL 50 MG TABLET 200 MG PO (11:36)
[2024-02-26] MEDS: GABAPENTIN 100 MG CAPSULE 200 MG PO ×2 (11:36→17:55)
--- NOTE | 2024-02-26 12:03 | PM.IMPN ---
Progress Note: A&P Assessment and Plan (1) Right arm weakness: Code(s): R29.898 - Other symptoms and signs involving the musculoskeletal system Status: Acute Assessment and Plan: Suspect related to severe spondilolithesis of c-spine. Right shoulder osteoarthritis also likely contributing to decreased mobility and pain. MRI brain no acute findings. Is right handed, patient reports having gradually worsening pain and weakness in the last 2 weeks. --Consider outpatient referral to neurosurgery, but probably not a surgical candidate. Pain management may be helpful for injections at some point. Continue PT - CTA head/neck unremarkable. --would avoid muscle relaxers given hx seizures. Topical lidocaine --Increase gabapentin from 100 BID to 200 BID --Continue ASA/Statin given hx CVA. - Lipid panel and A1c ordered. - ECHO 02/22 LVEF 60-65% & no shunt - Neurology consulted, appreciate recommendations - work with pt/ot- anticipate discharge in couple of days if cleared with neurology and no acute events 02/26/24: Pt able to follow commands today and can hold RUE off of the bed with minimal drift. Stone And Plate Preparer Apprentice strength is 2/5. Lipids are normal A1C is 6.1. (2) Seizure disorder: Code(s): G40.909 - Epilepsy, unspecified, not intractable, without status epilepticus Status: Acute Assessment and Plan: - Continue Keppra. - Seizure precautions. - Neuro consulted- appreciate recommendations. 02/26/24: Continue seizure meds and precautions. Continue recs per neuro. (3) Hypertension: Code(s): I10 - Essential (primary) hypertension Status: Acute Assessment and Plan: - Fairly well controlled. - Monitor for now. 02/26/24: Trending 120s-150s/50s-70s. Continue to monitor. (4) Depression: Code(s): F32.9 - Major depressive disorder, single episode, unspecified Status: Acute Assessment and Plan: - Continue sertraline. 02/26/24: Continue to monitor. Plan Patient admitted from the intermediate that she resides with new-onset right-arm weakness. Patient reports she is right handed and it has been gradual over the last 2 weeks that she has been unable to lift her right arm MRI brain/c-spine Follow neuro recs Avoiding muscle relaxer 2/2 hx seizures Time Spent With Patient Time with patient: 25 - 35 minutes Subjective Date/time seen: 02/26/24 0940 Interval history: The pt was assessed this AM in interval assessment since being admitted to the hospital. She appears to be tired and sleeping well. She arouses, but drifts back to sleep. 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 No acute distress or obvious acute issues that need to be addressed. She will discharge to intermediate at the time of discharge. Review of Systems Review of Systems: All systems reviewed & are unremarkable except as noted in HPI and below Exam Narrative: General: elderly lady, pleasant and in no acute distress. Appears somnolent. HEENT: Normocephalic, atraumatic. PERRL, EOMI. Sclera anicteric. Oral mucosa dry. Neck: Supple. Respiratory: Lungs clear bilaterally but decreased in the bases. Cardiovascular: Regular rate and rhythm with S1-S2. No m,r,g,h Gastrointestinal: Abdomen is soft, nontender, and nondistended with positive bowel sounds. Skin: Warm and dry. Extremities: No cyanosis, clubbing, or significant edema. Status post left [id number] amputation. Musculoskeletal: Right arm weakness, spastic, pain to right neck on palpation, right leg weakness Neurological: Somnolent but follows commands to raise BUE off of bed and she can do and hold for 10 seconds without drift. Stone And Plate Preparer Apprentice strength is equally weak at 2/5. Psychiatric: Somnolent. Objective Data Vital Signs Vital Signs: Vital Signs - 24 hr 02/25/24 14:00 02/25/24 20:23 02/25/24 20:00 Temperature 96.7 F L 98.2 F Pulse Rate 72 71 Respiratory Rat
[2024-02-26] MEDS: ATORVASTATIN 20 MG TABLET PO (21:14)
[2024-02-26] MEDS: LORATADINE 10 MG TABLET PO (21:14)
[2024-02-27] VITALS (7 sets, daily range): BP systolic 137–150; BP diastolic 69–71; PULSE 70–74; RESP 14–20; TEMP 36.7–37.1; O2SAT 91–94
[2024-02-27 05:03] LABS: Basophils Percent Auto 0.2 % (0.2-1.2); Eosinophils Absolute Auto 0.1 K/mm3 (0-0.3); Eosinophils Percent Auto 1.7 % (0-4.4); Hematocrit 36.5 % (37.0-47.0); Hemoglobin 11.6 g/dL (12.0-15.0); Immature Granulocyte Absolute 0.02 K/mm3 (0.00-0.031); Immature Granulocyte Percent A 0.4 % (0-0.5); Lymphocytes Absolute Auto 1.87 K/mm3 (0.9-3.2); Mean Corpuscular HGB Conc 31.8 g/dl (32-36); Mean Corpuscular Hemoglobin 30.4 pg (26-34); Mean Corpuscular Volume 95.5 fl (80-100); Mean Platelet Volume 9.6 fl (7.4-10.4); Monocytes Absolute Auto 0.5 K/mm3 (0.1-0.6); Monocytes Percent Auto 9.2 % (2.6-8.5); Neutrophils Absolute Auto 2.7 K/mm3 (1.3-6.7); Neutrophils Percent Auto 52.5 % (45.5-73.1); Platelet Count Result 204 k/mm3 (150-375); Red Blood Count 3.82 M/mm3 (4.2-5.4); Red Cell Distribution Width 16.6 % (11.5-14.5); White Blood Count 5.2 K/mm3 (4.5-10.0)
[2024-02-27 05:04] LABS: Anion Gap 7 mmol/L (4-12); Blood Urea Nitrogen 16 mg/dL (7-17); Calcium 8.9 mg/dL (8.4-10.2); Carbon Dioxide 30 mmol/L (22-30); Chloride 99 mmol/L (98-107); Estimated CRCL calculation 61 ml/min; Estimated Glomerular Filt Rate > 60; Glucose 103 mg/dL (65-110); Potassium 3.5 mmol/L (3.4-5.0); Sodium 136 mmol/L (137-145)
[2024-02-27] MEDS: ASPIRIN 81 MG ENTERIC TABLET PO (09:06)
[2024-02-27] MEDS: buPROPion HCL XL (24 HR) 150 MG TABCR PO (09:06)
[2024-02-27] MEDS: levETIRAcetam 250 MG TABLET 750 MG PO ×2 (09:06→21:04)
[2024-02-27] MEDS: LOSARTAN POTASSIUM 25 MG TABLET 50 MG PO (09:07)
[2024-02-27] MEDS: THERAPEUTIC MULTIVITAMINS/MINERALS TAB (*BKC) 1 TABLET PO (09:09)
[2024-02-27] MEDS: SOLIFENACIN 5 MG TABLET 10 MG PO (09:09)
[2024-02-27] MEDS: SENNOSIDES 8.6 MG TABLET PO (09:09)
[2024-02-27] MEDS: METOPROLOL TARTRATE 50 MG TAB PO (09:10)
[2024-02-27] MEDS: SERTRALINE HCL 50 MG TABLET 200 MG PO (09:10)
[2024-02-27] MEDS: GABAPENTIN 100 MG CAPSULE 200 MG PO ×2 (09:10→17:27)
[2024-02-27] MEDS: PANTOPRAZOLE 40 MG TABLET PO (09:10)
--- NOTE | 2024-02-27 09:11 | PM.IMPN ---
Progress Note: A&P Assessment and Plan (1) Right arm weakness: Code(s): R29.898 - Other symptoms and signs involving the musculoskeletal system Status: Acute Assessment and Plan: Suspect related to severe spondilolithesis of c-spine. Right shoulder osteoarthritis also likely contributing to decreased mobility and pain. MRI brain no acute findings. Is right handed, patient reports having gradually worsening pain and weakness in the last 2 weeks. --Consider outpatient referral to neurosurgery, but probably not a surgical candidate. Pain management may be helpful for injections at some point. Continue PT - CTA head/neck unremarkable. --would avoid muscle relaxers given hx seizures. Topical lidocaine --Increase gabapentin from 100 BID to 200 BID --Continue ASA/Statin given hx CVA. - Lipid panel and A1c ordered. - ECHO 02/22 LVEF 60-65% & no shunt - Neurology consulted, appreciate recommendations - work with pt/ot- anticipate discharge in couple of days if cleared with neurology and no acute events 02/26/24: Pt able to follow commands today and can hold RUE off of the bed with minimal drift. Special Librarian strength is 2/5. Lipids are normal A1C is 6.1. 02/26- doing well- no new acute complains-stable. work with PT/OT (2) Seizure disorder: Code(s): G40.909 - Epilepsy, unspecified, not intractable, without status epilepticus Status: Acute Assessment and Plan: - Continue Keppra. - Seizure precautions. - Neuro consulted- appreciate recommendations. 02/26/24: Continue seizure meds and precautions. Continue recs per neuro. (3) Hypertension: Code(s): I10 - Essential (primary) hypertension Status: Acute Assessment and Plan: - Fairly well controlled. - Monitor for now. 02/26/24: Trending 120s-150s/50s-70s. Continue to monitor. (4) Depression: Code(s): F32.9 - Major depressive disorder, single episode, unspecified Status: Acute Assessment and Plan: - Continue sertraline. Plan Patient admitted from the shelter that she resides with new-onset right-arm weakness. Patient reports she is right handed and it has been gradual over the last 2 weeks that she has been unable to lift her right arm MRI brain/c-spine Follow neuro recs Avoiding muscle relaxer 2/2 hx seizures Time Spent With Patient Time with patient: Greater than 35 minutes Subjective Date/time seen: 02/27/24 09:11 Interval history: Patient admitted from the shelter that she resides with new-onset right-arm weakness. Patient currently on bedrest and states her right arm is always ok and now she can barely elevate it from the bed. Pain to right neck with right arm weakness. MRI c-spine with severe spondilolithesis. Brain MRI no acute findings. 02/24 assuming care for today. pt is seen and examined. She is up in the chair- somewhat sleepy but interacts appropriately- alert, oriented. denies pain- states did not sleep well due to her rt leg pain which is chronic. 02/26 seen and examined. She is a lot more awake this am. calm, cooperative, oriented, pain free. Reports no acute issues. She will discharge to shelter at the time of discharge- which she is not very happy about it but understands the need to get stronger. Review of Systems Review of Systems: 12 systems were reviewed and are negative except for as per HPI. All systems reviewed & are unremarkable except as noted in HPI and below Exam Narrative: General: elderly lady, pleasant and in no acute distress. HEENT: Normocephalic, atraumatic. PERRL, EOMI. Sclera anicteric. Oral mucosa dry. Neck: Supple. Respiratory: Lungs clear bilaterally but decreased in the bases. Cardiovascular: Regular rate and rhythm with S1-S2. No m,r,g,h Gastrointestinal: Abdomen is soft, nontender, and nondistended with positive bowel sounds. Skin: Warm and dry. Extremities: No cyanosis, clubbing, or significant edema. Status post left above-the-
[2024-02-27] MEDS: ATORVASTATIN 20 MG TABLET PO (21:05)
[2024-02-27] MEDS: LORATADINE 10 MG TABLET PO (21:05)
[2024-02-28 04:44] VITALS: BP 157/62; PULSE 71; RESP 18; TEMP 37; O2SAT 97
[2024-02-28 05:10] LABS: Anion Gap 8 mmol/L (4-12); Blood Urea Nitrogen 17 mg/dL (7-17); Carbon Dioxide 32 mmol/L (22-30); Chloride 98 mmol/L (98-107); Estimated CRCL calculation 61 ml/min; Estimated Glomerular Filt Rate > 60; Glucose 101 mg/dL (65-110); Potassium 3.7 mmol/L (3.4-5.0); Sodium 138 mmol/L (137-145)
[2024-02-28 08:35] VITALS: O2SAT 93
--- NOTE | 2024-02-28 09:02 | PM.IMPN ---
Progress Note: A&P Assessment and Plan (1) Right arm weakness: Code(s): R29.898 - Other symptoms and signs involving the musculoskeletal system Status: Acute Assessment and Plan: Suspect related to severe spondilolithesis of c-spine. Right shoulder osteoarthritis also likely contributing to decreased mobility and pain. MRI brain no acute findings. Is right handed, patient reports having gradually worsening pain and weakness in the last 2 weeks. --Consider outpatient referral to neurosurgery, but probably not a surgical candidate. Pain management may be helpful for injections at some point. Continue PT - CTA head/neck unremarkable. --would avoid muscle relaxers given hx seizures. Topical lidocaine --Increase gabapentin from 100 BID to 200 BID --Continue ASA/Statin given hx CVA. - Lipid panel and A1c ordered. - ECHO 02/22 LVEF 60-65% & no shunt - Neurology consulted, appreciate recommendations - work with pt/ot- anticipate discharge in couple of days if cleared with neurology and no acute events 02/26/24: Pt able to follow commands today and can hold RUE off of the bed with minimal drift. House Worker strength is 2/5. Lipids are normal A1C is 6.1. 02/26- doing well- no new acute complains-stable. work with PT/OT 02/27- working with care coordination for placement (2) Seizure disorder: Code(s): G40.909 - Epilepsy, unspecified, not intractable, without status epilepticus Status: Acute Assessment and Plan: - Continue Keppra. - Seizure precautions. - Neuro consulted- appreciate recommendations. 02/26/24: Continue seizure meds and precautions. Continue recs per neuro. (3) Hypertension: Code(s): I10 - Essential (primary) hypertension Status: Acute Assessment and Plan: - Fairly well controlled. - Monitor for now. Trending 120s-150s/50s-70s. Continue to monitor. (4) Depression: Code(s): F32.9 - Major depressive disorder, single episode, unspecified Status: Acute Assessment and Plan: - Continue sertraline. Plan Patient admitted from the intermediate that she resides with new-onset right-arm weakness. Patient reports she is right handed and it has been gradual over the last 2 weeks that she has been unable to lift her right arm MRI brain/c-spine Follow neuro recs Avoiding muscle relaxer 2/2 hx seizures Time Spent With Patient Time with patient: Greater than 35 minutes Subjective Date/time seen: 02/28/24 09:02 Interval history: Patient admitted from the intermediate that she resides with new-onset right-arm weakness. Patient currently on bedrest and states her right arm is always ok and now she can barely elevate it from the bed. Pain to right neck with right arm weakness. MRI c-spine with severe spondilolithesis. Brain MRI no acute findings. 02/24 assuming care for today. pt is seen and examined. She is up in the chair- somewhat sleepy but interacts appropriately- alert, oriented. denies pain- states did not sleep well due to her rt leg pain which is chronic. 02/26 seen and examined. She is a lot more awake this am. calm, cooperative, oriented, pain free. Reports no acute issues. She will discharge to intermediate at the time of discharge- which she is not very happy about it but understands the need to get stronger. 02/27- pt is doing well this am- no acute events overnight. Working with care coordination for placement Exam Narrative: General: elderly lady, pleasant and in no acute distress. HEENT: Normocephalic, atraumatic. PERRL, EOMI. Sclera anicteric. Oral mucosa dry. Neck: Supple. Respiratory: Lungs clear bilaterally but decreased in the bases. Cardiovascular: Regular rate and rhythm with S1-S2. No m,r,g,h Gastrointestinal: Abdomen is soft, nontender, and nondistended with positive bowel sounds. Skin: Warm and dry. Extremities: No cyanosis, clubbing, or significant edema. Status post left [id number] amputation. Musculoskeletal: Right
[2024-02-28 09:17] VITALS: O2SAT 93
[2024-02-28] MEDS: THERAPEUTIC MULTIVITAMINS/MINERALS TAB (*BKC) 1 TABLET PO (09:19)
[2024-02-28] MEDS: levETIRAcetam 250 MG TABLET 750 MG PO (09:19)
[2024-02-28] MEDS: GABAPENTIN 100 MG CAPSULE 200 MG PO (09:19)
[2024-02-28] MEDS: SOLIFENACIN 5 MG TABLET 10 MG PO (09:19)
[2024-02-28] MEDS: ASPIRIN 81 MG ENTERIC TABLET PO (09:21)
[2024-02-28] MEDS: SENNOSIDES 8.6 MG TABLET PO (09:21)
[2024-02-28] MEDS: PANTOPRAZOLE 40 MG TABLET PO (09:21)
[2024-02-28] MEDS: SERTRALINE HCL 50 MG TABLET 200 MG PO (09:21)
[2024-02-28 09:22] VITALS: PULSE 70
[2024-02-28] MEDS: LOSARTAN POTASSIUM 25 MG TABLET 50 MG PO (09:22)
[2024-02-28] MEDS: METOPROLOL TARTRATE 50 MG TAB PO (09:22)
[2024-02-28] MEDS: buPROPion HCL XL (24 HR) 150 MG TABCR PO (09:30)
--- NOTE | 2024-02-28 11:57 | PM.DS ---
DS: Admitting Diagnosis Discharge Date 02/27 Admitting Diagnosis rt sided weakness DS: Discharge Diagnosis Discharge Diagnosis (1) Right arm weakness: Code(s): R29.898 - Other symptoms and signs involving the musculoskeletal system Status: Acute Assessment and Plan: Suspect related to severe spondilolithesis of c-spine. Right shoulder osteoarthritis also likely contributing to decreased mobility and pain. MRI brain no acute findings. Is right handed, patient reports having gradually worsening pain and weakness in the last 2 weeks. --Consider outpatient referral to neurosurgery, but probably not a surgical candidate. Pain management may be helpful for injections at some point. Continue PT - CTA head/neck unremarkable. --would avoid muscle relaxers given hx seizures. Topical lidocaine --Increase gabapentin from 100 BID to 200 BID --Continue ASA/Statin given hx CVA. - Lipid panel and A1c ordered. - ECHO 02/22 LVEF 60-65% & no shunt - Neurology consulted, appreciate recommendations - work with pt/ot- anticipate discharge in couple of days if cleared with neurology and no acute events 02/26/24: Pt able to follow commands today and can hold RUE off of the bed with minimal drift. Transition Nurse strength is 2/5. Lipids are normal A1C is 6.1. 02/26- doing well- no new acute complains-stable. work with PT/OT 02/27- working with care coordination for placement (2) Seizure disorder: Code(s): G40.909 - Epilepsy, unspecified, not intractable, without status epilepticus Status: Acute Assessment and Plan: - Continue Keppra. - Seizure precautions. - Neuro consulted- appreciate recommendations. 02/26/24: Continue seizure meds and precautions. Continue recs per neuro. (3) Hypertension: Code(s): I10 - Essential (primary) hypertension Status: Acute Assessment and Plan: - Fairly well controlled. - Monitor for now. Trending 120s-150s/50s-70s. Continue to monitor. (4) Depression: Code(s): F32.9 - Major depressive disorder, single episode, unspecified Status: Acute Assessment and Plan: - Continue sertraline. Plan Final dx: cervical spondylosis. Patient admitted from the senior care that she resides with new-onset right-arm weakness. Patient reports she is right handed and it has been gradual over the last 2 weeks that she has been unable to lift her right arm MRI brain/c-spine Follow neuro recs Avoiding muscle relaxer 2/2 hx seizures DS: Summary Hospital Course Hospital Course: atient admitted from the senior care that she resides with new-onset right-arm weakness. Patient currently on bedrest and states her right arm is always ok and now she can barely elevate it from the bed. Pain to right neck with right arm weakness. MRI c-spine with severe spondilolithesis. Brain MRI no acute findings. 02/24 assuming care for today. pt is seen and examined. She is up in the chair- somewhat sleepy but interacts appropriately- alert, oriented. denies pain- states did not sleep well due to her rt leg pain which is chronic. MRI brain- . 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 2. Moderate nonspecific cerebral white matter disease, which likely represents chronic small vessel ischemic disease. MRI spine: . Severe cervical spondylosis. 02/26 seen and examined. She is a lot more awake this am. calm, cooperative, oriented, pain free. Reports no acute issues. She will discharge to senior care at the time of discharge- which she is not very happy about it but understands the need to get stronger. 02/27- pt is doing well this am- no acute events overnight. Working with care coordination for placement Status at Discharge Functional status at discharge: wheelchair bound (not wheelchair bound but max x2 assist for transfers) Overall status at discharge: patient is progressing back to baseline Time Spent with Patient Time attestation: Total time spent providing and/or coordinating discharge services: Time s
== END 2024-02-28 13:55 | DRG 552 ==
LOC: ANHED 17:42 → ANH2MED 19:33
PROVIDERS: Nurse Practitioner Acute Care; Nurse Practitioner Adult Health; Physician Assistant; Admitting Provider Hospitalist; Emergency Provider Student in an Organized Health Care Education/Training Program; PCP Family Medicine; Visit Provider Nurse Practitioner
DX: M43.12 Spondylolisthesis, cervical region (principal); M19.011 Primary osteoarthritis, right shoulder; R29.898 Other symptoms and signs involving the musculoskeletal system; G40.909 Epilepsy, unspecified, not intractable, without status epilepticus; I10 Essential (primary) hypertension; F32.9 Major depressive disorder, single episode, unspecified; K21.9 Gastro-esophageal reflux disease without esophagitis; E78.5 Hyperlipidemia, unspecified; N32.81 Overactive bladder; G25.81 Restless legs syndrome; M65.20 Calcific tendinitis, unspecified site; D64.9 Anemia, unspecified; I44.0 Atrioventricular block, first degree; Z66 Do not resuscitate; Z90.49 Acquired absence of other specified parts of digestive tract; Z89.612 Acquired absence of left leg above knee; Z90.711 Acquired absence of uterus with remaining cervical stump; E66.9 Obesity, unspecified; Z68.32 Body mass index [BMI] 32.0-32.9, adult
CPT/HCPCS: 36415; 70450; 70496; 70498; 70553; 71045; 72156; 73030; 80048; 80053; 80061; 80307; 81001; 82948; 83036; 83735; 84484; 85025; 85027; 85610; 85730; 93005; 93306; 96375; 97110; 97161; 97162; 97166; 97530; 97535; 99285; A9270; A9577; G0378; Q9967

== ENCOUNTER 2024-03-21 21:21 | Inpatient (IN) | payer MEDICARE, BC, SELFPAY ==
[2024-03-21] VITALS (8 sets, daily range): BP systolic 145–146; BP diastolic 75–82; PULSE 90–92; RESP 20–30; TEMP 36.2–36.4; O2SAT 88–100
--- NOTE | ~2024-03-21 | CT_ITS ---
EXAMINATION: CT brain wo con DATE: 03/21/2024 22:01 INDICATION: fall . TECHNIQUE: Computed tomography (CT) of the head was performed without intravenous contrast. The mA wa s adjusted according to patient size. Iterative reconstruction technique was employed. The dose-lengt h product was 605.33 mGy-cm. COMPARISON: 02/22/2024; MR brain 02/24/2024. FINDINGS: No acute intracranial hemorrhage or extra-axial fluid collection. No hydrocephalus, mass, or herniation. No acute ischemic infarct. Unremarkable dural venous sinus attenuation. No acute osseous abnormality. Left mastoid fluid, the remaining aerated spaces are clear. Mild atrophy and chronic white matter change. Atherosclerotic intracranial calcification. Focal old l eft thalamic infarct. Bilateral lens replacements. IMPRESSION: No acute intracranial process. Reviewed, dictated and finalized at location K.
--- NOTE | ~2024-03-21 | CT_ITS ---
EXAMINATION: CT cervical spine wo con DATE: 03/21/2024 22:00 INDICATION: fall TECHNIQUE: Computed tomography (CT) of the cervical spine was performed without intravenous contrast. Automated exposure control and iterative reconstruction technique were employed. The dose-length pro duct was 383.25 mGy-cm. COMPARISON: MR C-spine 02/24/2024. FINDINGS: Vertebral Body Alignment: Reversed lordosis centered at C5. Stable mild multilevel degenerative listh eses. Craniocervical and atlantoaxial alignment: Severe degenerative change. Alignment intact. Osseous structures/fracture: No evidence of a lytic or blastic process in the visualized spine. No e vidence of acute fracture. Cervical soft tissues: The paraspinal soft tissues planes are maintained. Biapical pleural scarring a nd mild septal thickening. Subcentimeter thyroid hypodensities. Degenerative changes: Degenerative changes, without severe neural foraminal or central canal narrowin g. IMPRESSION: No acute fracture or traumatic malalignment in the cervical spine. Reviewed, dictated and finalized at location K.
--- NOTE | ~2024-03-21 | CT_ITS ---
CT ANGIOGRAM NECK AND HEAD History: Unresponsive episode. Technique: Serial spiral axial images through the head and neck were obtained during arterial phase I V injection of 100 cc of Omnipaque 350. 3-D postprocessing and MIP images were then reconstructed on the remote workstation. Dose reduction technique was used on this scan by utilizing automated exposur e control and iterative reconstruction technique. The dose-length product (DLP) was 1110.10 mGy-cm. CTA neck findings: Bilateral vertebral arteries are patent. Bilateral common carotid, internal carot id, and external carotid arteries are patent. No large vessel occlusion or stenosis. No aneurysm. The proximal right internal carotid artery demonstrates 0% stenosis relative to the normal distal artery lumen diameter. The proximal left internal carotid artery demonstrates 0% stenosis relative to the n ormal distal artery lumen diameter. CTA head findings: Distal vertebral arteries, basilar artery, and posterior cerebral arteries are pat ent. Distal internal carotid arteries, middle cerebral arteries, and anterior cerebral arteries are p atent. Probable focal low to possibly moderate grade stenosis at the proximal right posterior cerebra l artery. No high-grade stenosis evident. No large vessel occlusion. No aneurysm. Impression: Possible focal low to moderate grade stenosis of the proximal right posterior cerebral artery. No oth er significant findings. Reviewed, dictated and finalized at location M. Impression: Possible focal low to moderate grade stenosis of the proximal right posterior c erebral artery. No other significant findings.
--- NOTE | ~2024-03-21 | CT_ITS ---
Clinical Indication: Status post fall CT Scan of the Chest, Abdomen, and Pelvis with Contrast: Technique: Contiguous sections were acquired throughout the chest, abdomen, and pelvis after intraven ous administration of 100 cc of Omnipaque 350. Dose reduction technique was used on this scan by nickie anne automated exposure control and iterative reconstruction technique. The dose-length product (DL P) was 1774.93 mGy-cm. Comparison: 05/24/2022 Findings: Prominent right paratracheal lymph nodes are similar to prior exam. No aortic aneurysm or dissection. No central pulmonary embolus seen. No axillary lymphadenopathy. There is no evidence of pleural or pericardial effusion. There is mild bibasilar atelectasis. There are minimal groundglass opacities in the upper lobes with minimal interstitial thickening. The liver, spleen, pancreas, adrenals and right kidney are within normal limits. Stable small indeter minate left renal mass posteriorly. Cholecystectomy clips are present. There are atherosclerotic calc ifications of the aorta. No lymphadenopathy. No bowel obstruction or bowel wall thickening. There is no evidence to suggest acute appendicitis. Urinary bladder is unremarkable. No pelvic mass seen. No acute osseous fracture seen. There are probable chronic posttraumatic changes in the left pelvis. Impression: No acute posttraumatic abnormality seen. Probable minimal groundglass opacity and interstitial thickening upper lobes, suggestive of minimal p ulmonary edema or bronchiolitis. Minimal bibasilar atelectatic change. Stable prominent right paratracheal lymph nodes. Reviewed, dictated and finalized at [facility]. Impression: No acute posttraumatic abnormality seen. Probable minimal groundglass opacity and interstitial thickening upper lobes, s uggestive of minimal pulmonary edema or bronchiolitis. Minimal bibasilar atelectatic change. Stable prominent right paratracheal lymph nodes.
--- NOTE | ~2024-03-21 | MR_ITS ---
MRI of the brain Clinical History: Unresponsive Technique: Axial and sagittal T1-weighted images were acquired. These were followed by axial T2-weigh gaby, diffusion weighted, gradient, and FLAIR images. COMPARISON: 02/24/2024 Findings: There is no acute infarct, internal hemorrhage or mass lesion. Stable moderate FLAIR hyperi ntense signal abnormalities in the periventricular white matter bilaterally. Ventricles and subarachnoid spaces are dilated. Orbits are unremarkable. Paranasal sinuses and mastoi d air cells are clear. Major intracranial flow voids are intact. Sagittal midline structures are intact. IMPRESSION: No acute abnormality. No change from recent prior exam. Moderate presumed chronic microvascular ischemic change and mild to moderate generalized atrophy. Reviewed, dictated and finalized at location . IMPRESSION: No acute abnormality. No change from recent prior exam. Moderate presumed chronic microvascular ischemic change and mild to moderate ge neralized atrophy.
--- NOTE | ~2024-03-21 | XR_ITS ---
EXAM: XR ankle RT min 3V DATE: 03/21/2024 21:47 HISTORY: fall, injury . COMPARISON: None available. FINDINGS: Osteopenia. Oblique minimally displaced medial malleolar fracture. Minimally displaced pos terior malleolar fracture. Transverse fracture of the distal fibula at the level of the joint line, w ith 4 mm lateral displacement. Linear ossific fragment between the tip of the lateral malleolus and t he lateral talar process. No lytic or blastic lesion. Mild scattered degenerative change. Achilles an d plantar enthesopathy. No erosion or periosteal change. Soft tissue swelling about the ankle. IMPRESSION: Trimalleolar fracture of the right ankle. Fibular tip avulsion fracture fragment versus a small mildly displaced fracture of the lateral talar process. Reviewed, dictated and finalized at location [facility].
--- NOTE | ~2024-03-21 | CT_ITS ---
CT head without contrast Indication: Facial droop COMPARISON: 03/21/2024 Technique: Serial scans were obtained through the brain without the administration of contrast. Dose reduction technique was used on this scan by utilizing automated exposure control and iterative recon struction technique. The dose-length product (DLP) was 529.67 mGy-cm. Findings: There is no evidence of intracranial hemorrhage, mass lesion, or acute infarct. The ventri cles and subarachnoid spaces are dilated, consistent with mild to moderate atrophy. Low attenuation regions are seen within the periventricular white matter bilaterally, likely representing changes fro m chronic microvascular ischemic disease. There is no evidence of edema, mass effect or midline shif t. The visualized paranasal sinuses and mastoid air cells are clear. Impression: No intracranial hemorrhage, mass, or acute infarct. Atrophy and chronic white matter changes, as above. Reviewed, dictated and finalized at location M. Impression: No intracranial hemorrhage, mass, or acute infarct. Atrophy and chronic white matter changes, as above.
--- NOTE | ~2024-03-21 | XR_ITS ---
EXAM: XR tibia fibula RT 2V DATE: 03/21/2024 23:47 HISTORY: fx . COMPARISON: X-ray ankle 03/21/2024. FINDINGS: Decreased mineralization. Unchanged medial and lateral malleoli fractures. No posterior ma lleolus fracture identified. Ossific fragment between the lateral malleolus and lateral aspect of the talus. No lytic or blastic lesion. Partially visualized, uncomplicated appearing knee arthroplasty h ardware. No erosion or periosteal change. Ankle and lower leg soft tissue swelling. IMPRESSION: No proximal tibial or fibular fracture. Bimalleolar ankle fracture. No definite posterior malleolar fracture in this study, prior findings likely related to artifact. Lateral malleolar tip a vulsion versus lateral talar process fracture. Reviewed, dictated and finalized at location [facility]. IMPRESSION: No proximal tibial or fibular fracture. Bimalleolar ankle fracture. No definite posterior malleolar fracture in this study, prior findings likely related to artifact. Lateral malleolar tip avulsion versus lateral talar proces s fracture.
--- NOTE | 2024-03-21 21:33 | ECG_ITS ---
Test Date: 2024-03-21 22:23:40 Measurements Intervals [place] Rate: 80 P: 65 [place]: 205 QRS: 14 QRSD: 90 T: 51 QT: 394 QTc: 456 Interpretive Statements SINUS RHYTHM Compared to ECG 02/22/2024 18:01:14 No significant changes Electronically Signed On 03-22-2024 10:05:50 CDT by Axel Morris M.D.
[2024-03-21 21:53] LABS: Basophils Percent Auto 0.4 % (0.2-1.2); Eosinophils Percent Auto 0.5 % (0-4.4); Hematocrit 37.4 % (37.0-47.0); Hemoglobin 11.9 g/dL (12.0-15.0); Immature Granulocyte Absolute 0.02 K/mm3 (0.00-0.031); Immature Granulocyte Percent A 0.3 % (0-0.5); Lymphocytes Absolute Auto 2.19 K/mm3 (0.9-3.2); Lymphocytes Percent Auto 28.3 % (18.3-44.2); Mean Corpuscular HGB Conc 31.8 g/dl (32-36); Mean Corpuscular Hemoglobin 29.5 pg (26-34); Mean Corpuscular Volume 92.6 fl (80-100); Mean Platelet Volume 9.2 fl (7.4-10.4); Monocytes Absolute Auto 0.7 K/mm3 (0.1-0.6); Monocytes Percent Auto 8.8 % (2.6-8.5); Neutrophils Absolute Auto 4.8 K/mm3 (1.3-6.7); Neutrophils Percent Auto 61.7 % (45.5-73.1); Platelet Count Result 147 k/mm3 (150-375); Red Blood Count 4.04 M/mm3 (4.2-5.4); Red Cell Distribution Width 18.5 % (11.5-14.5); White Blood Count 7.7 K/mm3 (4.5-10.0)
--- NOTE | 2024-03-21 22:01 | ED.LOWEXIN ---
HPI - Extremity Injury (Lower) General Chief Complaint: Extremity Injury, Lower <Dara López PA-C - Last Filed: 03/22/24 04:04> Stated Complaint: RIGHT ANKLE FRACTURE <CLEMENTE Cates Last Filed: 03/22/24 04:04> Time Seen by Provider: 03/21/24 21:28 <CLEMENTE Ctaes Last Filed: 03/22/24 04:04> Source: patient <CLEMENTE Cates Last Filed: 03/22/24 04:04> Mode of arrival: EMS <CLEMENTE Cates Last Filed: 03/22/24 04:04> Limitations: no limitations and altered mental status <CLEMENTE Cates Last Filed: 03/22/24 04:04> History of Present Illness HPI Narrative: Patient is an 84-year-old female, with PMH L AKA r/t previous infection, seizure disorder on Kera, who presents the ED via EMS with report of right ankle fracture. Patient is resident of [facility]. She reports she had a fall around 4:00 p.m. today in which she fell forward out of her wheelchair. She states she bent forward to picker something off the ground. Her right leg twisted behind her. She is unsure if she hit her head. Denied LOC. patient had an x-ray performed at the facility which showed an ankle fracture. She was then sent here for further evaluation. Patient denies any other areas of pain. Denies numbness. Denies dizziness, lightheadedness. <Dara López PA-C - Last Filed: 03/22/24 04:04> Related Data Home Medications: Home Medications Medication Instructions Recorded Confirmed cetirizine 10 mg tablet 10 mg PO HS 02/22/24 03/22/24 ergocalciferol (vitamin D2) 1,250 1,250 mcg PO WEEKLY 02/22/24 03/22/24 mcg (50,000 unit) capsule iron,carbonyl 30 mg-vitamin C 10 1 tablet PO BID 02/22/24 03/22/24 mg-FOS 25 mg chewable tablet (Chewable Iron) lidocaine 4 % topical patch 1 patch topical DAILY PRN Pain 02/22/24 03/22/24 nystatin 100,000 unit/gram topical 1 applic topical DAILY 02/22/24 03/22/24 cream sennosides 8.6 mg tablet (Senna 8.6 mg PO DAILY 02/22/24 03/22/24 Lax) triamcinolone acetonide 0.1 % 1 applic topical DAILY 02/22/24 03/22/24 topical cream cyclobenzaprine 5 mg tablet 5 mg PO HS PRN Muscle Spasm 03/22/24 03/22/24 gabapentin 100 mg capsule 100 mg PO BID@0900,1700 03/22/24 03/22/24 <Dara López PA-C - Last Filed: 03/22/24 04:04> Allergies/Adverse Reactions: Allergies Allergy/AdvReac Type Severity Reaction Status Date / Time ceftaroline fosamil Allergy Intermediate Rash Verified 03/22/24 04:37 Penicillins Allergy Intermediate Rash Verified 03/22/24 04:37 Sulfa (Sulfonamide Allergy Intermediate Rash Verified 03/22/24 04:37 Antibiotics) <Dara López PA-C - Last Filed: 03/22/24 04:04> Review of Systems Review of Systems: All systems reviewed & are unremarkable except as noted in HPI. 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 History of partial hysterectomy History of spinal surgery <Dara López PA-C - Last Filed: 03/22/24 04:04> Family History Family History: Family History Father Stomach cancer <Dara López PA-C - Last Filed: 03/22/24
[2024-03-21 22:03] LABS: Alanine Aminotransferase 17 U/L (6-35); Albumin Level 4.1 g/dL (3.5-5.1); Alkaline Phosphatase 82 U/L (38-126); Anion Gap 9 mmol/L (4-12); Aspartate Amino Transferase 31 U/L (14-36); Bilirubin,Total 0.7 mg/dL (0.2-1.3); Blood Urea Nitrogen 15 mg/dL (7-17); Calcium 9.3 mg/dL (8.4-10.2); Carbon Dioxide 30 mmol/L (22-30); Chloride 97 mmol/L (98-107); Estimated Glomerular Filt Rate > 60; Glucose 122 mg/dL (65-110); Potassium 2.9 mmol/L (3.4-5.0); Sodium 136 mmol/L (137-145)
[2024-03-21 22:09] LABS: INR 1.1; Prothrombin Time 14.3 Seconds (11.1-14.7)
[2024-03-21 22:10] LABS: Partial Thromboplastin Time 30.3 Seconds (22.3-36.8)
[2024-03-21] MEDS: SODIUM CHLORIDE 0.9% IV 1,000 ML 999 ML IV CONT (22:20)
[2024-03-21 22:22] LABS: Magnesium 1.7 mg/dL (1.6-2.3)
[2024-03-21] MEDS: POTASSIUM CHLORIDE INJ 40 MEQ in SODIUM CHLORIDE 0.9% IV 500 ML 130 MEQ IVPB (22:24)
[2024-03-21] MEDS: POTASSIUM CHLORIDE 20 MEQ PACKET (FOR LIQUID) 40 MEQ PO (22:38)
[2024-03-21] MEDS: MAGNESIUM SULF 2 GM/WATER 50ML 2 GM/50 ML BAG IVPB (22:47)
[2024-03-21 23:12] LABS: Add Urine Microscopic? YES; Appearance Urine Cloudy (Clear); Bacteria Urine 4+ /hpf; Bilirubin Urine Negative (Negative); Blood Urine Negative (Negative); Calcium Oxalate Crystals Urine Present /hpf; Color Urine Dark Yellow (Yellow); Glucose Urine UA Negative (Negative); Ketones Urine Trace mg/dL (Negative); Leukocyte Esterase Ur Trace LEU/UL (Negative); Need Manual Microscopic Reviewed; Nitrate Urine Positive (Negative); Protein Urine Trace mg/dL (Negative); RBC Urine 21-50 /hpf (0-2); Specific Grav Ur 1.021 (1.001-1.035); Squamous Epithelial Cell Urine Few /hpf (Few); WBC Urine 0-5 /hpf (0-3)
[2024-03-21] MEDS: ONDANSETRON INJ 4 MG/2 ML VIAL IV PUSH (23:15)
[2024-03-21] MEDS: ACETAMINOPHEN 500 MG TABLET 1000 MG PO (23:16)
[2024-03-21] MEDS: MORPHINE SULFATE (*CRX) 2 MG/ML INJ IV PUSH (23:16)
[2024-03-22] VITALS (25 sets, daily range): BP systolic 110–160; BP diastolic 59–88; PULSE 80–100; RESP 15–28; TEMP 36.3–37.4; O2SAT 86–100
[2024-03-22 00:19] LABS: Base Excess ABG 0.4 mEq/l (+/-2.0); Fractional Inspired Oxygen 32 %; HCO3 ABG 25.1 mEq/l (22.0-26.0); Oxygen Content ABG 15.8 %vol (16.0-22.0); Oxygen Saturation ABG 97.1 % (95.0-100.0); Oxyhemoglobin 95.9 % THb (90.0-100.0); PCO2 ABG 40.7 mmHg (35.0-45.0); PO2 ABG 91.5 mmHg (80.0-100.0); PO2 FiO2 Ratio Arterial Blood 2.86 %; Reduced Hemoglobin 3.1 %THb (0-5.0); Total Hemoglobin 11.6 g/dL (12.0-18.0); pH ABG 7.408 (7.350-7.450)
[2024-03-22 00:20] LABS: Device NASAL CANNULA; Modified Allen's Test Pass; Site Drawn LEFT RADIAL
[2024-03-22 00:24] LABS: Influenza A QL RT-PCR Negative (Negative); Influenza B QL RT-PCR Negative (Negative); RSV RNA, RT-PCR Negative (Negative); SARS-CoV-2 RNA PCR Negative (Negative)
[2024-03-22] MEDS: IPRATROPIUM BR 0.02% INH SOLN 0.5 MG/2.5 ML VIAL 1.5 MG INHALATION (04:10)
[2024-03-22] MEDS: LEVALBUTEROL NEB 1.25 MG/3 ML 2.5 MG INHALATION (04:10)
[2024-03-22] MEDS: MORPHINE SULFATE (*CRX) 2 MG/ML INJ IV PUSH ×2 (06:11→08:24)
[2024-03-22] MEDS: ONDANSETRON INJ 4 MG/2 ML VIAL IV PUSH (06:46)
[2024-03-22 09:25] LABS: Basophils Percent Auto 0.3 % (0.2-1.2); Eosinophils Percent Auto 0.2 % (0-4.4); Hematocrit 34.3 % (37.0-47.0); Hemoglobin 11.1 g/dL (12.0-15.0); Immature Granulocyte Absolute 0.03 K/mm3 (0.00-0.031); Immature Granulocyte Percent A 0.5 % (0-0.5); Lymphocytes Absolute Auto 1.52 K/mm3 (0.9-3.2); Lymphocytes Percent Auto 24.7 % (18.3-44.2); Mean Corpuscular HGB Conc 32.4 g/dl (32-36); Mean Corpuscular Hemoglobin 30.1 pg (26-34); Mean Platelet Volume 9.6 fl (7.4-10.4); Monocytes Absolute Auto 0.7 K/mm3 (0.1-0.6); Monocytes Percent Auto 11.2 % (2.6-8.5); Neutrophils Absolute Auto 3.9 K/mm3 (1.3-6.7); Neutrophils Percent Auto 63.1 % (45.5-73.1); Platelet Count Result 146 k/mm3 (150-375); Red Blood Count 3.69 M/mm3 (4.2-5.4); Red Cell Distribution Width 18.6 % (11.5-14.5); White Blood Count 6.2 K/mm3 (4.5-10.0)
[2024-03-22 09:38] LABS: Albumin Level 3.8 g/dL (3.5-5.1); Anion Gap 9 mmol/L (4-12); Blood Urea Nitrogen 14 mg/dL (7-17); Calcium 8.9 mg/dL (8.4-10.2); Carbon Dioxide 26 mmol/L (22-30); Chloride 103 mmol/L (98-107); Estimated Glomerular Filt Rate > 60; Glucose 117 mg/dL (65-110); Magnesium 2.2 mg/dL (1.6-2.3); Phosphorus 2.4 mg/dL (2.5-4.5); Potassium 4.2 mmol/L (3.4-5.0); Sodium 138 mmol/L (137-145)
--- NOTE | 2024-03-22 10:04 | PM.CNOR ---
Assessment and Plan Assessment and plan (1) Bimalleolar fracture of right ankle: Qualifiers: Encounter type: initial encounter Fracture type: closed Qualified Code(s): S82.841A - Displaced bimalleolar fracture of right lower leg, initial encounter for closed fracture Code(s): S82.841A - Displaced bimalleolar fracture of right lower leg, initial encounter for closed fracture Status: Acute Assessment and Plan: History, exam and radiographs reviewed with the patient. Radiographs of the right tib-fib reveal a by malleolar ankle fracture without definite posterior malleolar fracture. Lateral malleolar tip avulsion versus lateral talus talar process fracture. May require further imaging with CT scan for final diagnosis. patient is currently in a splint. Recommend nonweightbearing on the right lower extremity. Ice, elevation. Patient is nonambulatory at baseline. May do well with non operative treatment. (2) Altered mental status: Qualifiers: Altered mental status type: unspecified Qualified Code(s): R41.82 - Altered mental status, unspecified Code(s): R41.82 - Altered mental status, unspecified Status: Acute (3) Accidental fall from wheelchair: Qualifiers: Encounter type: initial encounter Qualified Code(s): W05.0XXA - Fall from non-moving wheelchair, initial encounter Code(s): W05.0XXA - Fall from non-moving wheelchair, initial encounter Status: Acute (4) Acute hypoxic respiratory failure: Code(s): J96.01 - Acute respiratory failure with hypoxia Status: Acute (5) Abnormal urinalysis: Code(s): R82.90 - Unspecified abnormal findings in urine Status: Acute History of Present Illness HPI Consult date: 03/22/24 Chief complaint: Hypoxia, Bimalleolar fx R ankle, AMS, abnormal UA Narrative: 84-year-old female with a 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 yesterday. She reports falling forward out of the wheelchair twisting her right leg behind her. She denies loss of consciousness. Radiographs were performed at the facility which revealed an ankle fracture. She was sent to the emergency room for further evaluation. Radiographs in the ED of the right lower extremity reveal a bimalleolar ankle fracture. Orthopedic consult requested. Patient being admitted for further evaluation for hypoxia and hematuria. 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 History of partial hysterectomy History of spinal surgery Family History Family History Father Stomach cancer Social History Social History Social History: Healthcare power of tax attorney: Juan Sue, son. Code status: Do not resuscitate. Smoking status: Never smoker Second hand tobacco smoke exposure: Yes (Both parents smoked.) Alcohol intake: never Substance use: never Substance use type: does not use Do You Feel Safe in your Home?: Yes Lack of Transportation: No Lack of Food: Never True Current Housing: I Have Housing Concerned About Future Housing: No Difficulty Paying Gas/Electric Bills: No Difficulty Paying for Meds: No Currently Unemployed: No Education: Grade School Difficulty w/ Childcare
--- NOTE | 2024-03-22 13:10 | PCPTNOTE ---
Pt has ortho consult pending. Will wait for weight bearing recommendations prior to PT evaluation.
--- NOTE | 2024-03-22 13:49 | ADMGEN ---
This patient, Marissa Sue, was admitted to [facility] Surg Room 305-01 at 1330. Patient/family oriented to hospital policies and general routines including ID bracelet, bed and alarms, visiting hours, pain management, procedures, bathroom and other care routines, personal items, smoking policy, room service/diet, and visiting hours. Information on how to activate the Rapid Response Team has been discussed. Patient/Family are encouraged to report perceived risks to care and to ask questions if they do not understand what they are told or what they should do.
--- NOTE | 2024-03-22 14:48 | PM.OP ---
Procedure Note - Brief Procedure Note - Brief Date of procedure: 03/22/24 Hypoxia, Bimalleolar fx R ankle, AMS, abnormal UA Surgeon: JAGDISH Hanson Urine output (mL): 450 Attestation Student Attestation Reviewed history, exam, radiographs and current labs with attending MD and covering surgeon, Dr. Segundo, who agrees with current plan as indicated above. No further recommendations from Dr. Segundo at this time. Fracture/Casting/Strapping Pre Procedure Consent was obtained, Procedures/risks were explained, Questions were answered, Correct patient identified and Correct side and site confirmed Episode of Care New episode (Right Ankle ) Fracture Care Tibia/malleolus/fibula/ankle Tibia, malleous, fibula, ankle: CLOSED TX BIMALLEOLAR ANKLE FX W/O MANIPULATION Splinting Application Short Leg Spl Application Exam of Affected Area: Color: Normal, Temp: Normal, Pulse: Normal, Blanching: Normal, Capillary Refill: Normal and Sensory Exam: Normal Swelling: Yes and Tenderness: Yes Skin Apperance: Clean and Dry Post Procedure Patient tolerated the procedure well?: Tolerated procedure well
--- NOTE | 2024-03-22 15:05 | PM.IMHP ---
H&P: HPI History of Present Illness Date/Time: 03/22/24 15:05 Chief Complaint: Rt ankle fracture Narrative: 84yo female with left AKA, seizure disorder and HTN here for right ankle fracture. Patient is at [facility]. Family state that she was having trouble with transfers but felt doing well enough that the family was planning on taking her home. She lives with her son but in a separate living area. Patient is somnolent today and family has noted patient being more confused recently and feel she has dementia. She also becomes more confused when she has a UTI. Patient awakens easily and answers questions but she is confused and hx in not reliable. Most of the hx is obtained from family and the chart. Patient felll around 4:00 p.m. yesterday. She fell forward out of her wheelchair while attempting to bend down and pick something up. Her right leg twisted behind her. She is unsure if she hit her head. Denied LOC. X-ray at the facility showed a right ankle fracture. Patient was sent to the ED for evaluation. No recent fevers, urinary symptoms or other symptoms per family in the room. She was on oxygen at last discharge about 4 weeks ago and has required oxygen off and on at the facility. Nonsmoker. No exposure to 2nd hand smoke. No CAD, CHF or EMELI. In the ED, she was hemodynamically stable but was tachypneic and hypoxic at 88% on room air. She was placed on 4L but required a NRB mask at one point. WBC was normal. Hgb 11.9 and plt count 147K. ABG 7.41/41/91 on 3L NC. Potassium was 2.9 otherwise CMP was unremarkable. UA with +nitrate, trace ketones, trace LE, 4+ bacteria but no WBC. COVID, influenza and RSV PCR negative. Head CT showing no acute findings. CT cervical spine showing no fracture or malalignment. CTA chest/abd/pelvis showing no central PE, dissection or aneurysm. Probable minimal ground glass opacity and interstitial thickening upper lobes, suggestive of minimal pulmonary edema or bronchiolitis as well as minimal bibasilar atelectatic change. Rt ankle xray showing trimalleolar fracture of the right ankle and a fibular tip avulsion fracture fragment versus a small mildly displaced fracture of the lateral talar process. Rt Tib/Fib xray showing no proximal tibial or fibular fracture but again sees a bimalleolar ankle fx (No definite posterior malleolar fx so prior findings likely related to artifact). EKG was read as normal. Potassium was replaced. She was given a L fluid. Analgesics and antiemetics given. She was given a dose of Rocephin for possible UTI. Nebulizer treatments started. She was admitted for further care. 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 History of partial hysterectomy History of spinal surgery Family History Family History Father Stomach cancer Social History Social History Social History: Healthcare power of [place] attorney: Juan Sue, son. Code status: Do not resuscitate. Smoking status: Never smoker Second hand tobacco smoke exposure: Yes (Both parents smoked.) Alcohol intake: never Substance use: never Substance use type: does not use Do You Feel Safe in your Home?: Yes Lack of Transportation: No Lack of Food: Never True Current Housing: I Have Housing Concerned About Future Housing: No Difficulty Paying Gas/Electric Bills: No Difficulty Paying
[2024-03-22] MEDS: ACETAMINOPHEN 325 MG TABLET 650 MG PO ×2 (15:34→20:43)
[2024-03-22] MEDS: GABAPENTIN 100 MG CAPSULE PO (17:08)
[2024-03-22] MEDS: ENOXAPARIN 40 MG/0.4 ML SYRINGE SUB-Q (17:08)
[2024-03-22] MEDS: METOPROLOL TARTRATE 50 MG TAB PO (17:08)
[2024-03-22] MEDS: LORATADINE 10 MG TABLET PO (20:42)
[2024-03-22] MEDS: levETIRAcetam 250 MG TABLET 750 MG PO (20:42)
[2024-03-22] MEDS: ATORVASTATIN 20 MG TABLET PO (20:43)
[2024-03-23] VITALS (10 sets, daily range): BP systolic 127–145; BP diastolic 56–60; PULSE 70–82; RESP 19–28; TEMP 36.3–37; O2SAT 93–96
[2024-03-23 06:32] LABS: Basophils Percent Auto 0.3 % (0.2-1.2); Eosinophils Absolute Auto 0.1 K/mm3 (0-0.3); Eosinophils Percent Auto 1.6 % (0-4.4); Hematocrit 32.3 % (37.0-47.0); Hemoglobin 10.1 g/dL (12.0-15.0); Immature Granulocyte Absolute 0.01 K/mm3 (0.00-0.031); Immature Granulocyte Percent A 0.2 % (0-0.5); Lymphocytes Absolute Auto 1.66 K/mm3 (0.9-3.2); Lymphocytes Percent Auto 25.9 % (18.3-44.2); Mean Corpuscular HGB Conc 31.3 g/dl (32-36); Mean Corpuscular Hemoglobin 29.4 pg (26-34); Mean Corpuscular Volume 94.2 fl (80-100); Monocytes Absolute Auto 0.7 K/mm3 (0.1-0.6); Monocytes Percent Auto 11.5 % (2.6-8.5); Neutrophils Absolute Auto 3.9 K/mm3 (1.3-6.7); Neutrophils Percent Auto 60.5 % (45.5-73.1); Platelet Count Result 129 k/mm3 (150-375); Red Blood Count 3.43 M/mm3 (4.2-5.4); Red Cell Distribution Width 18.7 % (11.5-14.5); White Blood Count 6.4 K/mm3 (4.5-10.0)
[2024-03-23 06:41] LABS: Ammonia < 9 umol/L (9-30)
[2024-03-23 06:47] LABS: Anion Gap 7 mmol/L (4-12); Blood Urea Nitrogen 15 mg/dL (7-17); Calcium 8.7 mg/dL (8.4-10.2); Carbon Dioxide 27 mmol/L (22-30); Chloride 103 mmol/L (98-107); Estimated CRCL calculation 70 ml/min; Estimated Glomerular Filt Rate > 60; Glucose 124 mg/dL (65-110); Magnesium 1.9 mg/dL (1.6-2.3); Potassium 3.8 mmol/L (3.4-5.0); Sodium 137 mmol/L (137-145)
[2024-03-23] MEDS: levETIRAcetam 250 MG TABLET 750 MG PO ×2 (08:40→21:18)
[2024-03-23] MEDS: GABAPENTIN 100 MG CAPSULE PO ×2 (08:40→17:05)
[2024-03-23] MEDS: ASPIRIN 81 MG ENTERIC TABLET PO (08:40)
[2024-03-23] MEDS: ENOXAPARIN 40 MG/0.4 ML SYRINGE SUB-Q (08:40)
[2024-03-23] MEDS: PANTOPRAZOLE 40 MG TABLET PO (08:41)
[2024-03-23] MEDS: SERTRALINE HCL 50 MG TABLET 200 MG PO (08:41)
[2024-03-23] MEDS: LOSARTAN POTASSIUM 50 MG TABLET PO (08:41)
[2024-03-23] MEDS: SENNOSIDES 8.6 MG TABLET PO (08:41)
[2024-03-23] MEDS: METOPROLOL TARTRATE 50 MG TAB PO (08:42)
[2024-03-23] MEDS: ACETAMINOPHEN 325 MG TABLET 650 MG PO ×2 (10:09→17:07)
--- NOTE | 2024-03-23 11:08 | PCOTNOTE ---
OT orders received for this patient. She is a left AKA and new right ankle fracture, NWB. PMH of dementia. At this time the patient will be a jadon lift to a recliner. No skilled therapy needs identified for this patient. Discharging therapy orders.
--- NOTE | 2024-03-23 11:44 | PM.IMPN ---
Progress Note: A&P Assessment and Plan (1) Acute hypoxic respiratory failure: Code(s): J96.01 - Acute respiratory failure with hypoxia Status: Acute Assessment and Plan: Patient presents for complaints of ankle fracture after a fall and found to have hypoxia. ABG was normal on 3L. COVID, influenza and RSV PCR negative. She has been requiring oxygen off and on recently. Not retaining CO2. Echo 02/23/24 does not show significant concerns. CTA negative for central PEs. Continue O2 at this time. Check Apnea link. Check BNP (2) Bimalleolar fracture of right ankle: Qualifiers: Encounter type: initial encounter Fracture type: closed Qualified Code(s): S82.841A - Displaced bimalleolar fracture of right lower leg, initial encounter for closed fracture Code(s): S82.841A - Displaced bimalleolar fracture of right lower leg, initial encounter for closed fracture Status: Acute Assessment and Plan: Patient presents after sustaining a fall from her wheelchair at the [facility] resulting in a right ankle fracture. Ortho consulted and patient underwent casting earlier today. She is somnolent but was given Morphine this morning. Family state patient does become somnolent due to UTIs. TSH normal in November. B12 was low end of normal. Repeat B12, folate. Check ammonia. Continue to monitor PT/OT ordered (3) Accidental fall from wheelchair: Qualifiers: Encounter type: initial encounter Qualified Code(s): W05.0XXA - Fall from non-moving wheelchair, initial encounter Code(s): W05.0XXA - Fall from non-moving wheelchair, initial encounter Status: Acute Assessment and Plan: CT brain and cervical spine CT showing no acute process. CTA chest, abd and pelvis also showing no acute process. Follow (4) Seizure disorder: Code(s): G40.909 - Epilepsy, unspecified, not intractable, without status epilepticus Status: Acute Assessment and Plan: Patient with known seizure disorder. Will resume keppra. (5) Hypertension: Code(s): I10 - Essential (primary) hypertension Status: Acute Assessment and Plan: BP elevated on admission felt related to pain. BP well controlled now. Resume home medications as tolerated. (6) Hypokalemia: Code(s): E87.6 - Hypokalemia Status: Acute Assessment and Plan: Potassium 2.9 on admission now 3.8 (7) UTI (urinary tract infection): Qualifiers: Hematuria presence: without hematuria Urinary tract infection type: acute cystitis Qualified Code(s): N30.00 - Acute cystitis without hematuria Code(s): N39.0 - Urinary tract infection, site not specified Status: Acute Assessment and Plan: UA is consistent with UTI. UCx collected. Rocephin started. UCx pending. Follow up on UCx results. Plan DC back to NH in 1-2 days time Subjective Date/time seen: 03/23/24 11:44 Interval history: 84yo female with left AKA, seizure disorder and HTN here for right ankle fracture. Patient is at [facility]. Family state that she was having trouble with transfers but felt doing well enough that the family was planning on taking her home. She lives with her son but in a separate living area. Patient is somnolent today and family has noted patient being more confused recently and feel she has dementia. She also becomes more confused when she has a UTI. As per orthopedic -pt to continue splint. Ice/Elevate. Will plan for transition to fx boot prior to discharge from the hospital. Will repeat radiographs in 6 weeks in the outpatient orthopedic clinic. awaiting UC dc back to [facility] in 1-2 days time Review of Systems Review of Systems: tired with ankle pain Exam Narrative: Gen -chronically ill tired Chest - BL wheezes CV - heart was regular rate and rhythm. S1-S2. 2/6 systolic murmur Abd - abdomen was soft. Obese. Nontender. Nond
[2024-03-23] MEDS: ATORVASTATIN 20 MG TABLET PO (21:19)
[2024-03-23] MEDS: LORATADINE 10 MG TABLET PO (21:19)
[2024-03-24] VITALS (11 sets, daily range): BP systolic 131–162; BP diastolic 55–77; PULSE 69–91; RESP 16–26; TEMP 36.3–37.6; O2SAT 91–97
[2024-03-24 02:24] LABS: Glucose Point of Care 118 mg/dl (65-105)
[2024-03-24 03:50] LABS: Glucose Point of Care 123 mg/dl (65-105)
[2024-03-24] MEDS: LORazepam INJ (*CRX) 2 MG/ML VIAL IV PUSH (04:04)
[2024-03-24 04:08] LABS: Hematocrit 30.2 % (37.0-47.0); Hemoglobin 9.7 g/dL (12.0-15.0); Mean Corpuscular HGB Conc 32.1 g/dl (32-36); Mean Corpuscular Hemoglobin 29.9 pg (26-34); Mean Corpuscular Volume 93.2 fl (80-100); Mean Platelet Volume 9.7 fl (7.4-10.4); Platelet Count Result 131 k/mm3 (150-375); Red Blood Count 3.24 M/mm3 (4.2-5.4); Red Cell Distribution Width 18.6 % (11.5-14.5); White Blood Count 5.9 K/mm3 (4.5-10.0)
[2024-03-24 04:20] LABS: Alanine Aminotransferase 13 U/L (6-35); Albumin Level 3.4 g/dL (3.5-5.1); Alkaline Phosphatase 70 U/L (38-126); Anion Gap 6 mmol/L (4-12); Aspartate Amino Transferase 27 U/L (14-36); Bilirubin,Total 0.5 mg/dL (0.2-1.3); Blood Urea Nitrogen 10 mg/dL (7-17); Calcium 8.8 mg/dL (8.4-10.2); Carbon Dioxide 28 mmol/L (22-30); Chloride 101 mmol/L (98-107); Estimated CRCL calculation 70 ml/min; Estimated Glomerular Filt Rate > 60; Glucose 115 mg/dL (65-110); Potassium 3.8 mmol/L (3.4-5.0); Sodium 135 mmol/L (137-145)
[2024-03-24 04:21] LABS: Anion Gap 5 mmol/L (4-12); Blood Urea Nitrogen 10 mg/dL (7-17); Calcium 8.8 mg/dL (8.4-10.2); Carbon Dioxide 29 mmol/L (22-30); Chloride 102 mmol/L (98-107); Estimated CRCL calculation 70 ml/min; Estimated Glomerular Filt Rate > 60; Glucose 115 mg/dL (65-110); Potassium 3.8 mmol/L (3.4-5.0); Sodium 136 mmol/L (137-145)
[2024-03-24] MEDS: ASPIRIN 300 MG SUPPOSITORY RECTAL (05:14)
[2024-03-24] MEDS: ATORVASTATIN 20 MG TABLET PO ×2 (05:20→21:06)
--- NOTE | 2024-03-24 05:51 | PM.IMPN ---
Progress Note: A&P Assessment and Plan (1) Confusion: Code(s): R41.0 - Disorientation, unspecified Status: Acute (2) Altered mental status: Qualifiers: Altered mental status type: unspecified Qualified Code(s): R41.82 - Altered mental status, unspecified Code(s): R41.82 - Altered mental status, unspecified Status: Acute (3) Seizure disorder: Code(s): G40.909 - Epilepsy, unspecified, not intractable, without status epilepticus Status: Acute Plan Confusion Per patient's nurse report, patient was able to speak before 2:00 a.m., and later on patient was noticed confused, unresponsive to verbal command Somewhat facial droop on the left side, not obvious CT head shows no acute intracranial issues, bilateral eyes face Different showed possible seizure, postictal confusion, acute CVA Provide patient ID 1 2 mg IV push, continue Keppra 750 mg b.i.d. p.o., provided aspirin 300 mg per rectum x1 order brain MRI without contrast, CTA head and and neck, EEG Neuro check q.4 hours Continue tool carrier Bedside swallowing test Keep patient p.o. Consult neurologist for evaluation treatment Hold hypertension medication Continue rest management I spent 40 minutes for critical care at bedside including review of history, clinical status, repeated assessment plans Subjective Date/time seen: 03/24/24 05:51 Interval history: Rapid response was called because of confusion. 84 years old lady with history of seizure, hypertension, admit to the hospital because of fall right ankle fracture, hypoxemia. Right with response was called because of unresponsiveness. Per nurse report, the last time patient was seen well about 2 am. Patient was not noticed to have seizure activity. Upon arrival, patient was unresponsive to verbal commands, bilateral high was fixed, somewhat facial droop on the left side. Patient was afebrile, blood pressure stable, fingerstick glucose levels normal. Status CT head shows no acute intracranial issues. Repeated CBC showed anemia, hemoglobin 9.7, otherwise unremarkable, hemoglobin and baseline, repeat is CMP showed mild hyponatremia 135, otherwise unremarkable, pending prolactin level Exam Narrative: GENERAL: in no acute distress. Well-nourished. - EYES: EOMI. Anicteric. - HENT: Moist mucous membranes. - LUNGS: Clear to auscultation bilaterally, no wheezing, rhonchi, or rales. - CARDIOVASCULAR: Regular rate and rhythm. No murmur. No JVD. - ABDOMEN: Soft, non-tender and non-distended. No palpable masses. - EXTREMITIES: No edema. Peripheral pulses 2+. Non-tender. - NEUROLOGIC: No focal neurological deficits. CN II-XII grossly intact. - PSYCHIATRIC: Confused not oriented x3 Objective Data Vital Signs Vital Signs: Vital Signs - 24 hr 03/23/24 08:00 03/23/24 08:42 03/23/24 08:00 Temperature Pulse Rate 70 81 Respiratory Rate Blood Pressure Pulse Oximetry 93 Oxygen Delivery Nasal Cannula Oxygen Flow Rate 2 03/23/24 12:00 03/23/24 14:00 03/23/24 16:00 Temperature 97.7 F Pulse Rate 76 73 82 Respiratory Rate 28 H Blood Pressure 127/56 L Pulse Oximetry 96 Oxygen Delivery Oxygen Flow Rate 03/23/24 21:06 03/23/24 20:00 03/24/24 00:00 Temperature 97.3 F L 97.3 F L Pulse Rate 81 84 Respiratory Rate 22 H 24 H Blood Pressure 145/60 H 144/59 H Pulse Oximetry 94 94 92 Oxygen Delivery Nasal Cannula Oxygen Flow Rate 2 03/24/24 02:25 03/24/24 04:54 03/24/24 04:00 Temperature 97.8 F 99.7 F H Pulse Rate 82 86 Respiratory Rate 26 H Blood Pressure 142/63 H 162/74 H 162/74 H Pulse Oximetry 91 97 Oxygen Delivery Oxygen Flow Rate Intake/Output Intake/Output: Intake & Output 03/21/24 03/22/24 03/23/24 03/24/24 23:59 23:59 23:59 23:59 Intake Total 1050 738 600 Output Total 900 550 650 Balance 1050 -162 50 -650 Meds/Results Medications: Active Medications Generic N
--- NOTE | 2024-03-24 06:12 | PC.NURSE ---
[employer] notified this RN at 0205 that the pt stated I'm sick, I'm very sick and the pt was taking off all her clothes and oxygen, this RN then went into the pts room and asked pt what was wrong, pt stated I don't feel well , this RN noticed a new left facial droop, this RN then notified charge nurse and warehouse administrative assistant which came in room, pt then went unresponsive but vital signs and blood glucose were normal and pt was following commands just not responding appropriately. This RN notified provider about the pts condition and provider ordered head CT, after head CT RN noticed pt was responding less, this RN then asked other RN's to come in room to assess the pt. After assessment of pt by other RNs, the decision was made to call the rapid response at [phone]. Appropriate personal responded, including provider at bedside. Head CT report was faxed and shown to provider in person. Orders were made and completed.
--- NOTE | 2024-03-24 07:40 | PC.NURSE ---
Attempted to reach Archana Miner, Child, to get MRI screening form complected.
[2024-03-24] MEDS: levETIRAcetam 250 MG TABLET 750 MG PO (08:33)
[2024-03-24] MEDS: SERTRALINE HCL 50 MG TABLET 200 MG PO (08:33)
[2024-03-24] MEDS: SENNOSIDES 8.6 MG TABLET PO ×2 (08:33→08:34)
[2024-03-24] MEDS: ASPIRIN 81 MG ENTERIC TABLET PO (08:34)
[2024-03-24] MEDS: PANTOPRAZOLE 40 MG TABLET PO (08:34)
[2024-03-24] MEDS: GABAPENTIN 100 MG CAPSULE PO ×2 (08:34→16:10)
[2024-03-24] MEDS: ENOXAPARIN 40 MG/0.4 ML SYRINGE SUB-Q (08:36)
[2024-03-24] MEDS: METOPROLOL TARTRATE 50 MG TAB PO (08:44)
--- NOTE | 2024-03-24 12:16 | PM.IMPN ---
Progress Note: A&P Assessment and Plan (1) Altered mental status: Qualifiers: Altered mental status type: unspecified Qualified Code(s): R41.82 - Altered mental status, unspecified Code(s): R41.82 - Altered mental status, unspecified Status: Acute Assessment and Plan: Pt had episode of unresponsiveness overnight MRI brain ordered neurology consulted to rule out a stroke or seizure activity, pt has history of seizures Pt still appears somnolent and drowsy continue to watch in the hospital (2) Acute hypoxic respiratory failure: Code(s): J96.01 - Acute respiratory failure with hypoxia Status: Acute Assessment and Plan: Patient presents for complaints of ankle fracture after a fall and found to have hypoxia. ABG was normal on 3L. Continue O2 at this time. Check Apnea link. Check BNP (3) Bimalleolar fracture of right ankle: Qualifiers: Encounter type: initial encounter Fracture type: closed Qualified Code(s): S82.841A - Displaced bimalleolar fracture of right lower leg, initial encounter for closed fracture Code(s): S82.841A - Displaced bimalleolar fracture of right lower leg, initial encounter for closed fracture Status: Acute Assessment and Plan: Patient presents after sustaining a [facility] resulting in a right ankle fracture. ankle in cast Continue to monitor PT/OT ordered (4) Accidental fall from wheelchair: Qualifiers: Encounter type: initial encounter Qualified Code(s): W05.0XXA - Fall from non-moving wheelchair, initial encounter Code(s): W05.0XXA - Fall from non-moving wheelchair, initial encounter Status: Acute Assessment and Plan: CT brain and cervical spine CT showing no acute process. CTA chest, abd and pelvis also showing no acute process. Follow (5) Seizure disorder: Code(s): G40.909 - Epilepsy, unspecified, not intractable, without status epilepticus Status: Acute Assessment and Plan: Patient with known seizure disorder. Will resume keppra. (6) Hypertension: Code(s): I10 - Essential (primary) hypertension Status: Acute Assessment and Plan: BP elevated on admission felt related to pain. BP well controlled now. Resume home medications as tolerated. (7) Hypokalemia: Code(s): E87.6 - Hypokalemia Status: Acute Assessment and Plan: Potassium 2.9 on admission now 3.8 (8) UTI (urinary tract infection): Qualifiers: Hematuria presence: without hematuria Urinary tract infection type: acute cystitis Qualified Code(s): N30.00 - Acute cystitis without hematuria Code(s): N39.0 - Urinary tract infection, site not specified Status: Acute Assessment and Plan: UA is consistent with UTI. UCx collected. Rocephin started. 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 Patient is at [facility]. Family state that she was having trouble with transfers but felt doing well enough that the family was planning on taking her home. She lives with her son but in a separate living area. Patient is somnolent today and family has noted patient being more confused recently and feel she has dementia. She also becomes more confused when she has a UTI. As per orthopedic -pt to continue splint. Ice/Elevate. Will plan for transition to fx boot prior to discharge from the hospital. Will repeat radiographs in 6 weeks in the outpatient orthopedic clinic. 03/24 Pt had episode of unresponsiveness overnight MRI brain ordered neurology consulted to rule out a stroke or seizure activity Pt still appears somnolent and drowsy continue to watch in the hospital Review of Systems Review of Systems: decreased responsiveness Exam Narrative: Se
--- NOTE | 2024-03-24 13:17 | PM.PNORT ---
Progress Note: A&P Assessment and Plan (1) Bimalleolar fracture of right ankle: Qualifiers: Encounter type: initial encounter Fracture type: closed Qualified Code(s): S82.841A - Displaced bimalleolar fracture of right lower leg, initial encounter for closed fracture Code(s): S82.841A - Displaced bimalleolar fracture of right lower leg, initial encounter for closed fracture Status: Acute Assessment and Plan: History, exam and radiographs reviewed with the patient. Radiographs of the right tib-fib reveal a bimalleolar ankle fracture without definite posterior malleolar fracture. Lateral malleolar tip avulsion versus lateral talus talar process fracture. Patient is currently in a splint. Recommend nonweightbearing on the right lower extremity. Ice, elevation. Patient is nonambulatory at baseline. Continue nonoperative treatment. Not currently a candidate for surgical intervention or discussion given medical state. Plan for transition to CAM walker boot prior to discharge. Will continue to follow. (2) Altered mental status: Qualifiers: Altered mental status type: unspecified Qualified Code(s): R41.82 - Altered mental status, unspecified Code(s): R41.82 - Altered mental status, unspecified Status: Acute Assessment and Plan: Awaiting brain MRI. (3) Accidental fall from wheelchair: Qualifiers: Encounter type: initial encounter Qualified Code(s): W05.0XXA - Fall from non-moving wheelchair, initial encounter Code(s): W05.0XXA - Fall from non-moving wheelchair, initial encounter Status: Acute (4) Acute hypoxic respiratory failure: Code(s): J96.01 - Acute respiratory failure with hypoxia Status: Acute (5) Abnormal urinalysis: Code(s): R82.90 - Unspecified abnormal findings in urine Status: Acute Plan Reviewed history, exam, radiographs and current labs with attending MD and covering surgeon, Dr. Segundo, who agrees with current plan as indicated above. No further recommendations from Dr. Segundo at this time. Subjective Subjective Date/Time Seen: 03/24/24 13:17 Interval history: Patient awakens to voice. Does not answer questions appropriately. Lethargic. Events of this morning with rapid response reviewed. Brain MRI pending. Review of Systems Review of Systems: ROS unobtainable: Yes unobtainable due to mental status Exam Const: General: comfortable and no acute distress HENMT: Mouth: Yes moist mucous membranes Neck: Neck: supple and no JVD Resp: Effort & Inspection: normal respiratory effort GI: Inspection: non-distended GI Palp: Yes Soft to palpation and No Tenderness to palpation present (GI) Extrem: General: amputation noted Above the knee: left Right lower extremity: knee Details: normal to inspection; no tenderness and no swelling, ankle ( unable to fully examine, splint in place) Details: abnormal to inspection ( Splint in place, moves toes) and foot Details: normal capillary refill Objective Data Vital Signs Vital Signs: Vital Signs - 24 hr 03/23/24 14:00 03/23/24 16:00 03/23/24 21:06 Temperature 36.5 C 36.3 C L Pulse Rate 73 82 81 Respiratory Rate 28 H 22 H Blood Pressure 127/56 L 145/60 H Pulse Oximetry 96 94 Oxygen Delivery Oxygen Flow Rate 03/23/24 20:00 03/24/24 00:00 03/24/24 02:25 Temperature 36.3 C L 36.6 C Pulse Rate 84 82 Respiratory Rate 24 H Blood Pressure 144/59 H 142/63 H Pulse Oximetry 94 92 91 Oxygen Delivery Nasal Cannula Oxygen Flow Rate 2 03/24/24 04:54 03/24/24 04:00 03/23/24 20:00 Temperature 37.6 C H Pulse Rate 86 80 Respiratory Rate 26 H Blood Pressure 162/74 H 162/74 H Pulse Oximetry 97 Oxygen Delivery Oxygen Flow Rate 03/24/24 00:00 03/24/24 04:00 03/24/24 08:44 Temperature Pulse Rate 83 91 91 Respiratory Rate Blood Pressure Pulse Oximetry Oxygen Delivery Oxygen Flow Rate
[2024-03-24] MEDS: ACETAMINOPHEN 325 MG TABLET 650 MG PO (21:06)
[2024-03-24] MEDS: levETIRAcetam 1000MG/NACL100ML 1,000 MG/100 ML BAG 400 MG IVPB (21:06)
[2024-03-24] MEDS: LORATADINE 10 MG TABLET PO (21:06)
[2024-03-25] VITALS (8 sets, daily range): BP systolic 131–141; BP diastolic 54–79; PULSE 75–84; RESP 16–20; TEMP 35.8–37; O2SAT 93–97
[2024-03-25 02:24] LABS: Prolactin 6.7 ng/mL
[2024-03-25] MEDS: ACETAMINOPHEN 325 MG TABLET 650 MG PO ×2 (06:24→20:31)
[2024-03-25 07:45] LABS: Glucose Point of Care 108 mg/dl (65-105)
[2024-03-25] MEDS: ENOXAPARIN 40 MG/0.4 ML SYRINGE SUB-Q (07:50)
[2024-03-25] MEDS: levETIRAcetam 1000MG/NACL100ML 1,000 MG/100 ML BAG 400 MG IVPB ×2 (07:50→20:27)
[2024-03-25] MEDS: SERTRALINE HCL 50 MG TABLET 200 MG PO (10:46)
[2024-03-25] MEDS: METOPROLOL TARTRATE 50 MG TAB PO (10:46)
[2024-03-25] MEDS: GABAPENTIN 100 MG CAPSULE PO ×2 (10:47→16:01)
[2024-03-25] MEDS: ASPIRIN 81 MG ENTERIC TABLET PO (10:47)
[2024-03-25] MEDS: PANTOPRAZOLE 40 MG TABLET PO (10:47)
[2024-03-25] MEDS: SENNOSIDES 8.6 MG TABLET PO (10:47)
--- NOTE | 2024-03-25 12:14 | WPDNEUROLOGY ---
Neurology EEG Report General Information Date of Study: 03/25/24 TEST electroencephalogram DIAGNOSIS altered mental status and unresponsive episode CONDITION OF RECORDING bedside recording EEG NUMBER [id number] CLINICAL HISTORY history of unresponsive episode EEG DESCRIPTION the background activity consists of predominantly theta activity at 6-7 hertz with an amplitude of 15-30 microvolts. Anteriorly low amplitude mixed frequency activity was seen. There is no significant anteroposterior gradient. Intermittently some superimposed delta activity were seen. Patient was drowsy during which further attenuation of background activity was seen. Hyperventilation or photic stimulation were not performed. IMPRESSION This is an abnormal EEG due to presence of mild diffuse background slowing suggestive of generalized encephalopathy. However no focal or paroxysmal epileptiform abnormalities were seen.
--- NOTE | 2024-03-25 12:32 | WPDNEURCNPN ---
Assessment and Plan Assessment and plan (1) Altered mental status: Code(s): R41.82 - Altered mental status, unspecified Status: Acute Assessment and Plan: patient may have metabolic encephalopathy with underlying dementia of Alzheimer's type. It may be difficult to draw any definitive conclusion about underlying degenerative dementia patient is single evaluation and hence this should be followed up. MRI of the brain and CT angiogram head and neck were performed did not show any significant additional new findings. Chronic ischemic changes was noted in the white matter an MRI of the brain which is not unexpected given her age and state of life. (2) Seizure disorder: Code(s): G40.909 - Epilepsy, unspecified, not intractable, without status epilepticus Status: Acute (3) Bimalleolar fracture of right ankle: Qualifiers: Encounter type: initial encounter Fracture type: closed Qualified Code(s): S82.841A - Displaced bimalleolar fracture of right lower leg, initial encounter for closed fracture Code(s): S82.841A - Displaced bimalleolar fracture of right lower leg, initial encounter for closed fracture Status: Acute (4) Accidental fall from wheelchair: Qualifiers: Encounter type: initial encounter Qualified Code(s): W05.0XXA - Fall from non-moving wheelchair, initial encounter Code(s): W05.0XXA - Fall from non-moving wheelchair, initial encounter Status: Acute Plan Clinical follow-up is recommended. I have discussed with the hospitalist Dr. Guzman and suggested to increase the dose of Keppra to 1000 mg twice a day. She does not appear to be any weakness in the right side of the body which I suspect may have been postictal weakness if noted on the previous he neurologic evaluation by Dr. Bean. I have also suggest check her B12 folic acid level and a methylmalonic acid level and I shall be g Consult date: 03/25/24 HPI: Marissa Sue is a 84 year old female with history of recent right ankle fracture under care of orthopedic surgeon has had episodes of changes in mental status. There is also history of seizure disorder and she has been anticonvulsants. History of left above-knee amputation and respiratory failure. On previous hospitalizations she was found to have right upper limb weakness the patient denies any symptoms in this limb at this time. She has had a CT angiogram of the head and neck and also an MRI of the brain which did not show any significant additional or new findings. She has had these studies recent in the past also. The patient herself denies any symptoms. She does appear to slightly drowsy but otherwise fairly cooperative. She appears come. Review of Systems Review of Systems: Patient denies any headache or any weakness in her upper limbs or right lower limb. 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 History of partial hysterectomy History of spinal surgery Family History Family History Father Stomach cancer Social History Social History Social History: Healthcare power of trade mark attorney: Juan Sue, son. Code status: Do not resuscitate. Smoking status: Never smoker Second hand tobacco smoke exposure: Yes (Both parents smoked.) Alcohol intake: never Substance use: never Substance use type: does not
[2024-03-25 13:11] LABS: Cholesterol 124 mg/dL (0-200); HDL Direct 26 mg/dL; Triglycerides 165 mg/dL (<150)
[2024-03-25 13:21] LABS: LDL Cholesterol Direct 57 mg/dL
[2024-03-25 13:53] LABS: Vitamin D 25 Hydroxy 37.9 ng/mL
--- NOTE | 2024-03-25 14:21 | PM.IMPN ---
Progress Note: A&P Assessment and Plan (1) Altered mental status: Qualifiers: Altered mental status type: unspecified Qualified Code(s): R41.82 - Altered mental status, unspecified Code(s): R41.82 - Altered mental status, unspecified Status: Acute Assessment and Plan: Pt had episode of unresponsiveness 03/24/2024 MRI brain with no acute abnormality but moderate presumed chronic microvascular ischemic change and mild to moderate generalized atrophy. CTA head and neck with possible focal low to moderate grade stenosis of the proximal right posterior cerebral artery no other significant findings. Neurology consulted History of seizures EEG abnormal due to presence of mild diffuse background slowing suggestive of generalized encephalopathy. No focal or paroxysmal epileptiform abnormalities seen. Keppra dose has been increased to 1000 mg twice daily (2) Acute hypoxic respiratory failure: Code(s): J96.01 - Acute respiratory failure with hypoxia Status: Acute Assessment and Plan: Patient presents for complaints of ankle fracture after a fall and found to have hypoxia. ABG was normal on 3L. Continue O2 at this time. Apnea link 03/23/2024 with possible sleep apnea. Follow-up as an outpatient basis CT chest abdomen pelvis with contrast on 03/22/2024 with probable minimal ground-glass opacity and interstitial thickening upper lobe suggestive of mild pulmonary edema or bronchiolitis. Minimal bibasilar atelectatic change. Stable prominent right paratracheal lymph nodes. (3) Bimalleolar fracture of right ankle: Qualifiers: Encounter type: initial encounter Fracture type: closed Qualified Code(s): S82.841A - Displaced bimalleolar fracture of right lower leg, initial encounter for closed fracture Code(s): S82.841A - Displaced bimalleolar fracture of right lower leg, initial encounter for closed fracture Status: Acute Assessment and Plan: [facility] in a right ankle fracture. ankle in cast Continue to monitor PT/OT ordered (4) Accidental fall from wheelchair: Qualifiers: Encounter type: initial encounter Qualified Code(s): W05.0XXA - Fall from non-moving wheelchair, initial encounter Code(s): W05.0XXA - Fall from non-moving wheelchair, initial encounter Status: Acute Assessment and Plan: CT brain and cervical spine CT showing no acute process. CTA chest, abd and pelvis also showing no acute process. Follow (5) Seizure disorder: Code(s): G40.909 - Epilepsy, unspecified, not intractable, without status epilepticus Status: Acute Assessment and Plan: Patient with known seizure disorder. Keppra resume Suggested dose increased to 1000 mg b.i.d. (6) Hypertension: Code(s): I10 - Essential (primary) hypertension Status: Acute Assessment and Plan: BP elevated on admission felt related to pain. BP well controlled now. Resume home medications as tolerated. (7) Hypokalemia: Code(s): E87.6 - Hypokalemia Status: Acute Assessment and Plan: Replace and monitor (8) UTI (urinary tract infection): Qualifiers: Hematuria presence: without hematuria Urinary tract infection type: acute cystitis Qualified Code(s): N30.00 - Acute cystitis without hematuria Code(s): N39.0 - Urinary tract infection, site not specified Status: Acute Assessment and Plan: UA is consistent with UTI. UCx collected. Rocephin started. continue iv rocephin Urine culture grew Providencia stuartii. Continue Rocephin until 03/27/2024 Plan Disposition: Patient from [facility] DVT prophylaxis Subjective Date/time seen: 03/25/24 14:21 Interval history: No overnight events. Patient more awake and alert today. Discussed with the nursing staff. Current EEG this
[2024-03-25] MEDS: LORATADINE 10 MG TABLET PO (20:31)
[2024-03-25] MEDS: ATORVASTATIN 20 MG TABLET PO (20:31)
[2024-03-26] VITALS (17 sets, daily range): BP systolic 135–158; BP diastolic 59–72; PULSE 68–85; RESP 13–18; TEMP 36.4–37.2; O2SAT 90–99
[2024-03-26 06:23] LABS: Basophils Percent Auto 0.4 % (0.2-1.2); Eosinophils Absolute Auto 0.1 K/mm3 (0-0.3); Eosinophils Percent Auto 2.3 % (0-4.4); Hematocrit 30.2 % (37.0-47.0); Hemoglobin 9.4 g/dL (12.0-15.0); Immature Granulocyte Absolute 0.01 K/mm3 (0.00-0.031); Immature Granulocyte Percent A 0.2 % (0-0.5); Lymphocytes Absolute Auto 1.51 K/mm3 (0.9-3.2); Lymphocytes Percent Auto 31.1 % (18.3-44.2); Mean Corpuscular HGB Conc 31.1 g/dl (32-36); Mean Corpuscular Hemoglobin 29.1 pg (26-34); Mean Corpuscular Volume 93.5 fl (80-100); Monocytes Absolute Auto 0.5 K/mm3 (0.1-0.6); Monocytes Percent Auto 9.5 % (2.6-8.5); Neutrophils Absolute Auto 2.7 K/mm3 (1.3-6.7); Neutrophils Percent Auto 56.5 % (45.5-73.1); Platelet Count Result 175 k/mm3 (150-375); Red Blood Count 3.23 M/mm3 (4.2-5.4); Red Cell Distribution Width 18.3 % (11.5-14.5); White Blood Count 4.9 K/mm3 (4.5-10.0)
[2024-03-26 06:32] LABS: Alanine Aminotransferase 12 U/L (6-35); Albumin Level 3.4 g/dL (3.5-5.1); Alkaline Phosphatase 60 U/L (38-126); Anion Gap 8 mmol/L (4-12); Aspartate Amino Transferase 28 U/L (14-36); Bilirubin,Total 0.7 mg/dL (0.2-1.3); Blood Urea Nitrogen 12 mg/dL (7-17); Calcium 8.5 mg/dL (8.4-10.2); Carbon Dioxide 28 mmol/L (22-30); Chloride 98 mmol/L (98-107); Estimated CRCL calculation 85 ml/min; Estimated Glomerular Filt Rate > 60; Glucose 101 mg/dL (65-110); Magnesium 1.8 mg/dL (1.6-2.3); Potassium 3.5 mmol/L (3.4-5.0); Sodium 134 mmol/L (137-145)
--- NOTE | 2024-03-26 07:56 | PC.NURSE ---
On 03/26/24, the student, [Ludy Gonsales], provided care and completed [facility] documentation on this patient. I have reviewed the student's documentation and agree with the findings.
--- NOTE | 2024-03-26 07:57 | PC.NURSE ---
On 03/26/24, the student, [Anaid Ellison], provided care and completed [facility] documentation on this patient. I have reviewed the student's documentation and agree with the findings.
[2024-03-26] MEDS: SERTRALINE HCL 50 MG TABLET 200 MG PO (08:23)
[2024-03-26] MEDS: GABAPENTIN 100 MG CAPSULE PO ×2 (08:24→17:33)
[2024-03-26] MEDS: SENNOSIDES 8.6 MG TABLET PO (08:25)
[2024-03-26] MEDS: PANTOPRAZOLE 40 MG TABLET PO (08:25)
[2024-03-26] MEDS: ASPIRIN 81 MG ENTERIC TABLET PO (08:25)
[2024-03-26] MEDS: METOPROLOL TARTRATE 50 MG TAB PO (08:25)
[2024-03-26] MEDS: ENOXAPARIN 40 MG/0.4 ML SYRINGE SUB-Q (08:26)
[2024-03-26] MEDS: levETIRAcetam 1000MG/NACL100ML 1,000 MG/100 ML BAG 600 MG IVPB (10:26)
--- NOTE | 2024-03-26 11:21 | PM.IMPN ---
Progress Note: A&P Assessment and Plan (1) Altered mental status: Qualifiers: Altered mental status type: unspecified Qualified Code(s): R41.82 - Altered mental status, unspecified Code(s): R41.82 - Altered mental status, unspecified Status: Acute Assessment and Plan: Pt had episode of unresponsiveness 03/24/2024 MRI brain with no acute abnormality but moderate presumed chronic microvascular ischemic change and mild to moderate generalized atrophy. CTA head and neck with possible focal low to moderate grade stenosis of the proximal right posterior cerebral artery no other significant findings. Neurology consulted History of seizures EEG abnormal due to presence of mild diffuse background slowing suggestive of generalized encephalopathy. No focal or paroxysmal epileptiform abnormalities seen. Keppra dose has been increased to 1000 mg twice daily (2) Acute hypoxic respiratory failure: Code(s): J96.01 - Acute respiratory failure with hypoxia Status: Acute Assessment and Plan: Patient presents for complaints of ankle fracture after a fall and found to have hypoxia. ABG was normal on 3L. Continue O2 at this time. Apnea link 03/23/2024 with possible sleep apnea. Follow-up as an outpatient basis CT chest abdomen pelvis with contrast on 03/22/2024 with probable minimal ground-glass opacity and interstitial thickening upper lobe suggestive of mild pulmonary edema or bronchiolitis. Minimal bibasilar atelectatic change. Stable prominent right paratracheal lymph nodes. (3) Bimalleolar fracture of right ankle: Qualifiers: Encounter type: initial encounter Fracture type: closed Qualified Code(s): S82.841A - Displaced bimalleolar fracture of right lower leg, initial encounter for closed fracture Code(s): S82.841A - Displaced bimalleolar fracture of right lower leg, initial encounter for closed fracture Status: Acute Assessment and Plan: Patient presents after sustaining a fall from her wheelchair at the custodial resulting in a right ankle fracture. ankle in cast Continue to monitor PT/OT ordered (4) Accidental fall from wheelchair: Qualifiers: Encounter type: initial encounter Qualified Code(s): W05.0XXA - Fall from non-moving wheelchair, initial encounter Code(s): W05.0XXA - Fall from non-moving wheelchair, initial encounter Status: Acute Assessment and Plan: CT brain and cervical spine CT showing no acute process. CTA chest, abd and pelvis also showing no acute process. Follow (5) Seizure disorder: Code(s): G40.909 - Epilepsy, unspecified, not intractable, without status epilepticus Status: Acute Assessment and Plan: Patient with known seizure disorder. Keppra resume Increased to 1000 mg b.i.d. (6) Hypertension: Code(s): I10 - Essential (primary) hypertension Status: Acute Assessment and Plan: BP elevated on admission felt related to pain. BP well controlled now. Resume home medications as tolerated. (7) Hypokalemia: Code(s): E87.6 - Hypokalemia Status: Acute Assessment and Plan: Replace and monitor (8) UTI (urinary tract infection): Qualifiers: Hematuria presence: without hematuria Urinary tract infection type: acute cystitis Qualified Code(s): N30.00 - Acute cystitis without hematuria Code(s): N39.0 - Urinary tract infection, site not specified Status: Acute Assessment and Plan: UA is consistent with UTI. UCx collected. Rocephin started. continue iv rocephin Urine culture grew Providencia stuartii. Continue Rocephin until 03/27/2024 Plan Disposition: Patient from [facility] DVT prophylaxis Subjective Date/time seen: 03/26/24 11:21 Interval history: No overnight events reported patient slow to respond and talk denies any new complaints s denies shortness of breath or chest
--- NOTE | 2024-03-26 11:58 | PC.NURSE ---
On 03/26/24, the student, [Ludy Gonsales], provided care and completed [facility] documentation on this patient. I have reviewed the student's documentation and agree with the findings.
[2024-03-26] MEDS: ACETAMINOPHEN 325 MG TABLET 650 MG PO ×2 (13:49→21:15)
[2024-03-26] MEDS: levETIRAcetam 1000MG/NACL100ML 1,000 MG/100 ML BAG 400 MG IVPB (21:09)
[2024-03-26] MEDS: LORATADINE 10 MG TABLET PO (21:14)
[2024-03-26] MEDS: ATORVASTATIN 20 MG TABLET PO (21:14)
[2024-03-27] VITALS: PULSE 80
[2024-03-27] MEDS: ACETAMINOPHEN 325 MG TABLET 650 MG PO (01:24)
[2024-03-27 04:00] VITALS: PULSE 80
[2024-03-27 05:37] VITALS: BP 146/75; PULSE 80; RESP 13; TEMP 37.1; O2SAT 95
[2024-03-27 05:43] LABS: Basophils Percent Auto 0.4 % (0.2-1.2); Eosinophils Absolute Auto 0.2 K/mm3 (0-0.3); Eosinophils Percent Auto 3.3 % (0-4.4); Hematocrit 30.5 % (37.0-47.0); Hemoglobin 9.7 g/dL (12.0-15.0); Immature Granulocyte Absolute 0.01 K/mm3 (0.00-0.031); Immature Granulocyte Percent A 0.2 % (0-0.5); Lymphocytes Absolute Auto 1.77 K/mm3 (0.9-3.2); Lymphocytes Percent Auto 39.2 % (18.3-44.2); Mean Corpuscular HGB Conc 31.8 g/dl (32-36); Mean Corpuscular Hemoglobin 29.5 pg (26-34); Mean Corpuscular Volume 92.7 fl (80-100); Mean Platelet Volume 9.7 fl (7.4-10.4); Monocytes Absolute Auto 0.5 K/mm3 (0.1-0.6); Neutrophils Absolute Auto 2.1 K/mm3 (1.3-6.7); Neutrophils Percent Auto 46.9 % (45.5-73.1); Platelet Count Result 178 k/mm3 (150-375); Red Blood Count 3.29 M/mm3 (4.2-5.4); Red Cell Distribution Width 17.9 % (11.5-14.5); White Blood Count 4.5 K/mm3 (4.5-10.0)
[2024-03-27 05:53] LABS: Alanine Aminotransferase 13 U/L (6-35); Albumin Level 3.4 g/dL (3.5-5.1); Alkaline Phosphatase 70 U/L (38-126); Anion Gap 6 mmol/L (4-12); Aspartate Amino Transferase 28 U/L (14-36); Bilirubin,Total 0.6 mg/dL (0.2-1.3); Blood Urea Nitrogen 11 mg/dL (7-17); Carbon Dioxide 31 mmol/L (22-30); Chloride 99 mmol/L (98-107); Estimated CRCL calculation 59 ml/min; Estimated Glomerular Filt Rate > 60; Glucose 109 mg/dL (65-110); Magnesium 1.7 mg/dL (1.6-2.3); Potassium 3.3 mmol/L (3.4-5.0); Sodium 136 mmol/L (137-145)
[2024-03-27 08:00] VITALS: O2SAT 91; O2SAT 95
[2024-03-27] MEDS: SERTRALINE HCL 50 MG TABLET 200 MG PO (09:18)
[2024-03-27] MEDS: ENOXAPARIN 40 MG/0.4 ML SYRINGE SUB-Q (09:19)
[2024-03-27] MEDS: levETIRAcetam 1000MG/NACL100ML 1,000 MG/100 ML BAG 100 MG IVPB (09:19)
[2024-03-27] MEDS: METOPROLOL TARTRATE 50 MG TAB PO (09:19)
[2024-03-27] MEDS: ASPIRIN 81 MG ENTERIC TABLET PO (09:19)
[2024-03-27] MEDS: GABAPENTIN 100 MG CAPSULE PO (09:19)
[2024-03-27] MEDS: PANTOPRAZOLE 40 MG TABLET PO (09:19)
[2024-03-27] MEDS: POTASSIUM CHLORIDE 20 MEQ ER TABLET 40 MEQ PO (09:21)
--- NOTE | 2024-03-27 10:50 | PM.DS ---
DS: Admitting Diagnosis Discharge Date 03/27/2024 Admitting Diagnosis Fall DS: Discharge Diagnosis Discharge Diagnosis (1) Altered mental status: Qualifiers: Altered mental status type: unspecified Qualified Code(s): R41.82 - Altered mental status, unspecified Code(s): R41.82 - Altered mental status, unspecified Status: Acute (2) Acute hypoxic respiratory failure: Code(s): J96.01 - Acute respiratory failure with hypoxia Status: Acute (3) Bimalleolar fracture of right ankle: Qualifiers: Encounter type: initial encounter Fracture type: closed Qualified Code(s): S82.841A - Displaced bimalleolar fracture of right lower leg, initial encounter for closed fracture Code(s): S82.841A - Displaced bimalleolar fracture of right lower leg, initial encounter for closed fracture Status: Acute (4) Accidental fall from wheelchair: Qualifiers: Encounter type: initial encounter Qualified Code(s): W05.0XXA - Fall from non-moving wheelchair, initial encounter Code(s): W05.0XXA - Fall from non-moving wheelchair, initial encounter Status: Acute (5) Seizure disorder: Code(s): G40.909 - Epilepsy, unspecified, not intractable, without status epilepticus Status: Acute (6) Hypertension: Code(s): I10 - Essential (primary) hypertension Status: Acute (7) Hypokalemia: Code(s): E87.6 - Hypokalemia Status: Acute (8) UTI (urinary tract infection): Qualifiers: Hematuria presence: without hematuria Urinary tract infection type: acute cystitis Qualified Code(s): N30.00 - Acute cystitis without hematuria Code(s): N39.0 - Urinary tract infection, site not specified Status: Acute DS: Summary Hospital Course Hospital Course: # Altered mental status: Pt had episode of unresponsiveness 03/24/2024 MRI brain with no acute abnormality but moderate presumed chronic microvascular ischemic change and mild to moderate generalized atrophy. CTA head and neck with possible focal low to moderate grade stenosis of the proximal right posterior cerebral artery no other significant findings. Neurology consulted History of seizures EEG abnormal due to presence of mild diffuse background slowing suggestive of generalized encephalopathy. No focal or paroxysmal epileptiform abnormalities seen. Keppra dose has been increased to 1000 mg twice daily Patient slowly improved back to her baseline # Acute hypoxic respiratory failure: Patient presents for complaints of ankle fracture after a fall and found to have hypoxia. ABG was normal on 3L. Continue O2 at this time. Apnea link 03/23/2024 with possible sleep apnea. Follow-up as an outpatient basis CT chest abdomen pelvis with contrast on 03/22/2024 with probable minimal ground-glass opacity and interstitial thickening upper lobe suggestive of mild pulmonary edema or bronchiolitis. Minimal bibasilar atelectatic change. Stable prominent right paratracheal lymph nodes. Continue oxygen supplementation to keep SpO2 more than 90% # Bimalleolar fracture of right ankle: Madelyn Patient presents after sustaining a fall from her wheelchair at the senior living resulting in a right ankle fracture. ankle in cast Continue to monitor PT/OT ordered Follow-up with orthopedics as an outpatient basis # Accidental fall from wheelchair: CT brain and cervical spine CT showing no acute process. CTA chest, abd and pelvis also showing no acute process. Follow # Seizure disorder: Patient with known seizure disorder. Keppra resume Increased to 1000 mg b.i.d. Stop bupropion # Hypertension: BP elevated on admission felt related to pain. BP well controlled now. Resume home medications as tolerated. # Hypokalemia: Replace and monitor # UTI (urinary tract infection): UA is consistent with UTI. UCx collected. Rocephin started and completed 7 days course while hospitalization Urine cul
[2024-03-27 12:00] VITALS: PULSE 81
[2024-03-28 02:39] LABS: Methylmalonic Acid 180 nmol/L (85-423)
== END 2024-03-27 15:40 | DRG 562 ==
LOC: ANHED 03-22 03:37 → ANH3MEDSUR 03-22 04:05
PROVIDERS: Family Medicine; Hospitalist; Internal Medicine; Psychiatry & Neurology Neurology; Admitting Provider Internal Medicine; Emergency Provider Physician Assistant; PCP Family Medicine; Visit Provider Internal Medicine
DX: S82.841A Displaced bimalleolar fracture of right lower leg, initial encounter for closed fracture (principal); J96.01 Acute respiratory failure with hypoxia; N39.0 Urinary tract infection, site not specified; G93.49 Other encephalopathy; B96.89 Other specified bacterial agents as the cause of diseases classified elsewhere; W05.0XXA Fall from non-moving wheelchair, initial encounter; G40.909 Epilepsy, unspecified, not intractable, without status epilepticus; I10 Essential (primary) hypertension; E87.6 Hypokalemia; M19.90 Unspecified osteoarthritis, unspecified site; K21.9 Gastro-esophageal reflux disease without esophagitis; E78.5 Hyperlipidemia, unspecified; N32.81 Overactive bladder; G30.9 Alzheimer's disease, unspecified; F02.80 Dementia in other diseases classified elsewhere, unspecified severity, without behavioral disturbance, psychotic disturbance, mood disturbance, and anxiety; G25.81 Restless legs syndrome; R40.4 Transient alteration of awareness; Z20.822 Contact with and (suspected) exposure to COVID-19; Z66 Do not resuscitate; Z90.49 Acquired absence of other specified parts of digestive tract; Z89.612 Acquired absence of left leg above knee; Z90.711 Acquired absence of uterus with remaining cervical stump
CPT/HCPCS: 29515; 36415; 36600; 70450; 70496; 70498; 70551; 71260; 72125; 73590; 73610; 74177; 80048; 80053; 80061; 80069; 81001; 82140; 82306; 82375; 82607; 82746; 82805; 82810; 82948; 83050; 83735; 83921; 84146; 84443; 85018; 85025; 85027; 85610; 85730; 87077; 87086; 87088; 87186; 87637; 93005; 94762; 95816; 96361; 96365; 96366; 96367; 96375; 96376; 99285; A9270; G0378; J0696; J1650; J1953; J2060; J2270; J2405; J3475; J3480; J7030; J7040; Q9967

== ENCOUNTER 2024-05-27 19:20 | Inpatient (IN) | payer MEDICARE, BC, SELFPAY ==
--- NOTE | ~2024-05-27 | CT_ITS ---
CT brain wo con Ordering provider: Tulio Mclain MD History: 84 years Female with . Altered mental status . Comparison: March 24, 2024 Technique: CT of the head without contrast. Radiation reduction technique utilized. The dose-length p roduct was 681 mGy-cm. FINDINGS: BRAIN PARENCHYMA AND CSF SPACES: Mild leukoaraiosis and diffuse cortical atrophy. Mild atheromatous d isease. No midline shift, mass effect or hemorrhage. The brain parenchyma and CSF spaces are otherwi se normal. VISUALIZED PARANASAL SINUSES: Well aerated. MASTOIDS: Well aerated. BONES: The bones appear intact. SOFT TISSUES: Visualized nasopharynx is normal. Superficial soft tissues are normal. IMPRESSION: No acute intracranial findings. Reviewed, dictated and finalized at location A. TE MEDICAL CODER
--- NOTE | ~2024-05-27 | XR_ITS ---
XR chest 1V portable Ordering provider: Tulio Mclain MD History: 84 years Female with . Weakness. AMS . Comparison: February 22, 2024 FINDINGS: MEDIASTINUM: The cardiac silhouette is not enlarged. Congestive [place]. LUNGS: No effusions or pneumothorax. Prominent interstitial changes bilaterally which may indicate pn eum[place] versus edema. Atypical viral infection should be considered. OTHER: No free air under the diaphragm. Degenerative changes of the spine. Left shoulder severe osteo arthritic changes. IMPRESSION: Highly suggestive bilateral pneumonitis. Atypical viral infection should be considered. Pulmonary rusty ma is possible. Clinical correlation advised. Reviewed, dictated and finalized at location A. R SALES MANAGER IMPRESSION: Highly suggestive bilateral pneumonitis. Atypical viral infection should be con sidered. Pulmonary edema is possible. Clinical correlation advised.
[2024-05-27 19:21] VITALS: BP 140/72; PULSE 107; RESP 22; TEMP 36.3; O2SAT 94
--- NOTE | 2024-05-27 19:47 | PC.NURSE ---
Labs drawn and sent to lab
[2024-05-27 19:48] VITALS: O2SAT 92
[2024-05-27 20:00] VITALS: BP 138/89; PULSE 106; PULSE 107; RESP 20; O2SAT 95
[2024-05-27 20:05] LABS: Basophils Percent Auto 0.3 % (0.2-1.2); Eosinophils Percent Auto 0.3 % (0-4.4); Hematocrit 33.5 % (37.0-47.0); Hemoglobin 10.8 g/dL (12.0-15.0); Immature Granulocyte Absolute 0.03 K/mm3 (0.00-0.031); Immature Granulocyte Percent A 0.5 % (0-0.5); Lymphocytes Absolute Auto 1.19 K/mm3 (0.9-3.2); Lymphocytes Percent Auto 20.4 % (18.3-44.2); Mean Corpuscular HGB Conc 32.2 g/dl (32-36); Mean Corpuscular Volume 90.1 fl (80-100); Mean Platelet Volume 9.6 fl (7.4-10.4); Monocytes Absolute Auto 0.4 K/mm3 (0.1-0.6); Monocytes Percent Auto 6.5 % (2.6-8.5); Neutrophils Absolute Auto 4.2 K/mm3 (1.3-6.7); Platelet Count Result 209 k/mm3 (150-375); Red Blood Count 3.72 M/mm3 (4.2-5.4); Red Cell Distribution Width 18.9 % (11.5-14.5); White Blood Count 5.8 K/mm3 (4.5-10.0)
[2024-05-27 20:12] LABS: Alanine Aminotransferase 13 U/L (6-35); Albumin Level 3.5 g/dL (3.5-5.1); Alkaline Phosphatase 85 U/L (38-126); Anion Gap 4 mmol/L (4-12); Aspartate Amino Transferase 46 U/L (14-36); Bilirubin,Total 0.7 mg/dL (0.2-1.3); Blood Urea Nitrogen 19 mg/dL (7-17); Calcium 8.6 mg/dL (8.4-10.2); Carbon Dioxide 29 mmol/L (22-30); Chloride 103 mmol/L (98-107); Estimated Glomerular Filt Rate > 60; Glucose 123 mg/dL (65-110); Lipase 15 U/L (23-300); Magnesium 1.6 mg/dL (1.6-2.3); Potassium 3.3 mmol/L (3.4-5.0); Sodium 136 mmol/L (137-145)
[2024-05-27 20:13] LABS: Lactic Acid Reflex 0.8 mmol/L (0.7-2.0)
[2024-05-27 20:22] LABS: INR 1.2; Prothrombin Time 15.4 Seconds (11.1-14.7)
[2024-05-27 20:23] LABS: NT Pro B Type Natriuretic Pept 1120 pg/mL (19.9-100); Partial Thromboplastin Time 30.1 Seconds (22.3-36.8); Troponin I 0.034 ng/mL (0.000-0.034)
[2024-05-27] MEDS: SODIUM CHLORIDE 0.9% IV 1,000 ML 999 ML IV CONT (20:33)
--- NOTE | 2024-05-27 20:57 | PC.NURSE ---
this RN was doing greg-care on pt and noted that patient has stage 1 blanchable pressure sores. One wound on coccyx and the second one on inner right upper buttocks. cleaned and dried area and notified provider of finding.
[2024-05-27 21:20] VITALS: BP 149/97; PULSE 99; RESP 26; O2SAT 94
[2024-05-27 21:20] LABS: Procalcitonin 0.1 ng/mL
[2024-05-27 21:22] LABS: Add Urine Microscopic? YES; Appearance Urine Cloudy (Clear); Bacteria Urine 4+ /hpf; Bilirubin Urine 1+ (Negative); Blood Urine Non-Hemolyzed Trace (Negative); Color Urine Dark Yellow (Yellow); Glucose Urine UA Negative (Negative); Ketones Urine Trace mg/dL (Negative); Leukocyte Esterase Ur 3+ LEU/UL (Negative); Need Manual Microscopic Reviewed; Nitrate Urine Positive (Negative); Protein Urine 2+ mg/dL (Negative); Specific Grav Ur 1.036 (1.001-1.035); Squamous Epithelial Cell Urine Occasional /hpf (Few); pH Urine 6.5 (5.0-9.0)
[2024-05-27 21:23] LABS: WBC Urine 21-50 /hpf (0-3)
[2024-05-27 21:24] LABS: RBC Urine 51-75 /hpf (0-2)
[2024-05-27 21:25] LABS: Influenza A QL RT-PCR Negative (Negative); Influenza B QL RT-PCR Negative (Negative); RSV RNA, RT-PCR Negative (Negative); SARS-CoV-2 RNA PCR Negative (Negative)
[2024-05-27 22:26] VITALS: BP 155/93; PULSE 99; RESP 24; O2SAT 92
[2024-05-27 22:45] VITALS: BP 141/101; PULSE 103; RESP 27
--- NOTE | 2024-05-27 22:53 | PC.NURSE ---
Pt yelling help repeatedly, when asked if she is in pain or needs anything pt says she is fine
[2024-05-27 23:53] LABS: Troponin I 0.035 ng/mL (0.000-0.034)
[2024-05-28] VITALS (9 sets, daily range): BP systolic 149–166; BP diastolic 78–140; PULSE 88–101; RESP 16–33; TEMP 36.1–36.6; O2SAT 91–97; BMI 26.5
--- NOTE | 2024-05-28 00:23 | ED_ITS ---
HPI - General Adult General Chief complaint: Altered Mental Status Stated complaint: warn to touch, strong urine odor Time Seen by Provider: 05/27/24 19:25 History of Present Illness HPI narrative: Patient is a 84-year-old female who presents emergency department with chief complaint of altered mental status and UTI. The patient is normally a and O x4 but has been less active than normal and is currently alert oriented x2 patient has prior history of episodes similar to this when she has had urinary tract infections Related Data Home Medications Medication Instructions Recorded Confirmed cetirizine 10 mg tablet 10 mg PO HS 02/22/24 05/25/24 ergocalciferol (vitamin D2) 1,250 1,250 mcg PO WEEKLY 02/22/24 05/25/24 mcg (50,000 unit) capsule iron,carbonyl 30 mg-vitamin C 10 1 tablet PO BID 02/22/24 05/25/24 mg-FOS 25 mg chewable tablet (Chewable Iron) lidocaine 4 % topical patch 1 patch topical DAILY PRN Pain 02/22/24 05/25/24 nystatin 100,000 unit/gram topical 1 applic topical DAILY 02/22/24 05/25/24 cream sennosides 8.6 mg tablet (Senna 8.6 mg PO DAILY 02/22/24 05/25/24 Lax) triamcinolone acetonide 0.1 % 1 applic topical DAILY 02/22/24 05/25/24 topical cream cyclobenzaprine 5 mg tablet 5 mg PO HS PRN Muscle Spasm 03/22/24 05/25/24 gabapentin 100 mg capsule 100 mg PO BID@0900,1700 03/22/24 05/25/24 Allergies Allergy/AdvReac Type Severity Reaction Status Date / Time ceftaroline fosamil Allergy Intermediate Rash Verified 05/02/24 14:55 Penicillins Allergy Intermediate Rash Verified 05/02/24 14:55 Sulfa (Sulfonamide Allergy Intermediate Rash Verified 05/02/24 14:55 Antibiotics) Review of Systems Review of Systems: A 10 system review of systems was completed on the patient and is negative except for what is stated in the HPI. Nursing and ancillary documentation was reviewed. 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 History of partial hysterectomy History of spinal surgery Family History Family History Father Stomach cancer Social History Social History Social History: Healthcare power of assistant district attorney: Juan Sue, son. Code status: Do not resuscitate. Smoking status: Never smoker Second hand tobacco smoke exposure: Yes (Both parents smoked.) Alcohol intake: never Substance use: never Substance use type: does not use Do You Feel Safe in your Home?: Yes Lack of Transportation: No Lack of Food: Never True Current Housing: I Have Housing Concerned About Future Housing: No Difficulty Paying Gas/Electric Bills: No Difficulty Paying for Meds: No Currently Unemployed: No Education: Grade School Difficulty w/ Childcare or Family Care: No Living arrangements: with family Spiritual care concerns: No Exam Narrative: GENERAL: Ill-appearing, well-nourished, and in no acute distress. HEAD: Normocephalic, atraumatic. EYES: PERRLA and EOMI. ENT: Nares clear, no rhinorrhea or epistaxis. Mucous membranes moist. NECK: Supple. CHEST: Clear to auscultation. No respiratory distress. HEART: Regular rate and rhythm. No murmur heard. Normal peripheral pulses. ABDOMEN: Soft, nontender, nondistended, normal active bowel sounds. EXTREMITIES: Normal range of motion. No edema. SKIN: Warm, dry, no rash. NEURO: No focal deficits. Alert and oriented x2. PSYCH: Normal mood and affect. Course Vital Signs Vital signs: Vital Signs Temperature 36.3 C L 05/27/24 19:21 Pulse Rate 107 H 05/27/24 19:21 Respiratory Rate 22 H 05/27/24 19:21 Blood Pressure 140/72 05/27/24 19:21 Pulse Oximetry 94 05/27/24 19:21 Oxygen Delivery Nasal Cannula 05/27/24 19:21 Oxygen Flow Rate 2 05/27/24 19:21 Temperature 36.3 C L 05/27/24 19:21 Pulse Rate 99 05/27/24 22:26 Respiratory Rate 24 H 05/27/24 22:26 Blood Pressure 155/93 H 05/27/24 22:26 Pulse Oximetry 92 05/27/24 22:26 Oxygen Delivery Nasal Cannula 05/27/24 19:48 Oxygen Flow Rate 2 05/27/24 19:48 Medical Decision Making Vital Signs Vital Signs: Vital Signs Temperature 36.3 C L 05/27/24 19:21 Pulse Rate 107 H 05/27/24 19:21 Respiratory Rate 22 H 05/27/24 19:21 Blood Pressure 140/72 05/27/24 19:21 Pulse Oximetry 94 05/27/24 19:21 Oxygen Delivery Nasal Cannula 05/27/24 19:21 Oxygen Flow Rate 2 05/27/24 19:21 Temperature 36.3 C L 05/27/24 19:21 Pulse Rate 99 05/27/24 22:26 Respiratory Rate 24 H 05/27/24 22:26 Blood Pressure 155/93 H 05/27/24 22:26 Pulse Oximetry 92 05/27/24 22:26 Oxygen Delivery Nasal Cannula 05/27/24 19:48 Oxygen Flow Rate 2 05/27/24 19:48 Lab Data 05/27/24 19:42 05/27/24 19:42 Labs: Lab Results 05/27/24 05/27/24 05/27/24 Range/Units 19:42 20:40 20:48 WBC 5.8 (4.5-10.0) K/mm3 RBC 3.72 L (4.2-5.4) M/mm3 Hgb 10.8 L (12.0-15.0) g/dL Hct 33.5 L (37.0-47.0) % MCV 90.1 (80-100) fl MCH 29.0 (26-34) pg MCHC 32.2 (32-36) g/dl RDW 18.9 H (11.5-14.5) % Plt Count 209 (150-375) k/mm3 MPV 9.6 (7.4-10.4) fl Immature Gran % (Auto) 0.5 (0-0.5) % Neut % (Auto) 72.0 (45.5-73.1) % Lymph % (Auto) 20.4 (18.3-44.2) % [place] % (Auto) 6.5 (2.6-8.5) % Eos % (Auto) 0.3 (0-4.4) % Baso % (Auto) 0.3 (0.2-1.2) % Lymph # (Auto) 1.19 (0.9-3.2) K/mm3 [place] # (Auto) 0.4 (0.1-0.6) K/mm3 Eos # (Auto) 0.0 (0-0.3) K/mm3 Baso # (Auto) 0.0 (0.0-0.1) K/mm3 Abs Immat Gran (auto) 0.03 (0.00-0.031) K/mm3 Absolute Neuts (auto) 4.2 (1.3-6.7) K/mm3 Absolute Nucleated RBC 0.000 (0.0-0.012) K/mm3 Nucleated RBC % 0.0 (0.0-0.2) % PT 15.4 H (11.1-14.7) Seconds INR 1.2 APTT 30.1 (22.3-36.8) Seconds Sodium 136 L (137-145) mmol/L Potassium 3.3 L (3.4-5.0) mmol/L Chloride 103 (98-107) mmol/L Carbon Dioxide 29 (22-30) mmol/L Anion Gap 4 (4-12) mmol/L BUN 19 H (7-17) mg/dL Creatinine 0.40 L (0.7-1.0) mg/dL Estim Creat Clear Calc Not Reportable Estimated GFR > 60 (59 - ) Glucose 123 H (65-110) mg/dL Lactic Acid 0.8 (0.7-2.0) mmol/L Calcium 8.6 (8.4-10.2) mg/dL Magnesium 1.6 (1.6-2.3) mg/dL Total Bilirubin 0.7 (0.2-1.3) mg/dL AST 46 H (14-36) U/L ALT 13 (6-35) U/L Alkaline Phosphatase 85 (38-126) U/L Troponin I 0.034 (0.000-0.034) ng/mL NT-Pro-B Natriuret Pep 1120 H (19.9-100) pg/mL Total Protein 7.0 (6.3-8.2) g/dL Albumin 3.5 (3.5-5.1) g/dL Lipase 15 L (23-300) U/L Procalcitonin 0.1 ng/mL Urine Color Dark yellow (Yellow) Urine Appearance Cloudy H (Clear) Urine pH 6.5 (5.0-9.0) Ur Specific [place] 1.036 H (1.001-1.035) Urine Protein 2+ H (Negative) mg/dL Urine Glucose (UA) Negative (Negative) mg/dL Urine Ketones Trace H (Negative) mg/dL Ur Blood (Man) Non-hemolyzed trace H (Negative) Urine Nitrate Positive H (Negative) Urine Bilirubin 1+ H (Negative) Urine Urobilinogen 1.0 (<2.0) mg/dL Add Ur Microanalysis Reviewed Leukocyte Esterase Rfl 3+ H (Negative) ZURI/UL Urine RBC 51-75 H (0-2) /hpf Urine WBC 21-50 (0-3) /hpf Ur Squamous Epith Cells Occasional (Few) /hpf Urine Bacteria 4+ H /hpf Urine Casts 3-5 Influenza A (RT-PCR) Negative (Negative) Influenza B (RT-PCR) Negative (Negative) RSV (RT-PCR) Negative (Negative) SARS-CoV-2 RNA (RT-PCR) Negative (Negative) 05/27/24 Range/Units 23:14 WBC (4.5-10.0) K/mm3 RBC (4.2-5.4) M/mm3 Hgb (12.0-15.0) g/dL Hct (37.0-47.0) % MCV (80-100) fl MCH (26-34) pg MCHC (32-36) g/dl RDW (11.5-14.5) % Plt Count (150-375) k/mm3 MPV (7.4-10.4) fl Immature Gran % (Auto) (0-0.5) % Neut % (Auto) (45.5-73.1) % Lymph % (Auto) (18.3-44.2) % [place] % (Auto) (2.6-8.5) % Eos % (Auto) (0-4.4) % Baso % (Auto) (0.2-1.2) % Lymph # (Auto) (0.9-3.2) K/mm3 [place] # (Auto) (0.1-0.6) K/mm3 Eos # (Auto) (0-0.3) K/mm3 Baso # (Auto) (0.0-0.1) K/mm3 Abs Immat Gran (auto) (0.00-0.031) K/mm3 Absolute Neuts (auto) (1.3-6.7) K/mm3 Absolute Nucleated RBC (0.0-0.012) K/mm3 Nucleated RBC % (0.0-0.2) % PT (11.1-14.7) Seconds INR APTT (22.3-36.8) Seconds Sodium (137-145) mmol/L Potassium (3.4-5.0) mmol/L Chloride (98-107) mmol/L Carbon Dioxide (22-30) mmol/L Anion Gap (4-12) mmol/L BUN (7-17) mg/dL Creatinine (0.7-1.0) mg/dL Estim Creat Clear Calc Estimated GFR (59 - ) Glucose (65-110) mg/dL Lactic Acid (0.7-2.0) mmol/L Calcium (8.4-10.2) mg/dL Magnesium (1.6-2.3) mg/dL Total Bilirubin (0.2-1.3) mg/dL AST (14-36) U/L ALT (6-35) U/L Alkaline Phosphatase (38-126) U/L Troponin I 0.035 H* (0.000-0.034) ng/mL NT-Pro-B Natriuret Pep (19.9-100) pg/mL Total Protein (6.3-8.2) g/dL Albumin (3.5-5.1) g/dL Lipase (23-300) U/L Procalcitonin ng/mL Urine Color (Yellow) Urine Appearance (Clear) Urine pH (5.0-9.0) Ur Specific [place] (1.001-1.035) Urine Protein (Negative) mg/dL Urine Glucose (UA) (Negative) mg/dL Urine Ketones (Negative) mg/dL Ur Blood (Man) (Negative) Urine Nitrate (Negative) Urine Bilirubin (Negative) Urine Urobilinogen (<2.0) mg/dL Add Ur Microanalysis Leukocyte Esterase Rfl (Negative) ZURI/UL Urine RBC (0-2) /hpf Urine WBC (0-3) /hpf Ur Squamous Epith Cells (Few) /hpf Urine Bacteria /hpf Urine Casts Influenza A (RT-PCR) (Negative) Influenza B (RT-PCR) (Negative) RSV (RT-PCR) (Negative) SARS-CoV-2 RNA (RT-PCR) (Negative) Discharge Plan Discharge Clinical Impression: Altered mental status, UTI (urinary tract infection) Patient Disposition: Still a Patient Condition: Stable Prescriptions: No Action cyclobenzaprine 5 mg Tablet 5 mg PO HS PRN (Reason: Muscle Spasm) gabapentin 100 mg capsule 100 mg PO BID@0900,1700 levetiracetam [Keppra] 500 mg Tablet 1,000 mg PO Q12HR Qty: 120 0RF sennosides [Senna Lax] 8.6 mg Tablet 8.6 mg PO DAILY lidocaine 4 % Adhesive Patch,Medicated 1 patch TOPICAL DAILY PRN (Reason: Pain) Rx Instructions: apply to back of left stump cetirizine 10 mg Tablet 10 mg PO HS triamcinolone acetonide 0.1 % Cream 1 applic TOPICAL DAILY Rx Instructions: mix with equal parts of nystatin cream and zinc oxide nystatin 100,000 unit/gram Cream 1 applic TOPICAL DAILY Rx Instructions: mix with equal parts of triamcinolone and zinc oxide; apply to rash and other nonspecific skin eruption ergocalciferol (vitamin D2) 1,250 mcg (50,000 unit) Capsule 1,250 mcg PO WEEKLY Rx Instructions: takes on Chewable Iron 30-10-25 mg Tablet,Chewable 1 tablet PO BID aspirin 81 mg Tablet,Delayed Release (Dr/Ec) 81 mg PO QAM Qty: 30 0RF atorvastatin 20 mg Tablet 20 mg PO HS Qty: 30 0RF pantoprazole 40 mg Tablet,Delayed Release (Dr/Ec) 40 mg PO DAILY Qty: 30 0RF losartan 25 mg Tablet 50 mg PO DAILY Qty: 30 0RF metoprolol tartrate 50 mg Tablet 50 mg PO DAILY Qty: 60 0RF sertraline [Zoloft] 100 mg Tablet 200 mg PO DAILY Qty: 30 0RF solifenacin [Vesicare] 5 mg Tablet 10 mg PO DAILY Qty: 30 0RF acetaminophen 325 mg Tablet 650 mg PO Q8HR PRN (Reason: Mild Pain (1-3) Or Fever) Qty: 60 0RF Follow-up/Referrals: Scott Ndiaye M.D. [Primary Care Provider] - Time of Disposition: 00:51
--- NOTE | 2024-05-28 02:53 | PC.NURSE ---
Dressing dated 05/26 noted to jennifer left lower thigh
--- NOTE | 2024-05-28 03:26 | ADMGEN ---
This patient, Marissa Sue, was admitted to [facility] Surg Room 323-01. Patient/family oriented to hospital policies and general routines including ID bracelet, bed and alarms, visiting hours, pain management, procedures, bathroom and other care routines, personal items, smoking policy, room service/diet, and visiting hours. Information on how to activate the Rapid Response Team has been discussed. Patient/Family are encouraged to report perceived risks to care and to ask questions if they do not understand what they are told or what they should do.
[2024-05-28 03:33] LABS: Glucose Point of Care 113 mg/dl (65-105)
--- NOTE | 2024-05-28 13:44 | PM.IMHP ---
H&P: HPI History of Present Illness Date/Time: 05/28/24 13:44 Chief Complaint: confusion Narrative: Patient is a 84-year-old female who presents emergency department with chief complaint of altered mental status and UTI. The patient is normally a and O x4 but has been less active than normal and is currently alert oriented x2 patient has prior history of episodes similar to this when she has had urinary tract infections. Unable to obtain any history from pt as she is drowsy and confused. 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 History of partial hysterectomy History of spinal surgery Family History Family History Father Stomach cancer Social History Social History Social History: Healthcare power of patent attorney: Juan Sue, son. Code status: Do not resuscitate. Smoking status: Never smoker Second hand tobacco smoke exposure: Yes (Both parents smoked.) Alcohol intake: never Substance use: never Substance use type: does not use Do You Feel Safe in your Home?: Yes Lack of Transportation: No Lack of Food: Never True Current Housing: I Have Housing Concerned About Future Housing: No Difficulty Paying Gas/Electric Bills: No Difficulty Paying for Meds: No Currently Unemployed: No Education: Grade School Difficulty w/ Childcare or Family Care: No Living arrangements: with family Spiritual care concerns: No Meds Home Medications and Allergies Home Medications Medication Instructions Recorded Confirmed Type atorvastatin 20 mg tablet 20 mg PO HS #30 tabs 01/01/24 05/28/24 Rx losartan 25 mg tablet 50 mg PO DAILY #30 tabs 01/01/24 05/28/24 Rx metoprolol tartrate 50 mg tablet 50 mg PO DAILY #60 tabs 01/01/24 05/28/24 Rx pantoprazole 40 mg tablet,delayed 40 mg PO DAILY #30 tabs 01/01/24 05/28/24 Rx release solifenacin 5 mg tablet (Vesicare) 10 mg PO DAILY #30 tabs 01/01/24 05/28/24 Rx cetirizine 10 mg tablet 10 mg PO HS 02/22/24 05/28/24 History ergocalciferol (vitamin D2) 1,250 1,250 mcg PO WEEKLY 02/22/24 05/28/24 History mcg (50,000 unit) capsule iron,carbonyl 30 mg-vitamin C 10 1 tablet PO BID 02/22/24 05/28/24 History mg-FOS 25 mg chewable tablet (Chewable Iron) lidocaine 4 % topical patch 1 patch topical DAILY PRN Pain 02/22/24 05/28/24 History nystatin 100,000 unit/gram topical 1 applic topical DAILY 02/22/24 05/28/24 History cream sennosides 8.6 mg tablet (Senna 8.6 mg PO DAILY 02/22/24 05/28/24 History Lax) triamcinolone acetonide 0.1 % 1 applic topical DAILY 02/22/24 05/28/24 History topical cream aspirin 81 mg tablet,delayed 81 mg PO QAM #30 tabs 02/28/24 05/28/24 Rx release cyclobenzaprine 5 mg tablet 5 mg PO HS PRN Muscle Spasm 03/22/24 05/28/24 History gabapentin 100 mg capsule 100 mg PO BID@0900,1700 03/22/24 05/28/24 History levetiracetam 500 mg tablet 1,000 mg PO Q12HR #120 tabs 03/27/24 05/28/24 Rx (Keppra) acetaminophen 325 mg tablet 650 mg PO BID Mild Pain (1-3) Or 05/28/24 05/28/24 History Fever sertraline 100 mg tablet (Zoloft) 200 mg PO 1700 05/28/24 05/28/24 History Allergies Allergy/AdvReac Type Severity Reaction Status Date / Time ceftaroline fosamil Allergy Intermediate Rash Verified 05/02/24 14:55 Penicillins Allergy Intermediate Rash Verified 05/02/24 14:55 Sulfa (Sulfonamide Allergy Intermediate Rash Verified 05/02/24 14:55 Antibiotics) Vital Signs Vital Signs - 24 hr 05/27/24 19:21 12/06/24 19:48 05/27/24 20:00 Temperature 97.3 F L Pulse Rate 107 H 107 H Respiratory Rate 22 H 20 Blood Pressure 140/72 138/89 Pulse Oximetry 94 92 95 Oxygen Delivery Nasal Cannula Nasal Cannula Oxygen Flow Rate 2 2 05/27/24 21:20 05/27/24 22:26 05/27/24 22:45 Temperature Pulse Rate 99 99 103 H Respiratory Rate 26 H 24 H 27 H Blood Pressure 149/97 H 155/93 H 141/101 H Pulse Oximetry 94 92 Oxygen Delivery Oxygen Flow Rate 05/28/24 00:01 05/28/24 01:00 05/27/24 20:00 Temperature Pulse Rate 100 101 H 106 H Respiratory Rate 33 H 20 Blood Pressure 160/90 H 162/140 H Pulse Oximetry Oxygen Delivery Oxygen Flow Rate 05/28/24 02:43 05/28/24 03:20 05/28/24 03:30 Temperature 97.6 F Pulse Rate 97 97 Respiratory Rate 20 24 H 24 H Blood Pressure 166/111 H 166/92 H Pulse Oximetry 92 96 96 Oxygen Delivery Nasal Cannula Oxygen Flow Rate 2 05/28/24 06:00 05/28/24 10:05 Temperature 96.9 F L Pulse Rate 95 88 Respiratory Rate 20 Blood Pressure 156/95 H Pulse Oximetry 97 93 Oxygen Delivery Nasal Cannula Oxygen Flow Rate 2 Exam Narrative: resting with eye closed, very drowsy and confused Const: General: comfortable H&P: Results Labs Labs: Short CBC 05/27/24 Range/Units 19:42 WBC 5.8 (4.5-10.0) K/mm3 Hgb 10.8 L (12.0-15.0) g/dL Hct 33.5 L (37.0-47.0) % Plt Count 209 (150-375) k/mm3 BMP 05/27/24 19:42 Sodium 136 L Potassium 3.3 L Chloride 103 Carbon Dioxide 29 BUN 19 H Creatinine 0.40 L Glucose 123 H Calcium 8.6 Cardiac Enzymes 05/27/24 05/27/24 Range/Units 19:42 23:14 Troponin I 0.034 0.035 H* (0.000-0.034) ng/mL Liver Function 05/27/24 Range/Units 19:42 Total Bilirubin 0.7 (0.2-1.3) mg/dL AST 46 H (14-36) U/L ALT 13 (6-35) U/L Alkaline Phosphatase 85 (38-126) U/L Albumin 3.5 (3.5-5.1) g/dL Urine 05/27/24 Range/Units 20:48 Urine Color Dark yellow (Yellow) Urine Appearance Cloudy H (Clear) Urine pH 6.5 (5.0-9.0) Ur Specific [place] 1.036 H (1.001-1.035) Urine Protein 2+ H (Negative) mg/dL Urine Glucose (UA) Negative (Negative) mg/dL Assessment and Plan Assessment and plan (1) Decreased strength: Code(s): R53.1 - Weakness Status: Acute Assessment and Plan: will add PT/OT once more alert (2) Confusion: Code(s): R41.0 - Disorientation, unspecified Status: Acute Assessment and Plan: liekly due to UTI- will treat and re assess (3) Acute UTI: Code(s): N39.0 - Urinary tract infection, site not specified Status: Acute Assessment and Plan: started on cetriaxone in ed- 05/28 -will continue follow urine cutlure (4) Depression: Code(s): F32.9 - Major depressive disorder, single episode, unspecified Status: Acute (5) Hyperlipidemia: Code(s): E78.5 - Hyperlipidemia, unspecified Status: Acute Assessment and Plan: chronic-continue home meds (6) Hypertension: Code(s): I10 - Essential (primary) hypertension Status: Acute Assessment and Plan: continue home meds and montiore Plan h/o seizure- will continue home meds h/o gerd- will continue home meds dvt prophylaxis: lovenox Quality VTE Prophylaxis VTE prophylaxis: pharmacologic ordered
[2024-05-28] MEDS: ACETAMINOPHEN 325 MG TABLET 650 MG PO (16:24)
[2024-05-28] MEDS: MULTIVITS W-FE,MIN CHEWABLE TABLET 1 TABLET PO (16:25)
[2024-05-28] MEDS: SERTRALINE HCL 50 MG TABLET 200 MG PO (16:26)
[2024-05-28] MEDS: ATORVASTATIN 20 MG TABLET PO (20:20)
[2024-05-28] MEDS: levETIRAcetam 500 MG TABLET 1000 MG PO (20:20)
[2024-05-28] MEDS: LORATADINE 10 MG TABLET PO (20:20)
[2024-05-29 05:53] VITALS: BP 139/83; PULSE 102; RESP 20; TEMP 36.2; O2SAT 93
[2024-05-29 08:00] VITALS: PULSE 83; RESP 16; O2SAT 94
[2024-05-29] MEDS: PANTOPRAZOLE 40 MG TABLET PO (10:22)
[2024-05-29] MEDS: LOSARTAN POTASSIUM 25 MG TABLET 50 MG PO (10:22)
[2024-05-29] MEDS: ENOXAPARIN 40 MG/0.4 ML SYRINGE SUB-Q (10:22)
[2024-05-29] MEDS: SOLIFENACIN 5 MG TABLET 10 MG PO (10:22)
[2024-05-29 10:23] VITALS: PULSE 62
[2024-05-29] MEDS: levETIRAcetam 500 MG TABLET 1000 MG PO ×2 (10:23→20:58)
[2024-05-29] MEDS: SENNOSIDES 8.6 MG TABLET PO (10:23)
[2024-05-29] MEDS: ACETAMINOPHEN 325 MG TABLET 650 MG PO ×2 (10:23→17:40)
[2024-05-29] MEDS: METOPROLOL TARTRATE 50 MG TAB PO (10:23)
[2024-05-29] MEDS: ZINC OXIDE 20% OINT 30 GM TUBE 1 APPLIC TOPICAL (10:24)
[2024-05-29] MEDS: TRIAMCINOLONE ACET 0.1% CREAM 15 GM TUBE 1 APPLIC TOPICAL (10:24)
[2024-05-29] MEDS: MICONAZOLE NITRATE 2% CREAM 30 GM TUBE 1 APPLIC TOPICAL (10:24)
[2024-05-29] MEDS: MULTIVITS W-FE,MIN CHEWABLE TABLET 1 TABLET PO ×2 (10:24→17:40)
[2024-05-29] MEDS: ASPIRIN 81 MG ENTERIC TABLET PO (10:24)
--- NOTE | 2024-05-29 10:42 | PM.IMPN ---
Progress Note: A&P Assessment and Plan (1) Decreased strength: Code(s): R53.1 - Weakness Status: Acute Assessment and Plan: will add PT/OT once more alert (2) Confusion: Code(s): R41.0 - Disorientation, unspecified Status: Acute Assessment and Plan: liekly due to UTI- will treat and re assess (3) Acute UTI: Code(s): N39.0 - Urinary tract infection, site not specified Status: Acute Assessment and Plan: started on ceftriaxone in ed- 05/28 -will continue Proteus mirabilis- gram neg- will continue ceftriaxone until sensitivities are back possibky downgrade to po thursday (4) Depression: Code(s): F32.9 - Major depressive disorder, single episode, unspecified Status: Acute (5) Hyperlipidemia: Code(s): E78.5 - Hyperlipidemia, unspecified Status: Acute Assessment and Plan: chronic-continue home meds (6) Hypertension: Code(s): I10 - Essential (primary) hypertension Status: Acute Assessment and Plan: continue home meds and montiore Plan h/o seizure- will continue home meds h/o gerd- will continue home meds dvt prophylaxis: lovenox Time Spent With Patient Time with patient: Greater than 35 minutes Subjective Date/time seen: 05/29/24 10:42 Interval history: 05/29- seen and examined. pt is mote alert but still not oriented-family reports it is her baseline. Review of Systems Review of Systems: All systems reviewed & are unremarkable except as noted in HPI and below Exam Narrative: resting with eye closed, very drowsy and confused Const: General: comfortable Objective Data Vital Signs Vital Signs: Vital Signs - 24 hr 05/28/24 14:00 05/28/24 21:44 05/28/24 20:00 Temperature 97.9 F 97.7 F Pulse Rate 92 95 Respiratory Rate 20 16 Blood Pressure 158/78 H 149/82 H Pulse Oximetry 96 91 Oxygen Delivery Room Air 05/29/24 05:53 05/29/24 10:23 Temperature 97.2 F L Pulse Rate 102 H 62 Respiratory Rate 20 Blood Pressure 139/83 Pulse Oximetry 93 Oxygen Delivery Intake/Output Intake/Output: Intake & Output 12/05/24 12/06/24 12/07/24 12/08/24 23:59 23:59 23:59 23:59 Intake Total 1000 610 200 Output Total 800 150 Balance 1000 -190 50 Meds/Results Medications: Active Medications Generic Name Dose Route Start Last Admin Trade Name Freanya PRN Reason Stop Dose Admin Acetaminophen 650 mg 05/28/24 00:49 Acetaminophen 325 Mg Tablet PO Q4H PRN Mild Pain (1-3) or Fever Acetaminophen 650 mg 05/28/24 17:00 05/29/24 10:23 Acetaminophen 325 Mg Tablet PO 650 mg BID ALMAS Administration Aspirin 81 mg 05/29/24 09:00 05/29/24 10:24 Aspirin 81 Mg Enteric Tablet PO 81 mg QAM ALMAS Administration Atorvastatin Calcium 20 mg 05/28/24 21:00 05/28/24 20:20 Atorvastatin 20 Mg Tablet PO 20 mg HS ALMAS Administration Enoxaparin Sodium 40 mg 05/29/24 09:00 05/29/24 10:22 Enoxaparin 40 Mg/0.4 Ml Syringe SUB-Q 40 mg DAILY ALMAS Administration Ceftriaxone Sodium 1 gm in 50 mls @ 100 mls/hr 05/29/24 01:00 05/29/24 01:25 Rocephin 1 Gm/Ns 50 Ml IVPB Infused Q24H [facility] Infusion Levetiracetam 1,000 mg 05/28/24 21:00 05/29/24 10:23 Levetiracetam 500 Mg Tablet PO 1,000 mg Q12HR ALMAS Administration Lidocaine 1 patch 05/28/24 13:52 Lidocaine 5% Patch TRANSDERM DAILY PRN Pain Loratadine 10 mg 05/28/24 21:00 05/28/24 20:20 Loratadine 10 Mg Tablet PO 10 mg HS ALMAS Administration Losartan Potassium 50 mg 05/29/24 09:00 05/29/24 10:22 Losartan Potassium 25 Mg Tablet PO 50 mg DAILY ALM[facility] Administration Metoprolol Tartrate 50 mg 05/29/24 09:00 05/29/24 10:23 Metoprolol Tartrate 50 Mg Tab PO 50 mg DAILY ALMAS Administration Miconazole Nitrate 1 applic 05/29/24 09:00 05/29/24 10:24 Miconazole Nitrate 2% Cream 30 Gm Tube TOPICAL 1 applic DAILY ALMAS Administration Multivitamins/Minerals 1 tablet 05/28/24 17:00 05/29/24 10:24 Multivits W-Fe,Min Chewable Tablet PO 1 tablet BID ALMAS Administration Ondansetron HCl 4 mg 05/28/24 00:49 Ondansetron Inj 4 Mg/2 Ml Vial IV PUSH Q4H PRN Nausea Pantoprazole Sodium 40 mg 05/29/24 09:00 05/29/24 10:22 Pantoprazole 40 Mg Tablet PO 40 mg DAILY ALMAS Administration Senna 8.6 mg 05/29/24 09:00 05/29/24 10:23 Sennosides 8.6 Mg Tablet PO 8.6 mg DAILY AL[facility]AS Administration Sertraline HCl 200 mg 05/28/24 17:00 05/28/24 16:26 Sertraline Hcl 50 Mg Tablet PO 200 mg 1700 ALMAS Administration Solifenacin 10 mg 05/29/24 09:00 05/29/24 10:22 Solifenacin 5 Mg Tablet PO 10 mg DAILY ALMAS Administration Triamcinolone Acetonide 1 applic 05/29/24 09:00 05/29/24 10:24 Triamcinolone Acet 0.1% Cream 15 Gm Tube TOPICAL 1 applic DAILY ALMAS Administration Zinc Oxide 1 applic 05/29/24 09:00 05/29/24 10:24 Zinc Oxide 20% Oint 30 Gm Tube TOPICAL 1 applic QAM ALMAS Administration Radiology Results: ITS Impressions Chest X-Ray 05/27/24 20:21 IMPRESSION: Highly suggestive bilateral pneumonitis. Atypical viral infection should be considered. Pulmonary edema is possible. Clinical correlation advised. Head CT 05/27/24 23:03 IMPRESSION: No acute intracranial findings. Quality VTE Prophylaxis VTE prophylaxis: pharmacologic ordered
[2024-05-29 14:00] VITALS: BP 128/61; PULSE 83; RESP 16; TEMP 36.1; O2SAT 94
[2024-05-29] MEDS: SERTRALINE HCL 50 MG TABLET 200 MG PO (17:42)
[2024-05-29] MEDS: ATORVASTATIN 20 MG TABLET PO (20:58)
[2024-05-29] MEDS: LORATADINE 10 MG TABLET PO (20:58)
[2024-05-29 21:58] VITALS: BP 140/75; PULSE 77; RESP 20; TEMP 36.9; O2SAT 90
[2024-05-30 06:00] VITALS: BP 138/70; PULSE 81; RESP 18; TEMP 36.4; O2SAT 90
[2024-05-30] MEDS: ENOXAPARIN 40 MG/0.4 ML SYRINGE SUB-Q (07:48)
[2024-05-30] MEDS: LOSARTAN POTASSIUM 25 MG TABLET 50 MG PO (07:48)
[2024-05-30] MEDS: MULTIVITS W-FE,MIN CHEWABLE TABLET 1 TABLET PO (07:48)
[2024-05-30] MEDS: PANTOPRAZOLE 40 MG TABLET PO (07:48)
[2024-05-30] MEDS: ASPIRIN 81 MG ENTERIC TABLET PO (07:48)
[2024-05-30] MEDS: levETIRAcetam 500 MG TABLET 1000 MG PO (07:48)
[2024-05-30] MEDS: ACETAMINOPHEN 325 MG TABLET 650 MG PO (07:48)
[2024-05-30] MEDS: SOLIFENACIN 5 MG TABLET 10 MG PO (07:48)
[2024-05-30] MEDS: METOPROLOL TARTRATE 50 MG TAB PO (07:48)
[2024-05-30] MEDS: MICONAZOLE NITRATE 2% CREAM 30 GM TUBE 1 APPLIC TOPICAL (07:49)
[2024-05-30] MEDS: TRIAMCINOLONE ACET 0.1% CREAM 15 GM TUBE 1 APPLIC TOPICAL (07:49)
[2024-05-30] MEDS: ZINC OXIDE 20% OINT 30 GM TUBE 1 APPLIC TOPICAL (07:50)
[2024-05-30 09:13] VITALS: O2SAT 92
--- NOTE | 2024-05-30 12:53 | PM.DS ---
DS: Admitting Diagnosis Discharge Date 05/30 Admitting Diagnosis confusion DS: Discharge Diagnosis Discharge Diagnosis (1) Decreased strength: Code(s): R53.1 - Weakness Status: Acute (2) Confusion: Code(s): R41.0 - Disorientation, unspecified Status: Acute (3) Acute UTI: Code(s): N39.0 - Urinary tract infection, site not specified Status: Acute (4) Depression: Code(s): F32.9 - Major depressive disorder, single episode, unspecified Status: Acute (5) Hyperlipidemia: Code(s): E78.5 - Hyperlipidemia, unspecified Status: Acute (6) Hypertension: Code(s): I10 - Essential (primary) hypertension Status: Acute DS: Summary Hospital Course Hospital Course: Patient is a 84-year-old female who presents emergency department with chief complaint of altered mental status and UTI. The patient is normally a and O x4 but has been less active than normal and is currently alert oriented x2 patient has prior history of episodes similar to this when she has had urinary tract infections. Unable to obtain any history from pt as she is drowsy and confused. several problems were addressed: confusion -likely due to uti -resolved-pt is back to her baseline UTI started on ceftriaxone in ed- 05/28 Proteus mirabilis- gram neg- will continue ceftriaxone until sensitivities are back downgrade to po Cefdinir - last dose 06/03 am - 8 more doses- start tonite, 05/30 Status at Discharge Functional status at discharge: uses cane/walker Overall status at discharge: patient is progressing back to baseline Time Spent with Patient Time attestation: Total time spent providing and/or coordinating discharge services: Exam Narrative: resting with eye closed, very drowsy and confused Const: General: comfortable DS: Data Data Completed and Pending Labs on day of discharge: Preliminary micro results at discharge 05/27/24 20:48 Urine Culture - Preliminary Unspecified Proteus Mirabilis 05/27/24 20:47 Blood Culture - Preliminary Blood 05/27/24 20:40 Blood Culture - Preliminary Blood Discharge Plan Discharge Attending physician on discharge: Tulio Persaud Discharging Clinician: Ivy Santamaria Patient Disposition: NH Half-Way/Asst Living Activity: may shower Diet: as tolerated and heart healthy Patient Instructions: Antibiotic Form Stand Alone Forms: General Discharge Information Discharge Medications: New cefdinir 300 mg Capsule 300 mg PO Q12H Qty: 8 0RF Continued cyclobenzaprine 5 mg Tablet 5 mg PO HS PRN (Reason: Muscle Spasm) gabapentin 100 mg capsule 100 mg PO BID@0900,1700 levetiracetam [Keppra] 500 mg Tablet 1,000 mg PO Q12HR Qty: 120 0RF acetaminophen 325 mg tablet 650 mg PO BID sertraline [Zoloft] 100 mg tablet 200 mg PO 1700 sennosides [Senna Lax] 8.6 mg Tablet 8.6 mg PO DAILY lidocaine 4 % Adhesive Patch,Medicated 1 patch TOPICAL DAILY PRN (Reason: Pain) Rx Instructions: apply to back of left stump cetirizine 10 mg Tablet 10 mg PO HS triamcinolone acetonide 0.1 % Cream 1 applic TOPICAL DAILY Rx Instructions: mix with equal parts of nystatin cream and zinc oxide nystatin 100,000 unit/gram Cream 1 applic TOPICAL DAILY Rx Instructions: mix with equal parts of triamcinolone and zinc oxide; apply to rash and other nonspecific skin eruption ergocalciferol (vitamin D2) 1,250 mcg (50,000 unit) Capsule 1,250 mcg PO WEEKLY Rx Instructions: takes on Chewable Iron 30-10-25 mg Tablet,Chewable 1 tablet PO BID aspirin 81 mg Tablet,Delayed Release (Dr/Ec) 81 mg PO QAM Qty: 30 0RF atorvastatin 20 mg Tablet 20 mg PO HS Qty: 30 0RF pantoprazole 40 mg Tablet,Delayed Release (Dr/Ec) 40 mg PO DAILY Qty: 30 0RF losartan 25 mg Tablet 50 mg PO DAILY Qty: 30 0RF metoprolol tartrate 50 mg Tablet 50 mg PO DAILY Qty: 60 0RF solifenacin [Vesicare] 5 mg Tablet 10 mg PO DAILY Qty: 30 0RF Date of admission: 05/29/24 14:08 Primary Care Provider: Scott Ndiaye Admitting Provider: Gricel Foster Attending physician on admission: Gricel Foster Condition: Stable Quality VTE Prophylaxis VTE prophylaxis: pharmacologic ordered Hospitalist MIPS Heart Failure (Exclusion) Patient has history of Heart Transplant or Left Ventricular Assistive Device?: No IF YES, STOP HERE Heart Failure (Qualifier) Patient has current or prior documentation of LVEF less than or equal to 40%, or mod/servere depressed LVSF?: No IF NO, STOP HERE
[2024-05-30 14:00] VITALS: BP 138/75; PULSE 72; RESP 16; TEMP 35.8; O2SAT 96
--- NOTE | 2024-06-01 09:31 | PC.NURSE ---
Urine cx growing Proteus Mirabilis which is sensitive to the Cefdinir pt discharged home on.
== END 2024-05-30 15:15 | DRG 690 ==
LOC: ANHED 05-28 00:51 → ANH3MEDSUR 05-28 02:04
PROVIDERS: Admitting Provider Internal Medicine; Emergency Provider Emergency Medicine; PCP Family Medicine; Visit Provider Nurse Practitioner
DX: N39.0 Urinary tract infection, site not specified (principal); B96.4 Proteus (mirabilis) (morganii) as the cause of diseases classified elsewhere; K21.9 Gastro-esophageal reflux disease without esophagitis; E78.5 Hyperlipidemia, unspecified; I10 Essential (primary) hypertension; N32.81 Overactive bladder; G25.81 Restless legs syndrome; G40.909 Epilepsy, unspecified, not intractable, without status epilepticus; M19.90 Unspecified osteoarthritis, unspecified site; F32.9 Major depressive disorder, single episode, unspecified; Z66 Do not resuscitate; Z90.49 Acquired absence of other specified parts of digestive tract; Z89.612 Acquired absence of left leg above knee; Z90.711 Acquired absence of uterus with remaining cervical stump
CPT/HCPCS: 36415; 70450; 71045; 80053; 81001; 82948; 83605; 83690; 83735; 83880; 84145; 84484; 85025; 85610; 85730; 87040; 87086; 87186; 87637; 96361; 96365; 96372; 97165; 97535; 99285; A9270; G0378; J0696; J1650; J7030